=== PATIENT | male | born 1965 | race Native Hawaiian/Other Pacific Islander ===

== ENCOUNTER 2016-09-09 01:15 | Inpatient (IN) | payer MEDICAID, OTHER ==
[~2016-09-09] VITALS: Ht 185.4 cm; Wt 92.0 kg
[2016-09-09] VITALS (31 sets, daily range): BP systolic 98–150; BP diastolic 72–98; PULSE 47–168; RESP 12–22; TEMP 98.2–98.6; O2SAT 98–100
[~2016-09-09 01:15] MED LIST: COUM1TAB PO; SIMV20 PO
[2016-09-09] MEDS ORDERED: ASPIRIN 81 MG CHEW TAB PO STA (01:21)
[2016-09-09] MEDS ORDERED: HEPARIN SODIUM - IV 10,000 UNITS/10 ML VIAL IV STA (01:21)
[2016-09-09] MEDS ORDERED: NITROGLYCERIN 0.4 MG SL 25 TABS/BTL SL STA (01:21)
[2016-09-09] MEDS ORDERED: SODIUM CHLOR 0.9% 1000 ML INJ 1,000 ML IV ONE (01:21)
[2016-09-09] MEDS ORDERED: NITROGLYCERIN-DEXTROSE INJ 250 ML IV SCH (01:30)
[2016-09-09 01:42] LABS: AUTOMATED NEUTROPHIL # 3.9 TH/MM3 (1.8-7.7); BASOPHIL # 0.1 TH/MM3 (0-0.2); BASOPHIL % 1.3 % (0.0-2.0); EOSINOPHIL # 0.3 TH/MM3 (0-0.4); EOSINOPHIL % 2.8 % (0.0-4.0); HEMATOCRIT 44.9 % (39.0-51.0); HEMO FLAGS DIFF FINAL; LYMPH % 44.3 % (9.0-44.0); MEAN CELL VOLUME 85.8 FL (80.0-100.0); MEAN CORPUSCULAR HGB CONC 33.8 % (32.0-36.0); MONO % 9.2 % (0.0-8.0); NEUT % 42.4 % (16.0-70.0); PLATELET COUNT 246 TH/MM3 (150-450); RED BLOOD COUNT 5.24 MIL/MM3 (4.50-5.90); RED CELL DISTRIBUTION WIDTH 12.1 % (11.6-17.2); WHITE BLOOD COUNT 9.1 TH/MM3 (4.0-11.0)
--- NOTE | 2016-09-09 01:42 | PD ---
HPI Chief Complaint: chest pain Time Seen by Provider: 01:21 Travel History International Travel<30 days: No Contact w/Intl Traveler<30days: No Traveled to known affect area: No History of Present Illness HPI The patient is a 51-year-old male who states he does not have any previous history of coronary artery problems and does not have a authorization manager who complains of a heaviness/weight on his chest beginning at midnight tonight. The pain is perceived in the left anterior chest and is constant since midnight. He does have nausea shortness of breath but no diaphoresis. He does have radiation to his left neck and back. 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 PFSH Past Medical History Cancer: No Cerebrovascular Accident: No Deep Vein Thrombosis: Yes Endocrine: No Genitourinary: No Immune Disorder: No Musculoskeletal: No Neurologic: No Psychiatric: No Respiratory: No Myocardial Infarction: Yes Seizures: No Past Surgical History AICD: No Appendectomy: Yes Pacemaker: No Tonsillectomy: Yes Social History Alcohol Use: No Tobacco Use: Yes (a day) Substance Use: No Allergies-Medications (Allergen,Severity, Reaction): Coded Allergies: No Known Allergies (Verified , 03/15/10) Reported Meds & Prescriptions Reported Meds & Active Scripts Active Reported Zocor (Simvastatin) 20 Mg Tab 20 Mg PO HS Coumadin (Warfarin Sodium) 1 Mg Tab 1 Mg PO DAILY start on march 18, 2010,pt/inr on 03/19/10 and as needed results to dr. huggins Review of Systems Except as stated in HPI: all other systems reviewed are Neg Physical Exam Narrative GENERAL: The patient is alert, oriented 3 and moderate apparent distress with his chest discomfort. SKIN: Focused skin assessment warm/dry. HEAD: Atraumatic. Normocephalic. EYES: Pupils equal and round. No scleral icterus. No injection or drainage. ENT: No nasal bleeding or discharge. Mucous membranes pink and moist. NECK: Trachea midline. No JVD. CARDIOVASCULAR: Regular rate and rhythm. No murmur appreciated. RESPIRATORY: No accessory muscle use. Clear to auscultation. Breath sounds equal bilaterally. GASTROINTESTINAL: Abdomen soft, non-tender, nondistended. Hepatic and splenic margins not palpable. MUSCULOSKELETAL: No obvious deformities. No clubbing. No cyanosis. No edema. NEUROLOGICAL: Awake and alert. No obvious cranial nerve deficits. Motor grossly within normal limits. Normal speech. PSYCHIATRIC: Appropriate mood and affect; insight and judgment normal. Data Data Orders Troponin I (09/09/16:21) Ckmb (Isoenzyme) Profile (09/09/16:21) Complete Blood Count With Diff (09/09/16:21) Basic Metabolic Panel (Bmp) (09/09/16:21) Magnesium (Mg) (09/09/16:21) Calcium (09/09/16:21) Prothrombin Time / Inr (Pt) (09/09/16:21) Act Partial Throm Time (Ptt) (09/09/16:21) B-Type Natriuretic Peptide (09/09/16:21) Chest, Single Ap (09/09/16:) Electrocardiogram (09/09/16:21) Oxygen Administration (09/09/16:21) Iv Access Insert/Monitor (09/09/16:) Oximetry (09/09/16:) Sodium Chlor 0.9% 1000 Ml Inj (Ns 1000 M (09/09/16:21) Sodium Chloride 0.9% Flush (Ns Flush) (09/09/16:30) Aspirin Chew (Aspirin Chew) (09/09/16:21) Nitroglycerin Sl (Nitrostat Sl) (09/09/16:21) Nitroglycerin-Dextrose Inj (Nitroglyceri (09/09/16:30) Heparin Inj (Heparin Inj) (09/09/16:21) Admit Order (Ed Use Only) (09/09/16 01:43) CKMB (09/09/16:30) CKMB% (09/09/16 01:30) Labs Laboratory Tests Test 09/09/16:30 White Blood Count 9.1 TH/MM3 Red Blood Count 5.24 MIL/MM3 Hemoglobin 15.2 GM/DL Hematocrit 44.9 % Mean Corpuscular Volume 85.8 FL Mean Corpuscular Hemoglobin 29.0 PG Mean Corpuscular Hemoglobin 33.8 % Concent Red Cell Distribution Width 12.1 % Platelet Count 246 TH/MM3 Mean Platelet Volume 7.5 FL Neutrophils (%) (Auto) 42.4 % Lymphocytes (%) (Auto) 44.3 % Monocytes (%) (Auto) 9.2 % Eosinophils (%) (Auto) 2.8 % Basophils (%) (Auto) 1.3 % Neutrophils # (Auto) 3.9 TH/MM3 Lymphocytes # (Auto) 4.0 TH/MM3 Monocytes # (Auto) 0.8 TH/MM3 Eosinophils # (Auto) 0.3 TH/MM3 Basophils # (Auto) 0.1 TH/MM3 CBC Comment DIFF FINAL Differential Comment Prothrombin Time 19.5 SEC Prothromb Time International 1.7 RATIO Ratio Activated Partial 35.2 SEC Thromboplast Time Sodium Level 142 MEQ/L Potassium Level 3.5 MEQ/L Chloride Level 105 MEQ/L Carbon Dioxide Level 29.2 MEQ/L Anion Gap 8 MEQ/L Blood Urea Nitrogen 20 MG/DL Creatinine 1.30 MG/DL Estimat Glomerular Filtration 58 ML/MIN Rate Random Glucose 127 MG/DL Calcium Level 9.0 MG/DL Magnesium Level 2.3 MG/DL Total Creatine Kinase 160 U/L Troponin I LESS THAN 0.02 NG/ML MDM Medical Decision Making Medical Screen Exam Complete: Yes Emergency Medical Condition: Yes Medical Record Reviewed: Yes Interpretation(s) The EKG shows ST elevation in the anteroseptal V leads with reciprocal depression Differential Diagnosis STEMIanteroseptal myocardial infarction, chest wall pain, ventricular aneurysm unlikely Narrative Course We called a STEMI alert as soon as I saw the EKG. I did discuss the patient with Dr. Canada. The patient went into V. tach with a pulse and then went into ventricular fibrillation. Epinephrine was given and he was shocked and shortly went into atrial fibrillation rhythm with a rate of 70 with a good pulse. His blood pressure was normal and his bradycardia which started in the mid 40s when into an atrial fibrillation rate of mid 70s. Amiodarone 150 mg was given IV over 10 minutes. The patient went into V. tach without a pulse and he was shocked again and quickly converted to a rhythmatrial fibrillation with a good pulse and the mid 80s. After the first and second episodes of ventricular tachycardia/fibrillation the patient was able to converse with us and answer questions. He moves all 4 extremities normally. Critical Care Narrative Aggregate critical care time was 40 minutes. Time to perform other separately billable procedures was not included in the critical care time. My time did not include minutes spent treating any other patients simultaneously or on activities that did not directly contribute to the patient's treatment. The services I provided to this patient were to treat and/or prevent clinically significant deterioration that could result in: I provided critical care services requiring my management, as noted below: Chart data review, documentation time, medication orders and management, vital sign assessments/reviewing monitor data, ordering and reviewing lab tests, ordering and interpreting/reviewing x-rays and diagnostic studies, care of the patient and discussion of the patient with the admitting physicians. Diagnosis Primary Impression: STEMI (ST elevation myocardial infarction) Additional Impression: VF (ventricular fibrillation) Disposition: 70 TRANSFER TO OTHER FACILITY Condition: Stable Raoul Cleary MD September 09, 2016 01:42
[2016-09-09 01:49] LABS: CHLORIDE 105 MEQ/L (98-107); POTASSIUM 3.5 MEQ/L (3.5-5.1); SODIUM (NA) 142 MEQ/L (136-145)
[2016-09-09 01:53] LABS: ANION GAP 8 MEQ/L (5-15); BICARBONATE 29.2 MEQ/L (21.0-32.0); BLOOD UREA NITROGEN 20 MG/DL (7-18); MAGNESIUM 2.3 MG/DL (1.5-2.5)
[2016-09-09 01:55] LABS: APTT (PATIENT) 35.2 SEC (24.3-30.1); INTERNATIONAL NORMALIZED RATIO 1.7 RATIO; PROTHROMBIN TIME - PATIENT 19.5 SEC (9.8-11.6)
[2016-09-09 01:56] LABS: GLOMERULAR FILTRATION RATE 58 ML/MIN (>89)
[2016-09-09 01:59] LABS: CREATINE KINASE 160 U/L (39-308)
[2016-09-09] MEDS ORDERED: AMIODARONE INJ 450 MG in D5W (EXCEL BAG) 241 ML IV SCH (02:00)
[2016-09-09] MEDS ORDERED: AMIODARONE 150 MG/D5W 97 ML BOLUS 10 MINUTES IV ONE ×2 (02:00)
--- NOTE | 2016-09-09 02:01 | RADHPO ---
EXAM DATE/TIME: 09/09/2016 01:49 [facility] COMPARISON: No previous studies available for comparison. INDICATIONS : Stemi Alert/ full code MEDICAL HISTORY : Stroke. SURGICAL HISTORY : Unknown ENCOUNTER: Initial ACUITY: 1 day PAIN SCORE: Non-responsive. LOCATION: Bilateral chest FINDINGS: A single view of the chest demonstrates the lungs to be symmetrically aerated without evidence of mas s, infiltrate or effusion. The cardiomediastinal contours are unremarkable. Osseous structures are intact. CONCLUSION: No acute disease. Dusty March MD on September 09, 2016 at 1:58 Board Certified Radiologist. This report was verified electronically.
[2016-09-09] MEDS ORDERED: ONDANSETRON HCL 4 MG/2 ML VIAL ONE (02:03)
[2016-09-09 02:11] LABS: CKMB 0.7 NG/ML (0.5-3.6)
[2016-09-09] MEDS ORDERED: ONDANSETRON HCL 4 MG/2 ML VIAL IV ONE (02:15)
[2016-09-09] MEDS ORDERED: HEPARIN-NS/PF INJ 500 ML ONE (02:36)
[2016-09-09] MEDS ORDERED: HEPARIN SODIUM - IV 10,000 UNITS/10 ML VIAL ONE (02:37)
[2016-09-09] MEDS ORDERED: NITROGLYCERIN-DEXTROSE INJ 250 ML ONE (02:53)
[2016-09-09] MEDS ORDERED: TIROFIBAN INFUSION INJ 250 ML IV ONE (02:56)
[2016-09-09] MEDS ORDERED: MIDAZOLAM HCL 2 MG/2 ML VIAL ONE (03:04)
[2016-09-09] MEDS ORDERED: MIDAZOLAM HCL 2 MG/2 ML VIAL IV ONE ×2 (03:05→03:22)
[2016-09-09] MEDS ORDERED: HEPARIN SODIUM - IV 10,000 UNITS/10 ML VIAL IV ONE (03:14)
[2016-09-09] MEDS ORDERED: CLOPIDOGREL 300 MG TAB ONE (03:31)
[2016-09-09] MEDS ORDERED: CLOPIDOGREL 300 MG TAB PO ONE (03:36)
[2016-09-09] MEDS: SODIUM CHLOR 0.9% 1000 ML INJ 1,000 ML IV SCH ×2 (03:42→14:12)
[2016-09-09] MEDS ORDERED: TEMAZEPAM 15 MG CAP PO PRN (03:45)
[2016-09-09] MEDS ORDERED: MISC INFORMATION XX ONE (03:45)
[2016-09-09] MEDS ORDERED: LORazepam 2 MG/ML VIAL IV PUSH PRN (04:00)
--- NOTE | 2016-09-09 04:09 | CATHPROC ---
[employer] HIS Report Study Information Study Number Scheduled Start Study Start [id number] 09/09/2016 Sep 09 2016 2:41AM Referring Institution Admit Source Facility Department 1 Transfer in from another acute care facility [facility] - Senior Web Services Developer Physician and Clinical Staff Initial Bishop Kaufman Aircraft Loadmaster Superintendentdanny Whitmore RN, Sergio Aircraft Loadmaster SuperintendentRuby Ly RN/BA Recorder Debra Echols,RT(R) (BS) Scrub Roxy BraunRT(R) Procedures Performed Procedure Location (Site) Vessel Name Coronary Angiograms LCA Left Coronary Coronary Angiograms RCA Right Coronary Drug Eluting Inflatio LAD Mid Left Coronary Drug Eluting Inflatio LAD Prox Left Coronary IABP Fem Art (right) Femoral Art L Heart Cath PTCA LAD Mid Left Coronary Wire insertion Fem Art (right) Femoral Art Equipment Time Tmd Teacher Description Size Mfg Part Number Used/Scraped [id number] 02:57 [employer] WIRE, ASAHI PROWATER 180CM 180CM Used *[id number] TRANSDUCER, TRUWAVE 02:50 ANGEL VILLA * [id number] Used W/STOCKCOCK [id number] *[id number] *[id number] *[id number] BALLOON, FR7.5 40CC [id number] 03:26 MAQUET FR 7.5 40CC Used SENSATION PLUS 01U [id number] 02:50 MEDLINE INDUSTRIES PACK, CCL CUSTOM * Used *[id number] 02:50 LettuceThinner PACER PEN, SKIN DUAL W/ RULER * [id number] Used [id number] 03:03 MEDTRONIC BALLOON, 3.0 X 15MM EUPHORA 15MM Used *[id number] EXPORTAP 03:14 MEDTRONIC CATHETER, EXPORT ASPIRATON Used *[id number] STENT, 3.0 18 RESOLUTE [id number] 03:06 MEDTRONIC 3.0 18 Used INTEGRITY RX *[id number] STENT, 3.5 15 RESOLUTE [id number] 03:10 MEDTRONIC 3.5 15 Used INTEGRITY RX *[id number] 03:03 [employer]k MEDICAL 30 CAROL INDEFLATOR Used *[id number] 02:50 [employer] MEDICAL SHEATH, FR6.5 PRELUDE 11CM FR 6.5 038ACT Used *[id number] 02:50 [employer] MEDICAL WIRE, 3MMJ .035 180CM 180CM Used *[id number] 02:50 NAMIC MANIFOLD, 4 PORT * Used *[id number] 02:50 [employer]COMED OMNIPAQUE, 350 MG, 150ML 150ML [id number] Used [id number] 02:50 LIM MEDICAL BLANKET,WARM AIR CCL * Used *[id number] Equipment Model, Serial, Lot Number and Expiration Data Description Model Number Serial Number Lot Number Expiration Date CATHETER, EXPORT ASPIRATON [id number] 04-24-2018 STENT, 3.0 18 RESOLUTE [id number] 06-13-2018 INTEGRITY RX STENT, 3.5 15 RESOLUTE [id number] 02-05-2018 INTEGRITY RX History: Current Medications Medication Dosage/Unit Route Frequency Last Date/Time Taken Statins (any) Coumadin ASA HEPARIN History: Allergies Allergy Reaction Azithromycin Unknown History: Risk Factors Family History of Hypertension Dyslipidemia Previous [place] Previous Heart Failure Premature CAD Yes No No Yes No Prior Valve Prior PCI Prior CABG Surgery No No No Cerebrovascular Peripheral Artery Chronic Lung On Dialysis Diabetes Disease Disease Disease No Yes No No No History: Symptoms/Diagnosis Selection Items Chest pain History: Stress Tests Stress or Imaging Studies Performed No History: Other Current Smoker Method Yes Cigarettes Labs Hgb (g/dl) Hct (%) WBC (l/cumm) Platelets (thousands) 12.00-18.00 37.00-55.00 4.80-10.80 140.00-450.00 15.2 44.9 9.1 246 Glucose (mg/dl) BUN (mg/dl) Creatinine (mg/dl) BUN:Creatinine (1:x) 60.00-110.00 8.00-20.00 0.10-9.00 10.00-20.00 124 20 1.3 15.4 Na (meq/l) K (meq/l) 138.00-146.00 3.80-5.10 142 3.5 INR (PTT:PT) 0.50-2.00 1.7 Medication Medication Total Dose (Bolus/Oral) Medication Total Dosage/Unit 1% XYLOCAINE 20 mL AGGRASTAT BOLUS 46 mL FENTANYL 100 mcg HEPARIN 2000 units PLAVIX 600 mg VERSED 3 mg Medications (Bolus/Oral) Medication Time Given Dosage/Unit Administered By Reason 1% XYLOCAINE 09/09/2016 2:52:12 AM 20 mL Dread, Bishop 20 mL 1% XYLOCAINE given in lab by Bishop Canada in Right Groin via Subcutaneous. AGGRASTAT BOLUS 09/09/2016 3:00:03 AM 46 mL Sergio Whitmore RN 46 mL AGGRASTAT BOLUS given in lab by Sergio Whitmore RN in Left Antecubital via Peripheral IV. VERSED 09/09/2016 3:05:10 AM 1 mg Ruby Sigala 1 mg VERSED given in lab by Ruby Sigala RN/JESSICA in Left Antecubital via Peripheral IV. FENTANYL 09/09/2016 3:07:02 AM 50 mcg Ruby Sigala 50 mcg FENTANYL given in lab by Ruby Sigala RN/JESSICA in Left Antecubital via Peripheral IV. HEPARIN 09/09/2016 3:14:47 AM 2000 units Ruby Sigala 2000 units HEPARIN given in lab by Ruby Sigala RN/JESSICA in Left Antecubital via Peripheral IV. VERSED 09/09/2016 3:22:54 AM 2 mg Ruby Sigala 2 mg VERSED given in lab by Ruby Sigala RN/JESSICA in Left Antecubital via Peripheral IV. FENTANYL 09/09/2016 3:31:30 AM 50 mcg Ruby Sigala 50 mcg FENTANYL given in lab by Ruby Sigala RN/JESSICA in Left Antecubital via Peripheral IV. PLAVIX 09/09/2016 3:36:15 AM 600 mg Ruby Sigala 600 mg PLAVIX given in lab by Ruby Sigala RN/JESSICA via Oral. Medication (Drip) Medication Time Given Dosage/Unit Concentration/Unit Diluent (ml) Solution AGGRASTAT DRIP 09/09/2016 3:03:22 AM 0.081 mcg/kg/min 12.5 mg 250 NaCl .9 0.081 mcg/kg/min AGGRASTAT DRIP given in lab by Sergio Whitmore RN in Left Antecubital via Peripheral IV . Pump/Drip Flow = 16.5 ml/hr using NaCl .9 with a concentration of 12.5 mg in 250 ml. IV Solutions 09/09/2016 2:42:27 AM 0 mL (IV) 1000 NaCl .9 Patient arrived on IV Solutions in Left Antecubital via Peripheral IV. Pump/Drip Flow = 20 ml/hr usin g NaCl .9. Initial Case Assessment Cardiovascular HR Rhythm NIBP Chest Pain 95 reg 110/61 10 Edema Present Skin color Skin None Normal Warm Dry Circulatory - Right Pulses Dorsalis Pedis Femoral 2 2 Scale (0,1,2,3,4,d) Circulatory - Left Pulses Dorsalis Pedis Femoral 2 2 Scale (0,1,2,3,4,d) Circulatory - Lower Extremities Color Lower Right Color Lower Left Normal Normal Neurological State Oriented to time-place- Alert Moves all extremities person Respiration - General Respiration Rate SpO2 (%) O2 (lpm) (B/min) 16 99 2 Chronological Log Time Study Chronological Log 2:23:17 Patient arrived via Bed. Vitals capture started with the following parameters, Patient=Adult, Interval=5 min, Initial Pr dixxle=693 mmHg, 2:40:56 Deflation Rate=5 mmHg 2:42:14 Patient Name, D.O.B, / Armband Verified By R.N. 2:42:15 Consent signed by the physician and the patient and verified by the Senior Web Services Developer staff. 2:42:15 Pre-op and post- op instructions given; patient acknowledges understanding of instructions. 2:42:16 Verbal Stimulation=2 Physical Stimulation=2 Airway=2 Respiration=2 TOTAL=8. (0=absent, 1=li mited, 2=present) 2:42:17 Presedation assessment performed by Senior Web Services Developer RN. 2:42:20 Immediate Presedation assesment performed by physician. 2:42:22 Skin Breakdown none per pt 2:42:25 Disposable Defibrillator Pads Placed On Patient. 2:42:26 Brenda Prominences Protected 2:42:26 A # 20 IV was noted in the Antecubital (left). Grade = 0 2:42:27 Patient arrived on IV Solutions in Left Antecubital via Peripheral IV. Pump/Drip Flow = 20 ml/hr using NaCl .9. 2:42:28 History and physical on the chart or being dictated. Assessment: Initial Case, HR=95 BPM, Rhythm=reg, QCYL=458/61 mmhg, Chest Pain=10, Edema=None, Color=Normal, Skin = Warm, Dry Right Pulses: Terry Ped=2, Femoral=2 Left Pulses: Terry Ped=2, Femoral=2 2:42:36 Lower Right Extremities: Color=Normal Lower Left Extremities: Color=Normal Neurological: State=Alert, Ox3, CRANE Respiration: Resp=16 B/min, SpO2=99 %, O2=2 lpm 2:44:57 HR=93 bpm, GQSM=850/61 mmhg, SpO2=97.0 %, Resp=13 B/min, Pain=10, Arturo=10, Mir=2 2:49:15 Reference ECG taken 2:49:56 HR=93 bpm, PMOS=173/64 mmhg, SpO2=99.0 %, Resp=15 B/min, Pain=10, Arturo=10, Mir=2 2:50:29 Pressure channel 1 zero failed. 2:50:50 Pressure channel 1 zero failed. 2:51:14 Pressure channel 1 zeroed. Time Out. Correct patient, correct procedure,correct physician, power injector not loaded with c ontrast with surgical 2:51:57 team present. Time Out Concurred by MD, individual staff in procedure 2:52:10 Case Start 2:52:12 20 mL 1% XYLOCAINE given in lab by Bishop Canada in Right Groin via Subcutaneous. 2:52:20 Access site was Right Femoral Artery. 2:52:26 A SHEATH, FR6.5 PRELUDE 11CM FR 6.5 was advanced into the Fem Art (right) using the Percutan eous technique. 2:53:38 Activated Clotting Time Drawn A JL 4.0 INFINITI CATHETER FR 6 was advanced over a wire. OMNIPAQUE, 350 MG, 150ML 150ML was use d for 2:54:19 injections. 2:54:57 HR=93 bpm, OZDV=068/62 mmhg, SpO2=99.0 %, Resp=15 B/min, Pain=10, Arturo=10, Mir=2 2:55:24 The LCA was injected and visualized at various angles. OMNIPAQUE, 350 MG, 150ML 150ML used. 2:55:57 Catheter was removed A 3DRC INFINITI CATHETER FR 6 was advanced over a wire. OMNIPAQUE, 350 MG, 150ML 150ML was used for 2:56:10 injections. 2:57:53 The RCA was injected and visualized at various angles. OMNIPAQUE, 350 MG, 150ML 150ML used. 2:58:03 Catheter was removed 2:58:42 ACT (Normal Range 90-180) = 252 Recorded Pressure: Ao, HR=99, Condition=Condition 1 2:59:23 (Aorta) Ao 93/58/74 2:59:35 A WIRE, ASAHI PROWATER 180CM 180CM was inserted via Fem Art (right). 3:00:00 HR=97 bpm, IIHL=940/59 mmhg, SpO2=99.0 %, Resp=15 B/min, Pain=10, Arturo=10, Mir=2 3:00:03 46 mL AGGRASTAT BOLUS given in lab by Sergio Whitmore RN in Left Antecubital via Peripheral IV. 3:00:41 Interventional wire has crossed the lesion A BALLOON, 3.0 X 15MM EUPHORA 15MM was inserted over WIRE, ASAHI PROWATER 180CM 180CM via the Fe m Art 3:02:15 (right). A BALLOON, 3.0 X 15MM EUPHORA 15MM over a WIRE, ASAHI PROWATER 180CM 180CM in the LAD Mid was in flated 3:02:51 using a 30 CAROL INDEFLATOR at 2 carol for 12 sec. A BALLOON, 3.0 X 15MM EUPHORA 15MM over a WIRE, ASAHI PROWATER 180CM 180CM in the LAD Mid was in flated 3:03:18 using a 30 CAROL INDEFLATOR at 13 carol for 20 sec. 0.081 mcg/kg/min AGGRASTAT DRIP given in lab by Sergio Whitmore RN in Left Antecubital via Peripher al IV. Pump/Drip 3:03:22 Flow = 16.5 ml/hr using NaCl .9 with a concentration of 12.5 mg in 250 ml. A BALLOON, 3.0 X 15MM EUPHORA 15MM over a WIRE, ASAHI PROWATER 180CM 180CM in the LAD Mid was in flated 3:04:07 using a 30 CAROL INDEFLATOR at 13 carol for 15 sec. A BALLOON, 3.0 X 15MM EUPHORA 15MM over a WIRE, ASAHI PROWATER 180CM 180CM in the LAD Mid was in flated 3:04:36 using a 30 CAROL INDEFLATOR at 13 carol for 18 sec. 3:04:59 HR=98 bpm, HUXD=961/63 mmhg, YdY7=782.0 %, Resp=17 B/min, Pain=10, Arturo=10, Mir=2 3:05:10 1 mg VERSED given in lab by Ruby Sigala RN/JESSICA in Left Antecubital via Peripheral IV. 3:05:21 Balloon Removed A STENT, 3.0 18 RESOLUTE INTEGRITY RX 3.0 18 was advanced through a XB 3.5 GUIDE CATHETER FR 6 o jamshid a 3:06:30 WIRE, ASAVestmark PROWATER 180CM 180CM. 3:07:02 50 mcg FENTANYL given in lab by Ruby Sigala RN/BA in Left Antecubital via Peripheral IV. A STENT, 3.0 18 RESOLUTE INTEGRITY RX 3.0 18 was deployed using a 30 CAROL INDEFLATOR at 12 atmosp heres for 3:07:27 30 seconds in the LAD Mid. 3:08:21 Delivery device removed A STENT, 3.5 15 RESOLUTE INTEGRITY RX 3.5 15 was advanced through a XB 3.5 GUIDE CATHETER FR 6 o jamshid a 3:09:19 WIRE, ASAVestmark PROWATER 180CM 180CM. 3:09:58 HR=95 bpm, TBGG=636/63 mmhg, LcS1=673.0 %, Resp=12 B/min, Pain=10, Arturo=10, Mir=2 A STENT, 3.5 15 RESOLUTE INTEGRITY RX 3.5 15 was deployed using a 30 CAROL INDEFLATOR at 14 atmosp heres for 3:09:58 30 seconds in the LAD Prox. 3:10:51 Delivery device removed 3:11:53 Wire removed 3:12:36 A WIRE, ASAVestmark PROWATER 180CM 180CM was inserted via Fem Art (right). 3:14:47 2000 units HEPARIN given in lab by Ruby Sigala RN/BA in Left Antecubital via Peripheral IV. 3:14:59 HR=94 bpm, ZLGY=910/68 mmhg, GhH9=685.0 %, Resp=12 B/min, Pain=10, Arturo=10, Mir=2 3:15:06 Aspiration catheter inserted 3:16:09 Aspiration in progress 3:17:07 Catheter was removed 3:18:05 Aspiration catheter inserted 3:19:30 Aspiration in progress 3:19:58 HR=97 bpm, GQPU=082/68 mmhg, SpO2=99.0 %, Resp=12 B/min, Pain=10, Arturo=10, Mir=2 3:20:00 Catheter was removed 3:20:39 Wire removed 3:21:19 Catheter was removed 3:21:44 Activated Clotting Time Drawn 3:21:59 Sheath exchanged for intra-aortic balloon insertion. 3:22:54 2 mg VERSED given in lab by Ruby Sigala RN/BA in Left Antecubital via Peripheral IV. 3:25:01 HR=97 bpm, XXJD=134/66 mmhg, SpO2=96.0 %, Resp=12 B/min, Pain=10, Arturo=10, Mir=2 3:26:57 ACT (Normal Range 90-180) = 288 An BALLOON, FR7.5 40CC SENSATION PLUS FR 7.5 40CC was advanced to the descending aorta. Proper p lacement 3:28:33 was confired under fluoroscopy and the balloon was sutured in place. Ratio = ~RATIO~. Augmented BP ~SYS~/~LEYDA~ 3:29:53 Case End 3:29:58 HR=96 bpm, LTYG=775/57 mmhg, SpO2=94.0 %, Resp=31 B/min, Pain=10, Arturo=10, Mir=2 3:30:15 Catheter(s) removed without difficulty 3:30:31 No case complications noted. 3:30:33 Cine recording checked. 3:30:36 Bedside Report will be given. 3:30:42 Implantable Device card placed in patient's chart. 3:30:49 Contrast Scanned 3:30:51 A Left Heart Cath was performed. 3:31:30 50 mcg FENTANYL given in lab by Ruby Sigala RN/BA in Left Antecubital via Peripheral IV. 3:34:29 In the Fem Art (right) the baloon pump was sutured in place by Roxy Braun RT(R). 3:34:55 HR=94 bpm, PJJS=035/79 mmhg, SpO2=96.0 %, Resp=16 B/min, Pain=10, Arturo=10, Mir=2 3:36:15 600 mg PLAVIX given in lab by Ruby Sigala RN/BA via Oral. 3:39:56 HR=96 bpm, NIBP=99/85 mmhg, SpO2=96.0 %, Resp=13 B/min, Pain=10, Arturo=10, Mir=2 3:40:45 Vitals capture stopped. 3:48:48 Patient moved to stretcher End Study - Contrast Media Used In Study Contrast Total Opened (mL) Total Used (mL) Total Wasted (mL) Omnipaque 150 150 0 End Study - Maximum Contrast Load Max Contrast Load (mL) 653.8 End Study - Radiation Exposure Fluoro Time (minutes) 8.9 End Study - Patient Disposition Complications Transferred To Interventional Outcome No Critical Care Bed successful
[2016-09-09] MEDS ORDERED: TIROFIBAN INFUSION 12.5 MG/NS 250 ML IV SCH (04:45)
[2016-09-09] MEDS ORDERED: ARGATROBAN INJ 250 MG in SODIUM CHLOR 0.9% 250 ML INJ 250 ML IV SCH ×2 (05:45→16:15)
--- NOTE | 2016-09-09 06:08 | MB ---
cc: NAVID MELISSA M.D. DATE OF CONSULTATION 09/09/[address] elevation myocardial infarction. HISTORY OF PRESENT ILLNESS The patient is a 51-year-old male of [place] descent with a history of the right lower extremity deep venous thrombosis 2001, history of hyperlipidemia, CVA, noncompliance with followup who presented to the emergency department in [place] this morning with complaints of substernal and left-sided chest discomfort. EKG showed evidence for acute anterior ST elevation myocardial infarction so he was called as a STEMI alert. The patient states the chest discomfort began about 2 hours ago and has been associated with shortness of breath and slight nausea. He denies dizziness, syncope, near-syncope, palpitations, pedal edema, paroxysmal nocturnal dyspnea. He has had a few similar episodes of chest pain in the past few months though of much less intensity and duration, which he attributed to muscle pain. Prior to transfer to the main hospital from [place], he did sustain two ventricular fibrillation arrests necessitating shock therapy. PAST MEDICAL HISTORY 1. Right lower extremity deep venous thrombosis 2001, apparently with some diagnosis of a clotting disorder, chronically on Coumadin. 2. Hyperlipidemia. 3. Strokes 2001 and 2009. MEDICATIONS His cardiac medications: 1. Simvastatin. 2. Coumadin. PAST SURGICAL HISTORY 1. Tonsillectomy. 2. Appendectomy. ALLERGIES ERYTHROMYCIN FAMILY HISTORY Noncontributory. SOCIAL HISTORY The patient quit smoking 3 days ago. There is no history of alcohol abuse. REVIEW OF SYSTEMS As in the history of present illness otherwise negative or noncontributory. He also denies headache, abdominal pain, melena, dyspepsia, bright red blood per rectum. PHYSICAL EXAMINATION VITAL SIGNS: His blood pressure 118/59 with a pulse of 65, respiratory rate 15. GENERAL: He is a well-developed, well-nourished white male in no acute distress. HEENT/NECK: On HEENT examination jugular venous pressure is normal. Carotid pulses are 2+ bilaterally and without bruits. LUNGS: Examination of the chest reveals clear lung khan. CARDIOVASCULAR: On cardiac examination he has a regular rhythm and rate without S3-S4 or murmur. ABDOMEN: He has a soft, nontender abdomen. Bowel sounds are present. There is no definite hepatosplenomegaly. EXTREMITIES: Examination of the extremities reveals no clubbing, cyanosis or edema. Peripheral pulses are normal throughout. EKG shows sinus rhythm, anterior ST elevation with reciprocal changes consistent with acute injury pattern. LABORATORY DATA Includes normal CBC. INR 1.7. Potassium 3.5, BUN 20, creatinine 1.3. CK 160. Troponin less than 0.02. IMAGING Chest x-ray shows no acute disease. IMPRESSION Acute anterior ST elevation myocardial infarction, ventricular fibrillation in this 51-year-old [place] male with a history of deep venous thrombosis, possibly some clotting disorder, hyperlipidemia, 2 CVA's. At this time he is having ongoing sever chest discomforts with continued ST-segment elevation. Therefore he has been recommended emergency cardiac catheterization with possible percutaneous coronary intervention the risks of which have been explained to him including but not limited to , myocardial infarction, stroke, arrhythmia, bleeding, infection, renal failure. He agrees to proceed. RECOMMENDATIONS 1. Emergency cardiac catheterization. 2. Eventually start beta humberto and IOANA inhibitor therapy as blood pressures allow. 3. Continue statin therapy and check a fasting lipid profile. Navid Melissa MD [facility]/KK /2:09 AM /5:54 AM MTDWalt
--- NOTE | 2016-09-09 06:20 | MA ---
cc: NAVID MELISSA M.D. DATE: 09/09/2016 PROCEDURE Emergency left heart catheterization, selective coronary angiography, angioplasty and stent of the proximal and mid LAD, thrombectomy of the left circumflex, placement of an intra-aortic balloon pump. PROCEDURE NOTE The patient was brought emergently to the cardiac catheterization laboratory in a fasting state after having signed informed consent in the midst of an acute anterior ST elevation myocardial infarction. The right groin was prepped and draped as per policy and anesthetized with 1% lidocaine. Arterial access was obtained via the right femoral artery and a 6-Martiniquais sheath placed. Coronary arteriography was performed using 6-Martiniquais Adnreia left 4.0 and right progressive catheters. Left ventriculography was not done, although the aortic valve was crossed briefly with the progressive right catheter. Percutaneous coronary intervention was done as described below. HEMODYNAMIC RESULTS Left ventricle 90 with an end-diastolic pressure 20. Aorta 93/58 with a mean of 74. There was no significant transvalvular aortic gradient on pullback of the pigtail catheter. CORONARY ARTERIOGRAPHY The left main is normal. The left anterior descending has a 85% tubular stenosis proximally. In its midportion the LAD is totally occluded just after the takeoff of a tiny diagonal. There is a small to medium size first septal mechanics handyman which is free of disease. There is severe disease at the ostium of a tiny second septal mechanics handyman. The left circumflex is a relatively small vessel with 15% stenosis proximally. The right coronary artery is a very large dominant vessel which is diffusely diseased. There is up to 15% stenosis proximally, 10% stenosis in its mid and distal portions. The posterior descending artery is fairly large and has minimal luminal irregularities. PERCUTANEOUS CORONARY INTERVENTION DESCRIPTION Aggrastat was given as per protocol. Adequate heparin was given during the procedure to achieve an ACT greater than 250 seconds. Using a 6-Martiniquais XB 3.5 guiding catheter the ostium of the left main was re-engaged. Using a 0.014 [place] guidewire the total occlusion in the mid-LAD was crossed without difficulty and the tip of the wire positioned distally. This did restore AMY grade 1 flow in the vessel. Predilation was done using a 3.0-mm E[place] balloon catheter in both the proximal and mid LAD. Stenting of the mid-LAD was done using a 3.0 x 18-mm Resolute stent which was deployed at approximately 12-13 atmospheres for 30 seconds. Stenting of the proximal lesion was done using a 3.5 x 15-mm Resolute stent which was deployed at 14 atmospheres for 30 seconds. Angiography at this point shows reduction of the total occlusion to roughly 0% residual with no definite evidence for dissection. There is reduction of the more proximal lesion to 10% residual. At this point however there is now no flow in the left circumflex. The guidewire was retracted and then placed in the left circumflex without difficulty. Two passes were made using an [place] thrombectomy catheter. This did restore flow in the left circumflex, although flow in both the LAD and left circumflex was slightly sluggish. Therefore, it was decided to place an intra-aortic balloon pump. The guiding catheter was removed. The sheath was exchanged for a balloon pump sheath. Through this sheath a balloon pump was introduced and its tip positioned at the aortic knob region where good diastolic augmentation was demonstrated. The patient tolerated the procedure fairly well. There were no apparent immediate complications. CONCLUSIONS 1. Acute ST-elevation myocardial infarction due to a totally occluded mid LAD, now status post angioplasty and stent of both the proximal and mid LAD. 2. Acute thrombotic closure of the left circumflex after stenting of the LAD, treated with thrombectomy. 3. Overall minimal disease of a very large right coronary artery. 4. Status post placement of an intra-aortic balloon pump. MD YFN Rosenberg/HORACE /3:36 AM /6:08 AM MATT
[2016-09-09] MEDS ORDERED: ASPIRIN 325 MG TAB PO SCH (09:00)
[2016-09-09] MEDS: SODIUM CHLORIDE 0.9% FLUSH 5 ML FLUSH IVF SCH ×2 (09:00→21:00)
[2016-09-09] MEDS ORDERED: POTASSIUM PHOSPHATE MONOBASIC 500 MG TAB PO PRN (09:30)
[2016-09-09] MEDS ORDERED: MAGNESIUM SULFATE INJ 4 GM in SODIUM CHLORIDE 0.9% INJ 92 ML IV PRN (09:30)
[2016-09-09] MEDS ORDERED: MAGNESIUM SULFATE INJ 2 GM in SODIUM CHLORIDE 0.9% INJ 96 ML IV PRN (09:30)
[2016-09-09] MEDS ORDERED: POTASSIUM PHOSPHATE MONOBASIC 500 MG TAB PO/TUBE PRN (09:30)
[2016-09-09] MEDS ORDERED: MAGNESIUM OXIDE 400 MG TAB PO PRN (09:30)
[2016-09-09] MEDS ORDERED: POTASSIUM CHLOR 20 MEQ PREMIX 100 ML IV PRN ×2 (09:30)
[2016-09-09] MEDS ORDERED: POTASSIUM CHLORIDE 25 MEQ EFFERVESCENT TAB PO PRN (09:30)
[2016-09-09] MEDS ORDERED: POTASSIUM CHLOR 40 MEQ PREMIX 100 ML IV PRN ×2 (09:30)
[2016-09-09] MEDS ORDERED: SODIUM PHOSPHATE INJ 30 MMOL in SODIUM CHLOR 0.9% 250 ML INJ 240 ML IV PRN (09:30)
[2016-09-09] MEDS: ASPIRIN 81 MG CHEW TAB PO SCH (09:38)
[2016-09-09] MEDS: MORPHINE SULFATE 4 MG/ML INJ IV PUSH PRN (09:39)
[2016-09-09] MEDS ORDERED: IOHEXOL 350 MG/ML 100 ML BTL (for Cath Lab) OTHER ONE (09:40)
[2016-09-09] MEDS ORDERED: IOHEXOL 350 MG/ML 50 ML BTL (for Cath Lab) OTHER ONE (09:40)
[2016-09-09] MEDS: SODIUM CHLORIDE 0.9% FLUSH 10 ML FLUSH IVF PRN ×3 (09:41→21:40)
[2016-09-09] MEDS: CLOPIDOGREL 75 MG TAB PO SCH (10:37)
--- NOTE | 2016-09-09 11:10 | PD.CONS ---
[facility] By Dr. [place] Reason for Consult Medical management Primary Care Physician Unknown Diagnoses: History of Present Illness This is a 51-year-old male with past medical history of history of the right lower extremity deep venous thrombosis 2001, history of hyperlipidemia, CVA who presented to [place] complaining of chest pain. Patient was found to EKG findings suggesting acute anterior ST elevation myocardial infarction so he was called as a STEMI alert. The patient states the chest patient was transferred to the access hospital [place] and [place] in which he did sustain 2 ventricular fibrillation arrests which require shock therapy and CPR. Patient seen today at the bedside after cardiac catheterization with his nurse complaining of pain to his chest. He denies any shortness of breathing. Patient has no other complaints. Review of Systems Constitutional: DENIES: Diaphoretic episodes, Fatigue, Fever, Weight gain, Weight loss, Chills, Dizziness, Change in appetite, Night Sweats Endocrine: DENIES: Heat/cold intolerance, Polydipsia, Polyuria, Polyphagia Eyes: DENIES: Blurred vision, Diplopia, Eye inflammation, Eye pain, Vision loss , Photosensitivity, Double Vision Ears, nose, mouth, throat: DENIES: Tinnitus, Hearing loss, Vertigo, Nasal discharge, Oral lesions, Throat pain, Hoarseness, Ear Pain, Running Nose, Epistaxis, Sinus Pain, Toothache, Odynophagia Respiratory: DENIES: Apneas, Cough, Snoring, Wheezing, Hemoptysis, Sputum production, Shortness of breath Cardiovascular: COMPLAINS OF: Chest pain, DENIES: Palpitations, Syncope, Dyspnea on Exertion, PND, Lower Extremity Edema, Orthopnea, Claudication Gastrointestinal: DENIES: Abdominal pain, Black stools, Bloody stools, Constipation, Diarrhea, Nausea, Vomiting, Difficulty Swallowing, Anorexia Genitourinary: DENIES: Sexual dysfunction, Urinary frequency, Urinary incontinence, Urgency, Hematuria, Dysuria, Nocturia, Penile Discharge, Testicular Pain, Testicular Swelling Musculoskeletal: DENIES: Joint pain, Muscle aches, Stiffness, Joint Swelling, Back pain, Neck pain Integumentary: DENIES: Abnormal pigmentation, Nail changes, Pruritus, Rash Hematologic/lymphatic: DENIES: Bruising, Lymphadenopathy Immunologic/allergic: DENIES: Eczema, Urticaria Neurologic: DENIES: Abnormal gait, Headache, Localized weakness, Paresthesias, Seizures, Speech Problems, Tremor, Poor Balance Psychiatric: DENIES: Anxiety, Confusion, Mood changes, Depression, Hallucinations, Agitation, Suicidal Ideation, Homicidal Ideation, Delusions Past Family Social History Allergies: Coded Allergies: Azithromycin (Verified Allergy, Unknown, Unknown, 09/09/16) Past Medical History History of right lower extremity DVT in 2001 History of stroke in 2001 and 2009 and which patient stated he was on Coumadin for Hyperlipidemia Past Surgical History Tonsillectomy Appendectomy Inguinal hernia repair Reported Medications Zocor (Simvastatin) 20 Mg Tab 20 Mg PO HS Coumadin (Warfarin Sodium) 1 Mg Tab 1 Mg PO DAILY start on march 18, 2010,pt/inr on 03/19/10 and as needed results to dr. bhavna Smith Ordered Medications Current Medications Sodium Chloride (NS 1000 ml Inj) 1,000 ml @ 0 mls/hr Q0M ONCE IV ; Start at 01:21; Stop 09/09/16 at 01:27; Status DC Sodium Chloride (NS Flush) 2 ml UNSCH PRN IVF FLUSH AFTER USING IV ACCESS Last administered on 09/09/16 10:37; Start 09/09/16 at 01:30 Aspirin (Aspirin Chew) 324 mg NOW STAT PO Last administered on 09/09/16 01:42 ; Start 09/09/16 at 01:21; Stop 09/09/16 at 01:27; Status DC Nitroglycerin 0.4 mg 0.4 mg NOW STAT SL Last administered on 09/09/16 01:46; Start 09/09/16 at 01:21; Stop 09/09/16 at 01:27; Status DC Nitroglycerin/ Dextrose (Nitroglycerin-Dextrose Inj) 250 ml @ 0 mls/hr TITRATE IV ; Start 09/09/16 at 01:30 Heparin Sodium (Porcine) 7000 units 7,000 units NOW STAT IV Last administered on 09/09/16 01:40; Start 09/09/16 at 01:21; Stop 09/09/16 at 01:27; Status DC Amiodarone HCl 150 mg/Dextrose 100 ml @ 600 mls/hr NOW ONCE IV ; Start at 02:00; Stop 09/09/16 at 02:09; Status DC Amiodarone HCl/ Dextrose (Cordarone Inj/ D5W ([place]) Inj) 250 ml @ 0 mls/hr CONTINUOUS IV ; Start 09/09/16 at 02:00; Status Cancel Ondansetron HCl (Zofran Inj) 4 mg STK-MED ONCE .ROUTE ; Start 09/09/16 at 02:03 ; Stop 09/09/16 at 02:04; Status DC Ondansetron HCl 4 mg 4 mg ONCE ONCE IV ; Start 09/09/16 at 02:15; Stop at 02:16; Status DC Heparin Sodium/ Sodium Chloride (Heparin-NS/Pf Inj) 500 ml @ As Directed STK- MED ONCE .ROUTE Last administered on 09/09/16 02:36; Start 09/09/16 at 02:36; Stop 09/09/16 at 02:37; Status DC Heparin Sodium (Porcine) 72997 units 10,000 units STK-MED ONCE .ROUTE Last administered on 09/09/16 03:14; Start 09/09/16 at 02:37; Stop 09/09/16 at 02:38 ; Status DC Nitroglycerin/ Dextrose 250 ml @ As Directed STK-MED ONCE .ROUTE Last administered on 09/09/16 02:53; Start 09/09/16 at 02:53; Stop 09/09/16 at 02:54 ; Status DC Tirofiban/Sodium Chloride (Aggrastat Infusion Inj) 250 ml @ As Directed STK- MED ONCE IV Last administered on 09/09/16 02:59; Start 09/09/16 at 02:56; Stop 09/09/16 at 02:57; Status DC Midazolam HCl (Versed Inj) 2 mg STK-MED ONCE .ROUTE Last administered on 03:05; Start 09/09/16 at 03:04; Stop 09/09/16 at 03:05; Status DC Fentanyl Citrate (fentaNYL INJ) 100 mcg STK-MED ONCE .ROUTE Last administered on 09/09/16 03:07; Start 09/09/16 at 03:06; Stop 09/09/16 at 03:07; Status DC Clopidogrel Bisulfate 600 mg 600 mg STK-MED ONCE .ROUTE Last administered on 03:36; Start 09/09/16 at 03:31; Stop 09/09/16 at 03:32; Status DC Sodium Chloride (NS 1000 ml Inj) 1,000 ml @ 100 mls/hr Q10H IV Last administered on 09/09/16 03:42; Start 09/09/16 at 03:42; Stop 09/09/16 at 15:41 IV Flush (NS Flush) 2 ml BID IVF Last administered on 09/09/16 09:00; Start at 09:00 Temazepam (Restoril) 15 mg HS PRN PO SLEEP; Start 09/09/16 at 03:45 Aspirin (Aspirin) 325 mg DAILY PO ; Start 09/09/16 at 09:00; Stop 09/09/16 at 09 :00; Status DC Clopidogrel Bisulfate (Plavix) 75 mg DAILY PO Last administered on 09/09/16 10 :37; Start 09/09/16 at 09:00 Miscellaneous Information 1 1 ONCE ONCE XX ; Start 09/09/16 at 03:45; Stop at 03:50; Status DC Argatroban/Sodium Chloride (Novastan Inj/NS 250 ml Inj) 252.5 ml @ 0 mls/hr TITRATE IV ; Start 09/09/16 at 05:45; Stop 09/09/16 at 23:45 Atorvastatin Calcium (Lipitor) 40 mg HS PO ; Start 09/09/16 at 21:00 Warfarin Sodium (Coumadin) 1 mg DAILY@16 PO ; Start 09/09/16 at 16:00 Aspirin (Aspirin Chew) 81 mg DAILY PO Last administered on 09/09/16 09:38; Start 09/09/16 at 09:00 Lorazepam 1 mg 1 mg Q4H PRN IV PUSH ANXIETY; Start 09/09/16 at 04:00 Tirofiban/Sodium Chloride (Aggrastat Infusion Inj) 250 ml @ 16.5 mls/hr [id number] IV ; Start 09/09/16 at 04:45 Midazolam HCl (Versed Inj) 1 mg ONCE ONCE IV ; Start 09/09/16 at 03:05; Stop at 04:43; Status DC Fentanyl Citrate (fentaNYL INJ) 50 mcg ONCE ONCE IV ; Start 09/09/16 at 03:07; Stop 09/09/16 at 04:43; Status DC Heparin Sodium (Porcine) (Heparin Inj) 2,000 units ONCE ONCE IV ; Start at 03:14; Stop 09/09/16 at 04:43; Status DC Midazolam HCl (Versed Inj) 2 mg ONCE ONCE IV ; Start 09/09/16 at 03:22; Stop at 04:43; Status DC Fentanyl Citrate (fentaNYL INJ) 50 mcg ONCE ONCE IV ; Start 09/09/16 at 03:31; Stop 09/09/16 at 04:43; Status DC Clopidogrel Bisulfate (Plavix) 600 mg ONCE ONCE PO ; Start 09/09/16 at 03:36; Stop 09/09/16 at 04:43; Status DC Morphine Sulfate 2 mg 2 mg Q3H PRN IV PUSH pain Last administered on 09/09/16t 09:39; Start 09/09/16 at 09:30 Potassium Chloride 100 ml @ 50 mls/hr Q2H PRN IV For Potassium 2.8 - 3.2 mEq/L ; Start 09/09/16 at 09:30 Potassium Chloride (KCl 20 Meq Premix Inj) 100 ml @ 50 mls/hr Q2H PRN IV For Potassium 2.8 - 3.2 mEq/L; Start 09/09/16 at 09:30 Potassium Bicarb/ Potassium Chloride 50 meq 50 meq UNSCH PRN PO For Potassium 3.3 - 3.5 mEq/L; Start 09/09/16 at 09:30 Potassium Chloride 100 ml @ 25 mls/hr UNSCH PRN IV For Potassium 3.3 - 3.5 mEq /L; Start 09/09/16 at 09:30 Potassium Chloride 100 ml @ 50 mls/hr Q2H PRN IV For Potassium 3.3 - 3.5 mEq/L ; Start 09/09/16 at 09:30 Magnesium Sulfate/ Sodium Chloride (Magnesium Sulfate Inj/NS Inj) 100 ml @ 50 mls/hr UNSCH PRN IV For Magnesium 0.9 - 1.1 mg/dL; Start 09/09/16 at 09:30 Magnesium Oxide 800 mg 800 mg UNSCH PRN PO For Magnesium 1.2 - 1.6 mg/dL; Start 09/09/16 at 09:30 Magnesium Sulfate/ Sodium Chloride (Magnesium Sulfate Inj/NS Inj) 100 ml @ 50 mls/hr UNSCH PRN IV For Magnesium 1.2 - 1.6 mg/dL; Start 09/09/16 at 09:30 Potassium Phosphate 2000 mg 2,000 mg Q4H PRN PO For Phosphorus < 2.5 mg/dL; Start 09/09/16 at 09:30 Sodium Phosphate/ Sodium Chloride (Sodium Phosphate Inj/NS 250 ml Inj) 250 ml @ 42 mls/hr UNSCH PRN IV For Phosphorus < 2.5 mg/dL; Start 09/09/16 at 09:30 Potassium Phosphate (K-Phos) 2,000 mg UNSCH PRN PO/TUBE SEE LABEL COMMENTS; Start 09/09/16 at 09:30 Family History Patient's father had cardiovascular disease. Social History Patient stopped smoking 3 days ago. He stated that he smoked about less than one pack per day for 40 years. He denies alcohol use. Physical Exam Vital Signs Vital Signs Date Time Temp Pulse Resp B/P Pulse Ox O2 Delivery O2 Flow Rate FiO2 09/09/16 09:44 14 09/09/16 08:14 97/80 09/09/16 08:13 83 09/09/16 08:03 98.3 76 16 113/72 99 09/09/16 07:59 82 09/09/16 07:50 98 Nasal Cannula 2.00 09/09/16 06:30 98 Nasal Cannula 2.00 09/09/16 06:00 83 09/09/16 05:00 92 09/09/16 04:00 98.6 94 18 98/72 98 09/09/16 02:07 90 20 110/78 98 Nasal Cannula 5 09/09/16 01:52 47 09/09/16 01:47 144 09/09/16 01:40 100 Nasal Cannula 2.00 09/09/16 01:18 100 Room Air Physical Exam GENERAL: This is a well-nourished, well-developed patient, in no apparent distress. SKIN: In right groin catheter in place. No erythema or discharge noted. HEAD: Atraumatic. Normocephalic. No temporal or scalp tenderness. EYES: Pupils equal round and reactive. Extraocular motions intact. No scleral icterus. No injection or drainage. ENT: Nose without bleeding, purulent drainage or septal hematoma. Throat without erythema, tonsillar hypertrophy or exudate. Uvula midline. Airway patent. NECK: Trachea midline. No JVD or lymphadenopathy. Supple, nontender, no meningeal signs. CARDIOVASCULAR: Regular rate and rhythm without murmurs, gallops, or rubs. Positive tenderness to palpation on chest wall. RESPIRATORY: Clear to auscultation. Breath sounds equal bilaterally. No wheezes , rales, or rhonchi. GASTROINTESTINAL: Abdomen soft, non-tender, nondistended. No hepato-splenomegaly , or palpable masses. No guarding. MUSCULOSKELETAL: Extremities without clubbing, cyanosis, or edema. No joint tenderness, effusion, or edema noted. No calf tenderness. Negative Homans sign bilaterally. NEUROLOGICAL: Awake and alert. Cranial nerves II through XII intact. Motor and sensory grossly within normal limits. Normal speech. Laboratory Laboratory Tests Test 09/09/16 01:30 White Blood Count 9.1 Red Blood Count 5.24 Hemoglobin 15.2 Hematocrit 44.9 Mean Corpuscular Volume 85.8 Mean Corpuscular Hemoglobin 29.0 Mean Corpuscular Hemoglobin 33.8 Concent Red Cell Distribution Width 12.1 Platelet Count 246 Mean Platelet Volume 7.5 Neutrophils (%) (Auto) 42.4 Lymphocytes (%) (Auto) 44.3 Monocytes (%) (Auto) 9.2 Eosinophils (%) (Auto) 2.8 Basophils (%) (Auto) 1.3 Neutrophils # (Auto) 3.9 Lymphocytes # (Auto) 4.0 Monocytes # (Auto) 0.8 Eosinophils # (Auto) 0.3 Basophils # (Auto) 0.1 CBC Comment DIFF FINAL Differential Comment Prothrombin Time 19.5 Prothromb Time International 1.7 Ratio Activated Partial 35.2 Thromboplast Time Sodium Level 142 Potassium Level 3.5 Chloride Level 105 Carbon Dioxide Level 29.2 Anion Gap 8 Blood Urea Nitrogen 20 Creatinine 1.30 Estimat Glomerular Filtration 58 Rate Random Glucose 127 Calcium Level 9.0 Magnesium Level 2.3 Total Creatine Kinase 160 Creatine Kinase MB 0.7 Troponin I LESS THAN 0.02 B-Type Natriuretic Peptide 30 Result Diagram: 09/09/1612909/09/16129 Imaging Last Impressions Chest X-Ray 09/09/16 0121 Signed Impressions: Service Date/Time: Friday, September 09, 2016 01:49 - CONCLUSION: No acute disease. Dusty March MD Assessment and Plan Assessment and Plan 51-year-old male with chest pain acute STEMI -Status post cardiac catheterization showing acute ST elevated myocardial infarction due to total included mid LAD status post angioplasty and stent of the proximal and mid LAD. 1. Acute ST-elevation myocardial infarction due to a totally occluded mid LAD, acute thrombotic closure of the left circumflex flex after stenting of the LAD treated with thrombectomy, minimal disease of a very large RCA, status post placement of an intra-aortic balloon pump. 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 Chest pain -Current chest pain seems to be more due to CPR. It is reproducible. -We will treat with pain medication when necessary. History of CVA, history of DVT, hyperlipidemia -Home medication resumed. DVT prophylaxis -Patient is on Coumadin. Code Status full Discussed Condition With patient and nurse Tiffany Walters MD September 09, 2016 11:10
--- NOTE | 2016-09-09 11:20 | EKG ---
Date Performed: 09/09/2016 Time Performed: 01:48:32 PTAGE: 51 years EKG: CONSIDER ACUTE ST ELEVATION NC Sinus rhythm . Anterolateral ST elevation, CONSIDER ACUTE INFARCT Inferior and septal ST-T changes are nonspecific Low QRS voltages in precordial leads Abnormal ECG Compared to prior electrocardiogram,Sinus rhythm h as replaced atrial fibrillation. PREVIOUS TRACING : 09/09/2016 01.15 DOCTOR: James Merchant Interpretating Date/Time 09/09/2016 11:20:11
--- NOTE | 2016-09-09 11:20 | EKG ---
Date Performed: 09/09/2016 Time Performed: 01:31:46 PTAGE: 51 years EKG: CONSIDER ACUTE ST ELEVATION NM Atrial fibrillation. IV conduction defect Anterolate ral ST elevation, CONSIDER ACUTE INFARCT Inferior ST-T changes may be due to myocardial ischemia Abno rmal ECG NO PREVIOUS TRACING DOCTOR: James Merchnat Interpretating Date/Time 09/09/2016 11:20:26
--- NOTE | 2016-09-09 11:22 | EKG ---
Date Performed: 09/09/2016 Time Performed: 01:15:08 PTAGE: 51 years EKG: CONSIDER ACUTE ST ELEVATION PR Sinus rhythm with borderline 1st degree A-V block Anteroseptal ST elevation, CONSIDER ACUTE INFARCT Inferior ST-T changes are nonspecific Low QRS voltages in precordial leads Abnormal ECG Compared to prior electroc ardiogram,Probable acute anteroseptal PR is present. PREVIOUS TRACING : 03/15/2010 13.47 DOCTOR: James Merchant Interpretating Date/Time 09/09/2016 11:21:01
[2016-09-09] MEDS ORDERED: ACETAMINOPHEN/HYDROcodone 325 MG/5 MG TAB PO PRN (12:00)
[2016-09-09] MEDS: ACETAMINOPHEN/HYDROcodone 325 MG/5 MG TAB PO PRN ×2 (12:09→18:20)
[2016-09-09 12:32] LABS: HEMATOCRIT 39.7 % (39.0-51.0); MEAN CELL VOLUME 86.2 FL (80.0-100.0); MEAN CORPUSCULAR HEMOGLOBIN 29.8 PG (27.0-34.0); MEAN CORPUSCULAR HGB CONC 34.6 % (32.0-36.0); PLATELET COUNT 220 TH/MM3 (150-450); RED CELL DISTRIBUTION WIDTH 13.6 % (11.6-17.2); REVIEW FLAG FINAL; WHITE BLOOD COUNT 9.1 TH/MM3 (4.0-11.0)
--- NOTE | 2016-09-09 12:32 | RADHPO ---
EXAM DATE/TIME: 09/09/2016 11:38 This report includes an Addendum and supersedes previous reports for this exam. [facility] COMPARISON: CHEST SINGLE AP, September 09, 2016, 1:49. INDICATIONS : Chest pain. MEDICAL HISTORY : Myocardial infarction. SURGICAL HISTORY : Coronary artery stent. ENCOUNTER: Initial ACUITY: 1 day PAIN SCORE: 6/10 LOCATION: Bilateral chest sternal and left flank FINDINGS: Portable AP view of the chest demonstrate a normal-sized cardiac silhouette. Lungs are underinflated with mild opacity at the left lung base. No pleural effusion or pneumothorax is visualized. The bones and soft tissues demonstrate no acute finding. CONCLUSION: Underinflated examination with mild opacity at the left lung base representing either atelectasis or mild air space consolidation. Given the underinflation, atelectasis is favored. Dusty Lang MD on September 09, 2016 at 12:30 Board Certified Radiologist. This report was verified electronically. ADDENDUM: There is a linear radiopaque structure measuring 6 mm overlying the aortic arch that may represent th e IABP tip. Therefore, this is likely near the origin of the left subclavian artery. Dusty Lang MD on September 09, 2016 at 13:41 Board Certified Radiologist. This report was verified electronically.
[2016-09-09 12:57] LABS: BICARBONATE 25.5 MEQ/L (21.0-32.0); MAGNESIUM 2.1 MG/DL (1.5-2.5)
[2016-09-09] MEDS: WARFARIN SOD 1 MG TAB PO SCH (16:25)
[2016-09-09 17:31] LABS: APTT (PATIENT) 80.9 SEC (24.3-30.1)
[2016-09-09] MEDS ORDERED: ATORVASTATIN 40 MG TAB PO SCH (21:00)
[2016-09-10] VITALS (12 sets, daily range): BP systolic 102–130; BP diastolic 65–99; PULSE 71–103; RESP 12–18; TEMP 98–100.3; O2SAT 94–99
[2016-09-10 01:51] LABS: APTT (PATIENT) 72.1 SEC (24.3-30.1); INTERNATIONAL NORMALIZED RATIO 4.4 RATIO; PROTHROMBIN TIME - PATIENT 52.1 SEC (9.8-11.6)
[2016-09-10] MEDS: ACETAMINOPHEN/HYDROcodone 325 MG/5 MG TAB PO PRN ×3 (05:33→17:25)
[2016-09-10 06:01] LABS: AUTOMATED NEUTROPHIL # 6.6 TH/MM3 (1.8-7.7); BASOPHIL # 0.1 TH/MM3 (0-0.2); BASOPHIL % 1.5 % (0.0-2.0); EOSINOPHIL # 0.1 TH/MM3 (0-0.4); EOSINOPHIL % 1.3 % (0.0-4.0); HEMATOCRIT 40.8 % (39.0-51.0); HEMO FLAGS DIFF FINAL; LYMPH % 21.4 % (9.0-44.0); LYMPHOCYTE # 2.1 TH/MM3 (1.0-4.8); MEAN CELL VOLUME 87.1 FL (80.0-100.0); MEAN CORPUSCULAR HGB CONC 33.3 % (32.0-36.0); MONO % 8.1 % (0.0-8.0); NEUT % 67.7 % (16.0-70.0); PLATELET COUNT 173 TH/MM3 (150-450); RED BLOOD COUNT 4.68 MIL/MM3 (4.50-5.90); RED CELL DISTRIBUTION WIDTH 13.3 % (11.6-17.2); WHITE BLOOD COUNT 9.8 TH/MM3 (4.0-11.0)
[2016-09-10 06:16] LABS: BICARBONATE 25.7 MEQ/L (21.0-32.0); POTASSIUM 3.6 MEQ/L (3.5-5.1)
[2016-09-10 06:31] LABS: HDL CHOLESTEROL 30.2 MG/DL (40.0-60.0)
[2016-09-10 06:48] LABS: CKMB 61.2 NG/ML (0.5-3.6)
[2016-09-10] MEDS: WARFARIN SOD 1 MG TAB PO SCH (07:42)
--- NOTE | 2016-09-10 08:34 | EKG ---
Date Performed: 09/09/2016 Time Performed: 11:12:46 PTAGE: 51 years EKG: Sinus rhythm with borderline 1st degree A-V block. Possible anteroseptal infarct - age undetermined Anterolateral T wave changes are nonspecific Low QRS voltages in precordial leads Abnormal ECG PREVIOUS TRACING : 09/09/2016 01.48 Compared to previous tracing, anterior ST elevation with re ciprocal changes has resolved. DOCTOR: Bishop Canada Interpretating Date/Time 09/10/2016 08:32:39
[2016-09-10] MEDS: SODIUM CHLORIDE 0.9% FLUSH 5 ML FLUSH IVF SCH ×2 (09:00→20:16)
[2016-09-10] MEDS: CLOPIDOGREL 75 MG TAB PO SCH (09:16)
[2016-09-10] MEDS: ASPIRIN 81 MG CHEW TAB PO SCH (09:18)
--- NOTE | 2016-09-10 09:26 | PD.CARD.PN ---
Subjective Subjective Remarks Chest pain only with deep inspiration and cough. No dyspnea, dizziness, leg pain, palpitations. Objective Medications Item Value Date Time Atorvastatin 40 mg 09/09/16 2100 Calcium HS/PO 09/09/16 2139 (Lipitor) Clopidogrel 75 mg 09/09/16 0900 Bisulfate DAILY/PO 09/09/16 1037 (Plavix) Aspirin 81 mg 09/09/16 0900 (Aspirin Chew) DAILY/PO 09/09/16 0938 Nitroglycerin/ 250 ml @ 0 mls/hr 09/09/16 0130 Dextrose TITRATE/IV Vital Signs / I&O Vital Signs Date Time Temp Pulse Resp B/P Pulse Ox O2 Delivery O2 Flow Rate FiO2 09/10/16 09:10 09/10/16 08:00 09/10/16 07:27 114/80 09/10/16 07:27 98.5 84 16 120/72 97 09/10/16 07:24 97 Nasal Cannula 2.00 09/10/16 07:04 84 09/10/16 04:00 106/79 09/10/16 04:00 88 09/10/16 04:00 98.0 88 18 130/99 97 106/79 09/10/16 00:00 72 09/10/16 00:00 112/72 09/10/16 00:00 71 16 112/70 99 09/09/16 22:05 98 Nasal Cannula 2.00 09/09/16 20:00 70 09/09/16 20:00 92/71 09/09/16 20:00 98.4 71 16 123/78 99 Arterial Line 09/09/16 18:25 09/09/16 18:00 75 09/09/16 17:00 09/09/16 17:00 83 09/09/16 16:00 77 09/09/16 16:00 09/09/16 15:00 78 09/09/16 15:00 112/80 09/09/16 15:00 98.5 78 16 110/73 99 09/09/16 14:00 117/58 09/09/16 14:00 69 09/09/16 13:09 14 09/09/16 13:00 76 09/09/16 13:00 111/77 09/09/16 12:00 82 09/09/16 12:00 106/74 09/09/16 11:00 106/76 09/09/16 11:00 98.2 76 12 121/81 98 09/09/16 11:00 76 09/09/16 10:00 09/09/16 10:00 81 09/09/16 09:44 14 I/O 09/09/16 09/09/16 09/09/16 09/10/16 09/10/16 09/10/16 07:00 15:00 23:00 07:00 15:00 23:00 Intake Total 488 ml 2407 ml 1277 ml Output Total 400 ml 1185 ml 1450 ml Balance 88 ml 1222 ml -173 ml Intake Oral 0 ml 1060 ml 480 ml IV Total 488 ml 1347 ml 797 ml Output Urine Total 400 ml 1185 ml 1450 ml Stool Total 0 ml 0 ml # Bowel Movements 0 Physical Exam GENERAL: Well developed, well nourished. No acute distress. HEENT: Jugular venous pressure is normal. CHEST: Lungs clear to auscultation bilaterally. Unlabored respiratory effort. Mild chest wall tenderness. CARDIAC: Regular rate and rhythm without S3, S4, or murmur. ABDOMEN: Soft, nontender, no hepatosplenomegaly. Bowel sounds present. EXTREMITIES: No clubbing, cyanosis, or edema. Normal right DP pulse. Laboratory Laboratory Tests Test 09/09/16 09/09/16 09/09/16 09/10/16 11:47 17:07 20:37 00:59 White Blood Count 9.1 TH/MM3 Red Blood Count 4.60 MIL/MM3 Hemoglobin 13.7 GM/DL Hematocrit 39.7 % Mean Corpuscular Volume 86.2 FL Mean Corpuscular Hemoglobin 29.8 PG Mean Corpuscular Hemoglobin 34.6 % Concent Red Cell Distribution Width 13.6 % Platelet Count 220 TH/MM3 Mean Platelet Volume 7.8 FL Sodium Level 140 MEQ/L Potassium Level 4.0 MEQ/L Chloride Level 107 MEQ/L Carbon Dioxide Level 25.5 MEQ/L Anion Gap 8 MEQ/L Blood Urea Nitrogen 18 MG/DL Creatinine 0.90 MG/DL Estimat Glomerular Filtration 89 ML/MIN Rate Random Glucose 111 MG/DL Calcium Level 8.2 MG/DL Phosphorus Level 2.8 MG/DL Magnesium Level 2.1 MG/DL Activated Partial 80.9 SEC 77.0 SEC 72.1 SEC Thromboplast Time Prothrombin Time 52.1 SEC Prothromb Time International 4.4 RATIO Ratio Test 09/10/16 05:48 White Blood Count 9.8 TH/MM3 Red Blood Count 4.68 MIL/MM3 Hemoglobin 13.6 GM/DL Hematocrit 40.8 % Mean Corpuscular Volume 87.1 FL Mean Corpuscular Hemoglobin 29.0 PG Mean Corpuscular Hemoglobin 33.3 % Concent Red Cell Distribution Width 13.3 % Platelet Count 173 TH/MM3 Mean Platelet Volume 7.6 FL Neutrophils (%) (Auto) 67.7 % Lymphocytes (%) (Auto) 21.4 % Monocytes (%) (Auto) 8.1 % Eosinophils (%) (Auto) 1.3 % Basophils (%) (Auto) 1.5 % Neutrophils # (Auto) 6.6 TH/MM3 Lymphocytes # (Auto) 2.1 TH/MM3 Monocytes # (Auto) 0.8 TH/MM3 Eosinophils # (Auto) 0.1 TH/MM3 Basophils # (Auto) 0.1 TH/MM3 CBC Comment DIFF FINAL Differential Comment Sodium Level 138 MEQ/L Potassium Level 3.6 MEQ/L Chloride Level 105 MEQ/L Carbon Dioxide Level 25.7 MEQ/L Anion Gap 7 MEQ/L Blood Urea Nitrogen 12 MG/DL Creatinine 0.79 MG/DL Estimat Glomerular Filtration 103 ML/MIN Rate Random Glucose 116 MG/DL Calcium Level 8.2 MG/DL Magnesium Level 2.0 MG/DL Total Creatine Kinase 1338 U/L Creatine Kinase MB 61.2 NG/ML Creatine Kinase MB % 4.6 % Triglycerides Level 194 MG/DL Cholesterol Level 247 MG/DL LDL Cholesterol 178 MG/DL HDL Cholesterol 30.2 MG/DL Cholesterol/HDL Ratio 8.17 RATIO Imaging Last 48 hours Impressions Chest X-Ray 09/09/16 1200 Signed Impressions: Service Date/Time: Friday, September 09, 2016 11:38 - CONCLUSION: Underinflated examination with mild opacity at the left lung base representing either atelectasis or mild air space consolidation. Given the underinflation, atelectasis is favored. Dusty Lang MD ADDENDUM: There is a linear radiopaque structure measuring 6 mm overlying the aortic arch that may represent the IABP tip. Therefore, this is likely near the origin of the left subclavian artery. Dusty Lang MD Chest X-Ray 09/09/16 0121 Signed Impressions: Service Date/Time: Friday, September 09, 2016 01:49 - CONCLUSION: No acute disease. Dusty March MD Assessment and Plan Problem List: (1) STEMI (ST elevation myocardial infarction) Assessment and Plan: Overall doing well s/p anterior STEMI, PCI LAD, thrombectomy left circumflex. Ongoing CP clearly more musculoskeletal in origin. ST segment elevation resolved on last EKG. No definite CHF. No recurrent VF. Groin stable. REC will wait to remove IABP as INR 4.4 will try to start low dose beta humberto continue aspirin, Plavix (2) VF (ventricular fibrillation) Assessment and Plan: Stable rhythm status. No further VF. Await echo. If EF very low, consider Life Vest external defibrillator. (3) Hyperlipidemia Assessment and Plan: Very poor lipid profile. Rec increase statin to max dosing. Code Status full code Discussed Condition With patient Problem Qualifiers (1) STEMI (ST elevation myocardial infarction): Qualified Code: I21.02 - ST elevation myocardial infarction involving left anterior descending (LAD) coronary artery (2) Hyperlipidemia: Qualified Code: E78.2 - Mixed hyperlipidemia Bishop Canada MD September 10, 2016 09:26
[2016-09-10] MEDS: CARVEDILOL 3.125 MG TAB PO SCH ×2 (09:41→20:16)
--- NOTE | 2016-09-10 10:47 | PD.ONC.PN ---
Objective Data Date Time Temp Pulse Resp B/P Pulse Ox O2 Delivery O2 Flow Rate FiO2 09/10/16 10:01 103/76 09/10/16 09:50 98 Nasal Cannula 2.00 09/10/16 09:10 102/77 09/10/16 08:00 107/75 09/10/16 07:27 114/80 09/10/16 07:27 98.5 84 16 120/72 97 09/10/16 07:24 97 Nasal Cannula 2.00 09/10/16 07:04 84 09/10/16 04:00 106/79 09/10/16 04:00 88 09/10/16 04:00 98.0 88 18 130/99 97 106/79 09/10/16 00:00 72 09/10/16 00:00 112/72 09/10/16 00:00 71 16 112/70 99 09/09/16 22:05 98 Nasal Cannula 2.00 09/09/16 20:00 70 09/09/16 20:00 92/71 09/09/16 20:00 98.4 71 16 123/78 99 Arterial Line 09/09/16 18:25 09/09/16 18:00 75 09/09/16 17:00 09/09/16 17:00 83 09/09/16 16:00 77 09/09/16 16:00 09/09/16 15:00 78 09/09/16 15:00 112/80 09/09/16 15:00 98.5 78 16 110/73 99 09/09/16 14:00 117/58 09/09/16 14:00 69 09/09/16 13:09 14 09/09/16 13:00 76 09/09/16 13:00 111/77 09/09/16 12:00 82 09/09/16 12:00 106/74 09/09/16 11:00 106/76 09/09/16 11:00 98.2 76 12 121/81 98 09/09/16 11:00 76 09/10/16 09/10/16 09/10/16 07:00 15:00 23:00 Intake Total 1277 ml Output Total 1450 ml Balance -173 ml Result Diagram: 09/10/16 0548 09/10/16 0548 Laboratory Results Laboratory Tests Test 5/09/09/16 09/09/16 09/10/16 11:47 17:07 20:37 00:59 White Blood Count 9.1 TH/MM3 Red Blood Count 4.60 MIL/MM3 Hemoglobin 13.7 GM/DL Hematocrit 39.7 % Mean Corpuscular Volume 86.2 FL Mean Corpuscular Hemoglobin 29.8 PG Mean Corpuscular Hemoglobin 34.6 % Concent Red Cell Distribution Width 13.6 % Platelet Count 220 TH/MM3 Mean Platelet Volume 7.8 FL Sodium Level 140 MEQ/L Potassium Level 4.0 MEQ/L Chloride Level 107 MEQ/L Carbon Dioxide Level 25.5 MEQ/L Anion Gap 8 MEQ/L Blood Urea Nitrogen 18 MG/DL Creatinine 0.90 MG/DL Estimat Glomerular Filtration 89 ML/MIN Rate Random Glucose 111 MG/DL Calcium Level 8.2 MG/DL Phosphorus Level 2.8 MG/DL Magnesium Level 2.1 MG/DL Activated Partial 80.9 SEC 77.0 SEC 72.1 SEC Thromboplast Time Prothrombin Time 52.1 SEC Prothromb Time International 4.4 RATIO Ratio Test 09/10/16 05:48 White Blood Count 9.8 TH/MM3 Red Blood Count 4.68 MIL/MM3 Hemoglobin 13.6 GM/DL Hematocrit 40.8 % Mean Corpuscular Volume 87.1 FL Mean Corpuscular Hemoglobin 29.0 PG Mean Corpuscular Hemoglobin 33.3 % Concent Red Cell Distribution Width 13.3 % Platelet Count 173 TH/MM3 Mean Platelet Volume 7.6 FL Neutrophils (%) (Auto) 67.7 % Lymphocytes (%) (Auto) 21.4 % Monocytes (%) (Auto) 8.1 % Eosinophils (%) (Auto) 1.3 % Basophils (%) (Auto) 1.5 % Neutrophils # (Auto) 6.6 TH/MM3 Lymphocytes # (Auto) 2.1 TH/MM3 Monocytes # (Auto) 0.8 TH/MM3 Eosinophils # (Auto) 0.1 TH/MM3 Basophils # (Auto) 0.1 TH/MM3 CBC Comment DIFF FINAL Differential Comment Sodium Level 138 MEQ/L Potassium Level 3.6 MEQ/L Chloride Level 105 MEQ/L Carbon Dioxide Level 25.7 MEQ/L Anion Gap 7 MEQ/L Blood Urea Nitrogen 12 MG/DL Creatinine 0.79 MG/DL Estimat Glomerular Filtration 103 ML/MIN Rate Random Glucose 116 MG/DL Calcium Level 8.2 MG/DL Magnesium Level 2.0 MG/DL Total Creatine Kinase 1338 U/L Creatine Kinase MB 61.2 NG/ML Creatine Kinase MB % 4.6 % Triglycerides Level 194 MG/DL Cholesterol Level 247 MG/DL LDL Cholesterol 178 MG/DL HDL Cholesterol 30.2 MG/DL Cholesterol/HDL Ratio 8.17 RATIO Imaging Studies Last 24 hours Impressions Chest X-Ray 09/09/16 1200 Signed Impressions: Service Date/Time: Friday, September 09, 2016 11:38 - CONCLUSION: Underinflated examination with mild opacity at the left lung base representing either atelectasis or mild air space consolidation. Given the underinflation, atelectasis is favored. Dusty Lang MD ADDENDUM: There is a linear radiopaque structure measuring 6 mm overlying the aortic arch that may represent the IABP tip. Therefore, this is likely near the origin of the left subclavian artery. Dusty Lang MD Administered Medications Medications (Trade) Dose Ordered Sig/Fern Route PRN Reason Start Time Stop Time Status Last Admin Dose Admin Sodium Chloride (NS Flush) 2 ml UNSCH PRN IVF FLUSH AFTER USING IV ACCESS 09/09/16 01:30 09/09/16 21:40 IV Flush (NS Flush) 2 ml BID IVF 09/09/16 09:00 09/10/16 09:00 Clopidogrel Bisulfate (Plavix) 75 mg DAILY PO 09/09/16 09:00 09/10/16 09:16 Aspirin (Aspirin Chew) 81 mg DAILY PO 09/09/16 09:00 09/10/16 09:18 Morphine Sulfate (Morphine Inj) 2 mg Q3H PRN IV PUSH pain 09/09/16 09:30 09/09/16 09:39 Acetaminophen/ Hydrocodone Bitart ([place] 5-325 Mg) 2 tab Q6H PRN PO SEE LABEL COMMENTS 09/09/16 12:00 09/10/16 05:33 Carvedilol (Coreg) 3.125 mg Q12HR PO 09/10/16 09:30 09/10/16 09:41 Objective Remarks GENERAL: Well-nourished, well-developed patient. SKIN: Warm and dry. HEAD: Normocephalic. EYES: No scleral icterus. No injection or drainage. NECK: Supple, trachea midline. No JVD or lymphadenopathy. LYMPHATIC: No adenopathy. CARDIOVASCULAR: Regular rate and rhythm without murmurs. RESPIRATORY: Breath sounds equal bilaterally. No accessory muscle use. GASTROINTESTINAL: Abdomen soft, non-tender, nondistended. EXTREMITIES: No cyanosis, or edema. MUSCULOSKELETAL: Adequate muscle tone. NEUROLOGICAL: No obvious focal deficit. Awake, alert, and oriented x3. PSYCHIATRIC: Appropriate mood and affect; insight and judgment normal. Tavo Ocasio MD September 10, 2016 10:46
--- NOTE | 2016-09-10 12:40 | HHI.PR ---
Subjective Remarks Follow-up for NSTEMI Patient complaining of neck and back pain. Otherwise he has no complaints. He stated that chest pain has improved and only occurs with deep inspiration. His and friend is at the bedside. Denied any nausea/vomiting. Other complaints. Objective Vitals Vital Signs Date Time Temp Pulse Resp B/P Pulse Ox O2 Delivery O2 Flow Rate FiO2 09/10/16 12:03 99/76 09/10/16 11:16 99.1 86 16 110/65 97 09/10/16 11:16 96/75 09/10/16 11:00 87 09/10/16 10:01 103/76 09/10/16 09:50 98 Nasal Cannula 2.00 09/10/16 09:10 102/77 09/10/16 08:00 107/75 09/10/16 07:27 114/80 09/10/16 07:27 98.5 84 16 120/72 97 09/10/16 07:24 97 Nasal Cannula 2.00 09/10/16 07:04 84 09/10/16 04:00 106/79 09/10/16 04:00 88 09/10/16 04:00 98.0 88 18 130/99 97 106/79 09/10/16 00:00 72 09/10/16 00:00 112/72 09/10/16 00:00 71 16 112/70 99 09/09/16 22:05 98 Nasal Cannula 2.00 09/09/16 20:00 70 09/09/16 20:00 92/71 09/09/16 20:00 98.4 71 16 123/78 99 Arterial Line 09/09/16 18:25 09/09/16 18:00 75 09/09/16 17:00 09/09/16 17:00 83 09/09/16 16:00 77 09/09/16 16:00 09/09/16 15:00 78 09/09/16 15:00 112/80 09/09/16 15:00 98.5 78 16 110/73 99 09/09/16 14:00 117/58 09/09/16 14:00 69 09/09/16 13:09 14 09/09/16 13:00 76 09/09/16 13:00 111/77 I/O 5/29/17 5/2909/09/16 09/10/16 09/10/16 09/10/16 07:00 15:00 23:00 07:00 15:00 23:00 Intake Total 488 ml 2407 ml 1277 ml Output Total 400 ml 1185 ml 1450 ml Balance 88 ml 1222 ml -173 ml Intake Oral 0 ml 1060 ml 480 ml IV Total 488 ml 1347 ml 797 ml Output Urine Total 400 ml 1185 ml 1450 ml Stool Total 0 ml 0 ml # Bowel Movements 0 Result Diagram: 09/10/1648 09/10/1648 Objective Remarks GENERAL: in NAD SKIN: right groin catheter in placed. HEAD: Normocephalic. EYES: No scleral icterus. No injection or drainage. NECK: Supple, trachea midline. No JVD or lymphadenopathy. no muscle spasms noted but +TTP of the neck muscles. CARDIOVASCULAR: Regular rate and rhythm without murmurs, gallops, or rubs. mild TTP of the chest. RESPIRATORY: Breath sounds equal bilaterally. No accessory muscle use. GASTROINTESTINAL: Abdomen soft, non-tender, nondistended. Medications and IVs Current Medications Sodium Chloride (NS 1000 ml Inj) 1,000 ml @ 0 mls/hr Q0M ONCE IV ; Start at 01:21; Stop 09/09/16 at 01:27; Status DC Sodium Chloride (NS Flush) 2 ml UNSCH PRN IVF FLUSH AFTER USING IV ACCESS Last administered on 09/09/16 21:40; Start 09/09/16 at 01:30 Aspirin (Aspirin Chew) 324 mg NOW STAT PO Last administered on 09/09/16 01:42 ; Start 09/09/16 at 01:21; Stop 09/09/16 at 01:27; Status DC Nitroglycerin 0.4 mg 0.4 mg NOW STAT SL Last administered on 09/09/16 01:46; Start 09/09/16 at 01:21; Stop 09/09/16 at 01:27; Status DC Nitroglycerin/ Dextrose (Nitroglycerin-Dextrose Inj) 250 ml @ 0 mls/hr TITRATE IV ; Start 09/09/16 at 01:30 Heparin Sodium (Porcine) 7000 units 7,000 units NOW STAT IV Last administered on 09/09/16 01:40; Start 09/09/16 at 01:21; Stop 09/09/16 at 01:27; Status DC Amiodarone HCl 150 mg/Dextrose 100 ml @ 600 mls/hr NOW ONCE IV ; Start at 02:00; Stop 09/09/16 at 02:09; Status DC Amiodarone HCl/ Dextrose (Cordarone Inj/ D5W ([place]) Inj) 250 ml @ 0 mls/hr CONTINUOUS IV ; Start 09/09/16 at 02:00; Status Cancel Ondansetron HCl (Zofran Inj) 4 mg STK-MED ONCE .ROUTE ; Start 09/09/16 at 02:03 ; Stop 09/09/16 at 02:04; Status DC Ondansetron HCl 4 mg 4 mg ONCE ONCE IV ; Start 09/09/16 at 02:15; Stop at 02:16; Status DC Heparin Sodium/ Sodium Chloride (Heparin-NS/Pf Inj) 500 ml @ As Directed STK- MED ONCE .ROUTE Last administered on 09/09/16 02:36; Start 09/09/16 at 02:36; Stop 09/09/16 at 02:37; Status DC Heparin Sodium (Porcine) 72375 units 10,000 units STK-MED ONCE .ROUTE Last administered on 09/09/16 03:14; Start 09/09/16 at 02:37; Stop 09/09/16 at 02:38 ; Status DC Nitroglycerin/ Dextrose 250 ml @ As Directed STK-MED ONCE .ROUTE Last administered on 09/09/16 02:53; Start 09/09/16 at 02:53; Stop 09/09/16 at 02:54 ; Status DC Tirofiban/Sodium Chloride (Aggrastat Infusion Inj) 250 ml @ As Directed STK- MED ONCE IV Last administered on 09/09/16 02:59; Start 09/09/16 at 02:56; Stop 09/09/16 at 02:57; Status DC Midazolam HCl (Versed Inj) 2 mg STK-MED ONCE .ROUTE Last administered on 03:05; Start 09/09/16 at 03:04; Stop 09/09/16 at 03:05; Status DC Fentanyl Citrate (fentaNYL INJ) 100 mcg STK-MED ONCE .ROUTE Last administered on 09/09/16 03:07; Start 09/09/16 at 03:06; Stop 09/09/16 at 03:07; Status DC Clopidogrel Bisulfate 600 mg 600 mg STK-MED ONCE .ROUTE Last administered on 03:36; Start 09/09/16 at 03:31; Stop 09/09/16 at 03:32; Status DC Sodium Chloride (NS 1000 ml Inj) 1,000 ml @ 100 mls/hr Q10H IV Last administered on 09/09/16 14:12; Start 09/09/16 at 03:42; Stop 09/09/16 at 15:41 ; Status DC IV Flush (NS Flush) 2 ml BID IVF Last administered on 09/10/16 09:00; Start at 09:00 Temazepam (Restoril) 15 mg HS PRN PO SLEEP; Start 09/09/16 at 03:45 Aspirin (Aspirin) 325 mg DAILY PO ; Start 09/09/16 at 09:00; Stop 09/09/16 at 09 :00; Status DC Clopidogrel Bisulfate (Plavix) 75 mg DAILY PO Last administered on 09/10/16 09 :16; Start 09/09/16 at 09:00 Miscellaneous Information 1 1 ONCE ONCE XX ; Start 09/09/16 at 03:45; Stop at 03:50; Status DC Argatroban/Sodium Chloride (Novastan Inj/NS 250 ml Inj) 252.5 ml @ 0 mls/hr TITRATE IV Last administered on 09/09/16 14:51; Start 09/09/16 at 05:45; Stop 09/09/16 at 16:12; Status DC Atorvastatin Calcium (Lipitor) 40 mg HS PO Last administered on 09/09/16 21:39 ; Start 09/09/16 at 21:00; Stop 09/10/16 at 09:27; Status DC Warfarin Sodium (Coumadin) 1 mg DAILY@16 PO Last administered on 09/09/16 16: 25; Start 09/09/16 at 16:00; Stop 09/10/16 at 08:04; Status DC Aspirin (Aspirin Chew) 81 mg DAILY PO Last administered on 09/10/16 09:18; Start 09/09/16 at 09:00 Lorazepam 1 mg 1 mg Q4H PRN IV PUSH ANXIETY; Start 09/09/16 at 04:00 Tirofiban/Sodium Chloride (Aggrastat Infusion Inj) 250 ml @ 16.5 mls/hr [id number] IV Last administered on 09/09/16 14:13; Start 09/09/16 at 04:45; Stop 09/09/16 at 23:30; Status DC Midazolam HCl (Versed Inj) 1 mg ONCE ONCE IV ; Start 09/09/16 at 03:05; Stop at 04:43; Status DC Fentanyl Citrate (fentaNYL INJ) 50 mcg ONCE ONCE IV ; Start 09/09/16 at 03:07; Stop 09/09/16 at 04:43; Status DC Heparin Sodium (Porcine) (Heparin Inj) 2,000 units ONCE ONCE IV ; Start at 03:14; Stop 09/09/16 at 04:43; Status DC Midazolam HCl (Versed Inj) 2 mg ONCE ONCE IV ; Start 09/09/16 at 03:22; Stop at 04:43; Status DC Fentanyl Citrate (fentaNYL INJ) 50 mcg ONCE ONCE IV ; Start 09/09/16 at 03:31; Stop 09/09/16 at 04:43; Status DC Clopidogrel Bisulfate (Plavix) 600 mg ONCE ONCE PO ; Start 09/09/16 at 03:36; Stop 09/09/16 at 04:43; Status DC Morphine Sulfate 2 mg 2 mg Q3H PRN IV PUSH pain Last administered on 09/09/16 09:39; Start 09/09/16 at 09:30 Potassium Chloride 100 ml @ 50 mls/hr Q2H PRN IV For Potassium 2.8 - 3.2 mEq/L ; Start 09/09/16 at 09:30 Potassium Chloride (KCl 20 Meq Premix Inj) 100 ml @ 50 mls/hr Q2H PRN IV For Potassium 2.8 - 3.2 mEq/L; Start 09/09/16 at 09:30 Potassium Bicarb/ Potassium Chloride 50 meq 50 meq UNSCH PRN PO For Potassium 3.3 - 3.5 mEq/L; Start 09/09/16 at 09:30 Potassium Chloride 100 ml @ 25 mls/hr UNSCH PRN IV For Potassium 3.3 - 3.5 mEq /L; Start 09/09/16 at 09:30 Potassium Chloride 100 ml @ 50 mls/hr Q2H PRN IV For Potassium 3.3 - 3.5 mEq/L ; Start 09/09/16 at 09:30 Magnesium Sulfate/ Sodium Chloride (Magnesium Sulfate Inj/NS Inj) 100 ml @ 50 mls/hr UNSCH PRN IV For Magnesium 0.9 - 1.1 mg/dL; Start 09/09/16 at 09:30 Magnesium Oxide 800 mg 800 mg UNSCH PRN PO For Magnesium 1.2 - 1.6 mg/dL; Start 09/09/16 at 09:30 Magnesium Sulfate/ Sodium Chloride (Magnesium Sulfate Inj/NS Inj) 100 ml @ 50 mls/hr UNSCH PRN IV For Magnesium 1.2 - 1.6 mg/dL; Start 09/09/16 at 09:30 Potassium Phosphate 2000 mg 2,000 mg Q4H PRN PO For Phosphorus < 2.5 mg/dL; Start 09/09/16 at 09:30 Sodium Phosphate/ Sodium Chloride (Sodium Phosphate Inj/NS 250 ml Inj) 250 ml @ 42 mls/hr UNSCH PRN IV For Phosphorus < 2.5 mg/dL; Start 09/09/16 at 09:30 Potassium Phosphate (K-Phos) 2,000 mg UNSCH PRN PO/TUBE SEE LABEL COMMENTS; Start 09/09/16 at 09:30 Acetaminophen/ Hydrocodone Bitart ([place] 5-325 Mg) 1 tab Q6H PRN PO pain 1-5; Start 09/09/16 at 12:00 Acetaminophen/ Hydrocodone Bitart 2 tab 2 tab Q6H PRN PO SEE LABEL COMMENTS Last administered on 09/10/16 11:05; Start 09/09/16 at 12:00 Argatroban/Sodium Chloride (Novastan Inj/NS 250 ml Inj) 252.5 ml @ 0 mls/hr TITRATE IV ; Start 09/09/16 at 16:15 Atorvastatin Calcium (Lipitor) 80 mg HS PO ; Start 09/10/16 at 21:00 Carvedilol (Coreg) 3.125 mg Q12HR PO Last administered on 09/10/16 09:41; Start 09/10/16 at 09:30 A/P Assessment and Plan 51-year-old male with chest pain acute STEMI -Status post cardiac catheterization showing acute ST elevated myocardial infarction due to total included mid LAD status post angioplasty and stent of the proximal and mid LAD. 1. Acute ST-elevation myocardial infarction due to a totally occluded mid LAD, acute thrombotic closure of the left circumflex flex after stenting of the LAD treated with thrombectomy, minimal disease of a very large RCA, status post placement of an intra-aortic balloon pump on 09/09/16. -Management per industrial manufacturing technician. -per industrial manufacturing technician may remove balloon pump tomorrow depending on INR. Chest pain -Current chest pain seems to be more due to CPR. It is reproducible. -improving. Supratherapeutic INR -INR 4.4. Coumadin held. No signs of bleeding. Enterprise Manager was consulted. Elevated CK -Most likely secondary to rhabdo due to CPR. -Continue to monitor. -Patient on IV fluids. Continues to have good renal function. History of CVA, history of DVT, hyperlipidemia -Home medication resumed. DVT prophylaxis -Patient is on Coumadin which is being held. Discharge Planning Patient will remain in the CVICU due to the balloon pump Tiffany Walters MD September 10, 2016 12:40
--- NOTE | 2016-09-10 17:38 | EC ---
Study Study Date:09/10/2016 STUDY CONCLUSIONS SUMMARY - Left ventricle: The cavity size was normal. Wall thickness was increased in a pattern of mild LVH. There was concentric hypertrophy. Systolic function was moderately reduced. The estimated ejection fraction was in the range of 40% to 45%. Hypokinesis of the anteroseptal and anterior myocardium. - Aortic valve: Difficult to determine, but possible bicuspid aortic valve with fusion of the left and non-coronary cusps. If LV function is below 40, please consider prescribing an ACEI or ARB or document rationale for non-use. PROCEDURE DATA STUDY STATUS: Elective. Procedure: Transthoracic echocardiography. Image quality was good. Scanning was performed from the parasternal, apical, and subcostal acoustic windows. Study completion: The patient tolerated the procedure well. Transthoracic echocardiography. M-mode, complete 2D, complete spectral Doppler, and color Doppler. Patient status: Inpatient. CARDIAC ANATOMY LEFT VENTRICLE: The cavity size was normal. Wall thickness was increased in a pattern of mild LVH. There was concentric hypertrophy. Systolic function was moderately reduced. The estimated ejection fraction was in the range of 40% to 45%. Regional wall motion abnormalities: Hypokinesis of the anteroseptal and anterior myocardium. AORTIC VALVE: Difficult to determine, but possible bicuspid aortic valve with fusion of the left and non-coronary cusps. Doppler: There was no stenosis. No significant regurgitation. MITRAL VALVE: The valve appears to be grossly normal. Doppler: There was no evidence for stenosis. Trace regurgitation. LEFT ATRIUM: The atrium was normal in size. RIGHT VENTRICLE: The cavity size was normal. PULMONIC VALVE: Not well visualized. Doppler: There was no evidence for stenosis. No significant regurgitation. TRICUSPID VALVE: The valve appears to be grossly normal. Doppler: There was no evidence for stenosis. Trace regurgitation. PERICARDIUM: There was no pericardial effusion. BASIC MEASUREMENTS ADULT NORMAL Left ventricle LV internal dimension, ED, chordal level, *38.2 mm 43-52 PLAX LV internal dimension, ES, chordal level, 32.3 mm 23-38 PLAX Fractional shortening, chordal level, PLAX *15 % >29 LV posterior wall thickness, ED 11.8 mm IVS/LVPW ratio, ED *1.87 <1.3 Ventricular septum Septal thickness, ED 22.1 mm Aortic valve Leaflet separation 19 mm 15-26 Right ventricle RV internal dimension, ED, PLAX 21.6 mm 19-38 BASIC MEASUREMENTS ADULT NORMAL Aortic valve Leaflet separation 19 mm 15-26 Aorta Root diameter, ED 34 mm 20-37 Left atrium Anterior-posterior dimension, ES 22 mm 19-40 LA/aortic root ratio 0.65 DOPPLER MEASUREMENTS ADULT NORMAL Mitral valve Peak E-wave velocity 56.8 cm/s Peak A-wave velocity 59.7 cm/s Peak E/A ratio 1 LEGEND: Mean values are shown as u=mean value. Asterisk (*) infante values outside specified normal range. Prepared and signed by Librado Ferreira [id number]
[2016-09-10] MEDS: SODIUM CHLORIDE 0.9% FLUSH 10 ML FLUSH IVF PRN (20:16)
[2016-09-10] MEDS: ATORVASTATIN 80 MG TAB PO SCH (20:16)
--- NOTE | 2016-09-10 21:24 | MB ---
cc: KEYLA WOODY MD DATE OF CONSULTATION 09/10/16 DATE OF 1965. REASON FOR CONSULTATION Patient with acute ST elevation DC who has undergone PCI to the LAD, thrombectomy of left circumflex, has a history of multiple strokes and lower extremity DVT. HISTORY OF PRESENT ILLNESS Mr. Paulino is a 51-year-old male who has a history of right lower extremity DVT in 2001, history of hyperlipidemia, history of stroke in 2001 and 2009. He has a history of hypercoagulable state with Factor V Leiden. The patient presented to [facility] in [place] with chest pain, EKG findings were suggestive of acute anterior ST elevation myocardial infarction. The patient was transferred to [facility]. He developed two ventricular fibrillation arrests which required shock therapy with CPR. He was transferred to [facility]. He underwent emergent cardiac catheterization. He had PCI to the LAD and also had thrombectomy of the left circumflex. The patient has an intra-aortic balloon pump in place. He is currently on Argatroban drip. The patient appears comfortable at this time. However, he is quite anxious. His family members are present. He states that in 2001 he developed a lower extremity DVT. [place] was in [place] He tells me that he also had a pulmonary embolism. He has been on Coumadin and follows with a primary care physician locally. He tells me that his INR has been therapeutic. The patient had hypercoagulable testing many years ago and was found to have Factor V Leiden. He is on anticoagulation indefinitely. REVIEW OF SYSTEMS A comprehensive 14-point review of systems was completed which is negative except as described in the HPI. PAST MEDICAL HISTORY 1. Right lower extremity DVT in 2001, also had pulmonary thromboembolism, was found to have Factor V Leiden. He has been chronically on Coumadin. 2. Hyperlipidemia 3. History of stroke in 2001 and 2009. PAST SURGICAL HISTORY Recent cardiac catheterization FAMILY HISTORY Reviewed and noncontributory. SOCIAL HISTORY He is a chronic smoker. He does not drink alcohol. No illicit drug use. MEDICATIONS Inpatient medications were reviewed 1. Atorvastatin 80 mg p.o. q.h.s. 2. Carvedilol 3.125 mg p.o. b.i.d. 3. Argatroban GTT 4. [place] 5/325 one tablet p.o. q.6 h p.r.n. 5. Morphine 2 mg IV q.3 h p.r.n. 6. Plavix 75 mg one tablet p.o. daily, 7. Aspirin 81 mg p.o. daily 8. Ativan 1 mg IV q.4 h p.r.n. 9. Temazepam 15 mg p.o. q.h.s. ALLERGIES AZITHROMYCIN PHYSICAL EXAMINATION VITAL SIGNS: Blood pressure is 95/73, pulse is in the 80s, temperature is 98.7, O2 sats are 97% on room air. GENERAL: Acutely ill patient in no apparent distress. HEENT: Pupils are equal, round, reactive to light. EOMI. No oral thrush. No oral lesions. NECK: Supple. No JVD, no bruits. No lymphadenopathy. CHEST: Clear to auscultation bilaterally. CARDIAC: Regular rate and rhythm. ABDOMEN: Soft, nontender, nondistended. Bowel sounds are present. EXTREMITIES: Without any edema, erythema or cyanosis. SKIN: Without any petechiae. lesion or bruises. NEUROLOGIC: No focal deficits. PSYCHIATRIC: Mood and affect is appropriate. LABORATORY DATA WBC is 9.8, hemoglobin is 13.6, MCV 87.1, platelet count is 173. Serum chemistries show a sodium of 138, potassium 3.6, chloride 105, BUN is 12, creatinine is 0.79, GFR is 103, calcium is 8.2, phosphorus 2.8, magnesium 2.1. CK is 1338, CK-MB is 61.2, triglycerides of 194, cholesterol 247, LDL 178, HDL is 30.2. IMAGING STUDIES Reviewed in the EMR ASSESSMENT/PLAN This is a 51-year-old male who has a history of hypercoagulable state with Facto V Leiden. He had a DVT and PE in 2001, history of multiple strokes. He is chronically on Coumadin. He presents to the hospital with chest pain and was found to have ST elevation DC. He has undergone emergent catheterization. 1. Hypercoagulable state with Factor V Leiden. He has a history of DVT PTE and multiple strokes. He has been on Coumadin. He now presents with an ST elevation DC. The patient is currently on argatroban. His INR is elevated which is secondary to argatroban. We can switch him either to heparin or start him on Eliquis 5 mg p.o. b.i.d. I will defer the time frame of switching him to Eliquis to cardiology. A hypercoagulable workup has been ordered. Apparently, he was found to have Factor V Leiden in the past. This patient will require lifeline anticoagulation. 2. Acute ST elevation DC status post PCI to LAD as well as thrombectomy of the left circumflex. Management per cardiology. Thank you for allowing me to participate in the care of this patient. I will continue to follow this patient along. MD SEKOU Shearer/ /8:36 PM /9:04 PM MTDD
[2016-09-11] VITALS (7 sets, daily range): BP systolic 92–110; BP diastolic 57–70; PULSE 79–96; RESP 12–20; TEMP 98.6–99.9; O2SAT 92–97
[2016-09-11] MEDS: ACETAMINOPHEN/HYDROcodone 325 MG/5 MG TAB PO PRN ×4 (01:10→21:45)
[2016-09-11 05:54] LABS: INTERNATIONAL NORMALIZED RATIO 5.3 RATIO; PROTHROMBIN TIME - PATIENT 63.1 SEC (9.8-11.6)
[2016-09-11 05:58] LABS: APTT (PATIENT) 116.5 SEC (24.3-30.1)
--- NOTE | 2016-09-11 08:42 | PD.CARD.PN ---
Subjective Subjective Remarks Denies angina, dizziness. Mild dyspnea at rest. Continue CP only with deep inspiration. Objective Medications Item Value Date Time Atorvastatin 80 mg 09/10/162099 Calcium HS/PO 09/10/162015 (Lipitor) Carvedilol 3.125 mg 09/10/16 0930 (Coreg) Q12HR/PO 09/10/162015 Clopidogrel 75 mg 09/09/16 0900 Bisulfate DAILY/PO 09/10/16 0916 (Plavix) Aspirin 81 mg 09/09/16 0900 (Aspirin Chew) DAILY/PO 09/10/16 0918 Vital Signs / I&O Vital Signs Date Time Temp Pulse Resp B/P Pulse Ox O2 Delivery O2 Flow Rate FiO2 09/11/16 07:00 82 09/11/16 07:00 99.0 82 16 105/63 94 Arterial Line 09/11/16 07:00 94 Room Air 09/11/16 07:00 88/66 09/11/16 06:00 92/69 09/11/16 05:00 102/72 09/11/16 04:00 97/74 09/11/16 03:00 91/64 09/11/16 03:00 79 09/11/16 03:00 99.9 79 12 103/67 96 09/11/16 02:00 91/69 09/11/16 01:00 90/64 09/11/16 00:00 87/63 09/10/16 23:00 86 09/10/16 23:00 91/65 09/10/16 23:00 100.3 83 16 102/69 96 09/10/16 22:00 89/64 09/10/16 21:33 94 Nasal Cannula 2.00 09/10/16 21:00 93/68 09/10/16 20:00 90/61 09/10/16 19:00 103 09/10/16 19:00 93 Nasal Cannula 1.00 09/10/16 19:00 94/68 09/10/16 19:00 100.3 103 12 110/74 95 09/10/16 18:15 95/73 09/10/16 17:22 97/75 09/10/16 17:00 99/77 09/10/16 16:00 97/75 09/10/16 15:06 84 09/10/16 15:05 98.7 83 16 115/80 97 09/10/16 15:05 92/72 09/10/16 14:00 97/79 09/10/16 13:00 95/72 09/10/16 12:03 99/76 09/10/16 11:16 99.1 86 16 110/65 97 09/10/16 11:16 96/75 09/10/16 11:00 87 09/10/16 10:01 103/76 09/10/16 09:50 98 Nasal Cannula 2.00 09/10/16 09:10 102/77 I/O 09/10/16 09/10/16 09/10/16 09/11/16 09/11/16 09/11/16 07:00 15:00 23:00 07:00 15:00 23:00 Intake Total 1277 ml 908 ml 1026 ml Output Total 1450 ml 2235 ml 2115 ml Balance -173 ml -1327 ml -1089 ml Intake Oral 480 ml 840 ml 960 ml IV Total 797 ml 68 ml 66 ml Output Urine Total 1450 ml 2235 ml 2115 ml # Bowel Movements 0 0 0 Physical Exam GENERAL: Well developed, well nourished. No acute distress. HEENT: Jugular venous pressure is normal. CHEST: Lungs clear to auscultation bilaterally. Unlabored respiratory effort. Mild chest wall tenderness. CARDIAC: Regular rate and rhythm without S3, S4, or murmur. ABDOMEN: Soft, nontender, no hepatosplenomegaly. Bowel sounds present. EXTREMITIES: No clubbing, cyanosis, or edema. Normal right DP pulse. Laboratory Laboratory Tests Test 09/11/16 04:32 Prothrombin Time 63.1 SEC Prothromb Time International 5.3 RATIO Ratio Activated Partial 116.5 SEC Thromboplast Time Assessment and Plan Problem List: (1) STEMI (ST elevation myocardial infarction) Assessment and Plan: Overall doing well s/p anterior STEMI, PCI LAD, thrombectomy left circumflex. Ongoing CP clearly more musculoskeletal in origin. ST segment elevation resolved on last EKG. No definite CHF. No recurrent VF. Groin stable. EF 45% by echo. REC will wait to remove IABP as INR still elevated; will check with Dr. Ocasio if administering Vit K okay continue low dose beta humberto; no IOANA-I as BP's still fairly low continue aspirin, Plavix (2) Hypercoagulable state Assessment and Plan: Dr. Ocasio's consult noted, appreciated. Once IABP pulled will switch warfarin to Eliquis and stop aspirin (continue Plavix). (3) VF (ventricular fibrillation) Assessment and Plan: Stable rhythm status. No further VF. EF reported 45% on echo. (4) Hyperlipidemia Assessment and Plan: Very poor lipid profile. Continue max dose statin. Code Status full code Discussed Condition With patient Problem Qualifiers (1) STEMI (ST elevation myocardial infarction): Qualified Code: I21.02 - ST elevation myocardial infarction involving left anterior descending (LAD) coronary artery (2) Hyperlipidemia: Qualified Code: E78.2 - Mixed hyperlipidemia Bishop Canada MD September 11, 2016 08:42
[2016-09-11] MEDS: SODIUM CHLORIDE 0.9% FLUSH 5 ML FLUSH IVF SCH ×2 (09:00→21:00)
[2016-09-11] MEDS ORDERED: PHYTONADIONE 10 MG/ML VIAL SQ ONE (09:00)
[2016-09-11] MEDS ORDERED: PHYTONADIONE 10 MG/ML VIAL SQ SCH (09:00)
[2016-09-11] MEDS: CLOPIDOGREL 75 MG TAB PO SCH (09:11)
[2016-09-11] MEDS: ASPIRIN 81 MG CHEW TAB PO SCH (09:11)
[2016-09-11] MEDS: CARVEDILOL 3.125 MG TAB PO SCH ×2 (09:11→21:45)
[2016-09-11 11:26] LABS: APTT (PATIENT) 82.2 SEC (24.3-30.1)
--- NOTE | 2016-09-11 12:22 | PD.ONC.PN ---
Subjective Subjective Remarks Afebrile overnight. Patient resting comfortably in room. Per nurse, the scroll shear operator plans to remove the IABP pump today. Objective Data Date Time Temp Pulse Resp B/P Pulse Ox O2 Delivery O2 Flow Rate FiO2 09/11/16 11:00 87/65 09/11/16 11:00 99.3 88 16 100/57 92 09/11/16 11:00 79 09/11/16 10:00 85/63 09/11/16 09:14 93 21 09/11/16 09:00 100/68 09/11/16 08:00 91/64 09/11/16 07:00 82 09/11/16 07:00 99.0 82 16 105/63 94 Arterial Line 09/11/16 07:00 94 Room Air 09/11/16 07:00 88/66 09/11/16 06:00 92/69 09/11/16 05:00 102/72 09/11/16 04:00 97/74 09/11/16 03:00 91/64 09/11/16 03:00 79 09/11/16 03:00 99.9 79 12 103/67 96 09/11/16 02:00 91/69 09/11/16 01:00 90/64 09/11/16 00:00 87/63 09/10/16 23:00 86 09/10/16 23:00 91/65 09/10/16 23:00 100.3 83 16 102/69 96 09/10/16 22:00 89/64 09/10/16 21:33 94 Nasal Cannula 2.00 09/10/16 21:00 93/68 09/10/16 20:00 90/61 09/10/16 19:00 103 09/10/16 19:00 93 Nasal Cannula 1.00 09/10/16 19:00 94/68 09/10/16 19:00 100.3 103 12 110/74 95 09/10/16 18:15 95/73 09/10/16 17:22 97/75 09/10/16 17:00 99/77 09/10/16 16:00 97/75 09/10/16 15:06 84 09/10/16 15:05 98.7 83 16 115/80 97 09/10/16 15:05 92/72 09/10/16 14:00 97/79 09/10/16 13:00 95/72 09/11/16 09/11/16 09/11/16 07:00 15:00 23:00 Intake Total 1026 ml Output Total 2115 ml Balance -1089 ml Result Diagram: 09/10/16 0548 09/10/16 0548 Laboratory Results Laboratory Tests Test 09/11/16 09/11/16 04:32 10:36 Prothrombin Time 63.1 SEC Prothromb Time International 5.3 RATIO Ratio Activated Partial 116.5 SEC 82.2 SEC Thromboplast Time Administered Medications Medications (Trade) Dose Ordered Sig/Fern Route PRN Reason Start Time Stop Time Status Last Admin Dose Admin Sodium Chloride (NS Flush) 2 ml UNSCH PRN IVF FLUSH AFTER USING IV ACCESS 09/09/16 01:30 09/10/16 20:16 IV Flush (NS Flush) 2 ml BID IVF 09/09/16 09:00 09/10/16 09:00 Clopidogrel Bisulfate (Plavix) 75 mg DAILY PO 09/09/16 09:00 09/11/16 09:11 Aspirin (Aspirin Chew) 81 mg DAILY PO 09/09/16 09:00 09/11/16 09:11 Morphine Sulfate (Morphine Inj) 2 mg Q3H PRN IV PUSH pain 09/09/16 09:30 09/09/16 09:39 Acetaminophen/ Hydrocodone Bitart 2 tab 2 tab Q6H PRN PO SEE LABEL COMMENTS 09/09/16 12:00 09/11/16 09:11 Argatroban/Sodium Chloride (Novastan Inj/NS 250 ml Inj) 252.5 ml @ 0 mls/hr TITRATE IV 09/09/16 16:15 Hold 09/11/16 01:10 Atorvastatin Calcium (Lipitor) 80 mg HS PO 09/10/16 21:00 09/10/16 20:16 Carvedilol (Coreg) 3.125 mg Q12HR PO 09/10/16 09:30 09/11/16 09:11 Objective Remarks GENERAL:Middle aged male, sitting up in bed in nad. SKIN: Warm and dry. IABP in place. HEAD: Normocephalic. EYES: No injection or drainage. NECK: Supple, trachea midline. CARDIOVASCULAR: +S1/S2 RESPIRATORY: Breath sounds equal bilaterally. No accessory muscle use. GASTROINTESTINAL: Abdomen soft, non-tender, nondistended. EXTREMITIES: No cyanosis NEUROLOGICAL: awake and alert, normal speech. moving all extremities. Assessment/Plan Problem List: (1) STEMI (ST elevation myocardial infarction) Status: Acute (2) Hypercoagulable state Status: Acute (3) History of DVT (deep vein thrombosis) Status: Acute Assessment 51y/o male admitted with acute ST elevation [place] who has undergone PCI to the LAD , thrombectomy of left circumflex, has a history of multiple strokes and lower extremity DVT. history of right lower extremity DVT in 2001, h/o PE (was on Coumadin outpatient ) history of hyperlipidemia, history of stroke in 2001 and 2009. He history of hypercoagulable state with Factor V Leiden. s/p emergent cardiac catheterization. PCI to the LAD and thrombectomy of the left circumflex. Plan 1. patient to have IABP pump removed today. patient last had a dose of coumadin on 09/09 (1mg). INR likely elevated due to Argatroban only, however there may be some component from dose of Coumadin given on 09/09. Discussed with the nurse the following protocol: Argatroban will need to be held for 4 to 6 hours prior to procedure (removal of IABP). After 6 hours, obtain STAT INR. If INR remains elevated (>2.0) at 6 hours, nursing staff to call hematology (my cell phone was given). We may give vitamin K at that time. 2. will defer to cardiology about when to start Eliquis. After IABP is removed , the Argatroban could be resumed, or heparin could be started, or Eliquis could be started. Attending Statement The exam, history, and the medical decision-making described in the above note were completed with the assistance of the mid-level provider. I reviewed and agree with the findings presented. I attest that I had a [id number] encounter with the patient on the same day, and personally performed and documented my assessment and findings in the medical record Problem Qualifiers (1) STEMI (ST elevation myocardial infarction): Qualified Code: I21.02 - ST elevation myocardial infarction involving left anterior descending (LAD) coronary artery Kera Davalos September 11, 2016 12:22 Tavo Ocasio MD September 11, 2016 23:09
--- NOTE | 2016-09-11 12:39 | HHI.PR ---
Subjective Remarks f/u for STEMI Patient denies any chest pain or shortness of breathing. He is very anxious to have the balloon pump removed. At the bedside. Patient feels that he is doing very well. Objective Vitals Vital Signs Date Time Temp Pulse Resp B/P Pulse Ox O2 Delivery O2 Flow Rate FiO2 09/11/16 11:00 87/65 09/11/16 11:00 99.3 88 16 100/57 92 09/11/16 11:00 79 09/11/16 10:00 85/63 09/11/16 09:14 93 21 09/11/16 09:00 100/68 09/11/16 08:00 91/64 09/11/16 07:00 82 09/11/16 07:00 99.0 82 16 105/63 94 Arterial Line 09/11/16 07:00 94 Room Air 09/11/16 07:00 88/66 09/11/16 06:00 92/69 09/11/16 05:00 102/72 09/11/16 04:00 97/74 09/11/16 03:00 91/64 09/11/16 03:00 79 09/11/16 03:00 99.9 79 12 103/67 96 09/11/16 02:00 91/69 09/11/16 01:00 90/64 09/11/16 00:00 87/63 09/10/16 23:00 86 09/10/16 23:00 91/65 09/10/16 23:00 100.3 83 16 102/69 96 09/10/16 22:00 89/64 09/10/16 21:33 94 Nasal Cannula 2.00 09/10/16 21:00 93/68 09/10/16 20:00 90/61 09/10/16 19:00 103 09/10/16 19:00 93 Nasal Cannula 1.00 09/10/16 19:00 94/68 09/10/16 19:00 100.3 103 12 110/74 95 09/10/16 18:15 95/73 09/10/16 17:22 97/75 09/10/16 17:00 99/77 09/10/16 16:00 97/75 09/10/16 15:06 84 09/10/16 15:05 98.7 83 16 115/80 97 09/10/16 15:05 92/72 09/10/16 14:00 97/79 09/10/16 13:00 95/72 I/O 09/10/16 09/10/16 09/10/16 09/11/16 09/11/16 09/11/16 07:00 15:00 23:00 07:00 15:00 23:00 Intake Total 1277 ml 908 ml 1026 ml Output Total 1450 ml 2235 ml 2115 ml Balance -173 ml -1327 ml -1089 ml Intake Oral 480 ml 840 ml 960 ml IV Total 797 ml 68 ml 66 ml Output Urine Total 1450 ml 2235 ml 2115 ml # Bowel Movements 0 0 0 Result Diagram: 09/10/1654709/10/16547 Objective Remarks GENERAL: in NAD SKIN: right groin catheter in placed. HEAD: Normocephalic. EYES: No scleral icterus. No injection or drainage. NECK: Supple, trachea midline. No JVD or lymphadenopathy. no muscle spasms noted but +TTP of the neck muscles. CARDIOVASCULAR: Regular rate and rhythm without murmurs, gallops, or rubs. mild TTP of the chest. RESPIRATORY: Breath sounds equal bilaterally. No accessory muscle use. GASTROINTESTINAL: Abdomen soft, non-tender, nondistended. Medications and IVs Current Medications Sodium Chloride (NS 1000 ml Inj) 1,000 ml @ 0 mls/hr Q0M ONCE IV ; Start at 01:21; Stop 09/09/16 at 01:27; Status DC Sodium Chloride (NS Flush) 2 ml UNSCH PRN IVF FLUSH AFTER USING IV ACCESS Last administered on 09/10/16 20:16; Start 09/09/16 at 01:30 Aspirin (Aspirin Chew) 324 mg NOW STAT PO Last administered on 09/09/16 01:42 ; Start 09/09/16 at 01:21; Stop 09/09/16 at 01:27; Status DC Nitroglycerin 0.4 mg 0.4 mg NOW STAT SL Last administered on 09/09/16 01:46; Start 09/09/16 at 01:21; Stop 09/09/16 at 01:27; Status DC Nitroglycerin/ Dextrose (Nitroglycerin-Dextrose Inj) 250 ml @ 0 mls/hr TITRATE IV ; Start 09/09/16 at 01:30 Heparin Sodium (Porcine) 7000 units 7,000 units NOW STAT IV Last administered on 09/09/16 01:40; Start 09/09/16 at 01:21; Stop 09/09/16 at 01:27; Status DC Amiodarone HCl 150 mg/Dextrose 100 ml @ 600 mls/hr NOW ONCE IV ; Start at 02:00; Stop 09/09/16 at 02:09; Status DC Amiodarone HCl/ Dextrose (Cordarone Inj/ D5W ([place]) Inj) 250 ml @ 0 mls/hr CONTINUOUS IV ; Start 09/09/16 at 02:00; Status Cancel Ondansetron HCl (Zofran Inj) 4 mg STK-MED ONCE .ROUTE ; Start 09/09/16 at 02:03 ; Stop 09/09/16 at 02:04; Status DC Ondansetron HCl 4 mg 4 mg ONCE ONCE IV ; Start 09/09/16 at 02:15; Stop at 02:16; Status DC Heparin Sodium/ Sodium Chloride (Heparin-NS/Pf Inj) 500 ml @ As Directed STK- MED ONCE .ROUTE Last administered on 09/09/16 02:36; Start 09/09/16 at 02:36; Stop 09/09/16 at 02:37; Status DC Heparin Sodium (Porcine) 94747 units 10,000 units STK-MED ONCE .ROUTE Last administered on 09/09/16 03:14; Start 09/09/16 at 02:37; Stop 09/09/16 at 02:38 ; Status DC Nitroglycerin/ Dextrose 250 ml @ As Directed STK-MED ONCE .ROUTE Last administered on 09/09/16 02:53; Start 09/09/16 at 02:53; Stop 09/09/16 at 02:54 ; Status DC Tirofiban/Sodium Chloride (Aggrastat Infusion Inj) 250 ml @ As Directed STK- MED ONCE IV Last administered on 09/09/16 02:59; Start 09/09/16 at 02:56; Stop 09/09/16 at 02:57; Status DC Midazolam HCl (Versed Inj) 2 mg STK-MED ONCE .ROUTE Last administered on 03:05; Start 09/09/16 at 03:04; Stop 09/09/16 at 03:05; Status DC Fentanyl Citrate (fentaNYL INJ) 100 mcg STK-MED ONCE .ROUTE Last administered on 09/09/16 03:07; Start 09/09/16 at 03:06; Stop 09/09/16 at 03:07; Status DC Clopidogrel Bisulfate 600 mg 600 mg STK-MED ONCE .ROUTE Last administered on 03:36; Start 09/09/16 at 03:31; Stop 09/09/16 at 03:32; Status DC Sodium Chloride (NS 1000 ml Inj) 1,000 ml @ 100 mls/hr Q10H IV Last administered on 09/09/16 14:12; Start 09/09/16 at 03:42; Stop 09/09/16 at 15:41 ; Status DC IV Flush (NS Flush) 2 ml BID IVF Last administered on 09/10/16 09:00; Start at 09:00 Temazepam (Restoril) 15 mg HS PRN PO SLEEP; Start 09/09/16 at 03:45 Aspirin (Aspirin) 325 mg DAILY PO ; Start 09/09/16 at 09:00; Stop 09/09/16 at 09 :00; Status DC Clopidogrel Bisulfate (Plavix) 75 mg DAILY PO Last administered on 09/11/16 09 :11; Start 09/09/16 at 09:00 Miscellaneous Information 1 1 ONCE ONCE XX ; Start 09/09/16 at 03:45; Stop at 03:50; Status DC Argatroban/Sodium Chloride (Novastan Inj/NS 250 ml Inj) 252.5 ml @ 0 mls/hr TITRATE IV Last administered on 09/09/16 14:51; Start 09/09/16 at 05:45; Stop 09/09/16 at 16:12; Status DC Atorvastatin Calcium (Lipitor) 40 mg HS PO Last administered on 09/09/16 21:39 ; Start 09/09/16 at 21:00; Stop 09/10/16 at 09:27; Status DC Warfarin Sodium (Coumadin) 1 mg DAILY@16 PO Last administered on 09/09/16 16: 25; Start 09/09/16 at 16:00; Stop 09/10/16 at 08:04; Status DC Aspirin (Aspirin Chew) 81 mg DAILY PO Last administered on 09/11/16 09:11; Start 09/09/16 at 09:00 Lorazepam 1 mg 1 mg Q4H PRN IV PUSH ANXIETY; Start 09/09/16 at 04:00 Tirofiban/Sodium Chloride (Aggrastat Infusion Inj) 250 ml @ 16.5 mls/hr [id number] IV Last administered on 09/09/16 14:13; Start 09/09/16 at 04:45; Stop 09/09/16 at 23:30; Status DC Midazolam HCl (Versed Inj) 1 mg ONCE ONCE IV ; Start 09/09/16 at 03:05; Stop at 04:43; Status DC Fentanyl Citrate (fentaNYL INJ) 50 mcg ONCE ONCE IV ; Start 09/09/16 at 03:07; Stop 09/09/16 at 04:43; Status DC Heparin Sodium (Porcine) (Heparin Inj) 2,000 units ONCE ONCE IV ; Start at 03:14; Stop 09/09/16 at 04:43; Status DC Midazolam HCl (Versed Inj) 2 mg ONCE ONCE IV ; Start 09/09/16 at 03:22; Stop at 04:43; Status DC Fentanyl Citrate (fentaNYL INJ) 50 mcg ONCE ONCE IV ; Start 09/09/16 at 03:31; Stop 09/09/16 at 04:43; Status DC Clopidogrel Bisulfate (Plavix) 600 mg ONCE ONCE PO ; Start 09/09/16 at 03:36; Stop 09/09/16 at 04:43; Status DC Morphine Sulfate 2 mg 2 mg Q3H PRN IV PUSH pain Last administered on 09/09/16 09:39; Start 09/09/16 at 09:30 Potassium Chloride 100 ml @ 50 mls/hr Q2H PRN IV For Potassium 2.8 - 3.2 mEq/L ; Start 09/09/16 at 09:30 Potassium Chloride (KCl 20 Meq Premix Inj) 100 ml @ 50 mls/hr Q2H PRN IV For Potassium 2.8 - 3.2 mEq/L; Start 09/09/16 at 09:30 Potassium Bicarb/ Potassium Chloride 50 meq 50 meq UNSCH PRN PO For Potassium 3.3 - 3.5 mEq/L; Start 09/09/16 at 09:30 Potassium Chloride 100 ml @ 25 mls/hr UNSCH PRN IV For Potassium 3.3 - 3.5 mEq /L; Start 09/09/16 at 09:30 Potassium Chloride 100 ml @ 50 mls/hr Q2H PRN IV For Potassium 3.3 - 3.5 mEq/L ; Start 09/09/16 at 09:30 Magnesium Sulfate/ Sodium Chloride (Magnesium Sulfate Inj/NS Inj) 100 ml @ 50 mls/hr UNSCH PRN IV For Magnesium 0.9 - 1.1 mg/dL; Start 09/09/16 at 09:30 Magnesium Oxide 800 mg 800 mg UNSCH PRN PO For Magnesium 1.2 - 1.6 mg/dL; Start 09/09/16 at 09:30 Magnesium Sulfate/ Sodium Chloride (Magnesium Sulfate Inj/NS Inj) 100 ml @ 50 mls/hr UNSCH PRN IV For Magnesium 1.2 - 1.6 mg/dL; Start 09/09/16 at 09:30 Potassium Phosphate 2000 mg 2,000 mg Q4H PRN PO For Phosphorus < 2.5 mg/dL; Start 09/09/16 at 09:30 Sodium Phosphate/ Sodium Chloride (Sodium Phosphate Inj/NS 250 ml Inj) 250 ml @ 42 mls/hr UNSCH PRN IV For Phosphorus < 2.5 mg/dL; Start 09/09/16 at 09:30 Potassium Phosphate (K-Phos) 2,000 mg UNSCH PRN PO/TUBE SEE LABEL COMMENTS; Start 09/09/16 at 09:30 Acetaminophen/ Hydrocodone Bitart (Schwertner 5-325 Mg) 1 tab Q6H PRN PO pain 1-5; Start 09/09/16 at 12:00 Acetaminophen/ Hydrocodone Bitart 2 tab 2 tab Q6H PRN PO SEE LABEL COMMENTS Last administered on 09/11/16 09:11; Start 09/09/16 at 12:00 Argatroban/Sodium Chloride (Novastan Inj/NS 250 ml Inj) 252.5 ml @ 0 mls/hr TITRATE IV Last administered on 09/11/16 01:10; Start 09/09/16 at 16:15; Status Hold Atorvastatin Calcium (Lipitor) 80 mg HS PO Last administered on 09/10/16 20:16 ; Start 09/10/16 at 21:00 Carvedilol (Coreg) 3.125 mg Q12HR PO Last administered on 09/11/16t 09:11; Start 09/10/16 at 09:30 Phytonadione (Vitamin K Inj) 5 mg ONCE ONCE SQ ; Start 09/11/16 at 09:00; Stop 09/11/16 at 09:00; Status DC Phytonadione (Vitamin K Inj) 5 mg ONCE SQ ; Start 09/11/16 at 09:00; Stop at 23:00; Status Hold Iohexol (OMNIPAQUE 350 INJ (Crabber)) 100 ml STK-MED ONCE OTHER ; Start at 09:40; Stop 09/11/16 at 09:40; Status DC Iohexol (OMNIPAQUE 350 INJ (Crabber)) 50 ml STK-MED ONCE OTHER ; Start at 09:40; Stop 09/11/16 at 09:40; Status DC A/P Assessment and Plan 51-year-old male with chest pain acute STEMI -Status post cardiac catheterization showing acute ST elevated myocardial infarction due to total included mid LAD status post angioplasty and stent of the proximal and mid LAD, acute thrombotic closure of the left circumflex flex after stenting of the LAD treated with thrombectomy, minimal disease of a very large RCA, status post placement of an intra-aortic balloon pump on 09/09/16. -Management per make up girl. -per make up girl will hold removing the balloon pump due to elevated INR. -Per assistant purchasing manager INR may be falsely elevated secondary to argatroban. They recommend to hold Argatroban for 4-6 hours prior to removing IABP and recheck a stat INR. If INR remains elevated above 2 at 6 hours to call assistant purchasing manager for further recommendation. After removal of IABP can restart Argatroban. Atypical Chest pain -Current chest pain seems to be more due to CPR. It is reproducible. -RESOLVED. Supratherapeutic INR -INR continues to increase now 5.3 Coumadin held. No signs of bleeding. -Battery Container Finishing Hand following. Please see recommendations as above. Chronic anticoagulation -due to factor V Leiden. Hypocoagulable workup per assistant purchasing manager. -Per assistant purchasing manager recommends Eliquis instead of Coumadin. Start date to be determined by make up girl. Elevated CK -Most likely secondary to rhabdo due to CPR. -Continue to monitor. -Patient on IV fluids. Continues to have good renal function. History of CVA, history of DVT, hyperlipidemia, factor V Leiden -Home medication resumed. DVT prophylaxis -Patient is on Coumadin which is being held. Discharge Planning Patient will remain in the CVICU due to the balloon pump. Tiffany Walters MD September 11, 2016 12:39
[2016-09-11] MEDS: MORPHINE SULFATE 4 MG/ML INJ IV PUSH PRN (14:35)
[2016-09-11 18:38] LABS: INTERNATIONAL NORMALIZED RATIO 2.6 RATIO; PROTHROMBIN TIME - PATIENT 29.9 SEC (9.8-11.6)
[2016-09-11] MEDS: ATORVASTATIN 80 MG TAB PO SCH (21:43)
[2016-09-11] MEDS: SODIUM CHLORIDE 0.9% FLUSH 10 ML FLUSH IVF PRN (21:47)
[2016-09-12] VITALS (8 sets, daily range): BP systolic 80–121; BP diastolic 49–73; PULSE 70–83; RESP 16–20; TEMP 98.3–100.3; O2SAT 94–96
[2016-09-12] MEDS: ACETAMINOPHEN/HYDROcodone 325 MG/5 MG TAB PO PRN ×3 (03:18→20:30)
[2016-09-12 03:49] LABS: THROMBIN TIME FOR LA 75 sec (13-19)
[2016-09-12 06:04] LABS: HEMATOCRIT 38.9 % (39.0-51.0); MEAN CELL VOLUME 85.8 FL (80.0-100.0); PLATELET COUNT 179 TH/MM3 (150-450); RED BLOOD COUNT 4.53 MIL/MM3 (4.50-5.90); REVIEW FLAG FINAL; WHITE BLOOD COUNT 8.3 TH/MM3 (4.0-11.0)
[2016-09-12 06:06] LABS: APTT (PATIENT) 48.3 SEC (24.3-30.1); INTERNATIONAL NORMALIZED RATIO 2.4 RATIO; PROTHROMBIN TIME - PATIENT 27.4 SEC (9.8-11.6)
[2016-09-12 06:21] LABS: BICARBONATE 27.9 MEQ/L (21.0-32.0); POTASSIUM 3.6 MEQ/L (3.5-5.1)
--- NOTE | 2016-09-12 08:31 | PD.CARD.PN ---
Subjective Subjective Remarks Complains of left shoulder pain. No dyspnea. Slight SSCP with deep inspiration only. No angina, dizziness, palpitations. Slept fairly well. Objective Medications Item Value Date Time Atorvastatin 80 mg 09/10/16 2100 Calcium HS/PO 09/11/162142 (Lipitor) Carvedilol 3.125 mg 09/10/16 0930 (Coreg) Q12HR/PO 09/11/162144 Clopidogrel 75 mg 09/09/16 0900 Bisulfate DAILY/PO 09/11/16 09 (Plavix) Aspirin 81 mg 09/09/16 0900 (Aspirin Chew) DAILY/PO 09/11/16 0911 Vital Signs / I&O Vital Signs Date Time Temp Pulse Resp B/P Pulse Ox O2 Delivery O2 Flow Rate FiO2 09/12/16 07:00 96 Nasal Cannula 2.00 09/12/16 07:00 98/72 09/12/16 06:00 95/68 09/12/16 05:00 80/55 09/12/16 04:20 18 09/12/16 04:00 78 09/12/16 04:00 98.7 78 20 92/52 96 83/68 09/12/16 04:00 83/68 09/12/16 03:00 88/65 09/12/16 02:00 86/60 09/12/16 01:00 80/57 09/12/16 00:10 79 09/12/16 00:00 80/64 09/12/16 00:00 100.1 80 20 94/57 96 80/64 09/11/16 23:00 83/61 09/11/16 22:36 21 09/11/16 22:00 99/69 09/11/16 21:00 95/68 09/11/16 20:00 98.6 96 20 110/70 97 92/66 09/11/16 20:00 92/66 09/11/16 19:54 97 Nasal Cannula 2.00 09/11/16 19:15 93 09/11/16 19:00 96/68 09/11/16 18:00 89/71 09/11/16 17:00 87/65 09/11/16 16:00 97/76 09/11/16 15:00 103/76 09/11/16 15:00 85 09/11/16 15:00 99.5 85 16 100/57 96 09/11/16 14:00 86/68 09/11/16 13:00 83/60 09/11/16 12:00 90/64 09/11/16 11:00 87/65 09/11/16 11:00 99.3 88 16 100/57 92 09/11/16 11:00 79 09/11/16 10:00 85/63 09/11/16 09:14 93 21 09/11/16 09:00 100/68 I/O 09/11/16 09/11/16 09/11/16 09/12/16 09/12/16 09/12/16 07:00 15:00 23:00 07:00 15:00 23:00 Intake Total 1026 ml 738 ml 720 ml Output Total 2115 ml 1565 ml 850 ml Balance -1089 ml -827 ml -130 ml Intake Oral 960 ml 720 ml 720 ml IV Total 66 ml 18 ml Output Urine Total 2115 ml 1565 ml 850 ml # Bowel Movements 0 0 0 Physical Exam GENERAL: Well developed, well nourished. No acute distress. HEENT: Jugular venous pressure is normal. CHEST: Lungs clear to auscultation bilaterally. Unlabored respiratory effort. CARDIAC: Regular rate and rhythm without S3, S4, or murmur. ABDOMEN: Soft, nontender, no hepatosplenomegaly. Bowel sounds present. EXTREMITIES: No clubbing, cyanosis, or edema. Normal right DP pulse. Laboratory Laboratory Tests Test 09/11/16 09/11/16 09/12/16 10:36 18:13 05:19 Activated Partial 82.2 SEC 48.3 SEC Thromboplast Time Prothrombin Time 29.9 SEC 27.4 SEC Prothromb Time International 2.6 RATIO 2.4 RATIO Ratio White Blood Count 8.3 TH/MM3 Red Blood Count 4.53 MIL/MM3 Hemoglobin 13.6 GM/DL Hematocrit 38.9 % Mean Corpuscular Volume 85.8 FL Mean Corpuscular Hemoglobin 30.0 PG Mean Corpuscular Hemoglobin 35.0 % Concent Red Cell Distribution Width 13.0 % Platelet Count 179 TH/MM3 Mean Platelet Volume 8.0 FL Sodium Level 135 MEQ/L Potassium Level 3.6 MEQ/L Chloride Level 101 MEQ/L Carbon Dioxide Level 27.9 MEQ/L Anion Gap 6 MEQ/L Blood Urea Nitrogen 11 MG/DL Creatinine 0.85 MG/DL Estimat Glomerular Filtration 95 ML/MIN Rate Random Glucose 116 MG/DL Calcium Level 8.5 MG/DL Total Creatine Kinase 161 U/L Assessment and Plan Problem List: (1) STEMI (ST elevation myocardial infarction) Assessment and Plan: Overall doing well s/p anterior STEMI, PCI LAD, thrombectomy left circumflex. No definite CHF. No recurrent VF. Groin stable and distal RLE pulses good. EF 45% by echo. REC will pull IABP later this afternoon stop carvedilol with continued low BP's continue aspirin, Plavix (2) Hypercoagulable state Assessment and Plan: Dr. Ocasio's consult noted, appreciated. Once IABP pulled this afternoon will switch warfarin to Eliquis and stop aspirin (continue Plavix ). (3) VF (ventricular fibrillation) Assessment and Plan: Stable rhythm status. No further VF. EF reported 45% on echo. (4) Hyperlipidemia Assessment and Plan: Very poor lipid profile. Continue max dose statin. Code Status full code Discussed Condition With patient Problem Qualifiers (1) STEMI (ST elevation myocardial infarction): Qualified Code: I21.02 - ST elevation myocardial infarction involving left anterior descending (LAD) coronary artery (2) Hyperlipidemia: Qualified Code: E78.2 - Mixed hyperlipidemia Bishop Canada MD Sep 12, 2016 08:31
[2016-09-12] MEDS: CARVEDILOL 3.125 MG TAB PO SCH ×3 (08:57→21:00)
[2016-09-12] MEDS: SODIUM CHLORIDE 0.9% FLUSH 10 ML FLUSH IVF PRN ×2 (08:57→09:00)
[2016-09-12] MEDS: CLOPIDOGREL 75 MG TAB PO SCH (08:57)
[2016-09-12] MEDS: ASPIRIN 81 MG CHEW TAB PO SCH (08:57)
[2016-09-12] MEDS: SODIUM CHLORIDE 0.9% FLUSH 5 ML FLUSH IVF SCH ×2 (09:00→21:00)
--- NOTE | 2016-09-12 09:17 | HHI.PR ---
Subjective Remarks Pt complains mainly of left shoulder pain. States that his chest pain is improving and is reproducible. denies any SOB, nausea or vomiting discussed w RN, balloon pump scheduled to be removed later today. She did communicate w cards regarding INR being 2.4 and he is ok w this, no need for vit K. Objective Vitals Vital Signs Date Time Temp Pulse Resp B/P Pulse Ox O2 Delivery O2 Flow Rate FiO2 09/12/16 09:00 94/71 09/12/16 08:00 100/79 09/12/16 07:00 98.8 76 20 100/60 95 98/72 09/12/16 07:00 96 Nasal Cannula 2.00 09/12/16 07:00 77 09/12/16 07:00 98/72 09/12/16 06:00 95/68 09/12/16 05:00 80/55 09/12/16 04:20 18 09/12/16 04:00 78 09/12/16 04:00 98.7 78 20 92/52 96 83/68 09/12/16 04:00 83/68 09/12/16 03:00 88/65 09/12/16 02:00 86/60 09/12/16 01:00 80/57 09/12/16 00:10 79 09/12/16 00:00 80/64 09/12/16 00:00 100.1 80 20 94/57 96 80/64 09/11/16 23:00 83/61 09/11/16 22:36 21 09/11/16 22:00 99/69 09/11/16 21:00 95/68 09/11/16 20:00 98.6 96 20 110/70 97 92/66 09/11/16 20:00 92/66 09/11/16 19:54 97 Nasal Cannula 2.00 09/11/16 19:15 93 09/11/16 19:00 96/68 09/11/16 18:00 89/71 09/11/16 17:00 87/65 09/11/16 16:00 97/76 09/11/16 15:00 103/76 09/11/16 15:00 85 09/11/16 15:00 99.5 85 16 100/57 96 09/11/16 14:00 86/68 09/11/16 13:00 83/60 5/31/17 12:00 90/64 09/11/16 11:00 87/65 09/11/16 11:00 99.3 88 16 100/57 92 09/11/16 11:00 79 09/11/16 10:00 85/63 09/11/16 09:14 93 21 I/O 09/11/16 09/11/16 09/11/16 09/12/16 09/12/16 09/12/16 07:00 15:00 23:00 07:00 15:00 23:00 Intake Total 1026 ml 738 ml 720 ml Output Total 2115 ml 1565 ml 850 ml Balance -1089 ml -827 ml -130 ml Intake Oral 960 ml 720 ml 720 ml IV Total 66 ml 18 ml Output Urine Total 2115 ml 1565 ml 850 ml # Bowel Movements 0 0 0 Result Diagram: 09/12/16 0519 09/12/16 0519 Imaging Last Impressions Chest X-Ray 09/09/16 1200 Signed Impressions: Service Date/Time: Friday, September 09, 2016 11:38 - CONCLUSION: Underinflated examination with mild opacity at the left lung base representing either atelectasis or mild air space consolidation. Given the underinflation, atelectasis is favored. Dusty Lang MD ADDENDUM: There is a linear radiopaque structure measuring 6 mm overlying the aortic arch that may represent the IABP tip. Therefore, this is likely near the origin of the left subclavian artery. Dusty Lang MD Objective Remarks GENERAL: in NAD SKIN: right groin catheter in placed. no hematoma noted or bleeding. NECK: no muscle spasms noted but +TTP of the neck muscles. Left shoulder, good range of motion, some tenderness around the clavicular area CARDIOVASCULAR: Regular rate and rhythm without murmurs. mild TTP of the chest. RESPIRATORY: Breath sounds equal bilaterally. No accessory muscle use. GASTROINTESTINAL: Abdomen soft, non-tender, nondistended. MSK: no edema A/P Assessment and Plan 51-year-old male with chest pain acute STEMI -Status post cardiac catheterization showing acute ST elevated myocardial infarction due to total included mid LAD status post angioplasty and stent of the proximal and mid LAD, acute thrombotic closure of the left circumflex flex after stenting of the LAD treated with thrombectomy, minimal disease of a very large RCA, status post placement of an intra-aortic balloon pump on 09/09/16. Dr. Canada, planning on pulling balloon pump later today. Hematology at bedside, INR 2.4. RN notified Dr. Canada of INR being 2.4 and he is ok w this value and no need for vit K -Continue management per horse and wagon driver. per cards, once IABP pulled this afternoon he will switch warfarin to Eliquis and stop aspirin (continue Plavix). -Per impregnating machine operator INR may be falsely elevated secondary to argatroban. After removal of IABP can restart Argatroban. Atypical Chest pain -Current chest pain seemed to have been due to CPR. -RESOLVED. Left shoulder pain may be from CPR and laying down for long periods of time continue norco, check shoulder x-ray Supratherapeutic INR -INR continues to increase now 2.4 Coumadin held. No signs of bleeding. -Car Dispatcher following. Please see recommendations as above. Chronic anticoagulation -due to factor V Leiden. Hypocoagulable workup per impregnating machine operator. -Per impregnating machine operator recommends Eliquis instead of Coumadin. see above Elevated CK -Most likely secondary to rhabdo due to CPR. -Continue to monitor. -Patient on IV fluids. Continues to have good renal function. History of CVA, history of DVT, hyperlipidemia, factor V Leiden -Home medication resumed. DVT prophylaxis -Patient is on Coumadin which is being held. Discharge Planning keep in CVICU while he has balloon pump in place. transfer to regular floor afterwards. Nahed Vyas MD Sep 12, 2016 09:17
--- NOTE | 2016-09-12 09:36 | PD.ONC.PN ---
Subjective Subjective Remarks Afebrile overnight. Patient resting comfortably in bed. Cardiology plans to remove iabp this afternoon. Objective Data Date Time Temp Pulse Resp B/P Pulse Ox O2 Delivery O2 Flow Rate FiO2 09/12/16 09:00 94/71 09/12/16 08:00 100/79 09/12/16 07:00 98.8 76 20 100/60 95 98/72 09/12/16 07:00 96 Nasal Cannula 2.00 09/12/16 07:00 77 09/12/16 07:00 98/72 09/12/16 06:00 95/68 09/12/16 05:00 80/55 09/12/16 04:20 18 09/12/16 04:00 78 09/12/16 04:00 98.7 78 20 92/52 96 83/68 09/12/16 04:00 83/68 09/12/16 03:00 88/65 09/12/16 02:00 86/60 09/12/16 01:00 80/57 09/12/16 00:10 79 09/12/16 00:00 80/64 09/12/16 00:00 100.1 80 20 94/57 96 80/64 09/11/16 23:00 83/61 09/11/16 22:36 21 09/11/16 22:00 99/69 09/11/16 21:00 95/68 09/11/16 20:00 98.6 96 20 110/70 97 92/66 09/11/16 20:00 92/66 09/11/16 19:54 97 Nasal Cannula 2.00 09/11/16 19:15 93 09/11/16 19:00 96/68 09/11/16 18:00 89/71 09/11/16 17:00 87/65 09/11/16 16:00 97/76 09/11/16 15:00 103/76 09/11/16 15:00 85 09/11/16 15:00 99.5 85 16 100/57 96 09/11/16 14:00 86/68 09/11/16 13:00 83/60 09/11/16 12:00 90/64 09/11/16 11:00 87/65 09/11/16 11:00 99.3 88 16 100/57 92 09/11/16 11:00 79 09/11/16 10:00 85/63 09/12/16 09/12/16 09/12/16 07:00 15:00 23:00 Intake Total 720 ml Output Total 850 ml Balance -130 ml Result Diagram: 09/12/16 0519 09/12/16 0519 Laboratory Results Laboratory Tests Test 09/11/16 09/11/16 09/12/16 10:36 18:13 05:19 Activated Partial 82.2 SEC 48.3 SEC Thromboplast Time Prothrombin Time 29.9 SEC 27.4 SEC Prothromb Time International 2.6 RATIO 2.4 RATIO Ratio White Blood Count 8.3 TH/MM3 Red Blood Count 4.53 MIL/MM3 Hemoglobin 13.6 GM/DL Hematocrit 38.9 % Mean Corpuscular Volume 85.8 FL Mean Corpuscular Hemoglobin 30.0 PG Mean Corpuscular Hemoglobin 35.0 % Concent Red Cell Distribution Width 13.0 % Platelet Count 179 TH/MM3 Mean Platelet Volume 8.0 FL Sodium Level 135 MEQ/L Potassium Level 3.6 MEQ/L Chloride Level 101 MEQ/L Carbon Dioxide Level 27.9 MEQ/L Anion Gap 6 MEQ/L Blood Urea Nitrogen 11 MG/DL Creatinine 0.85 MG/DL Estimat Glomerular Filtration 95 ML/MIN Rate Random Glucose 116 MG/DL Calcium Level 8.5 MG/DL Total Creatine Kinase 161 U/L Administered Medications Medications (Trade) Dose Ordered Sig/Fern Route PRN Reason Start Time Stop Time Status Last Admin Dose Admin Sodium Chloride (NS Flush) 2 ml UNSCH PRN IVF FLUSH AFTER USING IV ACCESS 09/09/16 01:30 09/12/16 09:00 IV Flush (NS Flush) 2 ml BID IVF 09/09/16 09:00 09/12/16 09:00 Clopidogrel Bisulfate (Plavix) 75 mg DAILY PO 09/09/16 09:00 09/12/16 08:57 Aspirin (Aspirin Chew) 81 mg DAILY PO 09/09/16 09:00 09/12/16 08:57 Morphine Sulfate (Morphine Inj) 2 mg Q3H PRN IV PUSH pain 09/09/16 09:30 09/11/16 14:35 Acetaminophen/ Hydrocodone Bitart (Gibson 5-325 Mg) 2 tab Q6H PRN PO SEE LABEL COMMENTS 09/09/16 12:00 6/1/17 08:58 Atorvastatin Calcium (Lipitor) 80 mg HS PO 09/10/16 21:00 09/11/16 21:43 Carvedilol (Coreg) 3.125 mg Q12HR PO 09/10/16 09:30 09/11/16 21:45 Objective Remarks GENERAL:Middle aged male, upright in bed in nad. SKIN: Warm and dry. HEAD: Normocephalic. EYES: No injection or drainage. NECK: Supple, trachea midline. CARDIOVASCULAR: +S1/S2 RESPIRATORY: Breath sounds equal bilaterally. No accessory muscle use. GASTROINTESTINAL: Abdomen soft, non-tender, nondistended. EXTREMITIES: No cyanosis NEUROLOGICAL: aox3. normal speech. moving all extremities. Assessment/Plan Problem List: (1) STEMI (ST elevation myocardial infarction) Status: Acute (2) Hypercoagulable state Status: Acute (3) History of DVT (deep vein thrombosis) Status: Acute Assessment 51y/o male admitted with acute ST elevation [facility] who has undergone PCI to the LAD , thrombectomy of left circumflex, has a history of multiple strokes and lower extremity DVT. history of right lower extremity DVT in 2001, h/o PE (was on Coumadin outpatient ) history of hyperlipidemia, history of stroke in 2001 and 2009. He history of hypercoagulable state with Factor V Leiden. s/p emergent cardiac catheterization. PCI to the LAD and thrombectomy of the left circumflex. Plan 1. patient off argatroban since 12PM yesterday. INR=2.4. IABP to be removed this afternoon and patient to be started on Eliquis per cardiology. Attending Statement The exam, history, and the medical decision-making described in the above note were completed with the assistance of the mid-level provider. I reviewed and agree with the findings presented. I attest that I had a [id number] encounter with the patient on the same day, and personally performed and documented my assessment and findings in the medical record Problem Qualifiers (1) STEMI (ST elevation myocardial infarction): Qualified Code: I21.02 - ST elevation myocardial infarction involving left anterior descending (LAD) coronary artery Kera Davalos Sep 12, 2016 09:36 Tavo Ocasio MD Sep 12, 2016 22:38
--- NOTE | 2016-09-12 09:52 | RADRPT ---
EXAM DATE/TIME: 09/12/2016 09:19 [facility] COMPARISON: No previous studies available for comparison. INDICATIONS : Left shoulder pain post CPR. MEDICAL HISTORY : None. SURGICAL HISTORY : None. ENCOUNTER: Initial ACUITY: 2 days PAIN SCORE: 8/10 LOCATION: Left shoulder. FINDINGS: 2 views of the left shoulder. Bone alignment within normal limits. No evidence of fracture. Glenohum eral joint within normal limits. Mild arthritic findings of the acromioclavicular joint. CONCLUSION: Mild acromioclavicular joint arthritic findings. Otherwise within normal notes. Cuco Wharton MD on September 12, 2016 at 9:50 Board Certified Radiologist. This report was verified electronically.
[2016-09-12] MEDS ORDERED: ACETAMINOPHEN/HYDROcodone 325 MG/5 MG TAB PO PRN (10:00)
[2016-09-12] MEDS ORDERED: MIDAZOLAM HCL 2 MG/2 ML VIAL IV PUSH ONE (14:30)
[2016-09-12] MEDS ORDERED: LIDOCAINE HCL 1% 50 ML VIAL ONE (18:13)
[2016-09-12] MEDS: ATORVASTATIN 80 MG TAB PO SCH (20:30)
[2016-09-13] VITALS (9 sets, daily range): BP systolic 115–135; BP diastolic 68–82; PULSE 66–90; RESP 14–20; TEMP 97.7–99.3; O2SAT 94–97
[2016-09-13 06:00] LABS: REVIEW FLAG FINAL
[2016-09-13 06:15] LABS: APTT (PATIENT) 42.4 SEC (24.3-30.1); INTERNATIONAL NORMALIZED RATIO 1.8 RATIO; PROTHROMBIN TIME - PATIENT 20.1 SEC (9.8-11.6)
[2016-09-13] MEDS: APIXABAN 5 MG TABLET PO SCH ×2 (08:24→21:05)
[2016-09-13] MEDS: CLOPIDOGREL 75 MG TAB PO SCH (08:24)
[2016-09-13] MEDS: CYANOCOBALAMIN 1,000 MCG TAB PO SCH (08:24)
[2016-09-13] MEDS: FOLIC ACID 1 MG TAB PO SCH (08:24)
[2016-09-13] MEDS: CARVEDILOL 3.125 MG TAB PO SCH ×2 (08:24→21:05)
[2016-09-13] MEDS: SODIUM CHLORIDE 0.9% FLUSH 10 ML FLUSH IVF PRN ×2 (08:38→21:06)
[2016-09-13] MEDS: ACETAMINOPHEN/HYDROcodone 325 MG/5 MG TAB PO PRN ×2 (08:39→21:06)
--- NOTE | 2016-09-13 08:42 | PD.CARD.PN ---
Subjective Subjective Remarks Improving constant left shoulder left upper chest soreness. No dyspnea, groin or leg pain, palpitations, dizziness, angina. Objective Medications Item Value Date Time Apixaban 5 mg 09/13/16 0900 (Eliquis) BID/PO Atorvastatin 80 mg 09/10/16 2100 Calcium HS/PO 09/12/16 2030 (Lipitor) Carvedilol 3.125 mg 09/10/16 0930 (Coreg) Q12HR/PO 09/12/16 2100 Clopidogrel 75 mg 09/09/16 0900 Bisulfate DAILY/PO 09/12/16 0857 (Plavix) Aspirin 81 mg 09/09/16 0900 (Aspirin Chew) DAILY/PO 09/12/16 0857 Apixaban 5 mg 09/13/16 0900 (Eliquis) BID/PO 09/13/16 0824 Enalapril Maleate 2.5 mg 09/13/16 0900 (Vasotec) DAILY/PO Carvedilol 3.125 mg 09/10/16 0930 (Coreg) Q12HR/PO 09/13/16 0824 Clopidogrel 75 mg 09/09/16 0900 Bisulfate DAILY/PO 09/13/16 0824 (Plavix) Vital Signs / I&O Vital Signs Date Time Temp Pulse Resp B/P Pulse Ox O2 Delivery O2 Flow Rate FiO2 09/13/16 03:00 78 09/13/16 03:00 99.3 78 14 115/68 94 09/12/16 23:00 78 09/12/16 23:00 100.1 78 16 121/73 94 09/12/16 21:30 16 09/12/16 19:00 83 09/12/16 19:00 100.3 83 18 113/58 94 Arterial Line 09/12/16 19:00 94 09/12/16 18:00 107/74 09/12/16 17:00 94/71 09/12/16 16:00 99/71 09/12/16 15:00 98.3 81 18 97/49 96 09/12/16 15:00 97/70 09/12/16 15:00 76 09/12/16 14:00 112/71 09/12/16 13:00 99/69 09/12/16 12:00 89/62 09/12/16 11:00 98.5 78 18 105/68 95 6/1/17 11:00 92/65 09/12/16 11:00 70 09/12/16 10:00 97/73 09/12/16 09:00 94/71 I/O 09/12/16 09/12/16 09/12/16 09/13/16 09/13/16 09/13/16 07:00 15:00 23:00 07:00 15:00 23:00 Intake Total 720 ml 720 ml 480 ml Output Total 850 ml 1550 ml 1650 ml Balance -130 ml -830 ml -1170 ml Intake Oral 720 ml 720 ml 480 ml Output Urine Total 850 ml 1550 ml 1650 ml Stool Total 0 ml 0 ml # Bowel Movements 0 Physical Exam GENERAL: Well developed, well nourished. No acute distress. HEENT: Jugular venous pressure is normal. CHEST: Lungs clear to auscultation bilaterally. Unlabored respiratory effort. CARDIAC: Regular rate and rhythm without S3, S4, or murmur. ABDOMEN: Soft, nontender, no hepatosplenomegaly. Bowel sounds present. EXTREMITIES: No clubbing, cyanosis, or edema. Normal right DP pulse. Right groin nontender, no hematoma. Laboratory Laboratory Tests Test 09/12/16 09/13/16 16:40 05:10 Prothrombin Time 23.0 SEC 20.1 SEC Prothromb Time International 2.0 RATIO 1.8 RATIO Ratio Hemoglobin 13.8 GM/DL Hematocrit 42.0 % Activated Partial 42.4 SEC Thromboplast Time Assessment and Plan Problem List: (1) STEMI (ST elevation myocardial infarction) Assessment and Plan: Overall doing well s/p anterior STEMI, PCI LAD, thrombectomy left circumflex 09/08/16. No definite CHF. No recurrent VF. Groin stable and distal RLE pulses good. EF 45% by echo. IABP D/C'd without complication yesterday. REC as BP's better resume carvedilol and add enalapril 2.5 mg qd continue Plavix; aspirin stopped as now on Eliquis transfer out of ICU and increase ambulation; possible discharge tomorrow if stable (2) Hypercoagulable state Assessment and Plan: Dr. Ocasio's consult noted, appreciated. Warfarin switched to Eliquis. To continue Plavix, stop aspirin (3) VF (ventricular fibrillation) Assessment and Plan: Stable rhythm status. No further VF. EF reported 45% on echo. (4) Hyperlipidemia Assessment and Plan: Very poor lipid profile. Continue max dose atorvastatin. Code Status full code Discussed Condition With patient Problem Qualifiers (1) STEMI (ST elevation myocardial infarction): Qualified Code: I21.02 - ST elevation myocardial infarction involving left anterior descending (LAD) coronary artery (2) Hyperlipidemia: Qualified Code: E78.2 - Mixed hyperlipidemia Bishop Canada MD Sep 13, 2016 08:42
[2016-09-13] MEDS: SODIUM CHLORIDE 0.9% FLUSH 5 ML FLUSH IVF SCH (09:00)
[2016-09-13] MEDS: ENALAPRIL MALEATE 2.5 MG TAB PO SCH (09:51)
--- NOTE | 2016-09-13 12:22 | HHI.PR ---
Subjective Remarks Pt feeling tired. pain in shoulder and chest improved. no nausea or vomiting. reports some numbness in the latera side of his leg but no pain. has been ambulating in room Objective Vitals Vital Signs Date Time Temp Pulse Resp B/P Pulse Ox O2 Delivery O2 Flow Rate FiO2 09/13/16 11:24 66 09/13/16 09:51 14 09/13/16 07:15 85 09/13/16 07:15 97.7 85 16 135/82 97 09/13/16 07:15 97 Room Air 09/13/16 03:00 78 09/13/16 03:00 99.3 78 14 115/68 94 09/12/16 23:00 78 09/12/16 23:00 100.1 78 16 121/73 94 09/12/16 19:00 83 09/12/16 19:00 100.3 83 18 113/58 94 Arterial Line 09/12/16 19:00 94 09/12/16 18:00 107/74 09/12/16 17:00 94/71 09/12/16 16:00 99/71 09/12/16 15:00 98.3 81 18 97/49 96 09/12/16 15:00 97/70 09/12/16 15:00 76 09/12/16 14:00 112/71 09/12/16 13:00 99/69 I/O 09/12/16 09/12/16 09/12/16 09/13/16 09/13/16 09/13/16 07:00 15:00 23:00 07:00 15:00 23:00 Intake Total 720 ml 720 ml 480 ml Output Total 850 ml 1550 ml 1650 ml Balance -130 ml -830 ml -1170 ml Intake Oral 720 ml 720 ml 480 ml Output Urine Total 850 ml 1550 ml 1650 ml Stool Total 0 ml 0 ml # Bowel Movements 0 Result Diagram: 09/13/16 0510 09/12/16 0519 Imaging Last Impressions Shoulder X-Ray 09/12/16 0000 Signed Impressions: Service Date/Time: September 09:19 - CONCLUSION: Mild acromioclavicular joint arthritic findings. Otherwise within normal notes. Cuco Wharton MD Chest X-Ray 09/09/16 1200 Signed Impressions: Service Date/Time: Friday, September 09, 2016 11:38 - CONCLUSION: Underinflated examination with mild opacity at the left lung base representing either atelectasis or mild air space consolidation. Given the underinflation, atelectasis is favored. Dusty Lang MD ADDENDUM: There is a linear radiopaque structure measuring 6 mm overlying the aortic arch that may represent the IABP tip. Therefore, this is likely near the origin of the left subclavian artery. Dusty Lang MD Objective Remarks GENERAL: in NAD CARDIOVASCULAR: Regular rate and rhythm without murmurs. mild TTP of the chest. RESPIRATORY: Breath sounds equal bilaterally. No accessory muscle use. GASTROINTESTINAL: Abdomen soft, non-tender, nondistended. MSK: no edema A/P Assessment and Plan 51-year-old male with chest pain acute STEMI -Status post cardiac catheterization showing acute ST elevated myocardial infarction due to total included mid LAD status post angioplasty and stent of the proximal and mid LAD, acute thrombotic closure of the left circumflex flex after stenting of the LAD treated with thrombectomy, minimal disease of a very large RCA, status post placement of an intra-aortic balloon pump on 09/09/16, now removed. -Continue management per cement block maker. per cards, on Eliquis and off aspirin ( continue Plavix). carvedilol and enalapril 2.5 mg qd Atypical Chest pain -Current chest pain seemed to have been due to CPR. -RESOLVED. Left shoulder pain may be from CPR and laying down for long periods of time continue norco, shoulder x-ray shows arthritis Supratherapeutic INR -INR 1.8.off Coumadin No signs of bleeding. -Hand Inserter Operator following. Please see recommendations as above. Chronic anticoagulation -due to factor V Leiden. Hypocoagulable workup per legal administrative assistant. -Per legal administrative assistant recommends Eliquis instead of Coumadin. see above Elevated CK -Most likely secondary to rhabdo due to CPR. resolved History of CVA, history of DVT, hyperlipidemia, factor V Leiden -Home medication resumed. DVT prophylaxis -Patient is on eliquis Discharge Planning transfer out ICU. anticipate d/c in Nahed Lehman MD Sep 13, 2016 12:22
[2016-09-13 15:52] LABS: PHOSPHATIDYLSERINE AB IGA LESS THAN 20.0 U/mL (()); PHOSPHATIDYLSERINE AB IGM LESS THAN 25.0 U/mL (())
[2016-09-13] MEDS ORDERED: MAGNESIUM HYDROXIDE SUSP 30 ML CUP PO ONE (16:15)
[2016-09-13] MEDS ORDERED: MAGNESIUM HYDROXIDE SUSP 30 ML CUP PO PRN (16:15)
[2016-09-13] MEDS ORDERED: DOCUSATE SODIUM 50 MG/SENNA 8.6 MG TAB PO PRN (16:15)
--- NOTE | 2016-09-13 19:53 | PD.ONC.PN ---
Subjective Subjective Remarks patient examined plans d/w team d/w rn Objective Data Date Time Temp Pulse Resp B/P Pulse Ox O2 Delivery O2 Flow Rate FiO2 09/13/16 15:22 77 09/13/16 15:22 98.1 77 18 118/77 96 09/13/16 12:00 98.0 66 16 134/78 96 09/13/16 11:24 66 09/13/16 09:51 14 09/13/16 07:15 85 09/13/16 07:15 97.7 85 16 135/82 97 09/13/16 07:15 97 Room Air 09/13/16 03:00 78 09/13/16 03:00 99.3 78 14 115/68 94 09/12/16 23:00 78 09/12/16 23:00 100.1 78 16 121/73 94 09/13/16 09/13/16 09/13/16 07:00 15:00 23:00 Intake Total 480 ml Output Total 1650 ml Balance -1170 ml Result Diagram: 09/13/16 0510 09/12/16 0519 Laboratory Results Laboratory Tests Test 09/13/16 05:10 Hemoglobin 13.8 GM/DL Hematocrit 42.0 % Prothrombin Time 20.1 SEC Prothromb Time International 1.8 RATIO Ratio Activated Partial 42.4 SEC Thromboplast Time Administered Medications Medications (Trade) Dose Ordered Sig/Fern Route PRN Reason Start Time Stop Time Status Last Admin Dose Admin Sodium Chloride (NS Flush) 2 ml UNSCH PRN IVF FLUSH AFTER USING IV ACCESS 09/09/16 01:30 09/13/16 08:38 IV Flush (NS Flush) 2 ml BID IVF 09/09/16 09:00 09/12/16 21:00 Clopidogrel Bisulfate (Plavix) 75 mg DAILY PO 09/09/16 09:00 09/13/16 08:24 Morphine Sulfate (Morphine Inj) 2 mg Q3H PRN IV PUSH pain 09/09/16 09:30 09/11/16 14:35 Acetaminophen/ Hydrocodone Bitart (Sidney 5-325 Mg) 2 tab Q6H PRN PO SEE LABEL COMMENTS 09/09/16 12:00 09/13/16 08:39 Atorvastatin Calcium (Lipitor) 80 mg HS PO 09/10/16 21:00 09/12/16 20:30 Carvedilol (Coreg) 3.125 mg Q12HR PO 09/10/16 09:30 09/13/16 08:24 Cyanocobalamin (Vitamin B12) 1,000 mcg DAILY PO 09/13/16 09:00 09/13/16 08:24 Folic Acid (Folate) 1 mg DAILY PO 09/13/16 09:00 09/13/16 08:24 Apixaban (Eliquis) 5 mg BID PO 09/13/16 09:00 09/13/16 08:24 Enalapril Maleate (Vasotec) 2.5 mg DAILY PO 09/13/16 09:00 09/13/16 09:51 Objective Remarks GENERAL: nad/acutely ill SKIN: Warm and dry. HEAD: Normocephalic. EYES: No scleral icterus. No injection or drainage. NECK: Supple, trachea midline. No JVD or lymphadenopathy. LYMPHATIC: No adenopathy. CARDIOVASCULAR: Regular rate and rhythm without murmurs. RESPIRATORY: Breath sounds equal bilaterally. No accessory muscle use. GASTROINTESTINAL: Abdomen soft, non-tender, nondistended. EXTREMITIES: No cyanosis, or edema. MUSCULOSKELETAL: Adequate muscle tone. NEUROLOGICAL: No obvious focal deficit. Awake, alert, and oriented x3. PSYCHIATRIC: Appropriate mood and affect; insight and judgment normal. Assessment/Plan Problem List: (1) STEMI (ST elevation myocardial infarction) Status: Acute (2) Hypercoagulable state Status: Acute (3) History of DVT (deep vein thrombosis) Status: Acute Assessment 51y/o male admitted with acute ST elevation [place] who has undergone PCI to the LAD , thrombectomy of left circumflex, has a history of multiple strokes and lower extremity DVT. history of right lower extremity DVT in 2001, h/o PE (was on Coumadin outpatient ) history of hyperlipidemia, history of stroke in 2001 and 2009. He history of hypercoagulable state with Factor V Leiden. s/p emergent cardiac catheterization. PCI to the LAD and thrombectomy of the left circumflex. Plan 1. patient off argatroban since 12PM yesterday. INR=2.4. IABP to be removed this afternoon and patient to be started on Eliquis per cardiology. Problem Qualifiers (1) STEMI (ST elevation myocardial infarction): Qualified Code: I21.02 - ST elevation myocardial infarction involving left anterior descending (LAD) coronary artery Tavo Ocasio MD Sep 13, 2016 19:53
[2016-09-13] MEDS: ATORVASTATIN 80 MG TAB PO SCH (21:05)
[2016-09-14] VITALS (24 sets, daily range): BP systolic 103–121; BP diastolic 66–81; PULSE 68–103; RESP 16–18; TEMP 98–99.6; O2SAT 96–98
[2016-09-14] MEDS: ACETAMINOPHEN/HYDROcodone 325 MG/5 MG TAB PO PRN ×4 (04:19→22:26)
[2016-09-14 05:38] LABS: APTT (PATIENT) 38.6 SEC (24.3-30.1); INTERNATIONAL NORMALIZED RATIO 1.5 RATIO; PROTHROMBIN TIME - PATIENT 17.2 SEC (9.8-11.6)
--- NOTE | 2016-09-14 07:04 | HHI.PR ---
Subjective Remarks The patient has been seen and examined this morning. His vitals are stable. Still complaining of some pleuritic chest pain, that is worse with inspiration and with moving around the room. He denies SOB. Lives with and children, feels safe there. Objective Vital Signs Date Time Temp Pulse Resp B/P Pulse Ox O2 Delivery O2 Flow Rate FiO2 09/14/16 04:00 98.6 80 18 106/70 96 09/14/16 03:00 74 09/14/16 02:00 68 09/14/16 01:00 68 09/14/16 00:00 98.8 77 18 103/72 97 09/14/16 00:00 76 09/13/16 23:00 74 09/13/16 22:00 80 09/13/16 21:00 80 09/13/16 20:00 98.5 90 20 121/78 97 09/13/16 20:00 76 09/13/16 20:00 97 Room Air 09/13/16 15:22 77 09/13/16 15:22 98.1 77 18 118/77 96 09/13/16 12:00 98.0 66 16 134/78 96 09/13/16 11:24 66 09/13/16 09:51 14 09/13/16 07:15 85 09/13/16 07:15 97.7 85 16 135/82 97 09/13/16 07:15 97 Room Air I/O 09/13/16 09/13/16 09/13/16 09/14/16 09/14/16 09/14/16 07:00 15:00 23:00 07:00 15:00 23:00 Intake Total 480 ml 680 ml 480 ml Output Total 1650 ml 500 ml 1725 ml Balance -1170 ml 180 ml -1245 ml Intake Oral 480 ml 680 ml 480 ml Output Urine Total 1650 ml 500 ml 1725 ml Stool Total 0 ml # Bowel Movements 0 Result Diagram: 09/13/16 0510 09/12/16 0519 Imaging Last Impressions Shoulder X-Ray 09/12/16 0000 Signed Impressions: Service Date/Time: September 09:19 - CONCLUSION: Mild acromioclavicular joint arthritic findings. Otherwise within normal notes. Cuco Wharton MD Chest X-Ray 09/09/16 1200 Signed Impressions: Service Date/Time: Friday, September 09, 2016 11:38 - CONCLUSION: Underinflated examination with mild opacity at the left lung base representing either atelectasis or mild air space consolidation. Given the underinflation, atelectasis is favored. Dusty Lang MD ADDENDUM: There is a linear radiopaque structure measuring 6 mm overlying the aortic arch that may represent the IABP tip. Therefore, this is likely near the origin of the left subclavian artery. Dusty Lang MD Objective Remarks GENERAL: well appearing, tired, nad SKIN: Warm and dry. HEAD: Normocephalic. EYES: No scleral icterus. No injection or drainage. NECK: Supple, trachea midline. No JVD or lymphadenopathy. CARDIOVASCULAR: Regular rate and rhythm without murmurs, gallops, or rubs. RESPIRATORY: Breath sounds equal bilaterally. No accessory muscle use. GASTROINTESTINAL: Abdomen soft, non-tender, nondistended. MUSCULOSKELETAL: No cyanosis, or edema. Left anterior CP with palpation of chest wall. BACK: Nontender without obvious deformity. No CVA tenderness. A/P Problem List: (1) VF (ventricular fibrillation) ICD Code: I49.01 (2) Hypercoagulable state ICD Code: D68.59 (3) Hyperlipidemia ICD Code: E78.5 (4) STEMI (ST elevation myocardial infarction) ICD Code: I21.3 Assessment and Plan 51-year-old male with chest pain acute STEMI -Status post cardiac catheterization showing acute ST elevated myocardial infarction due to total included mid LAD status post angioplasty and stent of the proximal and mid LAD, acute thrombotic closure of the left circumflex flex after stenting of the LAD treated with thrombectomy, minimal disease of a very large RCA, status post placement of an intra-aortic balloon pump on 09/09/16, now removed. - Continue management per deputy fire chief cont Eliquis and Plavix, stop aspirin. - carvedilol and enalapril 2.5 mg qd Atypical Chest pain -Current chest pain seemed to have been due to CPR. -RESOLVED. Left shoulder pain may be from CPR and laying down for long periods of time continue norco, shoulder x-ray shows arthritis Supratherapeutic INR -INR 1.5.off Coumadin No signs of bleeding. -Analog Circuit Designer following. Please see recommendations as above. Chronic anticoagulation -due to factor V Leiden. Hypocoagulable workup per oracle manager. -Per oracle manager recommends Eliquis instead of Coumadin. see above Elevated CK -Most likely secondary to rhabdo due to CPR. resolved History of CVA, history of DVT, hyperlipidemia, factor V Leiden -Home medication resumed. DVT prophylaxis -Patient is on eliquis Discharge Planning d.c reccs pending PT eval cards wants to watch overnight, d/c likely tomorrow Problem Qualifiers (1) Hyperlipidemia: Qualified Code: E78.2 - Mixed hyperlipidemia (2) STEMI (ST elevation myocardial infarction): Qualified Code: I21.02 - ST elevation myocardial infarction involving left anterior descending (LAD) coronary artery Fidelina Velez MD R3 Sep 14, 2016 07:04
[2016-09-14] MEDS: FOLIC ACID 1 MG TAB PO SCH (08:48)
[2016-09-14] MEDS: CYANOCOBALAMIN 1,000 MCG TAB PO SCH (08:48)
[2016-09-14] MEDS: ENALAPRIL MALEATE 2.5 MG TAB PO SCH (08:48)
[2016-09-14] MEDS: APIXABAN 5 MG TABLET PO SCH ×2 (08:48→22:25)
[2016-09-14] MEDS: CLOPIDOGREL 75 MG TAB PO SCH (08:48)
[2016-09-14] MEDS: CARVEDILOL 3.125 MG TAB PO SCH ×2 (08:48→22:25)
[2016-09-14] MEDS: POLYETHYLENE GLYCOL 17 GM PKG PO SCH (08:49)
[2016-09-14] MEDS: SODIUM CHLORIDE 0.9% FLUSH 10 ML FLUSH IVF PRN ×2 (08:49→22:30)
[2016-09-14] MEDS: SODIUM CHLORIDE 0.9% FLUSH 5 ML FLUSH IVF SCH (09:00)
--- NOTE | 2016-09-14 09:06 | PD.CARD.PN ---
Subjective Subjective Remarks Pt still w/ atypical pleuritc cp (? from cpr), feels weak and unstable on his feet. Objective Medications Administered Medications Medications (Trade) Dose Ordered Sig/Fern Route PRN Reason Start Time Stop Time Status Last Admin Dose Admin Sodium Chloride (NS Flush) 2 ml UNSCH PRN IVF FLUSH AFTER USING IV ACCESS 09/09/16 01:30 09/14/16 08:49 IV Flush (NS Flush) 2 ml BID IVF 09/09/16 09:00 09/12/16 21:00 Clopidogrel Bisulfate (Plavix) 75 mg DAILY PO 09/09/16 09:00 09/14/16 08:48 Morphine Sulfate (Morphine Inj) 2 mg Q3H PRN IV PUSH pain 09/09/16 09:30 09/11/16 14:35 Acetaminophen/ Hydrocodone Bitart ([place] 5-325 Mg) 2 tab Q6H PRN PO SEE LABEL COMMENTS 09/09/16 12:00 09/14/16 04:19 Atorvastatin Calcium (Lipitor) 80 mg HS PO 09/10/16 21:00 09/13/16 21:05 Carvedilol (Coreg) 3.125 mg Q12HR PO 09/10/16 09:30 09/14/16 08:48 Cyanocobalamin (Vitamin B12) 1,000 mcg DAILY PO 09/13/16 09:00 09/14/16 08:48 Folic Acid (Folate) 1 mg DAILY PO 09/13/16 09:00 09/14/16 08:48 Apixaban (Eliquis) 5 mg BID PO 09/13/16 09:00 09/14/16 08:48 Enalapril Maleate (Vasotec) 2.5 mg DAILY PO 09/13/16 09:00 09/14/16 08:48 Polyethylene Glycol (Miralax) 17 gm DAILY PO 09/14/16 09:00 09/14/16 08:49 Vital Signs / I&O Vital Signs Date Time Temp Pulse Resp B/P Pulse Ox O2 Delivery O2 Flow Rate FiO2 09/14/16 04:00 98.6 80 18 106/70 96 09/14/16 03:00 74 09/14/16 02:00 68 09/14/16 01:00 68 09/14/16 00:00 98.8 77 18 103/72 97 09/14/16 00:00 76 09/13/16 23:00 74 09/13/16 22:00 80 09/13/16 21:00 80 09/13/16 20:00 98.5 90 20 121/78 97 09/13/16 20:00 76 09/13/16 20:00 97 Room Air 09/13/16 15:22 77 09/13/16 15:22 98.1 77 18 118/77 96 09/13/16 12:00 98.0 66 16 134/78 96 09/13/16 11:24 66 09/13/16 09:51 14 I/O 09/13/16 09/13/16 09/13/16 09/14/16 09/14/16 09/14/16 07:00 15:00 23:00 07:00 15:00 23:00 Intake Total 480 ml 680 ml 480 ml Output Total 1650 ml 500 ml 1725 ml Balance -1170 ml 180 ml -1245 ml Intake Oral 480 ml 680 ml 480 ml Output Urine Total 1650 ml 500 ml 1725 ml Stool Total 0 ml # Bowel Movements 0 Physical Exam GENERAL: This is a well-nourished, well-developed patient, in no apparent distress. CARDIOVASCULAR: Regular rate and rhythm without murmurs, gallops, or rubs. RESPIRATORY: Clear to auscultation. Breath sounds equal bilaterally. No wheezes , rales, or rhonchi. GASTROINTESTINAL: Abdomen soft, non-tender, nondistended. Normal active bowel sounds MUSCULOSKELETAL: Extremities without clubbing, cyanosis, or edema. NEURO: Alert & Oriented x4 to person, place, time, situation. Moves all ext x4 Laboratory Laboratory Tests Test 09/14/16 05:07 Prothrombin Time 17.2 SEC Prothromb Time International 1.5 RATIO Ratio Activated Partial 38.6 SEC Thromboplast Time Laboratory Tests Test 09/14/16 05:07 Prothrombin Time 17.2 SEC Prothromb Time International 1.5 RATIO Ratio Activated Partial 38.6 SEC Thromboplast Time Imaging Last Impressions Shoulder X-Ray 09/12/16 0000 Signed Impressions: Service Date/Time: September 09:19 - CONCLUSION: Mild acromioclavicular joint arthritic findings. Otherwise within normal notes. Cuco Wharton MD Chest X-Ray 09/09/16 1200 Signed Impressions: Service Date/Time: Friday, September 09, 2016 11:38 - CONCLUSION: Underinflated examination with mild opacity at the left lung base representing either atelectasis or mild air space consolidation. Given the underinflation, atelectasis is favored. Dusty Lang MD ADDENDUM: There is a linear radiopaque structure measuring 6 mm overlying the aortic arch that may represent the IABP tip. Therefore, this is likely near the origin of the left subclavian artery. Dusty Lang MD Assessment and Plan Problem List: (1) STEMI (ST elevation myocardial infarction) Assessment and Plan: Overall doing well s/p anterior STEMI, PCI LAD, thrombectomy left circumflex 09/08/16. No definite CHF. No recurrent VF. Groin stable and distal RLE pulses good. EF 45% by echo. IABP D/C'd without complication REC as BP's better resume carvedilol and add enalapril 2.5 mg qd continue Plavix; aspirin stopped as now on Eliquis transfered out of ICU and increase ambulation; possible discharge tomorrow if stable (2) Hypercoagulable state Assessment and Plan: Dr. Ocasio's consult noted, appreciated. Warfarin switched to Eliquis. To continue Plavix, stop aspirin (3) VF (ventricular fibrillation) Assessment and Plan: Stable rhythm status. No further VF. EF reported 45% on echo. (4) Hyperlipidemia Assessment and Plan: Very poor lipid profile. Continue max dose atorvastatin. Assessment and Plan Pt somewhat uncomfortable going home today, will get PT consult hope for d/c tomorrow. Problem Qualifiers (1) STEMI (ST elevation myocardial infarction): Qualified Code: I21.02 - ST elevation myocardial infarction involving left anterior descending (LAD) coronary artery (2) Hyperlipidemia: Qualified Code: E78.2 - Mixed hyperlipidemia Ervin Eller MD Sep 14, 2016 09:06
[2016-09-14] MEDS: ATORVASTATIN 80 MG TAB PO SCH (22:26)
[2016-09-15] VITALS (21 sets, daily range): BP systolic 104–113; BP diastolic 65–78; PULSE 62–99; RESP 16–18; TEMP 98–98.9; O2SAT 96–99
[2016-09-15 05:53] LABS: INTERNATIONAL NORMALIZED RATIO 1.4 RATIO; PROTHROMBIN TIME - PATIENT 15.2 SEC (9.8-11.6)
[2016-09-15] MEDS: APIXABAN 5 MG TABLET PO SCH ×2 (08:02→22:07)
[2016-09-15] MEDS: CYANOCOBALAMIN 1,000 MCG TAB PO SCH (08:02)
[2016-09-15] MEDS: ENALAPRIL MALEATE 2.5 MG TAB PO SCH (08:02)
[2016-09-15] MEDS: CARVEDILOL 3.125 MG TAB PO SCH ×2 (08:02→22:08)
[2016-09-15] MEDS: ACETAMINOPHEN/HYDROcodone 325 MG/5 MG TAB PO PRN ×3 (08:02→22:21)
[2016-09-15] MEDS: FOLIC ACID 1 MG TAB PO SCH (08:02)
[2016-09-15] MEDS: SODIUM CHLORIDE 0.9% FLUSH 5 ML FLUSH IVF SCH ×3 (08:03→21:00)
[2016-09-15] MEDS: CLOPIDOGREL 75 MG TAB PO SCH (08:03)
[2016-09-15] MEDS: SODIUM CHLORIDE 0.9% FLUSH 10 ML FLUSH IVF PRN ×2 (08:03→22:09)
[2016-09-15] MEDS: POLYETHYLENE GLYCOL 17 GM PKG PO SCH (08:03)
--- NOTE | 2016-09-15 08:52 | PD.CARD.PN ---
Subjective Subjective Remarks Still feels "dizzy" which seems to mean unstable on his feet not presyncope; still as reproducible cp Objective Medications Administered Medications Medications (Trade) Dose Ordered Sig/Fern Route PRN Reason Start Time Stop Time Status Last Admin Dose Admin Sodium Chloride (NS Flush) 2 ml UNSCH PRN IVF FLUSH AFTER USING IV ACCESS 09/09/16 01:30 09/15/16 08:03 IV Flush (NS Flush) 2 ml BID IVF 09/09/16 09:00 09/15/16 08:03 Clopidogrel Bisulfate (Plavix) 75 mg DAILY PO 09/09/16 09:00 09/15/16 08:03 Morphine Sulfate (Morphine Inj) 2 mg Q3H PRN IV PUSH pain 09/09/16 09:30 09/11/16 14:35 Acetaminophen/ Hydrocodone Bitart ([place] 5-325 Mg) 2 tab Q6H PRN PO SEE LABEL COMMENTS 09/09/16 12:00 09/15/16 08:02 Atorvastatin Calcium (Lipitor) 80 mg HS PO 09/10/16 21:00 09/14/16 22:26 Carvedilol (Coreg) 3.125 mg Q12HR PO 09/10/16 09:30 09/15/16 08:02 Cyanocobalamin (Vitamin B12) 1,000 mcg DAILY PO 09/13/16 09:00 09/15/16 08:02 Folic Acid (Folate) 1 mg DAILY PO 09/13/16 09:00 09/15/16 08:02 Apixaban (Eliquis) 5 mg BID PO 09/13/16 09:00 09/15/16 08:02 Enalapril Maleate (Vasotec) 2.5 mg DAILY PO 09/13/16 09:00 09/15/16 08:02 Polyethylene Glycol (Miralax) 17 gm DAILY PO 09/14/16 09:00 09/15/16 08:03 Vital Signs / I&O Vital Signs Date Time Temp Pulse Resp B/P Pulse Ox O2 Delivery O2 Flow Rate FiO2 09/15/16 04:52 98.7 71 16 108/65 97 09/15/16 04:00 68 09/15/16 03:00 84 09/15/16 02:00 68 09/15/16 01:00 70 09/15/16 00:00 72 09/14/16 23:27 98.6 72 16 117/76 98 09/14/16 23:00 84 09/14/16 22:00 70 09/14/16 21:34 97 Room Air 09/14/16 21:32 98.6 75 16 119/71 97 09/14/16 21:00 72 09/14/16 20:00 74 09/14/16 19:00 74 09/14/16 18:03 18 09/14/16 18:00 82 09/14/16 17:00 76 09/14/16 16:00 98.0 76 18 115/81 98 09/14/16 16:00 76 09/14/16 15:00 84 09/14/16 14:00 74 09/14/16 13:00 88 09/14/16 12:00 99.6 71 18 107/66 96 09/14/16 12:00 82 09/14/16 11:00 87 09/14/16 10:00 92 09/14/16 09:00 74 I/O 09/14/16 09/14/16 09/14/16 09/15/16 09/15/16 09/15/16 07:00 15:00 23:00 07:00 15:00 23:00 Intake Total 480 ml 1440 ml 480 ml Output Total 1725 ml 1200 ml 360 ml Balance -1245 ml 240 ml 120 ml Intake Oral 480 ml 1440 ml 480 ml IV Total 0 ml Output Urine Total 1725 ml 1200 ml 360 ml # Bowel Movements 0 Physical Exam GENERAL: This is a well-nourished, well-developed patient, in no apparent distress. CARDIOVASCULAR: Regular rate and rhythm without murmurs, gallops, or rubs. RESPIRATORY: Clear to auscultation. Breath sounds equal bilaterally. No wheezes , rales, or rhonchi. GASTROINTESTINAL: Abdomen soft, non-tender, nondistended. Normal active bowel sounds MUSCULOSKELETAL: Extremities without clubbing, cyanosis, or edema. NEURO: Alert & Oriented x4 to person, place, time, situation. Moves all ext x4 Laboratory Laboratory Tests Test 09/15/16 05:26 Prothrombin Time 15.2 SEC Prothromb Time International 1.4 RATIO Ratio Activated Partial 40.0 SEC Thromboplast Time Imaging Last Impressions Shoulder X-Ray 09/12/16 0000 Signed Impressions: Service Date/Time: September 09:19 - CONCLUSION: Mild acromioclavicular joint arthritic findings. Otherwise within normal notes. Cuco Wharton MD Chest X-Ray 09/09/16 1200 Signed Impressions: Service Date/Time: Friday, September 09, 2016 11:38 - CONCLUSION: Underinflated examination with mild opacity at the left lung base representing either atelectasis or mild air space consolidation. Given the underinflation, atelectasis is favored. Dusty Lang MD ADDENDUM: There is a linear radiopaque structure measuring 6 mm overlying the aortic arch that may represent the IABP tip. Therefore, this is likely near the origin of the left subclavian artery. Dusty Lang MD Assessment and Plan Problem List: (1) STEMI (ST elevation myocardial infarction) Assessment and Plan: Overall doing well s/p anterior STEMI, PCI LAD, thrombectomy left circumflex 09/08/16. No definite CHF. No recurrent VF. Groin stable and distal RLE pulses good. EF 45% by echo. IABP D/C'd without complication REC as BP's better resume carvedilol and add enalapril 2.5 mg qd continue Plavix; aspirin stopped as now on Eliquis (2) Hypercoagulable state Assessment and Plan: Dr. Ocasio's consult noted, appreciated. Warfarin switched to Eliquis. To continue Plavix, stop aspirin (3) VF (ventricular fibrillation) Assessment and Plan: Stable rhythm status. No further VF. EF reported 45% on echo. (4) Hyperlipidemia Assessment and Plan: Very poor lipid profile. Continue max dose atorvastatin. Assessment and Plan Pt somewhat uncomfortable going home, he is interested in rebab Problem Qualifiers (1) STEMI (ST elevation myocardial infarction): Qualified Code: I21.02 - ST elevation myocardial infarction involving left anterior descending (LAD) coronary artery (2) Hyperlipidemia: Qualified Code: E78.2 - Mixed hyperlipidemia Ervin Eller MD Sep 15, 2016 08:52
--- NOTE | 2016-09-15 10:45 | HHI.PR ---
Subjective Remarks Follow-up for NE Patient continues to complain of chest pain with inspiration but that has improved. He also stated that he does not feel comfortable going home today. He stated that he feels unbalanced on his feet. He denies any dizziness as if the room is spinning or any lightheadedness as if he was going to pass out. He stated that is more of unsteadiness. Patient did walk with PT yesterday and he stated that he was able to walk with a walker but felt very unsteady and does not feel safe to go home. Patient also asked for dietitian. He stated that he is going to stop smoking and he wants to change his life after this. Objective Vitals Vital Signs Date Time Temp Pulse Resp B/P Pulse Ox O2 Delivery O2 Flow Rate FiO2 09/15/16 09:45 18 09/15/16 08:00 96 Room Air 09/15/16 08:00 98.9 82 16 113/68 96 09/15/16 04:52 98.7 71 16 108/65 97 09/15/16 04:00 68 09/15/16 03:00 84 09/15/16 02:00 68 09/15/16 01:00 70 09/15/16 00:00 72 09/14/16 23:27 98.6 72 16 117/76 98 09/14/16 23:00 84 09/14/16 22:00 70 09/14/16 21:34 97 Room Air 09/14/16 21:32 98.6 75 16 119/71 97 09/14/16 21:00 72 09/14/16 20:00 74 09/14/16 19:00 74 09/14/16 18:00 82 09/14/16 17:00 76 09/14/16 16:00 98.0 76 18 115/81 98 09/14/16 16:00 76 09/14/16 15:00 84 09/14/16 14:00 74 09/14/16 13:00 88 09/14/16 12:00 99.6 71 18 107/66 96 09/14/16 12:00 82 09/14/16 11:00 87 I/O 09/14/16 09/14/16 09/14/16 09/15/16 09/15/16 09/15/16 07:00 15:00 23:00 07:00 15:00 23:00 Intake Total 480 ml 1440 ml 480 ml Output Total 1725 ml 1200 ml 360 ml Balance -1245 ml 240 ml 120 ml Intake Oral 480 ml 1440 ml 480 ml IV Total 0 ml Output Urine Total 1725 ml 1200 ml 360 ml # Bowel Movements 0 Result Diagram: 09/13/16 0510 09/12/16 0519 Objective Remarks GENERAL: in NAD NECK: Supple, trachea midline. No JVD or lymphadenopathy. CARDIOVASCULAR: Regular rate and rhythm without murmurs, gallops, or rubs. no TTP of the chest. RESPIRATORY: Breath sounds equal bilaterally. No accessory muscle use. GASTROINTESTINAL: Abdomen soft, non-tender, nondistended. Medications and IVs Current Medications Sodium Chloride (NS 1000 ml Inj) 1,000 ml @ 0 mls/hr Q0M ONCE IV ; Start at 01:21; Stop 09/09/16 at 01:27; Status DC Sodium Chloride (NS Flush) 2 ml UNSCH PRN IVF FLUSH AFTER USING IV ACCESS Last administered on 09/15/16 08:03; Start 09/09/16 at 01:30 Aspirin (Aspirin Chew) 324 mg NOW STAT PO Last administered on 09/09/16 01:42 ; Start 09/09/16 at 01:21; Stop 09/09/16 at 01:27; Status DC Nitroglycerin 0.4 mg 0.4 mg NOW STAT SL Last administered on 09/09/16 01:46; Start 09/09/16 at 01:21; Stop 09/09/16 at 01:27; Status DC Nitroglycerin/ Dextrose (Nitroglycerin-Dextrose Inj) 250 ml @ 0 mls/hr TITRATE IV ; Start 09/09/16 at 01:30 Heparin Sodium (Porcine) 7000 units 7,000 units NOW STAT IV Last administered on 09/09/16 01:40; Start 09/09/16 at 01:21; Stop 09/09/16 at 01:27; Status DC Amiodarone HCl 150 mg/Dextrose 100 ml @ 600 mls/hr NOW ONCE IV ; Start at 02:00; Stop 09/09/16 at 02:09; Status DC Amiodarone HCl/ Dextrose (Cordarone Inj/ D5W (White) Inj) 250 ml @ 0 mls/hr CONTINUOUS IV ; Start 09/09/16 at 02:00; Status Cancel Ondansetron HCl (Zofran Inj) 4 mg STK-MED ONCE .ROUTE ; Start 09/09/16 at 02:03 ; Stop 09/09/16 at 02:04; Status DC Ondansetron HCl 4 mg 4 mg ONCE ONCE IV ; Start 09/09/16 at 02:15; Stop at 02:16; Status DC Heparin Sodium/ Sodium Chloride (Heparin-NS/Pf Inj) 500 ml @ As Directed STK- MED ONCE .ROUTE Last administered on 09/09/16 02:36; Start 09/09/16 at 02:36; Stop 09/09/16 at 02:37; Status DC Heparin Sodium (Porcine) 43519 units 10,000 units STK-MED ONCE .ROUTE Last administered on 09/09/16 03:14; Start 09/09/16 at 02:37; Stop 09/09/16 at 02:38 ; Status DC Nitroglycerin/ Dextrose 250 ml @ As Directed STK-MED ONCE .ROUTE Last administered on 09/09/16 02:53; Start 09/09/16 at 02:53; Stop 09/09/16 at 02:54 ; Status DC Tirofiban/Sodium Chloride (Aggrastat Infusion Inj) 250 ml @ As Directed STK- MED ONCE IV Last administered on 09/09/16 02:59; Start 09/09/16 at 02:56; Stop 09/09/16 at 02:57; Status DC Midazolam HCl (Versed Inj) 2 mg STK-MED ONCE .ROUTE Last administered on 03:05; Start 09/09/16 at 03:04; Stop 09/09/16 at 03:05; Status DC Fentanyl Citrate (fentaNYL INJ) 100 mcg STK-MED ONCE .ROUTE Last administered on 09/09/16 03:07; Start 09/09/16 at 03:06; Stop 09/09/16 at 03:07; Status DC Clopidogrel Bisulfate 600 mg 600 mg STK-MED ONCE .ROUTE Last administered on 03:36; Start 09/09/16 at 03:31; Stop 09/09/16 at 03:32; Status DC Sodium Chloride (NS 1000 ml Inj) 1,000 ml @ 100 mls/hr Q10H IV Last administered on 09/09/16 14:12; Start 09/09/16 at 03:42; Stop 09/09/16 at 15:41 ; Status DC IV Flush (NS Flush) 2 ml BID IVF Last administered on 09/15/16 09:00; Start at 09:00 Temazepam (Restoril) 15 mg HS PRN PO SLEEP; Start 09/09/16 at 03:45 Aspirin (Aspirin) 325 mg DAILY PO ; Start 09/09/16 at 09:00; Stop 09/09/16 at 09 :00; Status DC Clopidogrel Bisulfate (Plavix) 75 mg DAILY PO Last administered on 09/15/16 08: 03; Start 09/09/16 at 09:00 Miscellaneous Information 1 1 ONCE ONCE XX ; Start 09/09/16 at 03:45; Stop at 03:50; Status DC Argatroban/Sodium Chloride (Novastan Inj/NS 250 ml Inj) 252.5 ml @ 0 mls/hr TITRATE IV Last administered on 09/09/16 14:51; Start 09/09/16 at 05:45; Stop 09/09/16 at 16:12; Status DC Atorvastatin Calcium (Lipitor) 40 mg HS PO Last administered on 09/09/16 21:39 ; Start 09/09/16 at 21:00; Stop 09/10/16 at 09:27; Status DC Warfarin Sodium (Coumadin) 1 mg DAILY@16 PO Last administered on 09/09/16 16: 25; Start 09/09/16 at 16:00; Stop 09/10/16 at 08:04; Status DC Aspirin (Aspirin Chew) 81 mg DAILY PO Last administered on 09/12/16 08:57; Start 09/09/16 at 09:00; Stop 09/13/16 at 08:25; Status DC Lorazepam 1 mg 1 mg Q4H PRN IV PUSH ANXIETY; Start 09/09/16 at 04:00 Tirofiban/Sodium Chloride (Aggrastat Infusion Inj) 250 ml @ 16.5 mls/hr [id number] IV Last administered on 09/09/16 14:13; Start 09/09/16 at 04:45; Stop 09/09/16 at 23:30; Status DC Midazolam HCl (Versed Inj) 1 mg ONCE ONCE IV ; Start 09/09/16 at 03:05; Stop at 04:43; Status DC Fentanyl Citrate (fentaNYL INJ) 50 mcg ONCE ONCE IV ; Start 09/09/16 at 03:07; Stop 09/09/16 at 04:43; Status DC Heparin Sodium (Porcine) (Heparin Inj) 2,000 units ONCE ONCE IV ; Start at 03:14; Stop 09/09/16 at 04:43; Status DC Midazolam HCl (Versed Inj) 2 mg ONCE ONCE IV ; Start 09/09/16 at 03:22; Stop at 04:43; Status DC Fentanyl Citrate (fentaNYL INJ) 50 mcg ONCE ONCE IV ; Start 09/09/16 at 03:31; Stop 09/09/16 at 04:43; Status DC Clopidogrel Bisulfate (Plavix) 600 mg ONCE ONCE PO ; Start 09/09/16 at 03:36; Stop 09/09/16 at 04:43; Status DC Morphine Sulfate 2 mg 2 mg Q3H PRN IV PUSH pain Last administered on 09/11/16t 14:35; Start 09/09/16 at 09:30 Potassium Chloride 100 ml @ 50 mls/hr Q2H PRN IV For Potassium 2.8 - 3.2 mEq/L ; Start 09/09/16 at 09:30 Potassium Chloride (KCl 20 Meq Premix Inj) 100 ml @ 50 mls/hr Q2H PRN IV For Potassium 2.8 - 3.2 mEq/L; Start 09/09/16 at 09:30 Potassium Bicarb/ Potassium Chloride 50 meq 50 meq UNSCH PRN PO For Potassium 3.3 - 3.5 mEq/L; Start 09/09/16 at 09:30 Potassium Chloride 100 ml @ 25 mls/hr UNSCH PRN IV For Potassium 3.3 - 3.5 mEq /L; Start 09/09/16 at 09:30 Potassium Chloride 100 ml @ 50 mls/hr Q2H PRN IV For Potassium 3.3 - 3.5 mEq/L ; Start 09/09/16 at 09:30 Magnesium Sulfate/ Sodium Chloride (Magnesium Sulfate Inj/NS Inj) 100 ml @ 50 mls/hr UNSCH PRN IV For Magnesium 0.9 - 1.1 mg/dL; Start 09/09/16 at 09:30 Magnesium Oxide 800 mg 800 mg UNSCH PRN PO For Magnesium 1.2 - 1.6 mg/dL; Start 09/09/16 at 09:30 Magnesium Sulfate/ Sodium Chloride (Magnesium Sulfate Inj/NS Inj) 100 ml @ 50 mls/hr UNSCH PRN IV For Magnesium 1.2 - 1.6 mg/dL; Start 09/09/16 at 09:30 Potassium Phosphate 2000 mg 2,000 mg Q4H PRN PO For Phosphorus < 2.5 mg/dL; Start 09/09/16 at 09:30 Sodium Phosphate/ Sodium Chloride (Sodium Phosphate Inj/NS 250 ml Inj) 250 ml @ 42 mls/hr UNSCH PRN IV For Phosphorus < 2.5 mg/dL; Start 09/09/16 at 09:30 Potassium Phosphate (K-Phos) 2,000 mg UNSCH PRN PO/TUBE SEE LABEL COMMENTS; Start 09/09/16 at 09:30 Acetaminophen/ Hydrocodone Bitart ([place] 5-325 Mg) 1 tab Q6H PRN PO SEE LABEL COMMENTS; Start 09/09/16 at 12:00; Stop 09/12/16 at 09:22; Status DC Acetaminophen/ Hydrocodone Bitart 2 tab 2 tab Q6H PRN PO SEE LABEL COMMENTS Last administered on 09/15/16 08:02; Start 09/09/16 at 12:00 Argatroban/Sodium Chloride (Novastan Inj/NS 250 ml Inj) 252.5 ml @ 0 mls/hr TITRATE IV Last administered on 09/11/16 01:10; Start 09/09/16 at 16:15; Stop 09/12/16 at 09:27; Status DC Atorvastatin Calcium (Lipitor) 80 mg HS PO Last administered on 09/14/16 22:26 ; Start 09/10/16 at 21:00 Carvedilol (Coreg) 3.125 mg Q12HR PO Last administered on 09/15/16 08:02; Start 09/10/16 at 09:30 Phytonadione (Vitamin K Inj) 5 mg ONCE ONCE SQ ; Start 09/11/16 at 09:00; Stop 09/11/16 at 09:00; Status DC Phytonadione (Vitamin K Inj) 5 mg ONCE SQ ; Start 09/11/16 at 09:00; Stop at 23:00; Status DC Iohexol (OMNIPAQUE 350 INJ (Segmental Paving Supervisor)) 100 ml STK-MED ONCE OTHER ; Start at 09:40; Stop 09/11/16 at 09:40; Status DC Iohexol (OMNIPAQUE 350 INJ (Segmental Paving Supervisor)) 50 ml STK-MED ONCE OTHER ; Start at 09:40; Stop 09/11/16 at 09:40; Status DC Midazolam HCl (Versed Inj) 2 mg ONCE ONCE IV PUSH ; Start 09/12/16 at 14:30; Stop 09/12/16 at 14:31; Status DC Fentanyl Citrate (fentaNYL INJ) 50 mcg ONCE ONCE IV PUSH ; Start 09/12/16 at 14: 30; Stop 09/12/16 at 14:31; Status DC Acetaminophen/ Hydrocodone Bitart ([place] 5-325 Mg) 1 tab Q4H PRN PO SEE LABEL COMMENTS; Start 09/12/16 at 10:00 Lidocaine HCl (Xylocaine 1% Inj (50 ml)) 50 ml STK-MED ONCE .ROUTE ; Start at 18:13; Stop 09/12/16 at 18:14; Status DC Cyanocobalamin (Vitamin B12) 1,000 mcg DAILY PO Last administered on 09/15/16 08:02; Start 09/13/16 at 09:00 Folic Acid (Folate) 1 mg DAILY PO Last administered on 09/15/16 08:02; Start at 09:00 Apixaban (Eliquis) 5 mg BID PO Last administered on 09/15/16 08:02; Start at 09:00 Enalapril Maleate (Vasotec) 2.5 mg DAILY PO Last administered on 09/15/16 08:02 ; Start 09/13/16 at 09:00 Magnesium Hydroxide (Milk Of Magnesia Liq) 30 ml ONCE ONCE PO Last administered on 09/13/16 16:53; Start 09/13/16 at 16:15; Stop 09/13/16 at 16:16; Status DC Magnesium Hydroxide (Milk Of Magnesia Liq) 30 ml DAILY PRN PO MILD - MODERATE CONSTIPATION; Start 09/13/16 at 16:15 Senna/Docusate Sodium (Camila-Colace) 1 tab BID PRN PO MODERATE - SEVERE CONSTIPATION; Start 09/13/16 at 16:15 Polyethylene Glycol (Miralax) 17 gm DAILY PO Last administered on 09/15/16t 08: 03; Start 09/14/16 at 09:00 A/P Assessment and Plan 51-year-old male with chest pain acute STEMI -Status post cardiac catheterization showing acute ST elevated myocardial infarction due to total included mid LAD status post angioplasty and stent of the proximal and mid LAD, acute thrombotic closure of the left circumflex flex after stenting of the LAD treated with thrombectomy, minimal disease of a very large RCA, status post placement of an intra-aortic balloon pump on 09/09/16, now removed. - Continue management per black puller cont Eliquis and Plavix, stop aspirin. - carvedilol and enalapril 2.5 mg qd -Patient requesting dietitian will place order. Atypical Chest pain -Current chest pain seemed to have been due to CPR. -RESOLVED. Left shoulder pain may be from CPR and laying down for long periods of time continue norco, shoulder x-ray shows arthritis Supratherapeutic INR -INR 1.5.off Coumadin No signs of bleeding. -Carpentry Foreman following. Please see recommendations as above. Chronic anticoagulation -due to factor V Leiden. Hypocoagulable workup per language teacher. -Per language teacher recommends Eliquis instead of Coumadin. see above Elevated CK -Most likely secondary to rhabdo due to CPR. resolved History of CVA, history of DVT, hyperlipidemia, factor V Leiden -Home medication resumed. Deconditioning/unsteadiness -No organic cause for his unsteadiness. This is more secondary to him being deconditioned. -PT evaluated recommend home with home health and a walker. -Will have a nurse work with patient regards to walking on the hallway. DVT prophylaxis -Patient is on eliquis Discharge Planning Patient does not feel comfortable being discharged home today. He stated that he still feels very unsteady and unsafe to go home. Will have his nurse worker patient today in regards to ambulation. Physical therapy already evaluated patient and recommend patient to go home with home PT along with a walker. 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 Tiffany Walters MD Sep 15, 2016 10:45
[2016-09-15] MEDS: ATORVASTATIN 80 MG TAB PO SCH (22:08)
[2016-09-16] VITALS (15 sets, daily range): BP systolic 96–119; BP diastolic 68–76; PULSE 66–98; RESP 14–18; TEMP 97.8–98.2; O2SAT 96–99
[2016-09-16 07:04] LABS: APTT (PATIENT) 36.2 SEC (24.3-30.1); INTERNATIONAL NORMALIZED RATIO 1.3 RATIO; PROTHROMBIN TIME - PATIENT 14.5 SEC (9.8-11.6)
--- NOTE | 2016-09-16 08:15 | PD.CARD.PN ---
Subjective Subjective Remarks Rib pain slowly improving, pt ok w/ going home. Objective Medications Administered Medications Medications (Trade) Dose Ordered Sig/Fern Route PRN Reason Start Time Stop Time Status Last Admin Dose Admin Sodium Chloride (NS Flush) 2 ml UNSCH PRN IVF FLUSH AFTER USING IV ACCESS 09/09/16 01:30 09/15/16 22:09 IV Flush (NS Flush) 2 ml BID IVF 09/09/16 09:00 09/15/16 21:00 Clopidogrel Bisulfate (Plavix) 75 mg DAILY PO 09/09/16 09:00 09/15/16 08:03 Morphine Sulfate (Morphine Inj) 2 mg Q3H PRN IV PUSH pain 09/09/16 09:30 09/11/16 14:35 Acetaminophen/ Hydrocodone Bitart ([place] 5-325 Mg) 2 tab Q6H PRN PO SEE LABEL COMMENTS 09/09/16 12:00 09/15/16 22:21 Atorvastatin Calcium (Lipitor) 80 mg HS PO 09/10/16 21:00 09/15/16 22:08 Carvedilol (Coreg) 3.125 mg Q12HR PO 09/10/16 09:30 09/15/16 22:08 Cyanocobalamin (Vitamin B12) 1,000 mcg DAILY PO 09/13/16 09:00 09/15/16 08:02 Folic Acid (Folate) 1 mg DAILY PO 09/13/16 09:00 09/15/16 08:02 Apixaban (Eliquis) 5 mg BID PO 09/13/16 09:00 09/15/16 22:07 Enalapril Maleate (Vasotec) 2.5 mg DAILY PO 09/13/16 09:00 09/15/16 08:02 Polyethylene Glycol (Miralax) 17 gm DAILY PO 09/14/16 09:00 09/15/16 08:03 Vital Signs / I&O Vital Signs Date Time Temp Pulse Resp B/P Pulse Ox O2 Delivery O2 Flow Rate FiO2 09/16/16 07:42 Room Air 09/16/16 06:00 70 09/16/16 05:00 68 09/16/16 04:55 98.1 69 14 119/70 97 09/16/16 04:00 67 09/16/16 03:00 66 09/16/16 02:00 68 09/16/16 01:44 98.2 68 14 96/68 96 09/16/16 01:00 66 09/16/16 00:00 70 09/15/16 23:00 70 09/15/16 22:00 74 09/15/16 21:00 78 09/15/16 21:00 98.1 75 16 106/69 97 09/15/16 20:00 99 09/15/16 20:00 97 Room Air 09/15/16 19:00 70 09/15/16 17:33 18 09/15/16 16:00 98.3 78 18 106/78 99 09/15/16 15:00 70 09/15/16 14:00 68 09/15/16 13:00 90 09/15/16 12:00 98.0 67 18 104/71 97 09/15/16 12:00 62 09/15/16 11:00 69 09/15/16 10:00 66 09/15/16 09:00 70 I/O 09/15/16 09/15/16 09/15/16 09/16/16 09/16/16 09/16/16 07:00 15:00 23:00 07:00 15:00 23:00 Intake Total 480 ml 960 ml 480 ml Output Total 360 ml 600 ml Balance 120 ml 960 ml -120 ml Intake Oral 480 ml 960 ml 480 ml IV Total 0 ml Output Urine Total 360 ml 600 ml # Voids 3 # Bowel Movements 0 0 Physical Exam GENERAL: This is a well-nourished, well-developed patient, in no apparent distress. CARDIOVASCULAR: Regular rate and rhythm without murmurs, gallops, or rubs. RESPIRATORY: Clear to auscultation. Breath sounds equal bilaterally. No wheezes , rales, or rhonchi. GASTROINTESTINAL: Abdomen soft, non-tender, nondistended. Normal active bowel sounds MUSCULOSKELETAL: Extremities without clubbing, cyanosis, or edema. NEURO: Alert & Oriented x4 to person, place, time, situation. Moves all ext x4 Laboratory Laboratory Tests Test 09/16/16 05:05 Prothrombin Time 14.5 SEC Prothromb Time International 1.3 RATIO Ratio Activated Partial 36.2 SEC Thromboplast Time Imaging Last Impressions Shoulder X-Ray 09/12/16 0000 Signed Impressions: Service Date/Time: September 09:19 - CONCLUSION: Mild acromioclavicular joint arthritic findings. Otherwise within normal notes. Cuco Wharton MD Chest X-Ray 09/09/16 1200 Signed Impressions: Service Date/Time: Friday, September 09, 2016 11:38 - CONCLUSION: Underinflated examination with mild opacity at the left lung base representing either atelectasis or mild air space consolidation. Given the underinflation, atelectasis is favored. Dusty Lang MD ADDENDUM: There is a linear radiopaque structure measuring 6 mm overlying the aortic arch that may represent the IABP tip. Therefore, this is likely near the origin of the left subclavian artery. Dusty Lang MD Assessment and Plan Problem List: (1) STEMI (ST elevation myocardial infarction) Assessment and Plan: Overall doing well s/p anterior STEMI, PCI LAD, thrombectomy left circumflex 09/08/16. No definite CHF. No recurrent VF. Groin stable and distal RLE pulses good. EF 45% by echo. IABP D/C'd without complication REC as BP's better resume carvedilol and add enalapril 2.5 mg qd continue Plavix; aspirin stopped as now on Eliquis (2) Hypercoagulable state Assessment and Plan: Dr. Ocasio's consult noted, appreciated. Warfarin switched to Eliquis. To continue Plavix, stop aspirin (3) VF (ventricular fibrillation) Assessment and Plan: Stable rhythm status. No further VF. EF reported 45% on echo. (4) Hyperlipidemia Assessment and Plan: Very poor lipid profile. Continue max dose atorvastatin. Assessment and Plan asked for case liner to discuss home health vs inpt rehab; will sign off pls call with questions; he will f/u with [facility] in 1-2 weeks. Problem Qualifiers (1) STEMI (ST elevation myocardial infarction): Qualified Code: I21.02 - ST elevation myocardial infarction involving left anterior descending (LAD) coronary artery (2) Hyperlipidemia: Qualified Code: E78.2 - Mixed hyperlipidemia Ervin Eller MD Sep 16, 2016 08:15
[2016-09-16] MEDS ORDERED: ENAL2.5T PO (08:47)
[2016-09-16] MEDS ORDERED: VITA10002 PO (08:47)
[2016-09-16] MEDS ORDERED: HYDR-3516 PO (08:47)
[2016-09-16] MEDS ORDERED: PLAV75TA29 PO (08:47)
[2016-09-16] MEDS ORDERED: APIX5TAB PO (08:47)
[2016-09-16] MEDS ORDERED: CARV3.125 PO (08:47)
[2016-09-16] MEDS ORDERED: ATOR1TAB18 PO (08:47)
--- NOTE | 2016-09-16 08:49 | HHI.DCPOC ---
Discharge Care Plan Diagnosis: (1) History of DVT (deep vein thrombosis) (2) Hypercoagulable state (3) STEMI (ST elevation myocardial infarction) (4) VF (ventricular fibrillation) (5) Hyperlipidemia Goals to Promote Your Health * To prevent worsening of your condition and complications * To maintain your health at the optimal level Directions to Meet Your Goals Take your medications as prescribed Follow your dietary instruction Follow activity as directed Keep your appointments as scheduled Take your immunizations and boosters as scheduled If your symptoms worsen call your PCP, if no PCP go to Urgent Care Center or Emergency Room Smoking is Dangerous to Your Health. Avoid second hand smoke Call the 24-hour hour crisis hotline for domestic abuse at Tiffany Walters MD Sep 16, 2016 08:49
[2016-09-16] MEDS: POLYETHYLENE GLYCOL 17 GM PKG PO SCH (09:00)
[2016-09-16] MEDS: SODIUM CHLORIDE 0.9% FLUSH 5 ML FLUSH IVF SCH (09:00)
[2016-09-16] MEDS: CYANOCOBALAMIN 1,000 MCG TAB PO SCH (09:53)
[2016-09-16] MEDS: CARVEDILOL 3.125 MG TAB PO SCH (09:53)
[2016-09-16] MEDS: ACETAMINOPHEN/HYDROcodone 325 MG/5 MG TAB PO PRN (09:53)
[2016-09-16] MEDS: CLOPIDOGREL 75 MG TAB PO SCH (09:54)
[2016-09-16] MEDS: APIXABAN 5 MG TABLET PO SCH (09:54)
[2016-09-16] MEDS: ENALAPRIL MALEATE 2.5 MG TAB PO SCH (09:54)
[2016-09-16] MEDS: FOLIC ACID 1 MG TAB PO SCH (09:54)
--- NOTE | 2016-09-17 15:12 | HHI.DS ---
Discharge Summary Admission Date September 09, 2016 at 01:46 Discharge Date: Sep 16, 2016 Admitting Diagnosis acute anterior septal myocardial infarction (1) STEMI (ST elevation myocardial infarction) ICD Code: I21.3 Diagnosis: Principal (2) Hypercoagulable state ICD Code: D68.59 Diagnosis: Secondary (3) VF (ventricular fibrillation) ICD Code: I49.01 Diagnosis: Principal (4) Hyperlipidemia ICD Code: E78.5 Diagnosis: Secondary (5) History of DVT (deep vein thrombosis) ICD Code: Z86.718 Diagnosis: Secondary Procedures See hospital course. Brief History - From Admission This is a 51-year-old male with past medical history of history of the right lower extremity deep venous thrombosis 2001, history of hyperlipidemia, CVA who presented to [place] complaining of chest pain. Patient was found to EKG findings suggesting acute anterior ST elevation myocardial infarction so he was called as a STEMI alert. The patient states the chest patient was transferred to the main campus medical center and [place] in which he did sustain 2 ventricular fibrillation arrests which require shock therapy and CPR. Patient seen today at the bedside after cardiac catheterization with his nurse complaining of pain to his chest. He denies any shortness of breathing. Patient has no other complaints. CBC/BMP: 09/13/16 0510 Significant Findings Laboratory Tests Test 09/15/16 09/16/16 05:26 05:05 Prothrombin Time 15.2 SEC 14.5 SEC (9.8-11.6) (9.8-11.6) Activated Partial 40.0 SEC 36.2 SEC Thromboplast Time (24.3-30.1) (24.3-30.1) Imaging Last Impressions Shoulder X-Ray 09/12/16 0000 Signed Impressions: Service Date/Time: September 09:19 - CONCLUSION: Mild acromioclavicular joint arthritic findings. Otherwise within normal notes. Cuco Wharton MD Chest X-Ray 09/09/16 1200 Signed Impressions: Service Date/Time: Friday, September 09, 2016 11:38 - CONCLUSION: Underinflated examination with mild opacity at the left lung base representing either atelectasis or mild air space consolidation. Given the underinflation, atelectasis is favored. Dusty Lang MD ADDENDUM: There is a linear radiopaque structure measuring 6 mm overlying the aortic arch that may represent the IABP tip. Therefore, this is likely near the origin of the left subclavian artery. Dusty Lang MD PE at Discharge GENERAL: in NAD NECK: Supple, trachea midline. No JVD or lymphadenopathy. CARDIOVASCULAR: Regular rate and rhythm without murmurs, gallops, or rubs. no TTP of the chest. RESPIRATORY: Breath sounds equal bilaterally. No accessory muscle use. GASTROINTESTINAL: Abdomen soft, non-tender, nondistended. Pt update on day of discharge Follow-up for STEMI Patient stated that chest pain is improving. He said that he ambulate on his own multiple times yesterday. He denies any shortness of breathing, palpitation, lightheadedness or dizziness. Patient stated that he does feel comfortable going home now. Hospital Course 51-year-old male with chest pain acute STEMI -Status post cardiac catheterization showing acute ST elevated myocardial infarction due to total included mid LAD status post angioplasty and stent of the proximal and mid LAD, acute thrombotic closure of the left circumflex flex after stenting of the LAD treated with thrombectomy, minimal disease of a very large RCA, status post placement of an intra-aortic balloon pump on 09/09/16. In which the intra-aortic balloon pump was removed. -Patient was initially put on Plavix, aspirin, and Coumadin. Hospitalization day 2 INR was supratherapeutic in which mold unloader consulted shoe planner. INR thought to be falsely elevated. - It was recommended per shoe planner to start Eliquis was instead of Coumadin. Later to the hospitalization once eloquence was started aspirin was discontinued. - carvedilol and enalapril 2.5 mg qd -Patient requested a dietitian in regards to his diet in which he saw during the hospitalization. Atypical Chest pain -After cardiac catheterization patient complained of chest pain that worsened with deep inspiration or palpation of the chest wall. Chest pain was most likely due to CPR. Chest pain improved throughout the hospital course. Left shoulder pain may be from CPR and laying down for long periods of time continue norco, shoulder x-ray shows arthritis Supratherapeutic INR -Patient was given one dose of Coumadin in the hospital in which his INR became [id number] male with chest pain acute STEMI -Status post cardiac catheterization showing acute ST elevated myocardial infarction due to total included mid LAD status post angioplasty and stent of the proximal and mid LAD, acute thrombotic closure of the left circumflex flex after stenting of the LAD treated with thrombectomy, minimal disease of a very large RCA, status post placement of an intra-aortic balloon pump on 09/09/16, now removed. - Continue management per mold unloader cont Eliquis and Plavix, stop aspirin. - carvedilol and enalapril 2.5 mg qd -Patient requesting dietitian will place order. Atypical Chest pain -Current chest pain seemed to have been due to CPR. -RESOLVED. Left shoulder pain may be from CPR and laying down for long periods of time continue norco, shoulder x-ray shows arthritis Supratherapeutic INR -Patient was given one dose of Coumadin. Coumadin was held once his INR was less than 1.5 he was started on Eliquis Chronic anticoagulation -due to factor V Leiden. Hypocoagulable workup per shoe planner. -Per shoe planner recommends Eliquis instead of Coumadin. see above Elevated CK -Most likely secondary to rhabdo due to CPR. resolved History of CVA, history of DVT, hyperlipidemia, factor V Leiden -Home medication resumed. Deconditioning/unsteadiness -No organic cause for his unsteadiness. This is more secondary to him being deconditioned. -PT evaluated recommend home with home health and a walker. -At the time of discharge patient was able ambulate on his own with a walker. Chronic anticoagulation -due to factor V Leiden. Hypocoagulable workup per shoe planner. -Per shoe planner recommends Eliquis instead of Coumadin. see above Elevated CK -Most likely secondary to rhabdo due to CPR. resolved History of CVA, history of DVT, hyperlipidemia, factor V Leiden -Home medication resumed. Deconditioning/unsteadiness -No organic cause for his unsteadiness. This is more secondary to him being deconditioned. -PT evaluated recommend home with home health and a walker. -Will have a nurse work with patient regards to walking on the hallway. Pt Condition on Discharge: Good Discharge Disposition: Discharge Home Discharge Time: > 30 minutes Discharge Instructions DIET: Follow Instructions for: Heart Healthy Diet, Low Fat Diet Activities you can perform: Regular-No Restrictions Other Activity Instructions: as tolerated Follow up Referrals: Cardiology - 2 Weeks with Bishop Canada MD PCP Follow-up - 09/30/16 with Balta Sanchez MD New Medications: Apixaban (Eliquis) 5 Mg Tab 5 MG PO BID hypercoagulable. #60 Ref 0 TAB Atorvastatin (Atorvastatin) 80 Mg Tab 80 MG PO HS coronary artery disease #30 Ref 0 TAB Carvedilol (Coreg) 3.125 Mg Tab 3.125 MG PO Q12HR coronary artery disease #60 Ref 0 TAB Clopidogrel (Plavix) 75 Mg Tab 75 MG PO DAILY coronary artery disease #30 Ref 0 TAB Cyanocobalamin (Vitamin B-12) 1,000 Mcg Tab 1000 MCG PO DAILY Vitamin B12 #30 Ref 0 TAB Enalapril (Enalapril) 2.5 Mg Tab 2.5 MG PO DAILY coronary heart disease #30 Ref 0 TAB Hydrocodone-Acetaminophen (Hydrocodone-Acetaminophen) 5-325 mg Tab 1 TAB PO Q4H PRN pain #20 Ref 0 TAB Discontinued Medications: Simvastatin 20 mg tab (Zocor) 20 Mg Tab 20 MG PO HS #30 Warfarin Sodium (Coumadin 1 mg) 1 Mg Tab 1 MG PO DAILY start on march 18, 2010,pt/inr on 03/19/10 and as needed results to Tiffany Garrison MD Sep 17, 2016 15:12
== END 2016-09-16 14:43 | disposition home or self-care (01) | DRG 270 ==
LOC: PHED 01:15 → PHEDA 01:46 → HCVR 03:56 → HCIS 09-13 13:07
PROVIDERS: ADMIT Family Medicine; ATTEND Family Medicine
PROC: 5A02210 Assistance with Cardiac Output using Balloon Pump, Continuous (ICD-10-PCS; principal; 2016-09-09)
PROC: 027035Z Dilation of Coronary Artery, One Artery with Two Drug-eluting Intraluminal Devices, Percutaneous Approach (ICD-10-PCS; 2016-09-09)
PROC: 02C03ZZ Extirpation of Matter from Coronary Artery, One Artery, Percutaneous Approach (ICD-10-PCS; 2016-09-09)
PROC: 4A023N7 Measurement of Cardiac Sampling and Pressure, Left Heart, Percutaneous Approach (ICD-10-PCS; 2016-09-09)
PROC: B2111ZZ Fluoroscopy of Multiple Coronary Arteries using Low Osmolar Contrast (ICD-10-PCS; 2016-09-09)
PROC: 5A2204Z Restoration of Cardiac Rhythm, Single (ICD-10-PCS; 2016-09-09)
DX: I21.09 ST elevation (STEMI) myocardial infarction involving other coronary artery of anterior wall (principal); I49.01 Ventricular fibrillation; D68.51 Activated protein C resistance; D68.59 Other primary thrombophilia; I21.4 Non-ST elevation (NSTEMI) myocardial infarction; I25.10 Atherosclerotic heart disease of native coronary artery without angina pectoris; I25.2 Old myocardial infarction; E78.2 Mixed hyperlipidemia; M25.512 Pain in left shoulder; T45.515A Adverse effect of anticoagulants, initial encounter; F17.200 Nicotine dependence, unspecified, uncomplicated; Z79.01 Long term (current) use of anticoagulants; Z86.711 Personal history of pulmonary embolism; Z86.718 Personal history of other venous thrombosis and embolism; Z86.73 Personal history of transient ischemic attack (TIA), and cerebral infarction without residual deficits; Z91.19 Patient's noncompliance with other medical treatment and regimen
CPT/HCPCS: 33967; 71010; 73030; 76937; 80048; 80061; 81240; 81241; 81291; 82550; 82552; 83090; 83735; 83880; 84100; 84484; 85002; 85014; 85018; 85025; 85027; 85240; 85300; 85303; 85306; 85307; 85597; 85598; 85610; 85613; 85670; 85730; 86038; 86146; 86147; 86148; 92941; 93005; 93306; 93454; 96374; C1725; C1757; C1769; C1874; C1887; C1893; J0883; J1644; J2250; J2270; J2405; J3010; J3246; J7030; J7050; Q9967

== ENCOUNTER 2016-09-24 21:54 | Observation (INO) | payer MEDICAID, OTHER ==
[~2016-09-24] VITALS: Ht 182.9 cm; Wt 97.7 kg
[~2016-09-24 21:54] MED LIST changes: +APIX5TAB PO; +ATOR1TAB18 PO; +CARV3.125 PO; -COUM1TAB PO; +ENAL2.5T PO; +HYDR-3516 PO; +PLAV75TA29 PO; -SIMV20 PO; +VITA10002 PO
[2016-09-24 22:05] VITALS: BP 122/65; PULSE 81; RESP 20; TEMP 97.9; O2SAT 99
[2016-09-24] MEDS ORDERED: SODIUM CHLORIDE 0.9% FLUSH 10 ML FLUSH IVF PRN (22:15)
[2016-09-24 22:16] LABS: AUTOMATED NEUTROPHIL # 4.9 TH/MM3 (1.8-7.7); BASOPHIL # 0.2 TH/MM3 (0-0.2); BASOPHIL % 2.8 % (0.0-2.0); EOSINOPHIL # 0.3 TH/MM3 (0-0.4); EOSINOPHIL % 3.7 % (0.0-4.0); HEMO FLAGS DIFF FINAL; LYMPH % 30.4 % (9.0-44.0); LYMPHOCYTE # 2.6 TH/MM3 (1.0-4.8); MEAN CELL VOLUME 86.6 FL (80.0-100.0); MEAN CORPUSCULAR HEMOGLOBIN 29.2 PG (27.0-34.0); MEAN CORPUSCULAR HGB CONC 33.7 % (32.0-36.0); NEUT % 56.1 % (16.0-70.0); PLATELET COUNT 293 TH/MM3 (150-450); RED BLOOD COUNT 4.61 MIL/MM3 (4.50-5.90); RED CELL DISTRIBUTION WIDTH 12.2 % (11.6-17.2); WHITE BLOOD COUNT 8.6 TH/MM3 (4.0-11.0)
--- NOTE | 2016-09-24 22:18 | PD ---
HPI Chief Complaint: Chest Pain Time Seen by Provider: 22:05 Travel History International Travel<30 days: No Contact w/Intl Traveler<30days: No History of Present Illness HPI 51yo M with PMH of factor V leiden, right lower ext DVT, CVA, HLD presents to the ED with c/o dizziness and feeling like he was going to pass out today. States he has been having left sided chest pain that is intermittent, sharp and nonradiating. Associated with mild sob and nausea. +Generalized weakness. Denies any diaphoresis, vomiting, abdominal pain, focal weakness or numbness. Pt's assistant director of security is Dr. Canada. Pt was recently admitted 09/09/16-09/16/16 for STEMI and had 2 ventricular fibrillation arrest before getting to cardiac cath rn where he had stent in proximal and mid LAD. Also had acute thrombotic closure of circumflex s/p thrombectomy and s/p intra aortic balloon pump. Pt was started on eliquis. PFSH Past Medical History Heart Rhythm Problems: No Cancer: No Cardiovascular Problems: Yes High Cholesterol: Yes Chest Pain: Yes Cerebrovascular Accident: Yes Deep Vein Thrombosis: Yes Endocrine: No Genitourinary: No Immune Disorder: No Musculoskeletal: No Neurologic: No Psychiatric: No Reproductive: No Respiratory: Yes (Bilateral PE) Myocardial Infarction: Yes Seizures: No Past Surgical History Abdominal Surgery: Yes AICD: No Appendectomy: Yes Pacemaker: No Tonsillectomy: Yes Social History Alcohol Use: No Tobacco Use: Yes (a day) Substance Use: No Allergies-Medications (Allergen,Severity, Reaction): Coded Allergies: Azithromycin (Verified Allergy, Unknown, Unknown, 09/24/16) Reported Meds & Prescriptions Reported Meds & Active Scripts Active Hydrocodone-Acetaminophen 5-325 mg Tab 1 Tab PO Q4H PRN Enalapril (Enalapril Maleate) 2.5 Mg Tab 2.5 Mg PO DAILY Vitamin B-12 (Cyanocobalamin) 1,000 Mcg Tab 1,000 Mcg PO DAILY Plavix (Clopidogrel Bisulfate) 75 Mg Tab 75 Mg PO DAILY Coreg (Carvedilol) 3.125 Mg Tab 3.125 Mg PO Q12HR Atorvastatin (Atorvastatin Calcium) 80 Mg Tab 80 Mg PO HS Eliquis (Apixaban) 5 Mg Tab 5 Mg PO BID Review of Systems Except as stated in HPI: all other systems reviewed are Neg Physical Exam Narrative GENERAL: 51yo M in mild distress. SKIN: Focused skin assessment warm/dry. HEAD: Atraumatic. Normocephalic. EYES: Pupils equal and round. No scleral icterus. No injection or drainage. ENT: No nasal bleeding or discharge. Mucous membranes pink and moist. NECK: Trachea midline. No JVD. CARDIOVASCULAR: Regular rate and rhythm. No murmur appreciated. RESPIRATORY: No accessory muscle use. Clear to auscultation. Breath sounds equal bilaterally. GASTROINTESTINAL: Abdomen soft, non-tender, nondistended. No rebound tenderness or guarding. MUSCULOSKELETAL: No obvious deformities. No clubbing. No cyanosis. No edema. NEUROLOGICAL: Awake and alert. No obvious cranial nerve deficits. Motor grossly within normal limits. Normal speech. PSYCHIATRIC: Appropriate mood and affect; insight and judgment normal. Data Data Last Documented VS Vital Signs Date Time Temp Pulse Resp B/P Pulse Ox O2 Delivery O2 Flow Rate FiO2 09/24/16 23:00 76 20 131/65 99 Nasal Cannula 2 09/24/16 22:19 97.9 Orders Electrocardiogram (09/24/16 22:06) Basic Metabolic Panel (Bmp) (09/24/16 22:06) Ckmb (Isoenzyme) Profile (09/24/16 22:06) Complete Blood Count With Diff (09/24/16 22:06) Magnesium (Mg) (09/24/16 22:06) Prothrombin Time / Inr (Pt) (09/24/16 22:06) Act Partial Throm Time (Ptt) (09/24/16 22:06) Troponin I (09/24/16 22:06) Chest, Single Ap (09/24/16 22:06) Ecg Monitoring (09/24/16 22:06) Bilateral Bp Monitoring (09/24/16 22:06) Iv Access Insert/Monitor (09/24/16 22:06) Oximetry (09/24/16 22:06) Oxygen Administration (09/24/16 22:06) Sodium Chloride 0.9% Flush (Ns Flush) (09/24/16 22:15) CKMB (09/24/16 22:10) CKMB% (09/24/16 22:10) Consult Cardiology (09/24/16 ) (Hub Use Only)Inp Phy Cons/Ref (09/24/16 ) Admit Order (Ed Use Only) (09/24/16 23:57) Labs Laboratory Tests Test 09/24/16 22:10 White Blood Count 8.6 TH/MM3 Red Blood Count 4.61 MIL/MM3 Hemoglobin 13.5 GM/DL Hematocrit 40.0 % Mean Corpuscular Volume 86.6 FL Mean Corpuscular Hemoglobin 29.2 PG Mean Corpuscular Hemoglobin 33.7 % Concent Red Cell Distribution Width 12.2 % Platelet Count 293 TH/MM3 Mean Platelet Volume 7.3 FL Neutrophils (%) (Auto) 56.1 % Lymphocytes (%) (Auto) 30.4 % Monocytes (%) (Auto) 7.0 % Eosinophils (%) (Auto) 3.7 % Basophils (%) (Auto) 2.8 % Neutrophils # (Auto) 4.9 TH/MM3 Lymphocytes # (Auto) 2.6 TH/MM3 Monocytes # (Auto) 0.6 TH/MM3 Eosinophils # (Auto) 0.3 TH/MM3 Basophils # (Auto) 0.2 TH/MM3 CBC Comment DIFF FINAL Differential Comment Prothrombin Time 11.6 SEC Prothromb Time International 1.0 RATIO Ratio Activated Partial 29.4 SEC Thromboplast Time Sodium Level 142 MEQ/L Potassium Level 3.8 MEQ/L Chloride Level 105 MEQ/L Carbon Dioxide Level 29.6 MEQ/L Anion Gap 7 MEQ/L Blood Urea Nitrogen 19 MG/DL Creatinine 1.20 MG/DL Estimat Glomerular Filtration 64 ML/MIN Rate Random Glucose 112 MG/DL Calcium Level 9.3 MG/DL Magnesium Level 2.2 MG/DL Total Creatine Kinase 102 U/L Creatine Kinase MB 1.4 NG/ML Troponin I 0.17 NG/ML [facility] Medical Decision Making Medical Screen Exam Complete: Yes Emergency Medical Condition: Yes Interpretation(s) EKG: NSR 77bpm. 1st AV block. T wave inversion in I, aVL, V2-V6. Differential Diagnosis Thrombosis of cardiac stent vs. ventricular aneurysm vs. aortic stenosis vs. rib fracture vs. musculoskeletal pain Narrative Course 51yo M with factor V leiden on eliquis here with left sided chest pain that is intermittent today. Pt also states he feels dizzy like he is going to pass out. Pt states he feels dizzy just lying down. Chest pain is atypical but pt has had significant cardiac history with recent OR on 5/29/17. I discussed case with Dr. De Los Santos and she states that it is hard to distinguish whether it is musculoskeletal or thrombosis of the stent and to transfer pt to [facility] if I believe pain is cardiac. Labs reviewed, no leukocytosis. H/H normal. Troponin elevated at 0.17 which can be residual from the OR. CXR showed no evidence of acute cardiopulmonary disease. Cardiology consult placed for Dr. Quach. Will transfer pt to [facility] in case intervention needed. Pt is currently not having chest pain but ordered sublingual nitro PRN chest pain. Discussed with Dr. Richey and accepted to Dr. Gambino's service. Pt initially placed in CIC but they have no room in ICU or CIC so with place in med surg floor with telemetry. Pt is hemodynamically stable at this time. Diagnosis Primary Impression: Chest pain Qualified Code: R07.9 - Chest pain, unspecified type Admitting Information Admitting Physician Requests: Admit Jessica Brice DO Sep 24, 2016 22:18
[2016-09-24 22:19] VITALS: BP_SYST 131; BP_SYST 140; BP_DIAS 72; BP_DIAS 74; PULSE 78; RESP 20; TEMP 97.9; O2SAT 99
[2016-09-24 22:24] LABS: CHLORIDE 105 MEQ/L (98-107); POTASSIUM 3.8 MEQ/L (3.5-5.1); SODIUM (NA) 142 MEQ/L (136-145)
--- NOTE | 2016-09-24 22:25 | RADHPO ---
EXAM DATE/TIME: 09/24/2016 22:15 [facility] COMPARISON: CHEST SINGLE AP, September 09, 2016, 11:38. INDICATIONS : Chest pain. MEDICAL HISTORY : Myocardial infarction. SURGICAL HISTORY : Coronary artery stent. ENCOUNTER: Initial ACUITY: 1 day PAIN SCORE: 5/10 LOCATION: Bilateral chest FINDINGS: A single view of the chest demonstrates the lungs to be symmetrically aerated without evidence of mas s, infiltrate or effusion. The cardiomediastinal contours are unremarkable. Osseous structures are intact. CONCLUSION: No evidence of acute cardiopulmonary disease. Dusty Loja MD on September 24, 2016 at 22:22 Board Certified Radiologist. This report was verified electronically.
[2016-09-24 22:27] LABS: ANION GAP 7 MEQ/L (5-15); BICARBONATE 29.6 MEQ/L (21.0-32.0); BLOOD UREA NITROGEN 19 MG/DL (7-18); MAGNESIUM 2.2 MG/DL (1.5-2.5)
[2016-09-24 22:28] LABS: APTT (PATIENT) 29.4 SEC (24.3-30.1); PROTHROMBIN TIME - PATIENT 11.6 SEC (9.8-11.6)
[2016-09-24 22:29] VITALS: BP_SYST 131; BP_SYST 140; BP_DIAS 72; BP_DIAS 74; PULSE 78; RESP 20; O2SAT 99
[2016-09-24 22:31] LABS: GLOMERULAR FILTRATION RATE 64 ML/MIN (>89)
[2016-09-24 22:34] LABS: CREATINE KINASE 102 U/L (39-308)
[2016-09-24 22:41] VITALS: BP 143/70; PULSE 92; RESP 20; O2SAT 100
[2016-09-24 22:46] LABS: CKMB 1.4 NG/ML (0.5-3.6)
[2016-09-24 23:00] VITALS: BP 131/65; PULSE 76; RESP 20; O2SAT 99
[2016-09-25] VITALS (12 sets, daily range): BP systolic 101–134; BP diastolic 56–72; PULSE 70–90; RESP 16–20; TEMP 96.5–98; O2SAT 95–100
[2016-09-25] MEDS ORDERED: NITROGLYCERIN 0.4 MG SL 25 TABS/BTL SL PRN (00:15)
[2016-09-25] MEDS ORDERED: ONDANSETRON HCL 4 MG/2 ML VIAL IVP PRN (00:45)
[2016-09-25] MEDS ORDERED: NALOXONE HCL 0.4 MG/ML AMP IV PRN (00:45)
[2016-09-25] MEDS ORDERED: SODIUM CHLORIDE 0.9% FLUSH 10 ML FLUSH IV FLUSH PRN (00:45)
[2016-09-25] MEDS ORDERED: TEMAZEPAM 15 MG CAP PO PRN (00:45)
[2016-09-25] MEDS ORDERED: ACETAMINOPHEN 325 MG TAB PO PRN (00:45)
[2016-09-25] MEDS ORDERED: SENNOSIDES 8.6 MG TAB PO PRN (00:45)
[2016-09-25] MEDS ORDERED: HEPARIN SODIUM - SQ 10,000 UNITS/ML VIAL SQ SCH (01:00)
[2016-09-25] MEDS: SODIUM CHLOR 0.9% 1000 ML INJ 1,000 ML IV SCH ×3 (01:12→20:40)
--- NOTE | 2016-09-25 07:07 | EKG ---
Date Performed: 09/24/2016 Time Performed: 22:02:44 PTAGE: 51 years EKG: Sinus rhythm WITH FIRST DEGREE AV BLOCK Anterior myocardial infarction, possibly recent. COMPARED TO PRIOR ELECTR OCARDIOGRAM, T-wave changes a more pronounced. PREVIOUS TRACING : 09/09/2016 11.12 DOCTOR: James Merchant Interpretating Date/Time 09/25/2016 07:06:44
[2016-09-25] MEDS: SODIUM CHLORIDE 0.9% FLUSH 10 ML FLUSH IV FLUSH SCH ×2 (09:16→21:00)
--- NOTE | 2016-09-25 09:55 | HHI.HP ---
[facility] Balta Sanchez MD Admission Diagnosis Chest pain with elevated troponing, recent NV Diagnoses: Chief Complaint: chest pain, dizziness, near syncope, left shoulder pain Travel History International Travel<30 Days: No Contact w/Intl Traveler <30 Da: No Traveled to Known Affected Are: No History of Present Illness This is a 51-year-old male patient with past medical history of factor V Ley[place] , history of right leg DVT/PE, CVA, hyperlipidemia. Patient was recently admitted on 09/09/2016 with chest pain, had EKG findings suggestive of acute anterior ST segment elevation NV. Code STEMI was called and patient was transferred to the main hospital. Patient sustained 2 ventricular fibrillation arrest which require shock therapy and CPR. Patient underwent cardiac catheterization with findings of total occlusion to mid LAD, status post angioplasty and stent to the proximal and mid LAD, acute thrombotic closure of the left circumflex after stenting of the LAD treated with thrombectomy. Minimal disease of the large RCA. Did have placement of intra-aortic balloon pump. During that admission, he was also evaluated by hematology and he was taken off Coumadin and put on Eliquis. Patient was eventually discharged in stable condition. Patient returns to the emergency room complaining of chest pain. He has other symptoms that are nonspecific. Patient indicates that since he left the hospital he has lower sternum chest pain that is constant, it is tender to palpation. It feels like bone pain. However the pain has been relieved with nitroglycerin here at the hospital. He also endorses some dyspnea with exertion. Additionally he has been having dizzy spells where he feels like he is going to pass out. The symptoms are not necessarily associated with the chest pain. He's also complaining of left neck radiating to left shoulder pain. Indicates that during prior admission he did complain of same pain and had an x-ray. Review of medical records shows that the x-ray did not reveal any acute findings other than osteoarthritic changes. He denies any recent injuries, has not been pushing or pulling anything heavier. He's also complaining of the left arm feeling a little bit heavy. He has no focal symptoms. He has been feeling more tired than usual and he is not back to work yet. He also endorses some anxiety. Indicates that his been trying to walk a little more however he sometimes gets a sensation that things are crawling under his skin on his legs. He has been compliant with medications. In the emergency room, patient was evaluated. Troponin 3 sets were done and there is mild elevation however is not trending upwards. EKG did not reveal any acute findings. Chest x-ray did not reveal acute findings. Patient is hemodynamically stable. Because of above symptoms in recent history, patient was transferred to the main hospital for further evaluation. Cardiology was consulted and they're agreeable to be put on consultation. At this time, patient is complaining of chest tenderness with palpation. He has no other symptoms. He is mostly concerned about the dizziness. Pt. is admitted for further evaluation and treatment. Review of Systems Constitutional: COMPLAINS OF: Dizziness Cardiovascular: COMPLAINS OF: Chest pain, Dyspnea on Exertion Musculoskeletal: COMPLAINS OF: Muscle aches, Back pain Psychiatric: COMPLAINS OF: Anxiety Other feels that things are crawling under skin of legs Past Family Social History Past Medical History History of right lower extremity DVT in 2001 History of stroke in 2001 and 2009 and which patient stated he was on Coumadin Hyperlipidemia HTN Factor V Leiden Status post cardiac catheterization showing acute ST elevated myocardial infarction due to total included mid LAD status post angioplasty and stent of the proximal and mid LAD, acute thrombotic closure of the left circumflex flex after stenting of the LAD treated with thrombectomy, minimal disease of a very large RCA, status post placement of an intra-aortic balloon pump on 09/09/16 Cardiomyopathy, Echo 08/2016 EF 40-45% Past Surgical History Tonsillectomy Appendectomy Inguinal hernia repair Reported Medications Reported Meds & Active Scripts Active Hydrocodone-Acetaminophen 5-325 mg Tab 1 Tab PO Q4H PRN Enalapril (Enalapril Maleate) 2.5 Mg Tab 2.5 Mg PO DAILY Vitamin B-12 (Cyanocobalamin) 1,000 Mcg Tab 1,000 Mcg PO DAILY Plavix (Clopidogrel Bisulfate) 75 Mg Tab 75 Mg PO DAILY Coreg (Carvedilol) 3.125 Mg Tab 3.125 Mg PO Q12HR Atorvastatin (Atorvastatin Calcium) 80 Mg Tab 80 Mg PO HS Eliquis (Apixaban) 5 Mg Tab 5 Mg PO BID Allergies: Coded Allergies: Azithromycin (Verified Allergy, Unknown, Unknown, 09/24/16) Active Ordered Medications Inpatient Medications Acetaminophen (Tylenol) 650 mg Q4H PRN PO TEMP > 100.4; Start 09/25/16 at 00:45 Heparin Sodium (Porcine) (Heparin Inj) 5,000 units Q12H SQ Last administered on 09/25/16 01:16; Start 09/25/16 at 01:00 Naloxone HCl (Narcan Inj) 0.4 mg UNSCH PRN IV SEE LABEL COMMENTS; Start at 00:45 Nitroglycerin 0.4 mg 0.4 mg Q5M PRN SL CHEST PAIN Last administered on 09:23; Start 09/25/16 at 00:15 Ondansetron HCl (Zofran Inj) 4 mg Q6H PRN IVP NAUSEA OR VOMITING; Start at 00:45 Sennosides (Senokot) 17.2 mg Q12H PRN PO MODERATE - SEVERE CONSTIPATION; Start 09/25/16 at 00:45 Sodium Chloride (NS 1000 ml Inj) 1,000 ml @ 100 mls/hr Q10H IV Last administered on 09/25/16 09:16; Start 09/25/16 at 00:40 Sodium Chloride (NS Flush) 2 ml BID IV FLUSH Last administered on 09/25/16 09: 16; Start 09/25/16 at 09:00 Temazepam (Restoril) 15 mg HS PRN PO INSOMNIA; Start 09/25/16 at 00:45 Family History Patient's father had cardiovascular disease. Social History Patient stopped smoking 3 days ago. He stated that he smoked about less than one pack per day for 40 years. He denies alcohol use. Physical Exam Vital Signs Vital Signs Date Time Temp Pulse Resp B/P Pulse Ox O2 Delivery O2 Flow Rate FiO2 09/25/16 08:40 97.3 72 16 119/70 97 09/25/16 06:15 98.0 70 17 111/58 97 09/25/16 04:35 75 20 110/72 99 Nasal Cannula 2 09/25/16 03:14 74 20 101/56 99 09/25/16 02:06 76 20 113/58 99 Nasal Cannula 2 09/25/16 01:00 76 20 120/68 99 09/25/16 00:06 100 Nasal Cannula 2.00 09/25/16 00:06 90 20 134/67 100 Nasal Cannula 2 09/24/16 23:00 76 20 131/65 99 Nasal Cannula 2 09/24/16 22:41 92 20 143/70 100 09/24/16 22:38 84 20 100 Nasal Cannula 2 09/24/16 22:29 78 20 131/74 99 140/72 09/24/16 22:19 99 Nasal Cannula 2 09/24/16 22:19 97.9 78 20 131/74 99 Nasal Cannula 2 140/72 09/24/16 22:05 97.9 81 20 122/65 99 Physical Exam GENERAL: This is a well-nourished, well-developed patient, in no apparent distress. SKIN: No rashes, ecchymoses or lesions. Cool and dry. HEAD: Atraumatic. Normocephalic. No temporal or scalp tenderness. EYES: Pupils equal round and reactive. Extraocular motions intact. No scleral icterus. No injection or drainage. ENT: Nose without bleeding, purulent drainage or septal hematoma. Throat without erythema, tonsillar hypertrophy or exudate. Uvula midline. Airway patent. NECK: Trachea midline. No JVD or lymphadenopathy. Supple, nontender, no meningeal signs. CARDIOVASCULAR: Regular rate and rhythm without murmurs, gallops, or rubs. RESPIRATORY: Clear to auscultation. Breath sounds equal bilaterally. No wheezes , rales, or rhonchi. GASTROINTESTINAL: Abdomen soft, non-tender, nondistended. No hepato-splenomegaly , or palpable masses. No guarding. MUSCULOSKELETAL: Extremities without clubbing, cyanosis, or edema. No joint tenderness, effusion, or edema noted. No calf tenderness. Negative Homans sign bilaterally. Lower midsternum tender to palpation. Painful ROM with left shoulder. NEUROLOGICAL: Awake and alert. Cranial nerves II through XII intact. Motor and sensory grossly within normal limits. Five out of 5 muscle strength in all muscle groups. Normal speech. Laboratory Laboratory Tests Test 09/24/16 09/25/16 22:10 00:55 White Blood Count 8.6 Red Blood Count 4.61 Hemoglobin 13.5 Hematocrit 40.0 Mean Corpuscular Volume 86.6 Mean Corpuscular Hemoglobin 29.2 Mean Corpuscular Hemoglobin 33.7 Concent Red Cell Distribution Width 12.2 Platelet Count 293 Mean Platelet Volume 7.3 Neutrophils (%) (Auto) 56.1 Lymphocytes (%) (Auto) 30.4 Monocytes (%) (Auto) 7.0 Eosinophils (%) (Auto) 3.7 Basophils (%) (Auto) 2.8 Neutrophils # (Auto) 4.9 Lymphocytes # (Auto) 2.6 Monocytes # (Auto) 0.6 Eosinophils # (Auto) 0.3 Basophils # (Auto) 0.2 CBC Comment DIFF FINAL Differential Comment Prothrombin Time 11.6 Prothromb Time International 1.0 Ratio Activated Partial 29.4 Thromboplast Time Sodium Level 142 Potassium Level 3.8 Chloride Level 105 Carbon Dioxide Level 29.6 Anion Gap 7 Blood Urea Nitrogen 19 Creatinine 1.20 Estimat Glomerular Filtration 64 Rate Random Glucose 112 Calcium Level 9.3 Magnesium Level 2.2 Total Creatine Kinase 102 84 Creatine Kinase MB 1.4 Troponin I 0.17 0.15 Result Diagram: 09/24/16220909/24/162209 Imaging Last Impressions Chest X-Ray 09/24/162205 Signed Impressions: Service Date/Time: Saturday, September 24, 2016 22:15 - CONCLUSION: No evidence of acute cardiopulmonary disease. Dusty Loja MD Assessment and Plan Problem List: (1) Chest pain (2) Near syncope (3) Dizziness (4) History of DVT (deep vein thrombosis) (5) Hyperlipidemia (6) Factor V Leiden (7) Hx recent CPR and defibrillation (8) Cardiomyopathy Assessment and Plan Admit to Dr. Gambino 51-year-old male with recent acute ST segment elevation [place] due to total included mid LAD status post angioplasty and stent of the proximal and mid LAD, acute thrombotic closure of the left circumflex flex after stenting of the LAD treated with thrombectomy, minimal disease of a very large RCA, status post placement of an intra-aortic balloon pump on 09/09/16 Chest pain atypical, likely musculoskeletal due to recent CPR -Serial cardiac signs have been completed, findings indeterminate, possibly elevated due to recent NV. Pain does not appear cardiac in nature however due to recent history we will have cardiology evaluate. We will order Toradol 10 mg by mouth every 6 when necessary -Continue with nitroglycerin sublingual when necessary -Continue with Lipitor, Coreg, Plavix, Vasotec Dizziness, almost near syncope History of stroke in 2001 and 2009 Continuous cardiac telemetry We will check orthostatics We will check carotid ultrasound CT of the head now History of right lower extremity DVT in 2001 Factor 5 Leiden -Continue with Eliquis Hyperlipidemia Continue home medications Hypertension Continue home medications and which patient stated he was on Coumadin Cardiomyopathy, Echo 08/2016 EF 40-45% -Continue Guillermo inhibitors and beta blockers Left shoulder and neck pain, likely musculoskeletal Continue to monitor, if pain persists may need CT of the cervical spine -Continue with Toradol for pain management Home medications reviewed, initiated as indicated Continue Eliquis for DVT prophylaxis Plan of care has been discussed with the patient, attending and registered nurse. Further management of the patient will be dependent on the hospital course This patient was seen by myself and Dr. Gambino, this H&P is written on his behalf Physician Certification 2 Midnight Certification Type: Admission for Inpatient Services Order for Inpatient Services The services are ordered in accordance with Medicare regulations or non- Medicare payer requirements, as applicable. In the case of services not specified as inpatient-only, they are appropriately provided as inpatient services in accordance with the 2-midnight benchmark. Estimated LOS (days): 2 2 days is the estimated time the patient will need to remain in the hospital, assuming treatment plan goals are met and no additional complications. Post-Hospital Plan: Home Problem Qualifiers (1) Chest pain: Qualified Code: R07.9 - Chest pain, unspecified type (2) Hyperlipidemia: Qualified Code: E78.5 - Hyperlipidemia, unspecified hyperlipidemia type (3) Cardiomyopathy: Qualified Code: I42.9 - Cardiomyopathy, unspecified type Juanita Bush Sep 25, 2016 09:55
[2016-09-25] MEDS ORDERED: APIXABAN 5 MG TABLET PO SCH (10:15)
[2016-09-25] MEDS ORDERED: KETOROLAC TROMETHAMINE 10 MG TAB PO PRN (10:30)
[2016-09-25] MEDS: CYANOCOBALAMIN 1,000 MCG TAB PO SCH (11:31)
[2016-09-25] MEDS: CLOPIDOGREL 75 MG TAB PO SCH (11:31)
[2016-09-25] MEDS: CARVEDILOL 3.125 MG TAB PO SCH ×2 (11:34→21:29)
--- NOTE | 2016-09-25 12:51 | MB ---
cc: ROSA MEJIA DATE OF CONSULTATION: 09/25/2016 DATE OF : 1965 REASON FOR CONSULTATION Chest pain, dizziness, near-syncope, left shoulder pain. HISTORY OF PRESENT ILLNESS 51-year-old male with a past medical history significant for recent STEMI status post PCI to the LAD complicated with acute thrombotic closure of the left circumflex which was successfully opened with aspiration thrombectomy, factor V Leiden, history of DVT, CVA and hyperlipidemia that presented yesterday to the emergency department with complaints of dizziness and chest pain. The patient reports that he has been having this left-sided chest pain and palpations associated with dyspnea on exertion which is minimal. However, what prompted him to come to the emergency department was that he started having some dizziness. He also endorses and anxiety. Cardiology has been consulted for chest pain evaluation. Admission EKG shows normal sinus rhythm with anterolateral T-wave inversions and Q-waves consistent with a recent VT. Echocardiogram EF 40-45%. REVIEW OF SYSTEMS Negative except for what is mentioned in the HPI. PAST MEDICAL HISTORY 1. Right lower extremity DVT. 2. History of stroke. 3. Hyperlipidemia. 4. Hypertension. 5. Factor V Leiden deficiency. 6. CAD status post PCI to proximal LAD. 7. LV dysfunction with echo showing an EF of 40-45%. PAST SURGICAL HISTORY 1. Tonsillectomy. 2. Appendectomy. 3. Inguinal hernia repair. MEDICATIONS Cardiac home medications: 1. Enalapril 2.5 mg p.o. daily. 2. Plavix 75 mg p.o. daily. 3. Coreg 3.125 mg p.o. b.i.d. 4. Lipitor 80 mg p.o. daily. 5. Eliquis 5 mg p.o. b.i.d. ALLERGIES AZITHROMYCIN. FAMILY HISTORY His father had a history of coronary artery disease. SOCIAL HISTORY He is a smoker. He denies alcohol use or illicit drug use. PHYSICAL EXAMINATION VITAL SIGNS: Temperature 97, respiratory rate 16, pulse 72, blood pressure 119/ 70. O2 sat 97% 2 liters NC. GENERAL: He is awake, alert and oriented x3 in no acute distress. NECK: No JVD. No carotid bruits. HEART: Regular rate and rhythm. No murmurs or gallops appreciated. Chest pain of palpation LUNGS: Clear to auscultation bilaterally. ABDOMEN: Soft, nontender, nondistended. Positive bowel sounds. EXTREMITIES: No cyanosis or edema. Pulses throughout. DATA Hemoglobin 13, hematocrit 40, platelet count 293. INR 1.0. Sodium 142, potassium 3.9, BUN 19, creatinine 1.2. Troponin 0.17, 0.15, and 0.13. Toxicology screen negative. Chest x-ray: No acute cardiopulmonary process. ASSESSMENT AND PLAN 51-year-old male with the above history and findings presenting with atypical chest pain, reproducible with palpation/musculoskeletal in the setting of recent STEMI/CPR and defibrillator shocks. Cardiac enzymes have been trending down. EKG shows a resolving infarct. He has been compliant with his medications including the aspirin and Plavix. At this time I would not recommend any further cardiac work-up. Restart cardiac home medications and optimize as tolerated by HR and BP. He should be able to follow with Dr. Bishop Canada upon discharge from the hospital. Thank you for the opportunity to take part in the care of this patient. Will be available on a p.r.n. basis for any other questions or concerns. Rosa Mejia MD TILE PROFESSIONAL/BT /12:29 PM /12:42 PM MTDD
[2016-09-25] MEDS: ENALAPRIL MALEATE 2.5 MG TAB PO SCH (13:32)
--- NOTE | 2016-09-25 13:40 | RADRPT ---
EXAM DATE/TIME: 09/25/2016 11:37 [facility] COMPARISON: US CAROTID ARTERIES, March 15, 2010, 21:15. INDICATIONS : Syncope. MEDICAL HISTORY : Stroke. Myocardial infarction. Hypercholesterolemia. Glasses. Chest pain. Deep vein thrombosis. Bilateral pleural effusion. Back pain. Muscle pain. Anxiety. Inguinal hernia. Factor 5 disorder. SURGICAL HISTORY : Tonsillectomy. Appendectomy. Cardiac catheterization. Coronary stent. ENCOUNTER: Subsequent ACUITY: 3 days PAIN SCORE: 2/10 LOCATION: Bilateral neck PEAK SYSTOLIC VELOCITIES (cm/sec): ICA/CCA RATIO: Right: 0.7 Left: 1.0 ICA: Right: 84.9 Left: 64.2 CCA: Right: 116.1 Left: 66.6 ECA: Right: 61.7 Left: 49.7 VERTEBRAL: Right: 45.9 antegrade Left: 75.4 antegrade Elevated flow velocities and ICA/CCA ratios have been found to correlate with increased degrees of vessel stenosis, calculated as percentage of diameter relative to a normal segment of distal ICA/CCA FINDINGS: RIGHT CAROTID: There is no evidence for a hemodynamically significant carotid stenosis. Minimal int imal hyperplasia is present with scattered calcific plaque. LEFT CAROTID: There is no evidence for a hemodynamically significant carotid stenosis. Minimal inti mal hyperplasia is present with scattered calcific plaque. VERTEBRAL ARTERIES: Flow is antegrade in both vertebral arteries. MISCELLANEOUS: There are no ancillary masses or adenopathy. CONCLUSION: Negative examination for a hemodynamically significant carotid stenosis. Anthony Medina MD FACR Board Certified Radiologist. This report was verified electronically.
--- NOTE | 2016-09-25 14:29 | EKG ---
Date Performed: 09/25/2016 Time Performed: 06:23:12 PTAGE: 51 years EKG: Sinus rhythm with 1st degree A-V block. Anteroseptal infarct - age undetermined Nonspecific T wave changes NO SIG NIFICANT CHANGE FROM PRIOR ELECTROCARDIOGRAM. Abnormal ECG PREVIOUS TRACING : 09/24/2016 22.02 DOCTOR: James Merchant Interpretating Date/Time 09/25/2016 14:29:19
--- NOTE | 2016-09-25 14:35 | RADRPT ---
EXAM DATE/TIME: 09/25/2016 13:09 [facility] COMPARISON: CT BRAIN W/O CONTRAST, March 15, 2010, 13:41. INDICATIONS : Evaluate for TIA.dizziness after coronary stents. RADIATION DOSE: 56.35 CTDIvol (mGy) MEDICAL HISTORY : Cardiovascular disease. SURGICAL HISTORY : None. ENCOUNTER: Initial ACUITY: 1 day PAIN SCALE: 5/10 LOCATION: Left cranial shoulder region. TECHNIQUE: Multiple contiguous axial images were obtained of the head. Using automated exposure control and adj ustment of the mA and/or kV according to patient size, radiation dose was kept as low as reasonably a chievable to obtain optimal diagnostic quality images. FINDINGS: CEREBRUM: Mild diffuse cerebral atrophy in the upper limits of normal for age. The ventricles are normal for de gree of atrophy. No evidence of midline shift, mass lesion, hemorrhage or acute infarction. No extr a-axial fluid collections are seen. POSTERIOR FOSSA: The cerebellum and brainstem are intact. The 4th ventricle is midline. The cerebellopontine angle i s unremarkable. EXTRACRANIAL: The visualized portion of the orbits is intact. SKULL: The calvaria is intact. Mild mucoperiosteal thickening in the ethmoid and right maxilla sinuses. CONCLUSION: 1. No acute intracranial abnormality. 2. Mild chronic paranasal sinusitis. Derick Quintanilla MD on September 25, 2016 at 14:29 Board Certified Radiologist. This report was verified electronically.
[2016-09-25] MEDS: APIXABAN 5 MG TABLET PO SCH (18:04)
[2016-09-25] MEDS ORDERED: ATORVASTATIN 80 MG TAB PO SCH (21:00)
[2016-09-26] VITALS (9 sets, daily range): BP systolic 103–119; BP diastolic 66–69; PULSE 64–76; RESP 17–20; TEMP 96.8–98.3; O2SAT 97–100
[2016-09-26] MEDS: APIXABAN 5 MG TABLET PO SCH ×2 (05:52→17:30)
[2016-09-26] MEDS: CARVEDILOL 3.125 MG TAB PO SCH ×2 (09:18→20:46)
[2016-09-26] MEDS: ENALAPRIL MALEATE 2.5 MG TAB PO SCH (09:18)
[2016-09-26] MEDS: CLOPIDOGREL 75 MG TAB PO SCH (09:18)
[2016-09-26] MEDS: SODIUM CHLORIDE 0.9% FLUSH 10 ML FLUSH IV FLUSH SCH ×2 (09:18→20:45)
[2016-09-26] MEDS: CYANOCOBALAMIN 1,000 MCG TAB PO SCH (09:18)
--- NOTE | 2016-09-26 09:36 | HHI.PR ---
Subjective History of Present Illness Patient c/o blood in stool. Consult GI. Cardiology input noted. Review of Systems Constitutional Constitutional: Fatigue, Weakness GI/Abdomen GI/Abdominal Exam: Bloody/Tarry Stools Vitals/Results Intake & Output 09/25/16 09/25/16 09/26/16 15:00 23:00 07:00 Intake Total 800 ml 550 ml Output Total 500 ml 400 ml 500 ml Balance -500 ml 400 ml 50 ml Intake Oral 800 ml 550 ml Output Urine Total 500 ml 400 ml 500 ml # Bowel Movements 0 0 Vital Signs Vital Signs Date Time Temp Pulse Resp B/P Pulse Ox O2 Delivery O2 Flow Rate FiO2 09/26/16 09:29 66 09/26/16 08:06 97.1 71 20 104/69 98 09/26/16 05:30 98.3 64 18 115/67 98 09/26/16 00:30 98.1 67 17 119/69 97 09/25/16 20:00 97.8 70 18 118/67 96 09/25/16 16:22 97.8 74 20 129/61 99 09/25/16 13:01 96.5 73 20 112/65 95 108/67 102/58 09/25/16 12:57 96.5 73 20 112/65 95 09/25/16 11:38 97 Nasal Cannula 2.00 CBC/BMP: 09/24/16 2210 09/24/16 2210 Lab Results Laboratory Tests Test 09/25/16 15:42 B-Type Natriuretic Peptide 130 PG/ML Physical Exam General General Appearance: Well Developed, Well Nourished, No Acute Distress, Comfortable Eyes Eye Exam: Pupils Equal, Pupils Reactive, Sclera White, Extraocular Movement Intact Throat Throat Exam: Oral Mucosa [place] & Moist, Oral Pharynx Normal Neck Neck Exam: Neck Supple, Trachea Midline Pulmonary Resp Exam: Clear Bilaterally, Breath Sounds Equal, No Distress Cardiology CV Exam: Regular, Normal Sinus Rhythm Gastrointestinal/Abdomen GI Exam: Soft, Non-Tender, Bowel Sounds Present Musculoskeletal MS Exam: Normal Tone Integumentary Skin Exam: Clear, Warm, Dry, Intact Extremeties Extremities Exam: No Edema Neurologic Neuro Exam: Alert, Awake, Oriented, Speech Clear, Moving All Extremities, No Focal Deficits VTE Prophylaxis VTE Remarks Eliquis. PUD Prophylasis PUD Prophylaxis: Protonix Assessment/Plan Assessment/Plan Assessment and Plan (1) Chest pain (2) Near syncope (3) Dizziness (4) History of DVT (deep vein thrombosis) (5) Hyperlipidemia (6) Factor V Leiden (7) Hx recent CPR and defibrillation (8) Cardiomyopathy (9) Blood in stool check FOBT Consult GI. 51-year-old male with recent acute ST segment elevation [place] due to total included mid LAD status post angioplasty and stent of the proximal and mid LAD, acute thrombotic closure of the left circumflex flex after stenting of the LAD treated with thrombectomy, minimal disease of a very large RCA, status post placement of an intra-aortic balloon pump on 09/09/16 Chest pain atypical, likely musculoskeletal due to recent CPR -Serial cardiac signs have been completed, findings indeterminate, possibly elevated due to recent [place]. Pain does not appear cardiac in nature however due to recent history we will have cardiology evaluate. Discontinue Toradol 10 mg by mouth every 6 because of rectal bleed. -Continue with nitroglycerin sublingual when necessary -Continue with Lipitor, Coreg, Plavix, Vasotec - Cardiology Input noted continue same management per cardiology no Intervention needed. Dizziness, almost near syncope History of stroke in 2001 and 2009 Continuous cardiac telemetry checked orthostatics BP.....nothing significat drop in BP. checked carotid ultrasound...within normal limits. CT of the head nothing acute...mild Paranasal sinusitis. History of right lower extremity DVT in 2001 Factor 5 Leiden -Continue with Eliquis Hyperlipidemia Continue home medications Hypertension Continue home medications and which patient stated he was on Coumadin Cardiomyopathy, Echo 08/2016 EF 40-45% -Continue Guillermo inhibitors and beta blockers Left shoulder and neck pain, likely musculoskeletal Continue to monitor, if pain persists may need CT of the cervical spine GI Prophylaxis.. Protonix 40 mg PO Daily. DVT prophylaxis..Eliquis Check CBC with diff CMP in AM. Discussed Condition with: Patient Balta Sanchez MD Sep 26, 2016 09:36
--- NOTE | 2016-09-26 10:27 | PD.CONS ---
HPI Service cardiology Consult Requested By hospitalist and patient request Reason for Consult dizzy and sob Primary Care Physician Balta Sanchez MD History of Present Illness readmitted after anterior mi and sten in lad with difficult course initially went home after stabilization last few days felt dizzy lightheaded no syncope get sob with some activity denied chest pains no actual syncope palpitations but feel pounding not fast beating of heart no edema pains and possible neuropathy in legs no orthopnea no pnd try be active at home and was walking few hundred feet on and off lab and work up so far was essentially negative Review of Systems Consitutional: COMPLAINS OF: Fatigue HEENT: COMPLAINS OF: Lightheadedness Respiratory: COMPLAINS OF: Shortness of breath Past Family Social History Allergies: Coded Allergies: Azithromycin (Verified Allergy, Unknown, Unknown, 09/24/16) Past Medical History as above and hypercoagulable state with dvt in the past on chronic anticoagulation Past Surgical History non contributing Reported Medications Reported Meds & Active Scripts Active Hydrocodone-Acetaminophen 5-325 mg Tab 1 Tab PO Q4H PRN Enalapril (Enalapril Maleate) 2.5 Mg Tab 2.5 Mg PO DAILY Vitamin B-12 (Cyanocobalamin) 1,000 Mcg Tab 1,000 Mcg PO DAILY Plavix (Clopidogrel Bisulfate) 75 Mg Tab 75 Mg PO DAILY Coreg (Carvedilol) 3.125 Mg Tab 3.125 Mg PO Q12HR Atorvastatin (Atorvastatin Calcium) 80 Mg Tab 80 Mg PO HS Eliquis (Apixaban) 5 Mg Tab 5 Mg PO BID Active Ordered Medications Current Medications Medications (Trade) Dose Ordered Sig/Fern Route Start Time Stop Time Status Last Admin Nitroglycerin 0.4 mg 0.4 mg Q5M PRN SL 09/25/16 00:15 09/25/16 09:23 (NS 1000 ml Inj) 1,000 ml @ 100 mls/hr Q10H IV 09/25/16 00:40 09/25/16 09:16 (NS Flush) 2 ml UNSCH PRN IV FLUSH 09/25/16 00:45 (NS Flush) 2 ml BID IV FLUSH 09/25/16 09:00 09/26/16 09:18 (Tylenol) 650 mg Q4H PRN PO 09/25/16 00:45 (Zofran Inj) 4 mg Q6H PRN IVP 09/25/16 00:45 (Restoril) 15 mg HS PRN PO 09/25/16 00:45 (Narcan Inj) 0.4 mg UNSCH PRN IV 09/25/16 00:45 (Senokot) 17.2 mg Q12H PRN PO 09/25/16 00:45 (Coreg) 3.125 mg Q12HR PO 09/25/16 10:15 09/26/16 09:18 (Plavix) 75 mg DAILY PO 09/25/16 10:15 09/26/16 09:18 (Vitamin B12) 1,000 mcg DAILY PO 09/25/16 10:15 09/26/16 09:18 (Vasotec) 2.5 mg DAILY PO 09/25/16 10:15 09/26/16 09:18 (Eliquis) 5 mg Q12H PO 09/25/16 18:00 09/26/16 05:52 (Toradol) 10 mg Q6H PRN PO 09/25/16 10:30 09/30/16 10:29 09/25/16 11:33 (Lipitor) 80 mg HS PO 09/26/16 21:00 Family History non contributing Social History no alcohol no drugs used to smoke Physical Exam Vital Signs Vital Signs Date Time Temp Pulse Resp B/P Pulse Ox O2 Delivery O2 Flow Rate FiO2 09/26/16 09:29 66 09/26/16 08:06 97.1 71 20 104/69 98 09/26/16 05:30 98.3 64 18 115/67 98 09/26/16 00:30 98.1 67 17 119/69 97 09/25/16 20:00 97.8 70 18 118/67 96 09/25/16 16:22 97.8 74 20 129/61 99 09/25/16 13:01 96.5 73 20 112/65 95 108/67 102/58 09/25/16 12:57 96.5 73 20 112/65 95 09/25/16 11:38 97 Nasal Cannula 2.00 Physical Exam heart s1s2 lung clear abdomen free ext free difficult to palpate dp bilaterally Laboratory Laboratory Tests Test 09/25/16 15:42 B-Type Natriuretic Peptide 130 Result Diagram: 09/24/16220909/24/162209 Assessment and Plan Problem List: (1) VF (ventricular fibrillation) (2) Hypercoagulable state (3) Hyperlipidemia (4) History of DVT (deep vein thrombosis) (5) Dizziness Assessment and Plan: will adjust meds and get echo stop enalapril and decrease dose of statin ambulate echo follow up (6) Cardiomyopathy (7) Factor V Leiden (8) Hx recent CPR and defibrillation Problem Qualifiers (1) Hyperlipidemia: Qualified Code: E78.5 - Hyperlipidemia, unspecified hyperlipidemia type (2) Cardiomyopathy: Qualified Code: I42.9 - Cardiomyopathy, unspecified type Olga Lidia Allen MD Sep 26, 2016 10:27
--- NOTE | 2016-09-26 12:28 | PD.CONS ---
HPI History of Present Illness This is a 51 year old gentleman who presented to the ER with dizziness, chest pain that started 4-5 days ago. He noted red blood in his stool this morning and admits 1 x episode of black stool a week ago. He has had constipation since being in the hospital but not prior. Never had blood in stool before. He was admitted to hospital 09/09/16 with chest pain and STEMI, had v fib requiring shock and CPR, is s/o cardiac cath, angioplasty, and stent, thrombectomy. He is currently on both eliquis for DVT prophylaxis, and plavix. He had a DVT in 2001. He has never had an EGD or colonoscopy. Denies n/v, abd pain. No NSAIDs. (Shakila Bright) PFSH Past Medical History DVT 2001 STEMI Past Surgical History tonsillectomy, inguinal hernia repair, appendectomy (Shakila Bright) Coded Allergies: Azithromycin (Verified Allergy, Unknown, Unknown, 09/24/16) Family History bone cancer, weak heart - father Social History no ETOH, tobacco, or drug use (Shakila Bright) Review of Systems Constitutional: DENIES: Fever Eyes: DENIES: Blurred vision Ears, nose, mouth, throat: DENIES: Hearing loss Cardiovascular: DENIES: Palpitations Gastrointestinal: COMPLAINS OF: Black stools, Bloody stools, Constipation, DENIES: Diarrhea, Nausea, Vomiting, Hematemesis Genitourinary: DENIES: Hematuria Musculoskeletal: COMPLAINS OF: Muscle aches, DENIES: Joint Swelling Integumentary: DENIES: Rash Hematologic/lymphatic: DENIES: Lymphadenopathy Neurologic: DENIES: Headache Psychiatric: DENIES: Confusion (Shakila Bright) GI Exam Vitals I&O Vital Signs Date Time Temp Pulse Resp B/P Pulse Ox O2 Delivery O2 Flow Rate FiO2 09/26/16 12:11 98.0 73 20 118/69 100 09/26/16 10:37 98 21 09/26/16 09:29 66 09/26/16 08:06 97.1 71 20 104/69 98 09/26/16 05:30 98.3 64 18 115/67 98 09/26/16 00:30 98.1 67 17 119/69 97 09/25/16 20:00 97.8 70 18 118/67 96 09/25/16 16:22 97.8 74 20 129/61 99 09/25/16 13:01 96.5 73 20 112/65 95 108/67 102/58 09/25/16 12:57 96.5 73 20 112/65 95 I/O 09/25/16 09/25/16 09/25/16 09/26/16 09/26/16 09/26/16 07:00 15:00 23:00 07:00 15:00 23:00 Intake Total 800 ml 550 ml Output Total 1350 ml 500 ml 400 ml 500 ml Balance -1350 ml -500 ml 400 ml 50 ml Intake Oral 800 ml 550 ml Output Urine Total 1350 ml 500 ml 400 ml 500 ml # Voids 3 # Bowel Movements 0 0 Imaging Last Impressions Head CT 09/25/16 0000 Signed Impressions: Service Date/Time: Sunday, September 25, 2016 13:09 - CONCLUSION: 1. No acute intracranial abnormality. 2. Mild chronic paranasal sinusitis. Derick Quintanilla MD Carotid Artery Ultrasound 09/25/16 0000 Signed Impressions: Service Date/Time: Sunday, September 25, 2016 11:37 - CONCLUSION: Negative examination for a hemodynamically significant carotid stenosis. Anthony Medina MD Chest X-Ray 09/24/166 Signed Impressions: Service Date/Time: Saturday, September 24, 2016 22:15 - CONCLUSION: No evidence of acute cardiopulmonary disease. Dusty Loja MD Laboratory Test 09/25/16 15:42 B-Type Natriuretic Peptide 130 PG/ML Physical Examination HEENT: EOMI; normocephalic; atraumatic; no jaundice. CHEST: CTA CARDIAC: RRR ABDOMEN: Soft, nondistended, nontender; no hepatosplenomegaly; bowel sounds are present in all four quadrants. EXTREMITIES: No clubbing, cyanosis, or edema. SKIN: Normal; no rash; no jaundice. MACARONI PRESS OPERATOR: No focal deficits; alert and oriented times three. (Shakila Bright POINTER HELPER) Assessment and Plan Plan ASSESSMENT - hematochezia, melena - 1 x episode this morning of red blood in stool, 1 x episode week ago of black stool. No anemia at this time. pt on eliquis and plavix w/ hx DVT and recent STEMI s/p stenting, angioplasty. PLAN - EGD/colonoscopy with cardiac clearance, inpt vs outpt - monitor HH - supportive care - further recommendations to follow This pt seen by myself and Dr Sanchez and this note is written on his behalf ( Shakila Bright) Physician Comments seen and examined with KARLI, 1 episode of BRBPR this morning. Pt. has picture of his BM on his phone. Formed stools with red streaking. He needs a colonoscopy but not a candidate unless active bleeding due to recent [place] and anticoagulation. Will follow.Gi interventions only if absolutely needed. Will follow. Thank you (Gayle Sanchez MD) Shakila Bright Sep 26, 2016 12:28 Gayel Sanchez MD Sep 26, 2016 18:37
[2016-09-26] MEDS: SODIUM CHLOR 0.9% 1000 ML INJ 1,000 ML IV SCH (16:40)
[2016-09-26] MEDS: ACETAMINOPHEN/HYDROcodone 325 MG/5 MG TAB PO PRN (17:32)
--- NOTE | 2016-09-26 17:57 | ECHRPT ---
Indication: LV Function CONCLUSIONS Normal left ventricular size. The left ventricular systolic function is moderately reduced with an estimated ejection fraction in the range of 40-45%. The pulmonary valve is not well visualized. Akinetic apical-septal wall motion. BP: 104 / 69 HR: 66 Rhythm: MEASUREMENTS (Male / Female) Normal Values Technical Quality:Good 2D ECHO LV Diastolic Diameter PLAX 4.7 cm 4.2 - 5.9 / 3.9 - 5.3 cm LV Systolic Diameter PLAX 4.0 cm IVS Diastolic Thickness 1.8 cm 0.6 - 1.0 / 0.6 - 0.9 cm LVPW Diastolic Thickness 1.3 cm 0.6 - 1.0 / 0.6 - 0.9 cm LV Relative Wall Thickness 0.7 RV Internal Dim ED PLAX 2.1 cm M-MODE Aortic Root Diameter MM 3.3 cm LA Systolic Diameter MM 3.0 cm LA Ao Ratio MM 0.9 AV Cusp Separation MM 2.3 cm FINDINGS LEFT VENTRICLE Akinetic apical-septal wall motion. Normal left ventricular size. The left ventricular systolic function is moderately reduced with an estimated ejection fraction in the range of 40-45%. RIGHT VENTRICLE Normal right ventricular size and systolic function. LEFT ATRIUM The left atrial size is normal. RIGHT ATRIUM The right atrial size is normal. ATRIAL SEPTUM Normal atrial septal thickness without atrial level shunting by limited color doppler interrogation. AORTA The aortic root and proximal ascending aorta are normal in size on limited imaging. MITRAL VALVE Structurally normal mitral valve. No mitral valve stenosis or regurgitation. AORTIC VALVE Trileaflet aortic valve. No aortic valve stenosis or regurgitation. TRICUSPID VALVE Structurally normal tricuspid valve. No tricuspid valve stenosis or regurgitation. PULMONARY VALVE The pulmonary valve is not well visualized. VESSELS The inferior vena cava is normal in size. PERICARDIUM No pericardial effusion. Hugh Vazquez MD (Electronically Signed) Final Date:26 September 2016 17:56
[2016-09-26] MEDS: ATORVASTATIN 20 MG TAB PO SCH (20:44)
[2016-09-26] MEDS ORDERED: ATORVASTATIN 40 MG TAB PO SCH (21:00)
[2016-09-27 01:00] VITALS: BP_SYST 120; BP_SYST 128; BP_DIAS 65; PULSE 69; RESP 18; TEMP 97.4; O2SAT 98
[2016-09-27] MEDS: SODIUM CHLOR 0.9% 1000 ML INJ 1,000 ML IV SCH ×3 (02:40→21:47)
[2016-09-27 04:00] VITALS: BP 112/66; PULSE 65; RESP 18; TEMP 97.3; O2SAT 99
[2016-09-27] MEDS: APIXABAN 5 MG TABLET PO SCH ×2 (05:49→18:47)
--- NOTE | 2016-09-27 08:24 | HHI.PR ---
Subjective History of Present Illness Patient c/o blood in stool. GI. / Cardiology input noted. need EGD/ Colonoscopy stopped Enalapril and decreased dose of statin... d/w STACIE Faust at bed side. Review of Systems Constitutional Constitutional: Fatigue, Weakness GI/Abdomen GI/Abdominal Exam: Bloody/Tarry Stools Vitals/Results Intake & Output 09/26/16 09/26/16 09/27/16 15:00 23:00 07:00 Intake Total 480 ml Output Total 800 ml Balance 480 ml -800 ml Intake Oral 480 ml Output Urine Total 800 ml # Voids 1 Vital Signs Vital Signs Date Time Temp Pulse Resp B/P Pulse Ox O2 Delivery O2 Flow Rate FiO2 09/27/16 04:00 97.3 65 18 112/66 99 09/27/16 01:00 97.4 69 18 128/65 98 09/26/16 20:00 98.0 74 18 114/66 98 09/26/16 17:59 97 21 09/26/16 16:06 96.8 76 20 103/66 97 09/26/16 12:11 98.0 73 20 118/69 100 09/26/16 10:37 98 21 09/26/16 09:29 66 CBC/BMP: 09/24/16 2210 09/24/16 2210 Physical Exam General General Appearance: Well Developed, Well Nourished, No Acute Distress, Comfortable Eyes Eye Exam: Pupils Equal, Pupils Reactive, Sclera White, Extraocular Movement Intact Throat Throat Exam: Oral Mucosa [place] & Moist, Oral Pharynx Normal Neck Neck Exam: Neck Supple, Trachea Midline Pulmonary Resp Exam: Clear Bilaterally, Breath Sounds Equal, No Distress Cardiology CV Exam: Regular, Normal Sinus Rhythm Gastrointestinal/Abdomen GI Exam: Soft, Non-Tender, Bowel Sounds Present Musculoskeletal MS Exam: Normal Tone Integumentary Skin Exam: Clear, Warm, Dry, Intact Extremeties Extremities Exam: No Edema Neurologic Neuro Exam: Alert, Awake, Oriented, Speech Clear, Moving All Extremities, No Focal Deficits VTE Prophylaxis VTE Remarks Eliquis. PUD Prophylasis PUD Prophylaxis: Protonix Assessment/Plan Assessment/Plan Assessment and Plan (1) Chest pain (2) Near syncope (3) Dizziness (4) History of DVT (deep vein thrombosis) (5) Hyperlipidemia (6) Factor V Leiden (7) Hx recent CPR and defibrillation (8) Cardiomyopathy (9) Blood in stool check FOBT GI.input noted need EGD/ Colonoscopy 51-year-old male with recent acute ST segment elevation LA due to total included mid LAD status post angioplasty and stent of the proximal and mid LAD, acute thrombotic closure of the left circumflex flex after stenting of the LAD treated with thrombectomy, minimal disease of a very large RCA, status post placement of an intra-aortic balloon pump on 09/09/16 Cardiology input noted ....stopped.. Enalapril and decreased dose of statin. Chest pain atypical, likely musculoskeletal due to recent CPR -Serial cardiac signs have been completed, findings indeterminate, possibly elevated due to recent LA. Pain does not appear cardiac in nature however due to recent history Discontinue Toradol 10 mg by mouth every 6 because of rectal bleed. -Continue with nitroglycerin sublingual when necessary -Continue with Lipitor, Coreg, Plavix, Vasotec - Cardiology Input noted continue same management per cardiology no Intervention needed. Dizziness, almost near syncope History of stroke in 2001 and 2009 Continuous cardiac telemetry checked orthostatics BP.....nothing significat drop in BP. checked carotid ultrasound...within normal limits. CT of the head nothing acute...mild Paranasal sinusitis. History of right lower extremity DVT in 2001 Factor 5 Leiden -Continue with Eliquis Hyperlipidemia Continue home medications Hypertension Continue home medications and which patient stated he was on Coumadin Cardiomyopathy, Echo 08/2016 EF 40-45% -Continue Guillermo inhibitors and beta blockers Left shoulder and neck pain, likely musculoskeletal Continue to monitor, if pain persists may need CT of the cervical spine GI Prophylaxis.. Protonix 40 mg PO Daily. DVT prophylaxis..Eliquis Check CBC with diff CMP in AM. Discussed Condition with: Patient Balta Sanchez MD Sep 27, 2016 08:24
[2016-09-27 08:35] VITALS: BP 122/76; PULSE 89; RESP 20; TEMP 97.8; O2SAT 97
[2016-09-27] MEDS: CYANOCOBALAMIN 1,000 MCG TAB PO SCH (08:51)
[2016-09-27] MEDS: SODIUM CHLORIDE 0.9% FLUSH 10 ML FLUSH IV FLUSH SCH ×2 (08:51→21:45)
[2016-09-27] MEDS: CLOPIDOGREL 75 MG TAB PO SCH (08:51)
[2016-09-27] MEDS: CARVEDILOL 3.125 MG TAB PO SCH ×2 (08:51→21:45)
[2016-09-27] MEDS: ACETAMINOPHEN/HYDROcodone 325 MG/5 MG TAB PO PRN ×2 (08:51→18:47)
[2016-09-27 11:16] LABS: AUTOMATED NEUTROPHIL # 4.8 TH/MM3 (1.8-7.7); BASOPHIL # 0.1 TH/MM3 (0-0.2); BASOPHIL % 0.9 % (0.0-2.0); EOSINOPHIL # 0.2 TH/MM3 (0-0.4); EOSINOPHIL % 3.5 % (0.0-4.0); HEMATOCRIT 43.1 % (39.0-51.0); HEMO FLAGS DIFF FINAL; LYMPH % 21.4 % (9.0-44.0); LYMPHOCYTE # 1.5 TH/MM3 (1.0-4.8); MEAN CELL VOLUME 86.5 FL (80.0-100.0); MEAN CORPUSCULAR HEMOGLOBIN 28.4 PG (27.0-34.0); MEAN CORPUSCULAR HGB CONC 32.9 % (32.0-36.0); MONO % 5.4 % (0.0-8.0); NEUT % 68.8 % (16.0-70.0); PLATELET COUNT 252 TH/MM3 (150-450); RED BLOOD COUNT 4.98 MIL/MM3 (4.50-5.90); RED CELL DISTRIBUTION WIDTH 13.2 % (11.6-17.2); WHITE BLOOD COUNT 6.9 TH/MM3 (4.0-11.0)
[2016-09-27 11:43] LABS: ANION GAP 8 MEQ/L (5-15); AST (GOT) 17 U/L (15-37); BICARBONATE 29.2 MEQ/L (21.0-32.0); BLOOD UREA NITROGEN 16 MG/DL (7-18); CHLORIDE 100 MEQ/L (98-107); GLOMERULAR FILTRATION RATE 82 ML/MIN (>89); POTASSIUM 3.6 MEQ/L (3.5-5.1); SODIUM (NA) 137 MEQ/L (136-145)
[2016-09-27 11:44] LABS: ALT (GPT) 37 U/L (12-78)
[2016-09-27 11:47] LABS: ALKALINE PHOSPHATASE 94 U/L (45-117); TOTAL BILIRUBIN ADULT 0.4 MG/DL (0.2-1.0)
[2016-09-27 12:04] VITALS: BP 98/65; PULSE 89; RESP 20; TEMP 98; O2SAT 100
--- NOTE | 2016-09-27 14:20 | HHI.GIFU ---
Subjective Remarks Pt just returned from bathroom. Says he had some blood in stool this am but less than yesterday. Objective Vitals I&O Vital Signs Date Time Temp Pulse Resp B/P Pulse Ox O2 Delivery O2 Flow Rate FiO2 09/27/16 12:04 98.0 89 20 98/65 100 09/27/16 08:35 97.8 89 20 122/76 97 09/27/16 04:00 97.3 65 18 112/66 99 09/27/16 01:00 97.4 69 18 128/65 98 09/26/16 20:00 98.0 74 18 114/66 98 09/26/16 17:59 97 21 09/26/16 16:06 96.8 76 20 103/66 97 I/O 09/26/16 09/26/16 09/26/16 09/27/16 09/27/16 09/27/16 07:00 15:00 23:00 07:00 15:00 23:00 Intake Total 550 ml 480 ml Output Total 500 ml 800 ml Balance 50 ml 480 ml -800 ml Intake Oral 550 ml 480 ml Output Urine Total 500 ml 800 ml # Voids 1 # Bowel Movements 0 1 Laboratory Laboratory Tests Test 09/27/16 09:55 White Blood Count 6.9 Red Blood Count 4.98 Hemoglobin 14.2 Hematocrit 43.1 Mean Corpuscular Volume 86.5 Mean Corpuscular Hemoglobin 28.4 Mean Corpuscular Hemoglobin 32.9 Concent Red Cell Distribution Width 13.2 Platelet Count 252 Mean Platelet Volume 7.9 Neutrophils (%) (Auto) 68.8 Lymphocytes (%) (Auto) 21.4 Monocytes (%) (Auto) 5.4 Eosinophils (%) (Auto) 3.5 Basophils (%) (Auto) 0.9 Neutrophils # (Auto) 4.8 Lymphocytes # (Auto) 1.5 Monocytes # (Auto) 0.4 Eosinophils # (Auto) 0.2 Basophils # (Auto) 0.1 CBC Comment DIFF FINAL Differential Comment Sodium Level 137 Potassium Level 3.6 Chloride Level 100 Carbon Dioxide Level 29.2 Anion Gap 8 Blood Urea Nitrogen 16 Creatinine 0.97 Estimat Glomerular Filtration 82 Rate Random Glucose 156 Calcium Level 8.9 Total Bilirubin 0.4 Aspartate Amino Transf 17 (AST/SGOT) Alanine Aminotransferase 37 (ALT/SGPT) Alkaline Phosphatase 94 Total Protein 7.6 Albumin 3.5 Date/Time Procedure Status Source Growth 09/27/16 09:00 Stool Occult Blood (ARI) - Final Complete Stool Stool HEMOCCULT NEGATIVE Imaging Last Impressions Head CT 09/25/16 0000 Signed Impressions: Service Date/Time: Sunday, September 25, 2016 13:09 - CONCLUSION: 1. No acute intracranial abnormality. 2. Mild chronic paranasal sinusitis. Derick Quintanilla MD Carotid Artery Ultrasound 09/25/16 0000 Signed Impressions: Service Date/Time: Sunday, September 25, 2016 11:37 - CONCLUSION: Negative examination for a hemodynamically significant carotid stenosis. Anthony Medina MD Chest X-Ray 09/24/166 Signed Impressions: Service Date/Time: Saturday, September 24, 2016 22:15 - CONCLUSION: No evidence of acute cardiopulmonary disease. Dusty Loja MD Physical Exam HEENT: PERRL; atraumatic; no jaundice. CHEST: CTA CARDIAC: RRR ABDOMEN: Soft, nondistended, nontender; no hepatosplenomegaly; bowel sounds are present in all four quadrants. EXTREMITIES: No clubbing, cyanosis, or edema. SKIN: Normal; no rash; no jaundice. 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 Assessment and Plan Plan ASSESSMENT - hematochezia, melena - streaks of red blood in stool for 2d. 1 x episode week ago of black stool. No anemia at this time. pt on eliquis and plavix w/ hx DVT and recent STEMI s/p stenting, angioplasty. PLAN - EGD/colonoscopy in 3-6 months unless urgent - monitor HH - supportive care - GI will sign off for now, please reconsult if needed. This pt seen by myself and Dr Sanchez and this note is written on his behalf Shakila Bright Sep 27, 2016 14:20
--- NOTE | 2016-09-27 15:06 | PD.CARD.PN ---
Subjective Subjective Remarks no complaints feeling well no cp no sob no dizzyness episodes or palpitations Objective Vital Signs / I&O Vital Signs Date Time Temp Pulse Resp B/P Pulse Ox O2 Delivery O2 Flow Rate FiO2 09/27/16 12:04 98.0 89 20 98/65 100 09/27/16 08:35 97.8 89 20 122/76 97 09/27/16 04:00 97.3 65 18 112/66 99 09/27/16 01:00 97.4 69 18 128/65 98 09/26/16 20:00 98.0 74 18 114/66 98 09/26/16 17:59 97 21 09/26/16 16:06 96.8 76 20 103/66 97 I/O 09/26/16 09/26/16 09/26/16 09/27/16 09/27/16 09/27/16 07:00 15:00 23:00 07:00 15:00 23:00 Intake Total 550 ml 480 ml Output Total 500 ml 800 ml Balance 50 ml 480 ml -800 ml Intake Oral 550 ml 480 ml Output Urine Total 500 ml 800 ml # Voids 1 # Bowel Movements 0 1 Physical Exam heart s1s2 lung clear abdomen free ext free Laboratory Laboratory Tests Test 09/27/16 09:55 White Blood Count 6.9 TH/MM3 Red Blood Count 4.98 MIL/MM3 Hemoglobin 14.2 GM/DL Hematocrit 43.1 % Mean Corpuscular Volume 86.5 FL Mean Corpuscular Hemoglobin 28.4 PG Mean Corpuscular Hemoglobin 32.9 % Concent Red Cell Distribution Width 13.2 % Platelet Count 252 TH/MM3 Mean Platelet Volume 7.9 FL Neutrophils (%) (Auto) 68.8 % Lymphocytes (%) (Auto) 21.4 % Monocytes (%) (Auto) 5.4 % Eosinophils (%) (Auto) 3.5 % Basophils (%) (Auto) 0.9 % Neutrophils # (Auto) 4.8 TH/MM3 Lymphocytes # (Auto) 1.5 TH/MM3 Monocytes # (Auto) 0.4 TH/MM3 Eosinophils # (Auto) 0.2 TH/MM3 Basophils # (Auto) 0.1 TH/MM3 CBC Comment DIFF FINAL Differential Comment Sodium Level 137 MEQ/L Potassium Level 3.6 MEQ/L Chloride Level 100 MEQ/L Carbon Dioxide Level 29.2 MEQ/L Anion Gap 8 MEQ/L Blood Urea Nitrogen 16 MG/DL Creatinine 0.97 MG/DL Estimat Glomerular Filtration 82 ML/MIN Rate Random Glucose 156 MG/DL Calcium Level 8.9 MG/DL Total Bilirubin 0.4 MG/DL Aspartate Amino Transf 17 U/L (AST/SGOT) Alanine Aminotransferase 37 U/L (ALT/SGPT) Alkaline Phosphatase 94 U/L Total Protein 7.6 GM/DL Albumin 3.5 GM/DL Assessment and Plan Problem List: (1) VF (ventricular fibrillation) (2) Hypercoagulable state (3) Hyperlipidemia (4) History of DVT (deep vein thrombosis) (5) Dizziness Assessment and Plan: echo noted ambulate and ok home for follow up as outpatient off lisinopril (6) Cardiomyopathy (7) Factor V Leiden (8) Hx recent CPR and defibrillation Problem Qualifiers (1) Hyperlipidemia: Qualified Code: E78.5 - Hyperlipidemia, unspecified hyperlipidemia type (2) Cardiomyopathy: Qualified Code: I42.9 - Cardiomyopathy, unspecified type Olga Lidia Allen MD Sep 27, 2016 15:06
[2016-09-27 16:51] VITALS: BP 111/68; PULSE 76; RESP 20; TEMP 97.6; O2SAT 97
[2016-09-27 21:02] VITALS: BP 116/68; PULSE 72; RESP 20; TEMP 97.3; O2SAT 100
[2016-09-27] MEDS: ATORVASTATIN 20 MG TAB PO SCH (21:40)
[2016-09-28] VITALS: BP 102/59; PULSE 77; RESP 20; TEMP 97.8; O2SAT 97
[2016-09-28 04:00] VITALS: BP 100/65; PULSE 81; RESP 20; TEMP 97; O2SAT 97
[2016-09-28] MEDS: APIXABAN 5 MG TABLET PO SCH (06:10)
[2016-09-28] MEDS: ACETAMINOPHEN/HYDROcodone 325 MG/5 MG TAB PO PRN ×2 (06:11→12:51)
[2016-09-28 08:27] VITALS: BP 115/69; PULSE 75; RESP 18; TEMP 96.4; O2SAT 98
[2016-09-28] MEDS: CLOPIDOGREL 75 MG TAB PO SCH (08:28)
[2016-09-28] MEDS: CYANOCOBALAMIN 1,000 MCG TAB PO SCH (08:28)
[2016-09-28] MEDS: CARVEDILOL 3.125 MG TAB PO SCH (08:29)
[2016-09-28 10:00] VITALS: PULSE 75
[2016-09-28 10:48] LABS: AUTOMATED NEUTROPHIL # 4.8 TH/MM3 (1.8-7.7); BASOPHIL # 0.1 TH/MM3 (0-0.2); BASOPHIL % 1.3 % (0.0-2.0); EOSINOPHIL # 0.4 TH/MM3 (0-0.4); EOSINOPHIL % 4.5 % (0.0-4.0); HEMO FLAGS DIFF FINAL; LYMPH % 30.7 % (9.0-44.0); LYMPHOCYTE # 2.6 TH/MM3 (1.0-4.8); MEAN CELL VOLUME 85.9 FL (80.0-100.0); MEAN CORPUSCULAR HEMOGLOBIN 28.5 PG (27.0-34.0); MEAN CORPUSCULAR HGB CONC 33.1 % (32.0-36.0); MONO % 7.2 % (0.0-8.0); NEUT % 56.3 % (16.0-70.0); PLATELET COUNT 279 TH/MM3 (150-450); RED CELL DISTRIBUTION WIDTH 13.1 % (11.6-17.2); WHITE BLOOD COUNT 8.5 TH/MM3 (4.0-11.0)
--- NOTE | 2016-09-28 11:02 | HHI.PR ---
Subjective History of Present Illness Patient c/o blood in stool. but fecal occult blood test x 1 negative for blood... GI. / Cardiology input noted. need EGD/ Colonoscopy as out patient stopped Enalapril and decreased dose of statin... ok to dc home today. Review of Systems Constitutional Constitutional: Fatigue, Weakness GI/Abdomen GI/Abdominal Exam: Bloody/Tarry Stools Vitals/Results Intake & Output 09/27/16 09/27/16 09/28/16 15:00 23:00 07:00 Intake Total 480 ml 220 ml Balance 480 ml 220 ml Intake Oral 480 ml 220 ml # Voids 2 1 # Bowel Movements 1 0 Vital Signs Vital Signs Date Time Temp Pulse Resp B/P Pulse Ox O2 Delivery O2 Flow Rate FiO2 09/28/16 08:27 96.4 75 18 115/69 98 09/28/16 07:39 16 09/28/16 04:00 97.0 81 20 100/65 97 09/28/16 00:00 97.8 77 20 102/59 97 09/27/16 21:02 97.3 72 20 116/68 100 09/27/16 16:51 97.6 76 20 111/68 97 09/27/16 12:04 98.0 89 20 98/65 100 CBC/BMP: 09/28/16 0936 09/27/16 0955 Lab Results Laboratory Tests Test 09/28/16 09:36 White Blood Count 8.5 TH/MM3 Red Blood Count 5.00 MIL/MM3 Hemoglobin 14.3 GM/DL Hematocrit 43.0 % Mean Corpuscular Volume 85.9 FL Mean Corpuscular Hemoglobin 28.5 PG Mean Corpuscular Hemoglobin 33.1 % Concent Red Cell Distribution Width 13.1 % Platelet Count 279 TH/MM3 Mean Platelet Volume 7.8 FL Neutrophils (%) (Auto) 56.3 % Lymphocytes (%) (Auto) 30.7 % Monocytes (%) (Auto) 7.2 % Eosinophils (%) (Auto) 4.5 % Basophils (%) (Auto) 1.3 % Neutrophils # (Auto) 4.8 TH/MM3 Lymphocytes # (Auto) 2.6 TH/MM3 Monocytes # (Auto) 0.6 TH/MM3 Eosinophils # (Auto) 0.4 TH/MM3 Basophils # (Auto) 0.1 TH/MM3 CBC Comment DIFF FINAL Differential Comment Physical Exam General General Appearance: Well Developed, Well Nourished, No Acute Distress, Comfortable Eyes Eye Exam: Pupils Equal, Pupils Reactive, Sclera White, Extraocular Movement Intact Throat Throat Exam: Oral Mucosa [place] & Moist, Oral Pharynx Normal Neck Neck Exam: Neck Supple, Trachea Midline Pulmonary Resp Exam: Clear Bilaterally, Breath Sounds Equal, No Distress Cardiology CV Exam: Regular, Normal Sinus Rhythm Gastrointestinal/Abdomen GI Exam: Soft, Non-Tender, Bowel Sounds Present Musculoskeletal MS Exam: Normal Tone Integumentary Skin Exam: Clear, Warm, Dry, Intact Extremeties Extremities Exam: No Edema Neurologic Neuro Exam: Alert, Awake, Oriented, Speech Clear, Moving All Extremities, No Focal Deficits VTE Prophylaxis VTE Remarks Eliquis. PUD Prophylasis PUD Prophylaxis: Protonix Assessment/Plan Assessment/Plan Assessment and Plan (1) Chest pain (2) Near syncope (3) Dizziness (4) History of DVT (deep vein thrombosis) (5) Hyperlipidemia (6) Factor V Leiden (7) Hx recent CPR and defibrillation (8) Cardiomyopathy (9) Blood in stool check FOBT GI.input noted need EGD/ Colonoscopy as out patient but fecal occult blood test x 1 negative for blood. 51-year-old male with recent acute ST segment elevation PR due to total included mid LAD status post angioplasty and stent of the proximal and mid LAD, acute thrombotic closure of the left circumflex flex after stenting of the LAD treated with thrombectomy, minimal disease of a very large RCA, status post placement of an intra-aortic balloon pump on 09/09/16 Cardiology input noted ....stopped.. Enalapril and decreased dose of statin. Chest pain atypical, likely musculoskeletal due to recent CPR -Serial cardiac signs have been completed, findings indeterminate, possibly elevated due to recent PR. Pain does not appear cardiac in nature however due to recent history Discontinue Toradol 10 mg by mouth every 6 because of rectal bleed. -Continue with nitroglycerin sublingual when necessary -Continue with Lipitor, Coreg, Plavix, Vasotec - Cardiology Input noted continue same management per cardiology no Intervention needed. Dizziness, almost near syncope History of stroke in 2001 and 2009 Continuous cardiac telemetry checked orthostatics BP.....nothing significat drop in BP. checked carotid ultrasound...within normal limits. CT of the head nothing acute...mild Paranasal sinusitis. History of right lower extremity DVT in 2001 Factor 5 Leiden -Continue with Eliquis Hyperlipidemia Continue home medications Hypertension Continue home medications and which patient stated he was on Coumadin Cardiomyopathy, Echo 08/2016 EF 40-45% -Continue Guillermo inhibitors and beta blockers Left shoulder and neck pain, likely musculoskeletal Continue to monitor, if pain persists may need CT of the cervical spine GI Prophylaxis.. Protonix 40 mg PO Daily. DVT prophylaxis..Eliquis ok to dc home today. f/u with PCP/ GI / Cardiology 1 week Discussed Condition with: Patient Balta Sanchez MD Sep 28, 2016 11:02
[2016-09-28 11:12] LABS: ANION GAP 7 MEQ/L (5-15); AST (GOT) 20 U/L (15-37); BLOOD UREA NITROGEN 16 MG/DL (7-18); CHLORIDE 102 MEQ/L (98-107); GLOMERULAR FILTRATION RATE 75 ML/MIN (>89); SODIUM (NA) 137 MEQ/L (136-145)
[2016-09-28 11:13] LABS: ALT (GPT) 39 U/L (12-78)
[2016-09-28 11:16] LABS: ALKALINE PHOSPHATASE 103 U/L (45-117); TOTAL BILIRUBIN ADULT 0.3 MG/DL (0.2-1.0)
[2016-09-28 12:52] VITALS: BP 107/65; PULSE 75; RESP 18; TEMP 97.1; O2SAT 98
[2016-09-28] MEDS ORDERED: NITR0.4S SL (13:29)
[2016-09-28] MEDS ORDERED: HYDR-3516 PO (13:29)
[2016-09-28] MEDS ORDERED: REST15CA PO (13:29)
[2016-09-28] MEDS ORDERED: LIPI20TA PO (16:03)
--- NOTE | 2016-10-02 23:48 | MD ---
cc: BALTA BURTON MD ADMISSION DATE: 09/24/2016 DISCHARGE DATE: 09/28/2016 Okay to discharge the patient home. CONDITION Condition at the time of discharge satisfactory. ACTIVITY Activity as tolerated. DIET Diet cardiac. ALLERGIES ALLERGY TO AZITHROMYCIN. MEDICATIONS Include: 1. Lortab 5/325 p.o. q.6 hours p.r.n. pain. 2. Nitroglycerin 0.4 milligrams sublingual q. 5 minutes p.r.n. chest pain. 3. Temazepam 15 milligrams p.o. at bedtime p.r.n. insomnia. 4. Eliquis 5 milligrams p.o. daily. 5. Carvedilol 3.125 milligrams p.o. q.12 hours. 6. Plavix 75 milligrams p.o. daily. 7. B12 1000 micrograms p.o. daily. 8. Hydrocodone/acetaminophen. FOLLOW UP The patient was to follow up possible with PCP,. GI and cardiology. ADMITTING DIAGNOSIS Chest pain and near syncope, dizziness. DISCHARGE DIAGNOSIS 1. Chest pain. His symptoms of dizziness resolved. 2. History of DVT in the past. 3. History of factor V Leiden. 4. History of stroke in the past. 5. History of recent CPR and defibrillation. 6. History of cardiomyopathy. 7. History of hyperlipidemia. HOSPITAL COURSE This is a 51-year-old Malay male with past medical-surgical history as dictated in HPI, came to the ER with chest pain, near-syncope and dizziness. The patient had a recent acute ST elevation myocardial infarction due to total occlusion of mid LAD, status post angioplasty and stent of a proximal and mid LAD and acute thrombotic ___ of the left circumflex after stenting of the LAD, treated with thrombectomy, minimal disease of a very large RCA status post placement of intra-aortic balloon pump on 09/09/2016. Cardiology seen the patient, Enalapril stopped and statin and Lipitor decreased from 80 milligrams to 20 milligrams. Serial cardiac enzyme was done which are down trending after the [place]. Has a history of stroke in 2001 and 2009. The patient is on Plavix as well as Eliquis. I discussed with Dr. Allen, we are going to continue both. He is complaining of some blood in the stool but the stool for occult blood test was negative. GI seen the patient. They have no plan to do endoscopy as an inpatient, maybe as outpatient when the patient gets more stabilized. Factor V Leiden deficiency. The patient is on Eliquis. Hyperlipidemia, the patient on Lipitor 20 milligrams p.o. daily. Hypertension, the patient is on blood pressure medicine. Echo showed ejection fraction of 40-45% with a cardiomyopathy. Let shoulder pain and left-sided rib cage pain most likely musculoskeletal. Further details in the medical record. Balta Burton MD EA/THALIA /1:44 PM /11:40 PM
== END 2016-09-28 16:22 | disposition home or self-care (01) ==
LOC: PHED 21:54 → PHEDA 23:59 → INTOOBSV 23:59 → N05B 09-25 05:28 → UNDODISIN 09-28 16:22
PROVIDERS: ADMIT Family Medicine; ATTEND Family Medicine
DX: R07.9 Chest pain, unspecified (principal); R06.00 Dyspnea, unspecified; R06.02 Shortness of breath; R00.2 Palpitations; I44.0 Atrioventricular block, first degree; R94.31 Abnormal electrocardiogram [ECG] [EKG]; R11.0 Nausea; R53.1 Weakness; K59.00 Constipation, unspecified; R53.83 Other fatigue; M79.1 Myalgia; M54.9 Dorsalgia, unspecified; M54.2 Cervicalgia; R42 Dizziness and giddiness; R55 Syncope and collapse; K92.1 Melena; R07.81 Pleurodynia; M25.512 Pain in left shoulder; I25.10 Atherosclerotic heart disease of native coronary artery without angina pectoris; E78.00 Pure hypercholesterolemia, unspecified; E78.5 Hyperlipidemia, unspecified; I42.9 Cardiomyopathy, unspecified; I25.2 Old myocardial infarction; I10 Essential (primary) hypertension; D68.51 Activated protein C resistance; F41.9 Anxiety disorder, unspecified; Z86.718 Personal history of other venous thrombosis and embolism; Z86.73 Personal history of transient ischemic attack (TIA), and cerebral infarction without residual deficits; Z95.5 Presence of coronary angioplasty implant and graft; Z79.899 Other long term (current) drug therapy; Z79.02 Long term (current) use of antithrombotics/antiplatelets; Z87.891 Personal history of nicotine dependence; Z79.01 Long term (current) use of anticoagulants
CPT/HCPCS: 70450; 71010; 76937; 80048; 80053; 82272; 82550; 82552; 83735; 83880; 84484; 85025; 85610; 85730; 93005; 93308; 93880; 99285; G0378; J1644; J7030

== ENCOUNTER 2016-10-07 12:01 | Observation (INO) | payer MEDICAID, OTHER ==
[~2016-10-07] VITALS: Ht 182.9 cm; Wt 95.0 kg
[2016-10-07] VITALS (9 sets, daily range): BP systolic 104–140; BP diastolic 57–84; PULSE 66–83; RESP 13–20; TEMP 98–98.4; O2SAT 96–100
[~2016-10-07 12:01] MED LIST changes: -ATOR1TAB18 PO; -ENAL2.5T PO; +LIPI20TA PO; +NITR0.4S SL; +REST15CA PO
--- NOTE | 2016-10-07 12:29 | PD ---
HPI Chief Complaint: Dizziness Time Seen by Provider: 12:29 Travel History International Travel<30 days: No Contact w/Intl Traveler<30days: No Traveled to known affect area: No History of Present Illness HPI 51-year-old male with history of factor V Leiden deficiency, DVT, CVA, hyperlipidemia, hypertension, CAD with stents, cardiomyopathy with an EF of 40- 45% presents to the emergency department for evaluation of dizziness and nausea that began this morning. The patient states that that when he got up this morning he felt dizzy, lightheaded, weak and has had nausea. States that his dizziness is aggravated with movement of his body and his eyes. If he is sitting totally still with his eyes closed this improves his dizziness. States that he called his PCP and was told to come to the emergency department. He denies any chest pain. States he does have some mild shortness of breath when speaking. Denies vomiting, diarrhea, abdominal pain, cough or cold symptoms, fever, chills, swelling of the extremities. Denies any one-sided weakness. States he does have some numbness and tingling from the left elbow up to his left neck. PCP Dr. Balta Sanchez. No other complaints. PFSH Past Medical History Hx Anticoagulant Therapy: Yes Blood Disorders: Yes (FACTOR V) Heart Rhythm Problems: No Cancer: No Cardiac Catheterization: Yes Cardiovascular Problems: Yes ([place];STENTS) High Cholesterol: Yes Chest Pain: Yes Cerebrovascular Accident: Yes Deep Vein Thrombosis: Yes Endocrine: No Genitourinary: No Immune Disorder: No Musculoskeletal: No Neurologic: No Psychiatric: No Reproductive: No Respiratory: Yes (BILATERAL PE) Myocardial Infarction: Yes Seizures: No Past Surgical History Abdominal Surgery: Yes AICD: No Appendectomy: Yes Coronary Stent: Yes Pacemaker: No Tonsillectomy: Yes Other Surgery: Yes Social History Alcohol Use: No Tobacco Use: Yes (QUIT 09/07/16) Substance Use: No Allergies-Medications (Allergen,Severity, Reaction): Coded Allergies: Azithromycin (Verified Allergy, Unknown, Unknown, 10/07/16) Reported Meds & Prescriptions Reported Meds & Active Scripts Active Lipitor (Atorvastatin Calcium) 20 Mg Tab 20 Mg PO HS Nitrostat SL (Nitroglycerin) 0.4 Mg Subl 0.4 Mg SL Q5M PRN Restoril (Temazepam) 15 Mg Cap 15 Mg PO HS PRN Hydrocodone-Acetaminophen 5-325 mg Tab 1 Tab PO Q4H PRN Vitamin B-12 (Cyanocobalamin) 1,000 Mcg Tab 1,000 Mcg PO DAILY Plavix (Clopidogrel Bisulfate) 75 Mg Tab 75 Mg PO DAILY Eliquis (Apixaban) 5 Mg Tab 5 Mg PO BID Reported Carvedilol 3.125 Mg Tab 3.125 Mg PO DAILY Review of Systems Except as stated in HPI: all other systems reviewed are Neg Physical Exam Narrative GENERAL: Well-nourished and well-developed pleasant male patient in no acute distress. SKIN: Warm and dry. HEAD: Normocephalic and atraumatic. EYES: No injection, drainage, or hyphema noted. PERRLA. EOMI. ENT: No nasal drainage noted. Oropharynx is clear. NECK: Supple and the trachea is midline. CARDIOVASCULAR: Regular rate and rhythm. RESPIRATORY: Breath sounds are equal bilaterally with no accessory muscle use, wheezing, rhonchi, or crackles. GASTROINTESTINAL: Abdomen is soft, non-tender, and nondistended. MUSCULOSKELETAL: No obvious deformities, swelling, cyanosis, or ecchymosis is present throughout the upper and lower extremities. Patient has full range of motion without any signs of neurovascular compromise. NEUROLOGICAL: Awake, alert, and oriented. Normal speech and gait. Cranial nerves are grossly intact. Data Data Last Documented VS Vital Signs Date Time Temp Pulse Resp B/P Pulse Ox O2 Delivery O2 Flow Rate FiO2 10/07/16 14:23 66 16 122/71 99 Room Air 10/07/16 12:03 98.0 Orders Electrocardiogram (10/07/16 ) Complete Blood Count With Diff (10/07/16 12:28) Comprehensive Metabolic Panel (10/07/16 12:28) Magnesium (Mg) (10/07/16 12:28) Ckmb (Isoenzyme) Profile (10/07/16 12:28) Troponin I (10/07/16 12:28) Act Partial Throm Time (Ptt) (10/07/16 12:28) Prothrombin Time / Inr (Pt) (10/07/16 12:28) Urinalysis - C+S If Indicated (10/07/16 12:28) Chest, Single Ap (10/07/16 12:28) Ecg Monitoring (10/07/16 12:28) Iv Access Insert/Monitor (10/07/16 12:28) Oximetry (10/07/16 12:28) Ondansetron Inj (Zofran Inj) (10/07/16 12:30) Sodium Chloride 0.9% Flush (Ns Flush) (10/07/16 12:30) Sodium Chlorid 0.9% 500 Ml Inj (Ns 500 M (10/07/16 12:30) Ct Brain W/O Iv Contrast(Rout) (10/07/16 12:35) Orthostatic Vital Signs (10/07/16 12:39) Meclizine (Antivert) (10/07/16 14:15) Lorazepam Inj (Ativan Inj) (10/07/16 14:15) Sodium Chlorid 0.9% 500 Ml Inj (Ns 500 M (10/07/16 14:15) Mra Carotids W Contrast (10/07/16 ) Mra Brain W/O Contrast (Cow) (10/07/16 ) Admit Order (Ed Use Only) (10/07/16 14:38) Labs Laboratory Tests Test 10/07/16 10/07/16 12:46 12:50 White Blood Count 6.8 TH/MM3 Red Blood Count 4.75 MIL/MM3 Hemoglobin 13.7 GM/DL Hematocrit 40.5 % Mean Corpuscular Volume 85.3 FL Mean Corpuscular Hemoglobin 29.0 PG Mean Corpuscular Hemoglobin 34.0 % Concent Red Cell Distribution Width 13.4 % Platelet Count 186 TH/MM3 Mean Platelet Volume 7.7 FL Neutrophils (%) (Auto) 56.9 % Lymphocytes (%) (Auto) 26.5 % Monocytes (%) (Auto) 8.6 % Eosinophils (%) (Auto) 7.0 % Basophils (%) (Auto) 1.0 % Neutrophils # (Auto) 3.9 TH/MM3 Lymphocytes # (Auto) 1.8 TH/MM3 Monocytes # (Auto) 0.6 TH/MM3 Eosinophils # (Auto) 0.5 TH/MM3 Basophils # (Auto) 0.1 TH/MM3 CBC Comment DIFF FINAL Differential Comment Prothrombin Time 11.4 SEC Prothromb Time International 1.0 RATIO Ratio Activated Partial 29.4 SEC Thromboplast Time Sodium Level 139 MEQ/L Potassium Level 4.0 MEQ/L Chloride Level 105 MEQ/L Carbon Dioxide Level 24.9 MEQ/L Anion Gap 9 MEQ/L Blood Urea Nitrogen 13 MG/DL Creatinine 0.99 MG/DL Estimat Glomerular Filtration 80 ML/MIN Rate Random Glucose 123 MG/DL Calcium Level 9.3 MG/DL Magnesium Level 2.0 MG/DL Total Bilirubin 0.5 MG/DL Aspartate Amino Transf 17 U/L (AST/SGOT) Alanine Aminotransferase 33 U/L (ALT/SGPT) Alkaline Phosphatase 86 U/L Total Creatine Kinase 92 U/L Troponin I 0.02 NG/ML Total Protein 7.7 GM/DL Albumin 3.5 GM/DL Urine Color LIGHT-YELLOW Urine Turbidity CLEAR Urine pH 6.5 Urine Specific [place] 1.005 Urine Protein NEG mg/dL Urine Glucose (UA) NEG mg/dL Urine Ketones NEG mg/dL Urine Occult Blood SMALL Urine Nitrite NEG Urine Bilirubin NEG Urine Urobilinogen LESS THAN 2.0 MG/DL Urine Leukocyte Esterase NEG Urine RBC 2 /hpf Urine WBC LESS THAN 1 /hpf Microscopic Urinalysis Comment CULT NOT INDICATED MDM Medical Decision Making Medical Screen Exam Complete: Yes Emergency Medical Condition: Yes Differential Diagnosis Dehydration versus electrolyte abnormality versus orthostasis versus atypical ACS versus other Narrative Course 51-year-old male presents to the emergency department for evaluation of dizziness and nausea that began this morning. Patient is afebrile, vital signs are stable. On physical exam he has global weakness but no focal neurologic deficits. IV access is obtained, labs have been drawn and sent. Patient is placed on cardiac symmetry and pulse oximetry monitoring. EKG shows sinus rhythm with anterolateral ischemic changes, no acute ST elevations or depressions. No change from prior EKG. Patient is administered IV fluids and Zofran. CBC is unremarkable. CMP is unremarkable. Cardiac enzymes are negative. Coags are unremarkable. Urinalysis shows small occult blood but is otherwise unremarkable. Chest x-ray is negative for any acute abnormalities. Head CT is negative for any acute abnormalities. Patient has continued to complain of dizziness. Labs and imaging are unremarkable. I discussed the case with my attending physician Dr. Lara who also evaluated the patient and recommends admission for workup and rule out vertebrobasilar insufficiency. Patient will be admitted to medicine service under observation. Physician Communication Physician Communication My attending physician spoke with Dr. Sanchez who agrees to admit the patient to his service. Diagnosis Primary Impression: Dizziness Admitting Information Admitting Physician Requests: Observation Lauren Shannon Oct 07, 2016 12:29
[2016-10-07] MEDS ORDERED: SODIUM CHLORIDE 0.9% FLUSH 10 ML FLUSH IVF PRN (12:30)
[2016-10-07] MEDS ORDERED: SODIUM CHLORID 0.9% 500 ML INJ 500 ML IV ONE ×2 (12:30→14:15)
[2016-10-07] MEDS ORDERED: ONDANSETRON HCL 4 MG/2 ML VIAL IVP ONE (12:30)
[2016-10-07] MEDS ORDERED: CARV3.12 PO (12:35)
--- NOTE | 2016-10-07 13:15 | RADRPT ---
EXAM DATE/TIME: 10/07/2016 12:31 [facility] COMPARISON: CHEST SINGLE AP, September 24, 2016, 22:15. INDICATIONS : Dizziness today. MEDICAL HISTORY : Myocardial infarction. Deep venous thrombosis. CVA, SURGICAL HISTORY : Cardiac cath. Coronary stent. ENCOUNTER: Initial ACUITY: 1 day PAIN SCORE: 0/10 LOCATION: Bilateral chest FINDINGS: A single view of the chest demonstrates the lungs to be symmetrically aerated without evidence of mas s, infiltrate or effusion. The cardiomediastinal contours are unremarkable. Osseous structures are intact. CONCLUSION: No acute disease. Anthony Medina MD FACR on October 07, 2016 at 13:12 Board Certified Radiologist. This report was verified electronically.
[2016-10-07 13:17] LABS: AUTOMATED NEUTROPHIL # 3.9 TH/MM3 (1.8-7.7); BASOPHIL # 0.1 TH/MM3 (0-0.2); EOSINOPHIL # 0.5 TH/MM3 (0-0.4); HEMATOCRIT 40.5 % (39.0-51.0); HEMO FLAGS DIFF FINAL; LYMPH % 26.5 % (9.0-44.0); LYMPHOCYTE # 1.8 TH/MM3 (1.0-4.8); MEAN CELL VOLUME 85.3 FL (80.0-100.0); MONO % 8.6 % (0.0-8.0); NEUT % 56.9 % (16.0-70.0); PLATELET COUNT 186 TH/MM3 (150-450); RED BLOOD COUNT 4.75 MIL/MM3 (4.50-5.90); RED CELL DISTRIBUTION WIDTH 13.4 % (11.6-17.2); WHITE BLOOD COUNT 6.8 TH/MM3 (4.0-11.0)
[2016-10-07 13:17] LABS: BLOOD, URINE SMALL (NEG); GLUCOSE,URINE NEG (NEG); KETONE, URINE NEG (NEG); NITRITE,URINE NEG (NEG); PH, URINE 6.5 (5.0-8.5); URINE COLOR LIGHT-YELLOW (YELLW/STRAW)
[2016-10-07 13:21] LABS: COMMENT (UR) CULT NOT INDICATED; CULTURE IF INDICATED CULT NOT INDICATED
--- NOTE | 2016-10-07 13:24 | RADRPT ---
EXAM DATE/TIME: 10/07/2016 13:13 [facility] COMPARISON: CT BRAIN W/O CONTRAST, September 25, 2016, 13:09. INDICATIONS : Dizziness and nausea since this morning. RADIATION DOSE: 43.68 CTDIvol (mGy) MEDICAL HISTORY : Cardiovascular disease. SURGICAL HISTORY : None. ENCOUNTER: Initial ACUITY: 1 day PAIN SCALE: 0/10 LOCATION: cranial TECHNIQUE: Multiple contiguous axial images were obtained of the head. Using automated exposure control and adj ustment of the mA and/or kV according to patient size, radiation dose was kept as low as reasonably a chievable to obtain optimal diagnostic quality images. DICOM format image data is available electro nically for review and comparison. FINDINGS: CEREBRUM: The ventricles are normal for age. No evidence of midline shift, mass lesion, hemorrhage or acute in farction. No extra-axial fluid collections are seen. POSTERIOR FOSSA: The cerebellum and brainstem are intact. The 4th ventricle is midline. The cerebellopontine angle i s unremarkable. EXTRACRANIAL: The visualized portion of the orbits is intact. SKULL: The calvaria is intact. No evidence of skull fracture. CONCLUSION: Normal examination. Dusty March MD on October 07, 2016 at 13:20 Board Certified Radiologist. This report was verified electronically.
[2016-10-07 13:26] LABS: PROTHROMBIN TIME - PATIENT 11.4 SEC (9.8-11.6)
[2016-10-07 13:30] LABS: APTT (PATIENT) 29.4 SEC (24.3-30.1)
[2016-10-07 13:44] LABS: ALKALINE PHOSPHATASE 86 U/L (45-117); ALT (GPT) 33 U/L (12-78); ANION GAP 9 MEQ/L (5-15); AST (GOT) 17 U/L (15-37); BICARBONATE 24.9 MEQ/L (21.0-32.0); BLOOD UREA NITROGEN 13 MG/DL (7-18); CHLORIDE 105 MEQ/L (98-107); GLOMERULAR FILTRATION RATE 80 ML/MIN (>89); SODIUM (NA) 139 MEQ/L (136-145); TOTAL BILIRUBIN ADULT 0.5 MG/DL (0.2-1.0)
[2016-10-07 13:45] LABS: CREATINE KINASE 92 U/L (39-308)
[2016-10-07] MEDS ORDERED: MECLIZINE HCL 25 MG TAB PO ONE (14:15)
[2016-10-07] MEDS ORDERED: LORazepam 2 MG/ML VIAL IV PUSH ONE (14:15)
--- NOTE | 2016-10-07 14:40 | PD ---
Physical Exam Date Seen by Provider: Oct 07, 2016 Data Data Last Documented VS Vital Signs Date Time Temp Pulse Resp B/P Pulse Ox O2 Delivery O2 Flow Rate FiO2 10/07/16 14:23 66 16 122/71 99 Room Air 10/07/16 12:03 98.0 Orders Electrocardiogram (10/07/16 ) Complete Blood Count With Diff (10/07/16 12:28) Comprehensive Metabolic Panel (10/07/16 12:28) Magnesium (Mg) (10/07/16 12:28) Ckmb (Isoenzyme) Profile (10/07/16 12:28) Troponin I (10/07/16 12:28) Act Partial Throm Time (Ptt) (10/07/16 12:28) Prothrombin Time / Inr (Pt) (10/07/16 12:28) Urinalysis - C+S If Indicated (10/07/16 12:28) Chest, Single Ap (10/07/16 12:28) Ecg Monitoring (10/07/16 12:28) Iv Access Insert/Monitor (10/07/16 12:28) Oximetry (10/07/16 12:28) Ondansetron Inj (Zofran Inj) (10/07/16 12:30) Sodium Chloride 0.9% Flush (Ns Flush) (10/07/16 12:30) Sodium Chlorid 0.9% 500 Ml Inj (Ns 500 M (10/07/16 12:30) Ct Brain W/O Iv Contrast(Rout) (10/07/16 12:35) Orthostatic Vital Signs (10/07/16 12:39) Meclizine (Antivert) (10/07/16 14:15) Lorazepam Inj (Ativan Inj) (10/07/16 14:15) Sodium Chlorid 0.9% 500 Ml Inj (Ns 500 M (10/07/16 14:15) Mra Carotids W Contrast (10/07/16 ) Mra Brain W/O Contrast (Cow) (10/07/16 ) Admit Order (Ed Use Only) (10/07/16 14:38) Labs Laboratory Tests Test 10/07/16 10/07/16 12:46 12:50 White Blood Count 6.8 TH/MM3 Red Blood Count 4.75 MIL/MM3 Hemoglobin 13.7 GM/DL Hematocrit 40.5 % Mean Corpuscular Volume 85.3 FL Mean Corpuscular Hemoglobin 29.0 PG Mean Corpuscular Hemoglobin 34.0 % Concent Red Cell Distribution Width 13.4 % Platelet Count 186 TH/MM3 Mean Platelet Volume 7.7 FL Neutrophils (%) (Auto) 56.9 % Lymphocytes (%) (Auto) 26.5 % Monocytes (%) (Auto) 8.6 % Eosinophils (%) (Auto) 7.0 % Basophils (%) (Auto) 1.0 % Neutrophils # (Auto) 3.9 TH/MM3 Lymphocytes # (Auto) 1.8 TH/MM3 Monocytes # (Auto) 0.6 TH/MM3 Eosinophils # (Auto) 0.5 TH/MM3 Basophils # (Auto) 0.1 TH/MM3 CBC Comment DIFF FINAL Differential Comment Prothrombin Time 11.4 SEC Prothromb Time International 1.0 RATIO Ratio Activated Partial 29.4 SEC Thromboplast Time Sodium Level 139 MEQ/L Potassium Level 4.0 MEQ/L Chloride Level 105 MEQ/L Carbon Dioxide Level 24.9 MEQ/L Anion Gap 9 MEQ/L Blood Urea Nitrogen 13 MG/DL Creatinine 0.99 MG/DL Estimat Glomerular Filtration 80 ML/MIN Rate Random Glucose 123 MG/DL Calcium Level 9.3 MG/DL Magnesium Level 2.0 MG/DL Total Bilirubin 0.5 MG/DL Aspartate Amino Transf 17 U/L (AST/SGOT) Alanine Aminotransferase 33 U/L (ALT/SGPT) Alkaline Phosphatase 86 U/L Total Creatine Kinase 92 U/L Troponin I 0.02 NG/ML Total Protein 7.7 GM/DL Albumin 3.5 GM/DL Urine Color LIGHT-YELLOW Urine Turbidity CLEAR Urine pH 6.5 Urine Specific [place] 1.005 Urine Protein NEG mg/dL Urine Glucose (UA) NEG mg/dL Urine Ketones NEG mg/dL Urine Occult Blood SMALL Urine Nitrite NEG Urine Bilirubin NEG Urine Urobilinogen LESS THAN 2.0 MG/DL Urine Leukocyte Esterase NEG Urine RBC 2 /hpf Urine WBC LESS THAN 1 /hpf Microscopic Urinalysis Comment CULT NOT INDICATED MDM Medical Record Reviewed: Yes Supervised Visit with SUZIE: Yes Narrative Course I, Dr. Lara, have reviewed the advance practice practitioner's documentation and am in agreement, met with the patient face to face, made the diagnosis, and the medical decision making was done by me. *My assessment and Findings: Intractable Dizzyness - patient will require workup for possible VBI - MRI/MRA ordered Case reviewed with Dr. Balta Sanchez who accepts pt to service Diagnosis Primary Impression: Dizziness Admitting Information Admitting Physician Requests: Observation Magali Lara DO Oct 07, 2016 14:40
[2016-10-07] MEDS ORDERED: NITROGLYCERIN 0.4 MG SL 25 TABS/BTL SL PRN (15:45)
[2016-10-07] MEDS ORDERED: SODIUM CHLORIDE 0.9% FLUSH 10 ML FLUSH IV FLUSH PRN (15:45)
[2016-10-07] MEDS ORDERED: MAGNESIUM HYDROXIDE SUSP 30 ML CUP PO PRN (15:45)
[2016-10-07] MEDS ORDERED: NALOXONE HCL 0.4 MG/ML AMP IV PRN (15:45)
[2016-10-07] MEDS ORDERED: ACETAMINOPHEN/HYDROcodone 325 MG/5 MG TAB PO PRN (15:45)
[2016-10-07] MEDS ORDERED: ACETAMINOPHEN 325 MG TAB PO PRN (15:45)
[2016-10-07] MEDS ORDERED: ONDANSETRON HCL 4 MG/2 ML VIAL IVP PRN (15:45)
[2016-10-07] MEDS ORDERED: BISACODYL 10 MG SUPP RECTAL PRN (15:45)
[2016-10-07] MEDS ORDERED: SENNOSIDES 8.6 MG TAB PO PRN (15:45)
[2016-10-07] MEDS ORDERED: LACTULOSE SYRUP 20 GM/30 ML CUP PO PRN (15:45)
[2016-10-07] MEDS ORDERED: CARVEDILOL 3.125 MG TAB PO SCH (16:30)
--- NOTE | 2016-10-07 16:56 | RADRPT ---
EXAM DATE/TIME: 10/07/2016 16:09 [facility] COMPARISON: MRA BRAIN W/O CONTRAST, March 16, 2010, 9:53. INDICATIONS : CVA. MEDICAL HISTORY : Myocardial infarction. Stroke Hypercholesterolemia. DVT, PE SURGICAL HISTORY : Inguinal hernia repair. Appendectomy. Tonsillectomy. Cardica stents-Meditronic Integia, Lasik. ENCOUNTER: Initial ACUITY: 1 day PAIN SCORE: 2/10 LOCATION: Bilateral cranial Please note a normal MRA of the brain does not entirely exclude the possibility of a small aneurysm, nor the possibility of distal intracranial vessel disease. TECHNIQUE: 3D time of flight MRA was performed. Source images, multiplanar STS MIP, and 3D volume MIP reconstru ctions were reviewed. FINDINGS: There is excellent visualization of the major intracranial arteries out to the second-order branch ve ssels. There is no evidence for aneurysm, vessel truncation or stenosis, and no evidence for vascula r malformation. 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 Visualized brain parenchyma appear grossly unremarkable. Ventricles are midline without evidence for hydrocephalus. Cerebellum and brainstem are grossly unremarkable. CONCLUSION: 1. Normal brain MRA examination. Specifically, no evidence for large vessel occlusion/stenosis or si gnificant aneurysm. Derick Quintanilla MD on October 07, 2016 at 16:49 Board Certified Radiologist. This report was verified electronically.
[2016-10-07] MEDS ORDERED: GADODIAMIDE PF 287 MG/ML 20 ML VIAL (for RAD MRI) IV ONE ×2 (17:00→17:17)
[2016-10-07] MEDS ORDERED: CYANOCOBALAMIN 1,000 MCG TAB PO SCH (17:00)
--- NOTE | 2016-10-07 17:30 | RADRPT ---
EXAM DATE/TIME: 10/07/2016 16:09 [facility] COMPARISON: No previous studies available for comparison. INDICATIONS : CVA CONTRAST: 20 cc Omniscan (gadodiamide) IV MEDICAL HISTORY : Myocardial infarction. Hypercholesterolemia. Stroke DVT. SURGICAL HISTORY : Inguinal hernia repair. Tonsillectomy. Appendectomy. Cardica stents-[employer] [place] [place] ENCOUNTER: Initial ACUITY: 1 day PAIN SCORE: 2/10 LOCATION: Bilateral cranial Percent stenosis is calculated using the diameter of the stenotic region over the diameter of the nor mal distal internal carotid artery. TECHNIQUE: Bolus infused MRA of the extracranial circulation was performed using a neurovascular coil. Post pro cessing was performed including rotating subvolume maximum intensity projections of each carotid khalif ry, rotating full volume maximum intensity projections of both carotid arteries, sagittal and coronal sliding thin slab reformations of each carotid artery, and left oblique sliding thin slab reformatio n through the aortic arch to include the origin of the arch branch vessels. FINDINGS: AORTIC ARCH: There is a three vessel origin of the great vessels from the aorta. No evidence of ostial narrowing. RIGHT CAROTID: The common carotid artery is intact. The carotid bulb has a normal configuration without ulceration or narrowing. The internal carotid artery lumen is smooth without stenosis. The external carotid ar duglas is intact. LEFT CAROTID: The common carotid artery is intact. The carotid bulb has a normal configuration without ulceration or narrowing. The internal carotid artery lumen is smooth without stenosis. The external carotid ar duglas is intact. VERTEBRALS: The vertebral arteries have a symmetric diameter. No stenotic lesions are seen. CONCLUSION: Normal examination. Dusty March MD on October 07, 2016 at 17:24 Board Certified Radiologist. This report was verified electronically.
--- NOTE | 2016-10-07 19:38 | RADRPT ---
EXAM DATE/TIME: 10/07/2016 18:55 [facility] COMPARISON: No previous studies available for comparison. INDICATIONS : Bilateral leg pain. MEDICAL HISTORY : Hypercholesterolemia. Myocardial infarction. Stroke. Chest pain. Deep vein thrombosis. Bilateral ple ural effusion. Back pain. Muscle pain. Anxiety. Inguinal hernia. Factor 5 disorder. SURGICAL HISTORY : Tonsillectomy.Appendectomy. Cardiac catheterization. Coronary stent. ENCOUNTER: Initial ACUITY: 1 day PAIN SCORE: 5/10 LOCATION: Bilateral legs. TECHNIQUE: Venous ultrasound of the left and right leg was performed from the inguinal ligament to the proximal calf. Real-time, color Doppler and spectral tracing, compression and augmentation techniques were us ed. FINDINGS: RIGHT LEG: There is normal compressibility of the deep venous system from the inguinal region to the proximal ca lf. No echogenic clot is seen in the lumen of the common femoral, femoral, popliteal, and posterior tibial veins. There is a normal response of the venous system to proximal and distal augmentation an d respiration. LEFT LEG: There is normal compressibility of the deep venous system from the inguinal region to the proximal ca lf. No echogenic clot is seen in the lumen of the common femoral, femoral, popliteal, and posterior tibial veins. There is a normal response of the venous system to proximal and distal augmentation an d respiration. CONCLUSION: Negative exam with no evidence of deep venous thrombosis. Alexandru Islas MD on October 07, 2016 at 19:35 Board Certified Radiologist. This report was verified electronically.
[2016-10-07] MEDS ORDERED: TEMAZEPAM 15 MG CAP PO PRN (21:00)
[2016-10-07] MEDS: DOCUSATE SODIUM 50 MG/SENNA 8.6 MG TAB PO SCH (21:24)
[2016-10-07] MEDS: MECLIZINE HCL 25 MG TAB PO SCH (21:25)
[2016-10-07] MEDS: APIXABAN 5 MG TABLET PO SCH (21:25)
[2016-10-07] MEDS: ATORVASTATIN 20 MG TAB PO SCH (21:25)
[2016-10-07] MEDS: SODIUM CHLORIDE 0.9% FLUSH 10 ML FLUSH IV FLUSH SCH (21:26)
[2016-10-08 05:18] VITALS: BP 99/62; PULSE 68; RESP 18; TEMP 98; O2SAT 99
[2016-10-08] MEDS: MECLIZINE HCL 25 MG TAB PO SCH ×3 (07:30→21:41)
[2016-10-08 07:31] LABS: AUTOMATED NEUTROPHIL # 3.6 TH/MM3 (1.8-7.7); BASOPHIL # 0.1 TH/MM3 (0-0.2); BASOPHIL % 0.8 % (0.0-2.0); EOSINOPHIL # 0.5 TH/MM3 (0-0.4); EOSINOPHIL % 7.8 % (0.0-4.0); HEMO FLAGS DIFF FINAL; LYMPH % 31.1 % (9.0-44.0); LYMPHOCYTE # 2.1 TH/MM3 (1.0-4.8); MEAN CELL VOLUME 84.6 FL (80.0-100.0); MEAN CORPUSCULAR HEMOGLOBIN 28.7 PG (27.0-34.0); MEAN CORPUSCULAR HGB CONC 33.9 % (32.0-36.0); MONO % 8.6 % (0.0-8.0); NEUT % 51.7 % (16.0-70.0); PLATELET COUNT 164 TH/MM3 (150-450); RED BLOOD COUNT 4.72 MIL/MM3 (4.50-5.90); RED CELL DISTRIBUTION WIDTH 13.1 % (11.6-17.2); WHITE BLOOD COUNT 6.9 TH/MM3 (4.0-11.0)
[2016-10-08 07:37] VITALS: BP 130/87; PULSE 74; RESP 17; TEMP 98; O2SAT 97
[2016-10-08 07:56] LABS: ALT (GPT) 28 U/L (12-78); ANION GAP 9 MEQ/L (5-15); AST (GOT) 15 U/L (15-37); BLOOD UREA NITROGEN 12 MG/DL (7-18); CHLORIDE 105 MEQ/L (98-107); GLOMERULAR FILTRATION RATE 73 ML/MIN (>89); POTASSIUM 3.8 MEQ/L (3.5-5.1); SODIUM (NA) 141 MEQ/L (136-145)
[2016-10-08 07:59] LABS: ALKALINE PHOSPHATASE 81 U/L (45-117); TOTAL BILIRUBIN ADULT 0.4 MG/DL (0.2-1.0)
[2016-10-08] MEDS ORDERED: GADODIAMIDE PF 287 MG/ML 20 ML VIAL (for RAD MRI) IV ONE (08:05)
[2016-10-08] MEDS: SODIUM CHLORIDE 0.9% FLUSH 10 ML FLUSH IV FLUSH SCH ×2 (09:00→21:42)
--- NOTE | 2016-10-08 09:15 | MB ---
cc: VALERIE DUMAS MD DATE OF CONSULTATION 10/07/2016 REASON FOR CONSULTATION Dizziness HISTORY OF PRESENT ILLNESS Mr. Paulino is a 51-year-old male with a history of factor V Leiden deficiency diagnosed 2002 status post right lower extremity DVT and pulmonary embolism and he was started on warfarin from 2001 to 2005, hyperlipidemia, hypertension, coronary artery disease with stents, cardiomyopathy with an EF of 40-45% who presented to the [facility] emergency room for evaluation of dizziness and nausea that he woke up with. He describes the episode as a spinning sensation of the head and the room around him with a feeling of nausea. Denies slurred speech, double vision, blurred vision, weakness of the extremities, numbness of the face or loss of consciousness. This dizziness is aggravated by movement with turning the head to either direction right or left. He called the PCP and told him to come and report to the emergency room. PAST MEDICAL HISTORY 1. Factor V Leiden anticoagulation currently on Eliquis since 2015. 2. Cardiac cath 3. NV with stents 4. Hyperlipidemia 5. DVT right lower extremity 6. PE PAST SURGICAL HISTORY 1. Abdominal surgery 2. Appendectomy 3. Coronary stents 4. Tonsillectomy SOCIAL HISTORY Denies substance abuse or alcohol abuse. Quit smoking at the end of August 2016. FAMILY HISTORY Noncontributory ALLERGIES AZITHROMYCIN MEDICATIONS 1. Lipitor 2. Nitrostat 3. Restoril 4. Hydrocodone 5. Acetaminophen 6. Vitamin B12 7. Plavix 75 8. Eliquis 5 mg twice daily 9. Carvedilol REVIEW OF SYSTEMS A 12-point review of systems is negative except for what is stated in the HPI. EXAMINATION GENERAL: Awake, alert, and oriented, not in acute distress. HEENT: Atraumatic, normocephalic, intact hearing, intact vision. NECK: Supple. No signs of meningeal irritation. CARDIOVASCULAR: Regular rate and rhythm. RESPIRATORY: Clear to auscultation. No wheezes. ABDOMEN: Soft abdomen, nontender. MUSCULOSKELETAL: No deformities, swelling or cyanosis. There is mild tenderness on the right calf region. NEUROLOGIC: Awake, alert, and oriented to time, person and place. No dysarthria. No dysphagia. Cranial nerves II-XII are grossly intact. Motor system examination 5/5 bilateral symmetrical, normal tone. No abnormal movements. Sensation is intact bilateral and symmetrical. Reflexes 1+ bilateral and symmetrical upper extremities. 2+ bilateral and symmetrical lower extremities. Plantars are bilaterally downgoing. Cerebellar function [id number], [id number] is intact. PSYCHOLOGICAL: Normal mood and behavior, good judgment. DIAGNOSTICS LABORATORY DATA Hemoglobin 13.7, white blood cells 6.8, platelet count 186. Sodium 139, potassium 4, BUN 13, creatinine 0.99, calcium 11.3, magnesium 2. Liver function tests normal. INR 1. DIAGNOSTICS IMAGING STUDIES - Head MRA without contrast is normal. No evidence of occlusion or stenosis or aneurysm. - Neck MRA with contrast was reported as a normal examination. - Head CT scan was reported as normal examination. DIAGNOSTIC IMPRESSION 1. Dizziness/ likely of peripheral etiology. 2. Coronary artery disease. 3. Hypertension 4. Factor V Leiden deficiency 5. Peripheral vertigo PLAN 1. Neuro checks q4 hourly 2. Continue home medication Eliquis 5 mg twice daily 3. Start meclizine 25 mg three times daily 4. MRV to rule out possible venous thrombosis 5. Meclizine 25 mg t.i.d. 6. Venous Doppler bilateral lower extremities. 7. DVT prophylaxis 8. Fall precautions Thank you for the opportunity to participate in the care of your patient. MD BRADY Avendano/IVETTE /6:32 PM /9:09 AM MATT
--- NOTE | 2016-10-08 09:18 | RADRPT ---
EXAM DATE/TIME: 10/08/2016 07:56 COMPARISON: No previous studies available for comparison. INDICATIONS : Dizziness. CONTRAST: 20 cc Omniscan (gadodiamide) IV MEDICAL HISTORY : Hypercholesterolemia. Myocardial infarction. Stroke PE SURGICAL HISTORY : Tonsillectomy. Appendectomy. Inguinal hernia repair. cardiac stents x2 ENCOUNTER: Subsequent ACUITY: 2 day PAIN SCORE: 0/10 LOCATION: cranial FINDINGS: The cerebral venous structures are intact. The dural sinuses are patent. The deep cerebral venous str uctures are patent and unremarkable. Major cortical surface veins are intact. CONCLUSION: Normal examination. Dusty March MD on October 08, 2016 at 9:14 Board Certified Radiologist. This report was verified electronically.
--- NOTE | 2016-10-08 09:58 | HHI.PR ---
Vitals/Results Intake & Output 10/07/16 10/07/16 10/08/16 15:00 23:00 07:00 Intake Total 300 ml 200 ml Output Total 400 ml Balance 300 ml -200 ml Intake Oral 300 ml 200 ml Output Urine Total 400 ml Vital Signs Vital Signs Date Time Temp Pulse Resp B/P Pulse Ox O2 Delivery O2 Flow Rate FiO2 10/08/16 07:37 98.0 74 17 130/87 97 10/08/16 05:18 98.0 68 18 99/62 99 10/07/16 23:27 98.4 83 18 104/57 96 10/07/16 20:17 98.3 81 18 109/70 97 10/07/16 17:36 98.3 68 16 122/74 99 10/07/16 15:33 67 17 120/75 100 Room Air 10/07/16 14:23 66 16 122/71 99 Room Air 10/07/16 13:23 70 16 132/80 100 Room Air 10/07/16 13:19 77 16 117/58 75 14 133/76 18 16 132/80 10/07/16 12:19 76 13 140/82 100 Room Air 10/07/16 12:03 98.0 66 20 137/84 100 Room Air CBC/BMP: 10/08/16 0631 10/08/16 0631 Lab Results Laboratory Tests Test 10/07/16 10/07/16 10/08/16 10/08/16 12:46 12:50 00:45 06:31 White Blood Count 6.8 TH/MM3 6.9 TH/MM3 Red Blood Count 4.75 MIL/MM3 4.72 MIL/MM3 Hemoglobin 13.7 GM/DL 13.6 GM/DL Hematocrit 40.5 % 40.0 % Mean Corpuscular Volume 85.3 FL 84.6 FL Mean Corpuscular Hemoglobin 29.0 PG 28.7 PG Mean Corpuscular Hemoglobin 34.0 % 33.9 % Concent Red Cell Distribution Width 13.4 % 13.1 % Platelet Count 186 TH/MM3 164 TH/MM3 Mean Platelet Volume 7.7 FL 7.9 FL Neutrophils (%) (Auto) 56.9 % 51.7 % Lymphocytes (%) (Auto) 26.5 % 31.1 % Monocytes (%) (Auto) 8.6 % 8.6 % Eosinophils (%) (Auto) 7.0 % 7.8 % Basophils (%) (Auto) 1.0 % 0.8 % Neutrophils # (Auto) 3.9 TH/MM3 3.6 TH/MM3 Lymphocytes # (Auto) 1.8 TH/MM3 2.1 TH/MM3 Monocytes # (Auto) 0.6 TH/MM3 0.6 TH/MM3 Eosinophils # (Auto) 0.5 TH/MM3 0.5 TH/MM3 Basophils # (Auto) 0.1 TH/MM3 0.1 TH/MM3 CBC Comment DIFF FINAL DIFF FINAL Differential Comment Prothrombin Time 11.4 SEC Prothromb Time International 1.0 RATIO Ratio Activated Partial 29.4 SEC Thromboplast Time Sodium Level 139 MEQ/L 141 MEQ/L Potassium Level 4.0 MEQ/L 3.8 MEQ/L Chloride Level 105 MEQ/L 105 MEQ/L Carbon Dioxide Level 24.9 MEQ/L 27.0 MEQ/L Anion Gap 9 MEQ/L 9 MEQ/L Blood Urea Nitrogen 13 MG/DL 12 MG/DL Creatinine 0.99 MG/DL 1.07 MG/DL Estimat Glomerular Filtration 80 ML/MIN 73 ML/MIN Rate Random Glucose 123 MG/DL 95 MG/DL Calcium Level 9.3 MG/DL 9.1 MG/DL Magnesium Level 2.0 MG/DL Total Bilirubin 0.5 MG/DL 0.4 MG/DL Aspartate Amino Transf 17 U/L 15 U/L (AST/SGOT) Alanine Aminotransferase 33 U/L 28 U/L (ALT/SGPT) Alkaline Phosphatase 86 U/L 81 U/L Total Creatine Kinase 92 U/L Troponin I 0.02 NG/ML 0.03 NG/ML 0.03 NG/ML Total Protein 7.7 GM/DL 7.2 GM/DL Albumin 3.5 GM/DL 3.3 GM/DL Urine Color LIGHT-YELLOW Urine Turbidity CLEAR Urine pH 6.5 Urine Specific [place] 1.005 Urine Protein NEG mg/dL Urine Glucose (UA) NEG mg/dL Urine Ketones NEG mg/dL Urine Occult Blood SMALL Urine Nitrite NEG Urine Bilirubin NEG Urine Urobilinogen LESS THAN 2.0 MG/DL Urine Leukocyte Esterase NEG Urine RBC 2 /hpf Urine WBC LESS THAN 1 /hpf Microscopic Urinalysis Comment CULT NOT INDICATED Balta Sanchez MD Oct 08, 2016 09:58
[2016-10-08] MEDS: CLOPIDOGREL 75 MG TAB PO SCH (10:11)
[2016-10-08] MEDS: CYANOCOBALAMIN 1,000 MCG TAB PO SCH (10:12)
[2016-10-08] MEDS: APIXABAN 5 MG TABLET PO SCH ×2 (10:12→21:41)
[2016-10-08] MEDS: DOCUSATE SODIUM 50 MG/SENNA 8.6 MG TAB PO SCH ×2 (10:12→21:00)
[2016-10-08] MEDS: CARVEDILOL 3.125 MG TAB PO SCH (10:12)
--- NOTE | 2016-10-08 11:15 | MB ---
cc: LIBRADO JEAN DO DATE OF CONSULTATION 10/07/2016 REASON FOR CONSULTATION Brendan Paulino is a pleasant 51-year-old male who presents to [facility] emergency room on October 07, 2016 due to dizziness. He states that the dizziness has been going on since the time he had his STEMI in August around one month ago. Looking back, he had been here before in 2009 and at that time was also having an episode of dizziness. Since the time of his catheterization in August 2016, he states that the dizziness has been about the same. He feels that any time he gets up, he starts to get it and also has it sometimes while laying down. Because he had it much of the day today, he called his primary care physician, Dr. Sanchez, who suggested that he come in and be evaluated. He states that with this he feels lightheaded and weak and has some nausea. The dizziness seems to be aggravated with movement of his body and his eyes, especially once he goes from a sitting to a standing position. He denies chest pain, shortness of breath or palpitations at this time. PAST MEDICAL HISTORY 1. Right lower extremity DVT. 2. Coronary artery disease 3. History of stroke. 4. Hyperlipidemia 5. Hypertension 6. Factor V Leiden deficiency 7. Mild cardiomyopathy with an ejection fraction of 40-45% by echocardiogram (September 26, 2016). PAST SURGICAL HISTORY 1. Cardiac catheterization (September 09, 2016). The patient presented with an acute anterior ST elevation myocardial infarction. Left main was normal. LAD 85% tubular stenosis proximally. Midportion of the LAD is totally occluded. Left circumflex is a relatively small vessel with 15% stenosis proximally. RCA is a large vessel with diffuse disease. PCI of the mid-LAD was done using a Resolute drug-eluting stent (3 x 18). PCI of the proximal LAD was done using a Resolute drug-eluting stent (3.5 X 15). At that time, there was no flow into the circumflex. Until this was then wired an export thrombectomy catheter was used to restore flow into the left circumflex. 2. Tonsillectomy 3. Appendectomy 4. Inguinal hernia repair ALLERGIES AZITHROMYCIN MEDICATIONS 1. Eliquis 5 mg b.i.d. 2. Restoril 15 mg every night as needed 3. Coreg 3.125 mg daily 4. Lipitor 20 mg every night 5. Nitro sublingual as needed 6. Hydrocodone/acetaminophen 5/325 mg every 4 hours as needed for pain. 7. Plavix 75 mg daily FAMILY HISTORY Denies sudden cardiac within the family. SOCIAL HISTORY The patient denies alcohol or drug abuse. Previously smoked, but quit in August 2016. REVIEW OF SYSTEMS 14-systems were reviewed including osteopathic pertinent positives and negatives as above otherwise negative. PHYSICAL EXAMINATION VITAL SIGNS: Temperature 98.3, heart rate 81, blood pressure 109/70, respirations 18, pulse ox 97% on room air. GENERAL: The patient appears well in no acute distress, alert, awake and oriented x3. HEAD, EYES, EARS, NOSE, AND THROAT: Extraocular muscles intact. Mucous membranes moist. NECK: Supple. No JVD at 45 degrees. No carotid bruits heard bilaterally. Carotid upstroke is brisk in nature. HEART: Regular rate and rhythm. Positive first and second heart sounds with no known murmurs, gallops or rubs. PMI is difficult to ascertain does not appear displaced. LUNGS: Clear to auscultation bilaterally. No wheezes, rales or rhonchi. ABDOMEN: Soft, nontender, no organomegaly noted. EXTREMITIES: Show no clubbing, cyanosis or edema. Femoral and distal pulses are intact bilaterally. NEUROLOGIC: No focal deficits. SKIN: Warm, dry and intact. OSTEOPATHIC: No kyphoscoliosis, lordosis or paraspinal tender points. LABORATORY FINDINGS Hemoglobin 13.7, hematocrit 40.5, platelets 186. Potassium 4.0, BUN 13, creatinine 0.99, troponin 0.02. Electrocardiogram (October 07, 2016 at 12:25) sinus rhythm with first-degree AV block, age indeterminate, anterior NH with T-wave inversions inferolaterally. No significant change from September 25, 2016. IMPRESSION 1. Intractable vertigo 2. Coronary artery disease 3. Factor V Leiden disease 4. History of DVT. 5. History of CVA. 6. Hypertension 7. Hyperlipidemia 8. Remote history of tobacco, quitting in August 2016. 9. Known cardiomyopathy with an ejection fraction of 40-45%. RECOMMENDATIONS 1. At this time, Mr. Paulino is appears to have had this dizziness for sometime, but has been extremely worse lately. 2. I agree with neurology workup for further consideration of other causes of his vertigo. 3. We will plan on placing him on Antivert per neurology's recommendation. 4. As far as a further cardiovascular workup, he will be watched on telemetry to make sure that he has had no arrhythmias. 5. I do not feel that further testing with echocardiogram is necessary at this time as he has a recent one from 11 days ago. 6. He may need to follow up with Dr. Allen as an outpatient for possible long-term rhythm analysis management. Thank you for allowing me to see you Brendan Paulino. If there are any questions, please do not hesitate to call. Librado Jean DO KANEP/DJL /10:56 PM /11:04 AM
[2016-10-08 12:08] VITALS: BP 121/84; PULSE 83; RESP 20; TEMP 98; O2SAT 96
--- NOTE | 2016-10-08 12:25 | MH ---
cc: BALTA BURTON MD DATE OF ADMISSION 10/07/2016 CHIEF COMPLAINT Dizziness HISTORY OF PRESENT ILLNESS This is a 51-year-old [place] male with a past medical-surgical history significant for Factor V Leiden deficiency, history of DVT, history of CVA in the past, hyperlipidemia, hypertension, coronary artery disease with recent stent in the LAD, cardiomyopathy with ejection fraction of 40-45% who presented to the ER with evaluation of dizziness and nausea that began yesterday morning. The patient stated that he got up yesterday and felt dizzy and lightheaded and weak and had nausea and he did get aggravated with movement of the head, body and eyes and he feels sitting totally still with his eyes closed, it improves the dizziness. The patient called me and I told him to go to the ER. The patient denies any chest pain, any shortness of breath or any nausea or vomiting, any diarrhea, any abdominal pain any cold symptoms or any swelling of the extremities. Denies any weakness, any numbness or any tingling. Denies any other complaint, other than that, nothing significant. PAST MEDICAL HISTORY Significant for: 1. Factor V Leiden deficiency 2. History of coronary artery disease status post stent Placement. 3. History of stroke in the past. 4. DVT in the past 5. Bilateral pulmonary embolism in the past. 6. History of abdominal surgery. 7. Appendectomy 8. Coronary stenting 9. Tonsillectomy SOCIAL HISTORY He is an ex-smoker but he quit in August of 2016, smoked for a long time. Denies any alcohol or drug abuse. Lives at home with and kids. FAMILY HISTORY Nothing significant. ALLERGIES AZITHROMYCIN MEDICATIONS Include: 1. Lipitor 20 mg daily 2. Nitrostat 0.4 mg sublingual q. 5 minutes p.r.n. chest pain 3. Restoril 15 mg p.o. at bedtime p.r.n. insomnia. 4. Hydrocodone 5/325 p.o. q.4 h p.r.n. 5. Vitamin B12 1000 mcg p.o. daily 6. Plavix 75 mg p.o. daily 7. Eliquis 5 mg p.o. twice a day 8. Coreg 3.125 mg p.o. b.i.d. REVIEW OF SYSTEMS Positive for dizziness, weakness and also feeling lightheaded. All other review of systems are negative. PHYSICAL EXAMINATION This is a 51-year-old male sitting on the bed not in acute distress. VITAL SIGNS: Temperature 98.0, heart rate 74, respirations 17, blood pressure 130/87, O2 saturation 97% on room air. HEENT: Normocephalic, atraumatic. EOMI. PERRL. Oral mucosa moist. NECK: Supple. No visible thyromegaly or neck mass. Trachea is central. CARDIOVASCULAR: Regular rate and rhythm. Respirations clear to auscultation bilaterally. ABDOMEN: Soft, nontender. Bowel sounds. EXTREMITIES: No cyanosis or clubbing. Full range of motion of all extremities. NEUROLOGIC: Awake, alert and oriented x4. No focal deficits. SKIN: Warm and dry. PSYCH: The patient is cooperative. Mood, affect are normal. LABORATORY DATA Include CBC totally unremarkable. BMP totally unremarkable except for GFR of 73 low, albumin 3.3 low. LFTs are normal. Cardiogram Troponin I is 0.02, 0.03, 0.03. Creatine kinase 92. PT 11.4, INR 1.0, APTT 29.4. BMP totally unremarkable except for occult blood small. Neck MRA done shows normal examination. Lower extremity ultrasound done shows negative with no evidence of deep vein thrombosis. MRA of the head was done shows normal brain MRA examination especially no evidence of large vessel occlusion or stenosis. No significant aneurysm. Chest x-ray was done shows no acute disease. CT of the brain done shows a normal examination. Brain had magnetic venography done shows normal examination. ASSESSMENT/PLAN This is a 51-year-old male who came to the ER diagnosed with dizziness. CT scan of the brain, MRA of the head, MRA of the neck and head brain magnetic resolution venography was done which are within normal limits. Neurology consulted. Most likely benign positional vertigo. Start the patient on Meclizine 25 mg p.o. t.i.d. Further recommendation per neurology. History of coronary artery disease with recent stent. Cardiology consulted. The patient started on Eliquis and Plavix. History of hyperlipidemia. Continue with Lipitor 20 mg p.o. daily. Insomnia. Continue with Temazepam 15 mg p.o. at bedtime p.r.n. insomnia. B12 deficiency. Continue with B12 1000 mcg p.o. daily. History of coronary artery disease. Continue home medication. DVT prophylaxis. The patient is on Eliquis. GI prophylaxis. Protonix 40 mg p.o. daily. Anxiety. Continue with the started Ativan 0.5 mg p.o. t.i.d. Depression. Continue with Lexapro 10 mg p.o. daily. We are going to manage the patient on a daily basis and make recommendations on a daily basis. Balta Burton MD EA/IVETTE /9:56 AM /12:15 PM
--- NOTE | 2016-10-08 12:38 | PD.CARD.PN ---
Subjective Subjective Remarks No chest pain, no shortness of breath Still with dizziness especially with movement Objective Medications Current Medications Medications (Trade) Dose Ordered Sig/Fern Route Start Time Stop Time Status Last Admin (NS Flush) 2 ml UNSCH PRN IV FLUSH 10/07/16 15:45 (NS Flush) 2 ml BID IV FLUSH 10/07/16 21:00 10/07/16 21:26 (Tylenol) 650 mg Q4H PRN PO 10/07/16 15:45 (Zofran Inj) 4 mg Q6H PRN IVP 10/07/16 15:45 (Narcan Inj) 0.4 mg UNSCH PRN IV 10/07/16 15:45 (Camila-Colace) 1 tab BID PO 10/07/16 21:00 10/08/16 10:12 (Milk Of Magnesia Liq) 30 ml Q12H PRN PO 10/07/16 15:45 (Senokot) 17.2 mg Q12H PRN PO 10/07/16 15:45 (Dulcolax Supp) 10 mg DAILY PRN RECTAL 10/07/16 15:45 (Lactulose Liq) 30 ml DAILY PRN PO 10/07/16 15:45 (Eliquis) 5 mg BID PO 10/07/16 21:00 10/08/16 10:12 (Lipitor) 20 mg HS PO 10/07/16 21:00 10/07/16 21:25 (Plavix) 75 mg DAILY PO 10/08/16 09:00 10/08/16 10:11 ([place] 5-325 Mg) 1 tab Q4H PRN PO 10/07/16 15:45 10/08/16 10:11 (Nitrostat Sl) 0.4 mg Q5M PRN SL 10/07/16 15:45 (Restoril) 15 mg HS PRN PO 10/07/16 21:00 (Coreg) 3.125 mg DAILY PO 10/08/16 09:00 10/08/16 10:12 (Vitamin B12) 1,000 mcg DAILY PO 10/08/16 09:00 10/08/16 10:12 (Antivert) 25 mg Q8HR PO 10/07/16 22:00 10/08/16 07:30 Vital Signs / I&O Vital Signs Date Time Temp Pulse Resp B/P Pulse Ox O2 Delivery O2 Flow Rate FiO2 10/08/16 12:08 98.0 83 20 121/84 96 10/08/16 07:37 98.0 74 17 130/87 97 10/08/16 05:18 98.0 68 18 99/62 99 10/07/16 23:27 98.4 83 18 104/57 96 10/07/16 20:17 98.3 81 18 109/70 97 10/07/16 17:36 98.3 68 16 122/74 99 10/07/16 15:33 67 17 120/75 100 Room Air 10/07/16 14:23 66 16 122/71 99 Room Air 10/07/16 13:23 70 16 132/80 100 Room Air 10/07/16 13:19 77 16 117/58 75 14 133/76 18 16 132/80 I/O 10/07/16 10/07/16 10/07/16 10/08/16 10/08/16 10/08/16 07:00 15:00 23:00 07:00 15:00 23:00 Intake Total 300 ml 200 ml Output Total 400 ml Balance 300 ml -200 ml Intake Oral 300 ml 200 ml Output Urine Total 400 ml Physical Exam GENERAL: NAD, AAOx3 SKIN: Warm and dry. HEAD: Atraumatic. Normocephalic. EYES: Pupils equal and round. No scleral icterus. No injection or drainage. ENT: No nasal bleeding or discharge. Mucous membranes pink and moist. NECK: Trachea midline. No JVD. CARDIOVASCULAR: Regular rate and rhythm. RESPIRATORY: No accessory muscle use. Clear to auscultation. Breath sounds equal bilaterally. GASTROINTESTINAL: Abdomen soft, non-tender, nondistended. Hepatic and splenic margins not palpable. MUSCULOSKELETAL: Extremities without clubbing, cyanosis, or edema. No obvious deformities. NEUROLOGICAL: Awake and alert. No obvious cranial nerve deficits. Motor grossly within normal limits. Five out of 5 muscle strength in the arms and legs. Normal speech. PSYCHIATRIC: Appropriate mood and affect; insight and judgment normal. Laboratory Laboratory Tests Test 10/07/16 10/07/16 10/08/16 10/08/16 12:46 12:50 00:45 06:31 White Blood Count 6.8 TH/MM3 6.9 TH/MM3 Red Blood Count 4.75 MIL/MM3 4.72 MIL/MM3 Hemoglobin 13.7 GM/DL 13.6 GM/DL Hematocrit 40.5 % 40.0 % Mean Corpuscular Volume 85.3 FL 84.6 FL Mean Corpuscular Hemoglobin 29.0 PG 28.7 PG Mean Corpuscular Hemoglobin 34.0 % 33.9 % Concent Red Cell Distribution Width 13.4 % 13.1 % Platelet Count 186 TH/MM3 164 TH/MM3 Mean Platelet Volume 7.7 FL 7.9 FL Neutrophils (%) (Auto) 56.9 % 51.7 % Lymphocytes (%) (Auto) 26.5 % 31.1 % Monocytes (%) (Auto) 8.6 % 8.6 % Eosinophils (%) (Auto) 7.0 % 7.8 % Basophils (%) (Auto) 1.0 % 0.8 % Neutrophils # (Auto) 3.9 TH/MM3 3.6 TH/MM3 Lymphocytes # (Auto) 1.8 TH/MM3 2.1 TH/MM3 Monocytes # (Auto) 0.6 TH/MM3 0.6 TH/MM3 Eosinophils # (Auto) 0.5 TH/MM3 0.5 TH/MM3 Basophils # (Auto) 0.1 TH/MM3 0.1 TH/MM3 CBC Comment DIFF FINAL DIFF FINAL Differential Comment Prothrombin Time 11.4 SEC Prothromb Time International 1.0 RATIO Ratio Activated Partial 29.4 SEC Thromboplast Time Sodium Level 139 MEQ/L 141 MEQ/L Potassium Level 4.0 MEQ/L 3.8 MEQ/L Chloride Level 105 MEQ/L 105 MEQ/L Carbon Dioxide Level 24.9 MEQ/L 27.0 MEQ/L Anion Gap 9 MEQ/L 9 MEQ/L Blood Urea Nitrogen 13 MG/DL 12 MG/DL Creatinine 0.99 MG/DL 1.07 MG/DL Estimat Glomerular Filtration 80 ML/MIN 73 ML/MIN Rate Random Glucose 123 MG/DL 95 MG/DL Calcium Level 9.3 MG/DL 9.1 MG/DL Magnesium Level 2.0 MG/DL Total Bilirubin 0.5 MG/DL 0.4 MG/DL Aspartate Amino Transf 17 U/L 15 U/L (AST/SGOT) Alanine Aminotransferase 33 U/L 28 U/L (ALT/SGPT) Alkaline Phosphatase 86 U/L 81 U/L Total Creatine Kinase 92 U/L Troponin I 0.02 NG/ML 0.03 NG/ML 0.03 NG/ML Total Protein 7.7 GM/DL 7.2 GM/DL Albumin 3.5 GM/DL 3.3 GM/DL Urine Color LIGHT-YELLOW Urine Turbidity CLEAR Urine pH 6.5 Urine Specific [place] 1.005 Urine Protein NEG mg/dL Urine Glucose (UA) NEG mg/dL Urine Ketones NEG mg/dL Urine Occult Blood SMALL Urine Nitrite NEG Urine Bilirubin NEG Urine Urobilinogen LESS THAN 2.0 MG/DL Urine Leukocyte Esterase NEG Urine RBC 2 /hpf Urine WBC LESS THAN 1 /hpf Microscopic Urinalysis Comment CULT NOT INDICATED Assessment and Plan Problem List: (1) Dizziness (2) Factor V Leiden (3) History of DVT (deep vein thrombosis) (4) Hyperlipidemia (5) Coronary artery disease Assessment and Plan 1) Dizziness of unknown cause 2) No cardiovascular cause noted Troponin negative Recent echo showing no valvulopathies 3) Con't neurologic work-up 4) No further cardiovascular work-up, can follow up with Dr. Allen on discharge 5) Will see PRN, call with questions Librado Ferreira DO Oct 08, 2016 12:38
--- NOTE | 2016-10-08 13:51 | HHI.PR ---
Subjective History of Present Illness Patient c/o dizziness with head movement Neurology/ cardiology input noted CT scan of the brain, MRA of the head, MRA of the neck and head brain magnetic resolution venography was done which are within normal limits. on Meclizine. Review of Systems Neurologic Neurologic: Dizziness Vitals/Results Intake & Output 10/07/16 10/07/16 10/08/16 15:00 23:00 07:00 Intake Total 300 ml 200 ml Output Total 400 ml Balance 300 ml -200 ml Intake Oral 300 ml 200 ml Output Urine Total 400 ml Vital Signs Vital Signs Date Time Temp Pulse Resp B/P Pulse Ox O2 Delivery O2 Flow Rate FiO2 10/08/16 12:08 98.0 83 20 121/84 96 10/08/16 07:37 98.0 74 17 130/87 97 10/08/16 05:18 98.0 68 18 99/62 99 10/07/16 23:27 98.4 83 18 104/57 96 10/07/16 20:17 98.3 81 18 109/70 97 10/07/16 17:36 98.3 68 16 122/74 99 10/07/16 15:33 67 17 120/75 100 Room Air 10/07/16 14:23 66 16 122/71 99 Room Air CBC/BMP: 10/08/16 0631 10/08/16 0631 Lab Results Laboratory Tests Test 10/08/16 10/08/16 00:45 06:31 Troponin I 0.03 NG/ML 0.03 NG/ML White Blood Count 6.9 TH/MM3 Red Blood Count 4.72 MIL/MM3 Hemoglobin 13.6 GM/DL Hematocrit 40.0 % Mean Corpuscular Volume 84.6 FL Mean Corpuscular Hemoglobin 28.7 PG Mean Corpuscular Hemoglobin 33.9 % Concent Red Cell Distribution Width 13.1 % Platelet Count 164 TH/MM3 Mean Platelet Volume 7.9 FL Neutrophils (%) (Auto) 51.7 % Lymphocytes (%) (Auto) 31.1 % Monocytes (%) (Auto) 8.6 % Eosinophils (%) (Auto) 7.8 % Basophils (%) (Auto) 0.8 % Neutrophils # (Auto) 3.6 TH/MM3 Lymphocytes # (Auto) 2.1 TH/MM3 Monocytes # (Auto) 0.6 TH/MM3 Eosinophils # (Auto) 0.5 TH/MM3 Basophils # (Auto) 0.1 TH/MM3 CBC Comment DIFF FINAL Differential Comment Sodium Level 141 MEQ/L Potassium Level 3.8 MEQ/L Chloride Level 105 MEQ/L Carbon Dioxide Level 27.0 MEQ/L Anion Gap 9 MEQ/L Blood Urea Nitrogen 12 MG/DL Creatinine 1.07 MG/DL Estimat Glomerular Filtration 73 ML/MIN Rate Random Glucose 95 MG/DL Calcium Level 9.1 MG/DL Total Bilirubin 0.4 MG/DL Aspartate Amino Transf 15 U/L (AST/SGOT) Alanine Aminotransferase 28 U/L (ALT/SGPT) Alkaline Phosphatase 81 U/L Total Protein 7.2 GM/DL Albumin 3.3 GM/DL Physical Exam General General Appearance: Well Developed, Well Nourished, No Acute Distress, Comfortable Eyes Eye Exam: Pupils Equal, Pupils Reactive, Sclera White, Extraocular Movement Intact Throat Throat Exam: Oral Mucosa [place] & Moist, Oral Pharynx Normal Neck Neck Exam: Neck Supple, Trachea Midline Pulmonary Resp Exam: Clear Bilaterally, Breath Sounds Equal Cardiology CV Exam: Regular, Normal Sinus Rhythm Musculoskeletal MS Exam: Normal Gait, Normal Tone Integumentary Skin Exam: Clear, Warm, Dry, Intact Neurologic Neuro Exam: Alert, Awake, Oriented, Speech Clear, Moving All Extremities, No Focal Deficits Psychiatric Psych Exam: Appropriate Responses VTE Prophylaxis VTE Remarks Eliquis. PUD Prophylasis PUD Prophylaxis: Protonix Assessment/Plan Assessment/Plan ASSESSMENT/PLAN This is a 51-year-old male who came to the ER diagnosed with dizziness. CT scan of the brain, MRA of the head, MRA of the neck and head brain magnetic resolution venography was done which are within normal limits. Neurology input noted. Most likely benign positional vertigo. Start the patient on Meclizine 25 mg p.o. t.i.d. Further recommendation per neurology. History of coronary artery disease with recent stent. Cardiology input noted. The patient started on Eliquis and Plavix. History of hyperlipidemia. Continue with Lipitor 20 mg p.o. daily. Insomnia. Continue with Temazepam 15 mg p.o. at bedtime p.r.n. insomnia. B12 deficiency. Continue with B12 1000 mcg p.o. daily. History of coronary artery disease. Continue home medication. DVT prophylaxis. The patient is on Eliquis. GI prophylaxis. Protonix 40 mg p.o. daily. Anxiety. Continue with the Ativan 0.5 mg p.o. t.i.d. Depression. Continue with Lexapro 10 mg p.o. daily. Check CBC with diff CMP in AM. We are going to manage the patient on a daily basis and [place] Discussed Condition with: Patient Balta Sanchez MD Oct 08, 2016 13:51
[2016-10-08] MEDS: LORazepam 0.5 MG TAB PO SCH ×2 (15:56→23:53)
[2016-10-08 15:59] VITALS: BP 113/67; PULSE 71; RESP 20; TEMP 98.3; O2SAT 97
--- NOTE | 2016-10-08 17:42 | EKG ---
Date Performed: 10/07/2016 Time Performed: 12:25:01 PTAGE: 51 years EKG: Sinus rhythm WITH FIRST DEGREE AV BLOCK ANTEROSEPTAL MYOCARDIAL INFARCTION-AGE INDETERMINATE WITH ANTEROSEPTAL AN D ANTEROLATERAL ISCHEMIA MODERATE T-WAVE ABNORMALITY, CONSIDER LATERAL ISCHEMIA ABNORMAL ECG PREVIOUS TRACING : 09/25/2016 06.23 DOCTOR: Cam Call Interpretating Date/Time 10/08/2016 17:41:19
--- NOTE | 2016-10-08 18:09 | HHI.PR ---
Review/Management Diagnosis 1. Dizziness/ likely etiology is benign positional vertigo Neurologic exam is non-focal, and neurologic tests are unremarkable 2. Coronary artery disease. 3. Hypertension 4. Factor V Leiden deficiency Plan 1. Stable from neurologic standpoint 2. Neurologic exam is non-focal, neurologic tests are unremarkable 3. Continue meclizine 25 mg three times daily 4. Consider ENT consult, patient reported a recent onset right ear tinnitus 5. DVT prophylaxis 6. Fall precautions 7. Continue home medication Eliquis 5 mg twice daily 8. Please call for questions Diagnosis/Plan: Subjective Subjective Comments No acute events reported Feels less dizzy this morning Patient states that he feels dizzy when looking downwards No associated nausea, double vision or slurred speech CTV head is unremarkable Patient reports recent onset right ear tinnitus, intermittent, denies earache or chronic ear infections Active Medications Current Medications Medications (Trade) Dose Ordered Sig/Fern Route Start Time Stop Time Status Last Admin (NS Flush) 2 ml UNSCH PRN IV FLUSH 10/07/16 15:45 (NS Flush) 2 ml BID IV FLUSH 10/07/16 21:00 10/08/16 09:00 (Tylenol) 650 mg Q4H PRN PO 10/07/16 15:45 (Zofran Inj) 4 mg Q6H PRN IVP 10/07/16 15:45 (Narcan Inj) 0.4 mg UNSCH PRN IV 10/07/16 15:45 (Camila-Colace) 1 tab BID PO 10/07/16 21:00 10/08/16 10:12 (Milk Of Magnesia Liq) 30 ml Q12H PRN PO 10/07/16 15:45 (Senokot) 17.2 mg Q12H PRN PO 10/07/16 15:45 (Dulcolax Supp) 10 mg DAILY PRN RECTAL 10/07/16 15:45 (Lactulose Liq) 30 ml DAILY PRN PO 10/07/16 15:45 (Eliquis) 5 mg BID PO 10/07/16 21:00 10/08/16 10:12 (Lipitor) 20 mg HS PO 10/07/16 21:00 10/07/16 21:25 (Plavix) 75 mg DAILY PO 10/08/16 09:00 10/08/16 10:11 ([place] 5-325 Mg) 1 tab Q4H PRN PO 10/07/16 15:45 10/08/16 10:11 (Nitrostat Sl) 0.4 mg Q5M PRN SL 10/07/16 15:45 (Restoril) 15 mg HS PRN PO 10/07/16 21:00 (Coreg) 3.125 mg DAILY PO 10/08/16 09:00 10/08/16 10:12 (Vitamin B12) 1,000 mcg DAILY PO 10/08/16 09:00 10/08/16 10:12 (Antivert) 25 mg Q8HR PO 10/07/16 22:00 10/08/16 15:53 (Ativan) 0.5 mg Q8H PO 10/08/16 15:30 10/08/16 15:56 (Lexapro) 10 mg DAILY PO 10/08/16 15:30 Allergies Allergies Coded Allergies Azithromycin (Verified Allergy, Unknown, Unknown, 10/07/16) Exam I&O / VS 10/07/16 10/07/16 10/08/16 15:00 23:00 07:00 Intake Total 300 ml 200 ml Output Total 400 ml Balance 300 ml -200 ml Intake Oral 300 ml 200 ml Output Urine Total 400 ml Vital Signs Date Time Temp Pulse Resp B/P Pulse Ox O2 Delivery O2 Flow Rate FiO2 10/08/16 15:59 98.3 71 20 113/67 97 10/08/16 12:08 98.0 83 20 121/84 96 10/08/16 11:11 20 10/08/16 07:37 98.0 74 17 130/87 97 10/08/16 05:18 98.0 68 18 99/62 99 10/07/16 23:27 98.4 83 18 104/57 96 10/07/16 20:17 98.3 81 18 109/70 97 General: Alert and Oriented, No acute distress Eye: PERRL, EOMI, Vision unchanged Respiratory: Lungs CTA, Non-labored respirations Cardiology: Normal rate, Regular Rhythm Musculoskeletal: ROM Neurologic: Alert, Oriented, Normal sensory, Normal motor, No focal defects, CN II-XII intact, Normal DTR's Psychiatric: Cooperative, Appropriate mood & affect, Normal judgement Objective Radiology Results Last 72 hours Impressions Head/Brain Mag Res Venography 10/08/16 0000 Signed Impressions: Service Date/Time: Saturday, October 08, 2016 07:56 - CONCLUSION: Normal examination. Dusty March MD Head CT 10/07/16 1235 Signed Impressions: Service Date/Time: Friday, October 07, 2016 13:13 - CONCLUSION: Normal examination. Dusty March MD Chest X-Ray 10/07/16 1228 Signed Impressions: Service Date/Time: Friday, October 07, 2016 12:31 - CONCLUSION: No acute disease. Anthony Medina MD FACR Neck Magnetic Resonance Angiography 10/07/16 0000 Signed Impressions: Service Date/Time: Friday, October 07, 2016 16:09 - CONCLUSION: Normal examination. Dusty March MD Lower Extremity Ultrasound 10/07/16 0000 Signed Impressions: Service Date/Time: Friday, October 07, 2016 18:55 - CONCLUSION: Negative exam with no evidence of deep venous thrombosis. Alexandru Islas MD Head Magnetic Resonance Angiography 10/07/16 0000 Signed Impressions: Service Date/Time: Friday, October 07, 2016 16:09 - CONCLUSION: 1. Normal brain MRA examination. Specifically, no evidence for large vessel occlusion/ stenosis or significant aneurysm. Derick Quintanilla MD Micro and Labs Laboratory Tests Test 10/08/16 10/08/16 00:45 06:31 Troponin I 0.03 0.03 White Blood Count 6.9 Red Blood Count 4.72 Hemoglobin 13.6 Hematocrit 40.0 Mean Corpuscular Volume 84.6 Mean Corpuscular Hemoglobin 28.7 Mean Corpuscular Hemoglobin 33.9 Concent Red Cell Distribution Width 13.1 Platelet Count 164 Mean Platelet Volume 7.9 Neutrophils (%) (Auto) 51.7 Lymphocytes (%) (Auto) 31.1 Monocytes (%) (Auto) 8.6 Eosinophils (%) (Auto) 7.8 Basophils (%) (Auto) 0.8 Neutrophils # (Auto) 3.6 Lymphocytes # (Auto) 2.1 Monocytes # (Auto) 0.6 Eosinophils # (Auto) 0.5 Basophils # (Auto) 0.1 CBC Comment DIFF FINAL Differential Comment Sodium Level 141 Potassium Level 3.8 Chloride Level 105 Carbon Dioxide Level 27.0 Anion Gap 9 Blood Urea Nitrogen 12 Creatinine 1.07 Estimat Glomerular Filtration 73 Rate Random Glucose 95 Calcium Level 9.1 Total Bilirubin 0.4 Aspartate Amino Transf 15 (AST/SGOT) Alanine Aminotransferase 28 (ALT/SGPT) Alkaline Phosphatase 81 Total Protein 7.2 Albumin 3.3 Beck Espinoza MD Oct 08, 2016 18:09
[2016-10-08] MEDS: ESCITALOPRAM OXALATE 10 MG TAB PO SCH (19:45)
[2016-10-08 19:56] VITALS: BP 104/56; PULSE 82; RESP 18; TEMP 97.8; O2SAT 86; O2SAT 96
[2016-10-08] MEDS: ATORVASTATIN 20 MG TAB PO SCH (21:41)
[2016-10-08 23:11] VITALS: BP 107/67; PULSE 76; RESP 18; TEMP 98.3; O2SAT 98
[2016-10-09 04:39] VITALS: BP 116/70; PULSE 79; RESP 18; TEMP 98.5; O2SAT 98
[2016-10-09] MEDS: MECLIZINE HCL 25 MG TAB PO SCH ×2 (05:57→12:54)
[2016-10-09 06:31] LABS: AUTOMATED NEUTROPHIL # 4.1 TH/MM3 (1.8-7.7); BASOPHIL # 0.1 TH/MM3 (0-0.2); BASOPHIL % 0.9 % (0.0-2.0); EOSINOPHIL # 0.5 TH/MM3 (0-0.4); EOSINOPHIL % 7.1 % (0.0-4.0); HEMATOCRIT 42.2 % (39.0-51.0); HEMO FLAGS DIFF FINAL; LYMPH % 27.3 % (9.0-44.0); MEAN CELL VOLUME 85.2 FL (80.0-100.0); MEAN CORPUSCULAR HEMOGLOBIN 29.3 PG (27.0-34.0); MEAN CORPUSCULAR HGB CONC 34.4 % (32.0-36.0); MONO % 7.6 % (0.0-8.0); NEUT % 57.1 % (16.0-70.0); PLATELET COUNT 158 TH/MM3 (150-450); RED BLOOD COUNT 4.96 MIL/MM3 (4.50-5.90); RED CELL DISTRIBUTION WIDTH 12.9 % (11.6-17.2); WHITE BLOOD COUNT 7.2 TH/MM3 (4.0-11.0)
[2016-10-09 06:57] LABS: ALKALINE PHOSPHATASE 82 U/L (45-117); TOTAL BILIRUBIN ADULT 0.4 MG/DL (0.2-1.0)
[2016-10-09 07:04] LABS: ALT (GPT) 32 U/L (12-78); ANION GAP 8 MEQ/L (5-15); AST (GOT) 19 U/L (15-37); BICARBONATE 27.4 MEQ/L (21.0-32.0); BLOOD UREA NITROGEN 14 MG/DL (7-18); CHLORIDE 105 MEQ/L (98-107); GLOMERULAR FILTRATION RATE 81 ML/MIN (>89); SODIUM (NA) 140 MEQ/L (136-145)
[2016-10-09 07:33] VITALS: BP 113/72; PULSE 77; RESP 16; TEMP 98.5; O2SAT 96
--- NOTE | 2016-10-09 08:06 | HHI.PR ---
Subjective History of Present Illness Patient c/o dizziness with head movement Neurology/ cardiology input noted CT scan of the brain, MRA of the head, MRA of the neck and head brain magnetic resolution venography was done which are within normal limits. on Meclizine. ok to dc home today. Review of Systems Neurologic Neurologic: Dizziness Vitals/Results Intake & Output 10/08/16 10/08/16 10/09/16 15:00 23:00 07:00 Intake Total 800 ml Output Total 801 ml Balance -1 ml Intake Oral 800 ml Output Urine Total 800 ml Stool Total 1 ml Vital Signs Vital Signs Date Time Temp Pulse Resp B/P Pulse Ox O2 Delivery O2 Flow Rate FiO2 10/09/16 07:33 98.5 77 16 113/72 96 10/09/16 04:39 98.5 79 18 116/70 98 10/08/16 23:11 98.3 76 18 107/67 98 10/08/16 19:56 97.8 82 18 104/56 96 10/08/16 15:59 98.3 71 20 113/67 97 10/08/16 12:08 98.0 83 20 121/84 96 10/08/16 11:11 20 CBC/BMP: 10/09/16 0549 10/09/16 0601 Lab Results Laboratory Tests Test 10/09/16 10/09/16 05:49 06:01 White Blood Count 7.2 TH/MM3 Red Blood Count 4.96 MIL/MM3 Hemoglobin 14.5 GM/DL Hematocrit 42.2 % Mean Corpuscular Volume 85.2 FL Mean Corpuscular Hemoglobin 29.3 PG Mean Corpuscular Hemoglobin 34.4 % Concent Red Cell Distribution Width 12.9 % Platelet Count 158 TH/MM3 Mean Platelet Volume 7.6 FL Neutrophils (%) (Auto) 57.1 % Lymphocytes (%) (Auto) 27.3 % Monocytes (%) (Auto) 7.6 % Eosinophils (%) (Auto) 7.1 % Basophils (%) (Auto) 0.9 % Neutrophils # (Auto) 4.1 TH/MM3 Lymphocytes # (Auto) 2.0 TH/MM3 Monocytes # (Auto) 0.6 TH/MM3 Eosinophils # (Auto) 0.5 TH/MM3 Basophils # (Auto) 0.1 TH/MM3 CBC Comment DIFF FINAL Differential Comment Sodium Level 140 MEQ/L Potassium Level 4.0 MEQ/L Chloride Level 105 MEQ/L Carbon Dioxide Level 27.4 MEQ/L Anion Gap 8 MEQ/L Blood Urea Nitrogen 14 MG/DL Creatinine 0.98 MG/DL Estimat Glomerular Filtration 81 ML/MIN Rate Random Glucose 101 MG/DL Calcium Level 9.2 MG/DL Total Bilirubin 0.4 MG/DL Aspartate Amino Transf 19 U/L (AST/SGOT) Alanine Aminotransferase 32 U/L (ALT/SGPT) Alkaline Phosphatase 82 U/L Total Protein 7.5 GM/DL Albumin 3.4 GM/DL Physical Exam General General Appearance: Well Developed, Well Nourished, No Acute Distress, Comfortable Eyes Eye Exam: Pupils Equal, Pupils Reactive, Sclera White, Extraocular Movement Intact Throat Throat Exam: Oral Mucosa [place] & Moist, Oral Pharynx Normal Neck Neck Exam: Neck Supple, Trachea Midline Pulmonary Resp Exam: Clear Bilaterally, Breath Sounds Equal Cardiology CV Exam: Regular, Normal Sinus Rhythm Musculoskeletal MS Exam: Normal Gait, Normal Tone Integumentary Skin Exam: Clear, Warm, Dry, Intact Neurologic Neuro Exam: Alert, Awake, Oriented, Speech Clear, Moving All Extremities, No Focal Deficits Psychiatric Psych Exam: Appropriate Responses VTE Prophylaxis VTE Remarks Eliquis. PUD Prophylasis PUD Prophylaxis: Protonix Assessment/Plan Assessment/Plan ASSESSMENT/PLAN This is a 51-year-old male who came to the ER diagnosed with dizziness. CT scan of the brain, MRA of the head, MRA of the neck and head brain magnetic resolution venography was done which are within normal limits. Neurology input noted. Most likely benign positional vertigo. Start the patient on Meclizine 25 mg p.o. t.i.d. Further recommendation per neurology. History of coronary artery disease with recent stent. Cardiology input noted. The patient started on Eliquis and Plavix. History of hyperlipidemia. Continue with Lipitor 20 mg p.o. daily. Insomnia. Continue with Temazepam 15 mg p.o. at bedtime p.r.n. insomnia. B12 deficiency. Continue with B12 1000 mcg p.o. daily. History of coronary artery disease. Continue home medication. DVT prophylaxis. The patient is on Eliquis. GI prophylaxis. Protonix 40 mg p.o. daily. Anxiety. Continue with the Ativan 0.5 mg p.o. t.i.d. Depression. Continue with Lexapro 10 mg p.o. daily. ok to dc home today. f/u with pcp/ cardiology/ neurology 1 week. Discussed Condition with: Patient Balta Sanchez MD Oct 09, 2016 08:06
[2016-10-09] MEDS: SODIUM CHLORIDE 0.9% FLUSH 10 ML FLUSH IV FLUSH SCH (09:17)
[2016-10-09] MEDS: ESCITALOPRAM OXALATE 10 MG TAB PO SCH (09:17)
[2016-10-09] MEDS: LORazepam 0.5 MG TAB PO SCH (09:17)
[2016-10-09] MEDS: CYANOCOBALAMIN 1,000 MCG TAB PO SCH (09:17)
[2016-10-09] MEDS: CARVEDILOL 3.125 MG TAB PO SCH (09:18)
[2016-10-09] MEDS: CLOPIDOGREL 75 MG TAB PO SCH (09:18)
[2016-10-09] MEDS: DOCUSATE SODIUM 50 MG/SENNA 8.6 MG TAB PO SCH (09:18)
[2016-10-09] MEDS: APIXABAN 5 MG TABLET PO SCH (09:18)
[2016-10-09] MEDS ORDERED: MECL1TAB42 PO (09:30)
--- NOTE | 2016-10-14 10:46 | MD ---
cc: DAVID BURTON MD ADMISSION DATE: 10/07/2016 DISCHARGE DATE: 10/09/2016 Okay to discharge patient home. Condition at the time of discharge: Satisfactory. Activity: As tolerated. Diet: Cardiac diet. ALLERGIES AZITHROMYCIN. DISCHARGE MEDICATIONS 1. Meclizine 25 mg p.o. q.8h. 2. Eliquis 5 mg p.o. daily. 3. Lipitor 20 mg p.o. daily. 4. Coreg 3.125 mg p.o. daily. 5. Plavix 75 mg p.o. daily. 6. Vitamin-B12 1000 mcg p.o. daily. 7. Hydrocodone/acetaminophen 5/325 p.o. q.4h. p.r.n. pain. 8. Nitroglycerin 0.4 mg q.5 minutes p.r.n. chest pain. 9. Temazepam 50 mg p.o. daily. 10.Lexapro 10 mg p.o. daily. 11.Ativan 0.5 mg p.o. t.i.d. The patient was advised to follow-up with PCP, cardiology and neurology. ADMITTING DIAGNOSIS Dizziness. DISCHARGE DIAGNOSIS 1. Dizziness improved. 2. History of recent myocardial infarction status post stent placement in LAD. 3. History of hyperlipidemia. 4. History of factor V Leiden deficiency. The patient was on Coumadin and eventually changed to Eliquis 5 mg twice a day. 5. B12 deficiency. Continue with B12. 6. Anxiety. Continue with Ativan 0.5 mg p.o. t.i.d. 7. Depression. Continue with Lexapro 10 mg p.o. daily. HOSPITAL COURSE This is a 51-year-old male admitted with dizziness. He was seen by the neurologist, had an MRA of the head, MRA of the neck and CT scan of the brain. Also MRA venography was done which was within normal limits. Neurology started the patient on meclizine 25 mg p.o. t.i.d., most likely benign positional vertigo. The patient was seen by the baggage and mail agent and no other intervention needed per cardiology. The patient remained stable. No acute event happened. The patient had a normal CBC and BMP. The patient was discharged in a satisfactory condition. Further details are in the medical record. MD CHERIE Dawson /9:49 AM /10:42 AM
== END 2016-10-09 14:49 | disposition home or self-care (01) ==
LOC: NEPE 12:01 → NEDA 14:40 → NEPHCDU 16:44
PROVIDERS: ADMIT Family Medicine; ATTEND Family Medicine
DX: R42 Dizziness and giddiness (principal); M79.604 Pain in right leg; M79.605 Pain in left leg; R11.0 Nausea; I44.0 Atrioventricular block, first degree; G47.00 Insomnia, unspecified; R94.31 Abnormal electrocardiogram [ECG] [EKG]; D68.51 Activated protein C resistance; E53.8 Deficiency of other specified B group vitamins; I25.10 Atherosclerotic heart disease of native coronary artery without angina pectoris; E78.5 Hyperlipidemia, unspecified; E78.00 Pure hypercholesterolemia, unspecified; I10 Essential (primary) hypertension; I42.9 Cardiomyopathy, unspecified; I25.82 Chronic total occlusion of coronary artery; I25.2 Old myocardial infarction; F41.9 Anxiety disorder, unspecified; F32.9 Major depressive disorder, single episode, unspecified; H81.10 Benign paroxysmal vertigo, unspecified ear; H81.399 Other peripheral vertigo, unspecified ear; Z95.5 Presence of coronary angioplasty implant and graft; Z79.899 Other long term (current) drug therapy; Z86.718 Personal history of other venous thrombosis and embolism; Z86.711 Personal history of pulmonary embolism; Z79.01 Long term (current) use of anticoagulants; Z86.73 Personal history of transient ischemic attack (TIA), and cerebral infarction without residual deficits
CPT/HCPCS: 70450; 70544; 70546; 70548; 71010; 80053; 81001; 82550; 83735; 84484; 85025; 85610; 85730; 93005; 93970; 96361; 96374; 96375; 99285; A9579; G0378; J2060; J2405; J7040

== ENCOUNTER 2016-10-21 10:54 | Observation (INO) | payer OTHER ==
[2016-10-21] VITALS (7 sets, daily range): BP systolic 112–128; BP diastolic 63–84; PULSE 66–84; RESP 16–20; TEMP 96.8–97.8; O2SAT 97–99
[~2016-10-21] VITALS: Ht 182.9 cm; Wt 92.1 kg
[~2016-10-21 10:54] MED LIST changes: +CARV3.12 PO; -CARV3.125 PO; +MECL1TAB42 PO
--- NOTE | 2016-10-21 11:05 | PD ---
Physical Exam Time Seen by Provider: 11:03 Narrative 51 y/o male here for evaluation of numbness in the arms, R facial numbness, R leg pain, occasional electrical pain in the head. Symptoms started two days ago while in a pool. On eliquis, recently admitted for dizziness. Vital signs reviewed. Seen at triage desk. Awaiting bed placement. Data Data Last Documented VS Vital Signs Date Time Temp Pulse Resp B/P Pulse Ox O2 Delivery O2 Flow Rate FiO2 10/21/16 10:55 97.8 84 20 128/84 99 Room Air [facility] Medical Record Reviewed: Yes Supervised Visit with SUZIE: Chadwick Posada Oct 21, 2016 11:05
[2016-10-21] MEDS ORDERED: SODIUM CHLORIDE 0.9% FLUSH 10 ML FLUSH IVF PRN (11:45)
--- NOTE | 2016-10-21 11:55 | PD ---
HPI Chief Complaint: Numbness/Tingling Time Seen by Provider: 11:45 Travel History International Travel<30 days: No Contact w/Intl Traveler<30days: No Traveled to known affect area: No History of Present Illness HPI 51-year-old male with history of recent WA, status post 2 stents, DVT and PE currently on Eliquis, presents to the ER today because he states that over last few days he has been having chest pressures which she currently measures at a 5 out of 10, left arm intermittent numbness and tingling and right leg numbness and tingling as well as dizziness and intermittent headaches. He states that sometimes the right side of his face goes numb. He denies any difficulty walking or talking and denies any headaches currently. He denies any fevers, vomiting, shortness of breath, or other symptoms. He was told to come in by his doctor. Modifying Factors: None Associated Signs & Symptoms: Intermittent numbness in the legs and arms and face , dizziness, headaches, chest discomfort Risk Factors: Recent WA, on Eliquis PFSH Past Medical History Hx Anticoagulant Therapy: Yes (eloquis) Blood Disorders: Yes (FACTOR V) Anxiety: No Depression: No Heart Rhythm Problems: No Cancer: No Cardiac Catheterization: Yes Cardiovascular Problems: Yes (stents) High Cholesterol: Yes Chemotherapy: No Chest Pain: Yes COPD: No Cerebrovascular Accident: Yes Diminished Hearing: No Deep Vein Thrombosis: Yes Endocrine: No Genitourinary: No Hypertension: Yes Immune Disorder: No Musculoskeletal: No Neurologic: No Psychiatric: No Reproductive: No Respiratory: Yes (BILATERAL PE) Myocardial Infarction: Yes Radiation Therapy: No Seizures: No Sleep Apnea: No Tetanus Vaccination: > 5 Years Influenza Vaccination: Yes Past Surgical History Abdominal Surgery: Yes (INGUINAL HERNIA REPAIR) AICD: No Appendectomy: Yes Coronary Stent: Yes (X2) Pacemaker: No Tonsillectomy: Yes Other Surgery: Yes Social History Alcohol Use: No (PT DENIES) Tobacco Use: No (QUIT 09/07/16) Substance Use: No (PT DENIES) Allergies-Medications (Allergen,Severity, Reaction): Coded Allergies: Azithromycin (Verified Allergy, Unknown, RASH, 10/21/16) Reported Meds & Prescriptions Reported Meds & Active Scripts Active Meclizine 25 (Meclizine HCl) 25 Mg Tab 25 Mg PO Q8HR Lipitor (Atorvastatin Calcium) 20 Mg Tab 20 Mg PO HS Nitrostat SL (Nitroglycerin) 0.4 Mg Subl 0.4 Mg SL Q5M PRN Restoril (Temazepam) 15 Mg Cap 15 Mg PO HS PRN Vitamin B-12 (Cyanocobalamin) 1,000 Mcg Tab 1,000 Mcg PO DAILY Eliquis (Apixaban) 5 Mg Tab 5 Mg PO BID Reported Carvedilol 3.125 Mg Tab 3.125 Mg PO DAILY Review of Systems Except as stated in HPI: all other systems reviewed are Neg Physical Exam Narrative GENERAL: Middle age male patient currently in mild distress at awake and oriented 3. SKIN: Focused skin assessment warm/dry. HEAD: Atraumatic. Normocephalic. EYES: Pupils equal and round. No scleral icterus. No injection or drainage. ENT: No nasal bleeding or discharge. Mucous membranes pink and moist. NECK: Trachea midline. No JVD. CARDIOVASCULAR: Regular rate and rhythm. No murmur appreciated. Pulses are present and equal bilaterally. RESPIRATORY: No accessory muscle use. Clear to auscultation. Breath sounds equal bilaterally. GASTROINTESTINAL: Abdomen soft, non-tender, nondistended. Hepatic and splenic margins not palpable. MUSCULOSKELETAL: No obvious deformities. No clubbing. No cyanosis. No edema. NEUROLOGICAL: Awake and alert. No obvious cranial nerve deficits. Motor grossly within normal limits. Normal speech. No pronator drift. PSYCHIATRIC: Appropriate mood and affect; insight and judgment normal. Data Data Last Documented VS Vital Signs Date Time Temp Pulse Resp B/P Pulse Ox O2 Delivery O2 Flow Rate FiO2 10/21/16 13:04 97.8 66 16 115/76 98 Room Air Orders Electrocardiogram (10/21/16 11:45) Complete Blood Count With Diff (10/21/16 11:45) Comprehensive Metabolic Panel (10/21/16 11:45) Magnesium (Mg) (10/21/16 11:45) Ckmb (Isoenzyme) Profile (10/21/16 11:45) Troponin I (10/21/16 11:45) Chest, Single Ap (10/21/16 11:45) Ct Brain W/O Iv Contrast(Rout) (10/21/16 11:45) Ecg Monitoring (10/21/16 11:45) Iv Access Insert/Monitor (10/21/16 11:45) Oximetry (10/21/16 11:45) Sodium Chloride 0.9% Flush (Ns Flush) (10/21/16 11:45) Admit Order (Ed Use Only) (10/21/16 13:55) Labs Laboratory Tests Test 10/21/16 11:40 White Blood Count 6.8 TH/MM3 Red Blood Count 5.18 MIL/MM3 Hemoglobin 15.0 GM/DL Hematocrit 44.5 % Mean Corpuscular Volume 86.1 FL Mean Corpuscular Hemoglobin 29.0 PG Mean Corpuscular Hemoglobin 33.7 % Concent Red Cell Distribution Width 13.5 % Platelet Count 195 TH/MM3 Mean Platelet Volume 7.8 FL Neutrophils (%) (Auto) 53.0 % Lymphocytes (%) (Auto) 33.1 % Monocytes (%) (Auto) 8.7 % Eosinophils (%) (Auto) 4.4 % Basophils (%) (Auto) 0.8 % Neutrophils # (Auto) 3.6 TH/MM3 Lymphocytes # (Auto) 2.2 TH/MM3 Monocytes # (Auto) 0.6 TH/MM3 Eosinophils # (Auto) 0.3 TH/MM3 Basophils # (Auto) 0.1 TH/MM3 CBC Comment DIFF FINAL Differential Comment Sodium Level 140 MEQ/L Potassium Level 4.3 MEQ/L Chloride Level 106 MEQ/L Carbon Dioxide Level 28.1 MEQ/L Anion Gap 6 MEQ/L Blood Urea Nitrogen 19 MG/DL Creatinine 1.17 MG/DL Estimat Glomerular Filtration 66 ML/MIN Rate Random Glucose 108 MG/DL Calcium Level 9.6 MG/DL Magnesium Level 2.0 MG/DL Total Bilirubin 0.6 MG/DL Aspartate Amino Transf 33 U/L (AST/SGOT) Alanine Aminotransferase 40 U/L (ALT/SGPT) Alkaline Phosphatase 78 U/L Total Creatine Kinase 94 U/L Troponin I 0.03 NG/ML Total Protein 7.9 GM/DL Albumin 3.8 GM/DL MDM Medical Decision Making Medical Screen Exam Complete: Yes Emergency Medical Condition: Yes Medical Record Reviewed: Yes Interpretation(s) EKG shows NSR with a first-degree AV block, no ST elevation or depression, and no arrhythmias. No significant T-wave inversions. Laboratory Tests Test 10/21/16 11:40 Monocytes (%) (Auto) 8.7 % (0.0-8.0) Eosinophils (%) (Auto) 4.4 % (0.0-4.0) Blood Urea Nitrogen 19 MG/DL (7-18) Estimat Glomerular Filtration 66 ML/MIN (>89) Rate Random Glucose 108 MG/DL (74-106) Last [address] 10/21/16 1145 Signed Impressions: Service Date/Time: Friday, October 21, 2016 12:45 - CONCLUSION: 1. No acute cardiopulmonary findings. Solo Medina MD Chest X-Ray 10/21/16 1145 Signed Impressions: Service Date/Time: Friday, October 21, 2016 11:41 - CONCLUSION: No acute cardiopulmonary disease. Anitha Parikh MD Differential Diagnosis Dizziness, headaches, chest discomfort, right facial numbness, right leg numbness, left arm numbnessmetabolic issues versus TIA/CVA versus intracranial bleed versus ACS Narrative Course EKG did not show significant dysrhythmias. I do not see obvious focal neurological deficits on exam. Lab work did not show significant metabolic issues. However, considering patient's history of intermittent paresthesias and numbness, there is concern about possible TIA. At this point, case was discussed with Dr. Sanchez for admission. Aspirin was given. Diagnosis Primary Impression: TIA (transient ischemic attack) Admitting Information Admitting Physician Requests: Admit Yasmeen Taylor MD Oct 21, 2016 11:55
[2016-10-21 12:01] LABS: AUTOMATED NEUTROPHIL # 3.6 TH/MM3 (1.8-7.7); BASOPHIL # 0.1 TH/MM3 (0-0.2); BASOPHIL % 0.8 % (0.0-2.0); EOSINOPHIL # 0.3 TH/MM3 (0-0.4); EOSINOPHIL % 4.4 % (0.0-4.0); HEMATOCRIT 44.5 % (39.0-51.0); HEMO FLAGS DIFF FINAL; LYMPH % 33.1 % (9.0-44.0); LYMPHOCYTE # 2.2 TH/MM3 (1.0-4.8); MEAN CELL VOLUME 86.1 FL (80.0-100.0); MEAN CORPUSCULAR HGB CONC 33.7 % (32.0-36.0); MONO % 8.7 % (0.0-8.0); PLATELET COUNT 195 TH/MM3 (150-450); RED BLOOD COUNT 5.18 MIL/MM3 (4.50-5.90); RED CELL DISTRIBUTION WIDTH 13.5 % (11.6-17.2); WHITE BLOOD COUNT 6.8 TH/MM3 (4.0-11.0)
[2016-10-21 12:23] LABS: ALT (GPT) 40 U/L (12-78)
[2016-10-21 12:27] LABS: ALKALINE PHOSPHATASE 78 U/L (45-117); ANION GAP 6 MEQ/L (5-15); AST (GOT) 33 U/L (15-37); BICARBONATE 28.1 MEQ/L (21.0-32.0); BLOOD UREA NITROGEN 19 MG/DL (7-18); CHLORIDE 106 MEQ/L (98-107); GLOMERULAR FILTRATION RATE 66 ML/MIN (>89); SODIUM (NA) 140 MEQ/L (136-145); TOTAL BILIRUBIN ADULT 0.6 MG/DL (0.2-1.0)
--- NOTE | 2016-10-21 12:29 | RADRPT ---
EXAM DATE/TIME: 10/21/2016 11:41 [facility] COMPARISON: CHEST SINGLE AP, October 07, 2016, 12:31. INDICATIONS : Palpitations. MEDICAL HISTORY : Myocardial infarction. SURGICAL HISTORY : Coronary artery stent. ENCOUNTER: Initial ACUITY: 1 day PAIN SCORE: 5/10 LOCATION: Bilateral chest FINDINGS: The lungs are clear without infiltrate, nodule, or mass. There is no appreciable pleural effusion fo r technique. Heart and mediastinum are unremarkable. CONCLUSION: No acute cardiopulmonary disease. Anitha Parikh MD on October 21, 2016 at 12:26 Board Certified Radiologist. This report was verified electronically.
[2016-10-21 12:31] LABS: CREATINE KINASE 94 U/L (39-308); POTASSIUM 4.3 MEQ/L (3.5-5.1)
--- NOTE | 2016-10-21 13:09 | RADRPT ---
EXAM DATE/TIME: 10/21/2016 12:45 [facility] COMPARISON: CT BRAIN W/O CONTRAST, October 07, 2016, 13:13. INDICATIONS : Numbness both shoulders down to hands and right side of face, dizzy. RADIATION DOSE: 35.34 CTDIvol (mGy) MEDICAL HISTORY : Cardiovascular disease. Hypertension. Deep venous thrombosis. SURGICAL HISTORY : Coronary artery stent. Appendectomy. ENCOUNTER: Initial ACUITY: 1 day PAIN SCALE: 0/10 LOCATION: cranial TECHNIQUE: Multiple contiguous axial images were obtained of the head. Using automated exposure control and adj ustment of the mA and/or kV according to patient size, radiation dose was kept as low as reasonably a chievable to obtain optimal diagnostic quality images. DICOM format image data is available electro nically for review and comparison. FINDINGS: CEREBRUM: The ventricles are normal for age. No evidence of midline shift, mass lesion, hemorrhage or acute in farction. No extra-axial fluid collections are seen. POSTERIOR FOSSA: The cerebellum and brainstem are intact. The 4th ventricle is midline. The cerebellopontine angle i s unremarkable. EXTRACRANIAL: The visualized portion of the orbits is intact. SKULL: The calvaria is intact. No evidence of skull fracture. CONCLUSION: 1. No acute cardiopulmonary findings. Solo Medina MD on October 21, 2016 at 13:06 Board Certified Radiologist. This report was verified electronically.
[2016-10-21] MEDS ORDERED: ASPIRIN 325 MG TAB PO ONE (14:00)
[2016-10-21] MEDS ORDERED: ACETAMINOPHEN 325 MG TAB PO PRN (14:15)
[2016-10-21] MEDS ORDERED: MAGNESIUM HYDROXIDE SUSP 30 ML CUP PO PRN (14:15)
[2016-10-21] MEDS ORDERED: NALOXONE HCL 0.4 MG/ML AMP IV PRN (14:15)
[2016-10-21] MEDS: CARVEDILOL 3.125 MG TAB PO SCH ×2 (14:15→14:47)
[2016-10-21] MEDS ORDERED: ZOLPIDEM TARTRATE 5 MG TAB PO PRN (14:15)
[2016-10-21] MEDS ORDERED: BISACODYL 10 MG SUPP RECTAL PRN (14:15)
[2016-10-21] MEDS ORDERED: LACTULOSE SYRUP 20 GM/30 ML CUP PO PRN (14:15)
[2016-10-21] MEDS ORDERED: SENNOSIDES 8.6 MG TAB PO PRN (14:15)
[2016-10-21] MEDS: CYANOCOBALAMIN 1,000 MCG TAB PO SCH ×2 (14:15→14:46)
[2016-10-21] MEDS ORDERED: ONDANSETRON HCL 4 MG/2 ML VIAL IVP PRN (14:15)
[2016-10-21] MEDS: CLOPIDOGREL 75 MG TAB PO SCH ×2 (14:15→14:46)
[2016-10-21] MEDS ORDERED: NITROGLYCERIN 0.4 MG SL 25 TABS/BTL SL PRN (14:15)
[2016-10-21] MEDS ORDERED: SODIUM CHLORIDE 0.9% FLUSH 10 ML FLUSH IV FLUSH PRN (14:15)
[2016-10-21] MEDS: APIXABAN 5 MG TABLET PO SCH ×2 (14:45→20:43)
[2016-10-21] MEDS: DOCUSATE SODIUM 50 MG/SENNA 8.6 MG TAB PO SCH ×2 (14:45→20:43)
[2016-10-21] MEDS: SODIUM CHLORIDE 0.9% FLUSH 10 ML FLUSH IV FLUSH SCH ×3 (14:47→21:01)
[2016-10-21] MEDS: MECLIZINE HCL 25 MG TAB PO SCH ×2 (14:48→21:01)
[2016-10-21] MEDS ORDERED: PLAV75TA29 PO (14:50)
[2016-10-21 16:42] LABS: BLOOD, URINE MOD (NEG); COMMENT (UR) CULT NOT INDICATED; CULTURE IF INDICATED CULT NOT INDICATED; GLUCOSE,URINE NEG (NEG); KETONE, URINE NEG (NEG); MUCUS URINE FEW /lpf (OCC); NITRITE,URINE NEG (NEG); PH, URINE 6.5 (5.0-8.5); URINE COLOR YELLOW (YELLW/STRAW)
[2016-10-21] MEDS ORDERED: GADODIAMIDE PF 287 MG/ML 5 ML VIAL (for RAD MRI) IV ONE (20:50)
[2016-10-21] MEDS: ATORVASTATIN 20 MG TAB PO SCH (21:01)
--- NOTE | 2016-10-21 21:04 | RADRPT ---
EXAM DATE/TIME: 10/21/2016 20:03 [facility] COMPARISON: No previous studies available for comparison. INDICATIONS : Radiculopathy. CONTRAST: 15 cc Omniscan (gadodiamide) IV MEDICAL HISTORY : Myocardial infarction. Hypertension. Cardiovascular disease. SURGICAL HISTORY : Tonsillectomy. Appendectomy. Hernia repair. ENCOUNTER: Subsequent ACUITY: 1 day PAIN SCORE: 5/10 LOCATION: neck TECHNIQUE: Multiplanar, multisequence MRI examination of the cervical spine was performed. FINDINGS: VERTEBRAE: Normal vertebral body height. Homogeneous marrow signal. ALIGNMENT: No evidence of subluxation. CORD: Normal configuration and signal. POST FOSSA: The cerebellar tonsils are normal in position. POST-CONTRAST: No abnormal areas of enhancement are seen. C2-C3: The thecal sac has a normal configuration. There is no evidence of disc herniation or spinal canal stenosis. The neural foramina are patent bilaterally. C3-C4: There is mild disc bulging with minimal interspace ridging. There is mild spinal stenosis. C4-C5: Mild central disc bulging is evident. The neural foramen are adequate. C5-C6: Moderate interspace ridging is present with bilateral neural foramen encroachment worse on the right than the left. C6-C7: Moderate interspace ridging is present with bilateral neural foraminal stenosis. C7-T1: The thecal sac has a normal configuration. There is no evidence of disc herniation or spinal canal s tenosis. The neural foramina are patent bilaterally. CONCLUSION: Ridging C5-C6 and C6-C7. The most significant finding is neuroforaminal encroachment bilaterally. T here is no abnormal contrast enhancement. Anthony Medina MD FACR on October 21, 2016 at 21:00 Board Certified Radiologist. This report was verified electronically.
[2016-10-22] VITALS (7 sets, daily range): BP systolic 101–131; BP diastolic 55–78; PULSE 71–90; RESP 16–20; TEMP 96–99.2; O2SAT 92–98
[2016-10-22] MEDS: MECLIZINE HCL 25 MG TAB PO SCH ×3 (06:11→20:54)
--- NOTE | 2016-10-22 08:00 | MB ---
cc: VALERIE DUMAS MD Corrected: 10/25/2016 DATE OF CONSULTATION: 10/21/2016 REASON FOR CONSULTATION Dizziness. HISTORY OF PRESENT ILLNESS Mr. Paulino is a 51-year-old male with past medical history of factor V Leiden deficiency diagnosed in 2001 status post right lower extremity DVT and pulmonary embolism. He was on Coumadin from 2001 to 2005. He also has a history of hypertension, hyperlipidemia, coronary artery disease with multiple stents, cardiomyopathy with EF of 40-45%. The patient was admitted to the hospital a few weeks ago. He presented to [facility] with reports of numbness and tingling sensation in the bilateral upper extremities, right greater than the left with mild numbness of the face and a description of a tingling sensation in the back of the neck related to movements of the neck. He denied headache, double vision, blurred vision, speech difficulty, weakness of extremities upper or lower, sleep disturbances or history of trauma to the neck. He states that these symptoms started when he was just standing in the pool without doing any extraneous exercises. REVIEW OF SYSTEMS A 12-point review of systems is negative except for what is stated in the HPI. SOCIAL HISTORY Denies substance abuse and alcohol abuse. Quit smoking 2 months ago. FAMILY HISTORY Noncontributory. PAST MEDICAL HISTORY 1. Factor V Leiden, on Eliquis. 2. Cardiac cath. 3. FL with stents. 4. Hyperlipidemia. 5. DVT right lower extremity. 6. Pulmonary embolism. PAST SURGICAL HISTORY 1. Abdominal surgery. 2. Appendectomy. 3. Coronary stents. 4. Tonsillectomy. ALLERGIES AZITHROMYCIN. MEDICATIONS 1. Lipitor. 2. Nitrostat. 3. Restoril. 4. Hydrocodone. 5. Acetaminophen. 6. B12. 7. Plavix 75. 8. Eliquis 5 mg twice daily. 9. Carvedilol. PHYSICAL EXAMINATION GENERAL: Awake, alert, oriented, anxious. HEENT: Atraumatic, normocephalic. Intact hearing. Intact vision. LUNGS: Clear to auscultation. No wheezes. ABDOMEN: Soft, nontender. EXTREMITIES: No deformity, swelling or cyanosis. Moves extremities equally. NEUROLOGIC: Awake, alert, oriented to time, person and place. No dysarthria. No dysphasia. Cranial nerves II through XII are grossly intact. Motor and sensory examination 5/5 bilateral and symmetrical. No abnormal movement. Normal tone. Reflexes 1+ bilateral and symmetrical upper extremities. 2+ bilateral and symmetrical lower extremities. Plantars are bilaterally downgoing. Cerebellar function [id number] and [id number] are intact. There is minor subjective diminished "different" sensation of the right upper extremity to light touch and temperature. Psychological normal mood and behavior, anxious, good judgment. LABORATORY WBC 6.8, hemoglobin 15, MCV 86.1, platelet count 195.Sodium 140, potassium 4.3, anion gap 6, BUN 19, creatinine 1.17, calcium 9.6,magnesium 2.Hepatic function panel unremarkable. Troponin 0.03. IMAGING - Head CT scan without contrast: No acute intracranial abnormality. DIAGNOSTIC IMPRESSION 1. Chronic neck pain. 2. Bilateral upper extremity numbness, right greater than left. 3. Positive Lhermitte sign with chronic neck pain, bilateral numbness, no weakness; likely etiology chronic cervical spine disease. PLAN 1. Neuro-checks q.4h. 2. Cervical spine MRI with and without contrast. 3. Continue home medication. 4. DVT prophylaxis. Thank you for the opportunity to participate in the care of your patient. MD BRADY Avendano/AMBIKA /11:16 PM /7:37 AM MATT
[2016-10-22 08:01] LABS: AUTOMATED NEUTROPHIL # 3.4 TH/MM3 (1.8-7.7); BASOPHIL # 0.1 TH/MM3 (0-0.2); BASOPHIL % 0.9 % (0.0-2.0); EOSINOPHIL # 0.3 TH/MM3 (0-0.4); EOSINOPHIL % 5.2 % (0.0-4.0); HEMATOCRIT 42.2 % (39.0-51.0); HEMO FLAGS DIFF FINAL; LYMPHOCYTE # 1.9 TH/MM3 (1.0-4.8); MEAN CELL VOLUME 85.2 FL (80.0-100.0); MEAN CORPUSCULAR HEMOGLOBIN 28.5 PG (27.0-34.0); MEAN CORPUSCULAR HGB CONC 33.4 % (32.0-36.0); MONO % 8.7 % (0.0-8.0); NEUT % 54.2 % (16.0-70.0); PLATELET COUNT 176 TH/MM3 (150-450); RED BLOOD COUNT 4.95 MIL/MM3 (4.50-5.90); RED CELL DISTRIBUTION WIDTH 13.5 % (11.6-17.2); WHITE BLOOD COUNT 6.3 TH/MM3 (4.0-11.0)
[2016-10-22] MEDS: CARVEDILOL 3.125 MG TAB PO SCH (08:17)
[2016-10-22] MEDS: APIXABAN 5 MG TABLET PO SCH ×2 (08:20→20:54)
[2016-10-22] MEDS: CYANOCOBALAMIN 1,000 MCG TAB PO SCH (08:20)
[2016-10-22] MEDS: CLOPIDOGREL 75 MG TAB PO SCH (08:20)
[2016-10-22] MEDS: DOCUSATE SODIUM 50 MG/SENNA 8.6 MG TAB PO SCH ×2 (08:20→20:54)
[2016-10-22] MEDS: SODIUM CHLORIDE 0.9% FLUSH 10 ML FLUSH IV FLUSH SCH ×2 (08:21→20:54)
[2016-10-22 08:28] LABS: ANION GAP 8 MEQ/L (5-15); AST (GOT) 18 U/L (15-37); BICARBONATE 25.4 MEQ/L (21.0-32.0); BLOOD UREA NITROGEN 16 MG/DL (7-18); CHLORIDE 106 MEQ/L (98-107); GLOMERULAR FILTRATION RATE 81 ML/MIN (>89); MAGNESIUM 1.8 MG/DL (1.5-2.5); POTASSIUM 3.9 MEQ/L (3.5-5.1); SODIUM (NA) 139 MEQ/L (136-145)
[2016-10-22 08:32] LABS: ALKALINE PHOSPHATASE 69 U/L (45-117); ALT (GPT) 36 U/L (12-78); TOTAL BILIRUBIN ADULT 0.5 MG/DL (0.2-1.0)
--- NOTE | 2016-10-22 09:51 | EKG ---
Date Performed: 10/21/2016 Time Performed: 12:32:27 PTAGE: 51 years EKG: Sinus rhythm WITH FIRST DEGREE AV BLOCK POSSIBLE ANTERIOR MYOCARDIAL INFARCTION MODERATE T-WAVE ABNORMALITY, CONS IDER LATERAL ISCHEMIA ABNORMAL ECG PREVIOUS TRACING : 10/07/2016 12.25 Compared to the prior tracing, the ischemic T-wave inversio ns are not as prominent. DOCTOR: Hugh Vazquez Interpretating Date/Time 10/22/2016 09:47:54
--- NOTE | 2016-10-22 11:42 | MH ---
cc: DAVID BURTON MD DATE OF ADMISSION: 10/21/2016 CHIEF COMPLAINT Numbness of the right face and dizziness. HISTORY OF PRESENT ILLNESS This is a 51-year-old [place] male with past medical/surgical history significant for DVT and pulmonary embolism on Eliquis and Plavix, history of recent myocardial infarction with defibrillation and a stent placed in the LAD, factor V Leiden deficiency, history of stroke in the past, history of bilateral PE, history of inguinal hernia repair, appendectomy and tonsillectomy. He is an ex-smoker, quit on 09/07/2016. He also has a history of hyperlipidemia and insomnia. The patient came to my office complaining of right-sided facial numbness and also dizziness and I advised him to go to the ER at [facility]. The patient was admitted. He states his symptoms are intermittent. He has some headache which comes and goes and he feels numbness on the right side of the face. He denies any nausea, vomiting, diarrhea, shortness of breath, chest pain, abdominal pain, black stool, blood in the stool, urinary tract infection symptoms or any other symptoms. Other than that nothing significant. PAST MEDICAL/SURGICAL HISTORY As dictated above. SOCIAL HISTORY He is an ex-smoker, quit on 09/07/2016. Does not abuse drugs or drink alcohol. Lives at home with his . He is not working right now. FAMILY HISTORY Nothing significant. ALLERGIES AZITHROMYCIN. MEDICATIONS 1. Meclizine 25 mg, three times a day. 2. Lipitor 20 mg p.o. daily. 3. Nitrostat 0.4 mg sublingual q.5 minutes p.r.n. chest pain. 4. Restoril 15 mg p.o. q.h.s. p.r.n. insomnia. 5. Vitamin-B12 1000 mcg p.o. daily. 6. Eliquis 5 mg p.o. daily. 7. Plavix 75 mg p.o. daily. 8. Coreg 3.125 mg p.o. twice a day. REVIEW OF SYSTEMS Positive for numbness in the face, mild headache. All other review of systems is negative. PHYSICAL EXAMINATION GENERAL: This is a 51-year-old Middle-Eastern man, lying in the bed, not in acute distress. VITAL SIGNS: Temperature 97.1, heart rate 71, respirations 16, blood pressure 109/59, O2 saturation 97% on room air. HEENT: Normocephalic, atraumatic. EOMI. PERRL. Oral mucosa moist. NECK: Supple. No visible thyromegaly or neck mass. Trachea is central. CV: Regular rate and rhythm. LUNGS: Respiration is clear to auscultation bilaterally. ABDOMEN: Soft, nontender. Bowel sounds audible. EXTREMITIES: No cyanosis. No clubbing. Full range of motion of all extremities. NEUROLOGIC: Awake, alert, oriented x4. No focal deficits. SKIN: Warm and dry. PYSCH: The patient is cooperative. Mood and affect are normal. LABORATORY CBC is unremarkable. Monocyte percent high at 8.7, eosinophil percentage high at 5.2. BMP is unremarkable except for GFR low at 81. LFTs are normal. Troponin-I is 0.03. Total protein and albumin are normal. Urine examination shows moderate occult blood, 10 RBC and 1 WBC, mucus few. IMAGING MRI of the cervical spine was done and shows ridging C5-C6 and C6-C7. The most significant finding is neuroforaminal encroachment bilaterally. There is no abnormal contrast enhancement. Chest x-ray done shows no acute cardiopulmonary finding. CT brain done shows nothing acute. ASSESSMENT AND PLAN 1. This is a 51-year-old male who came to the ER diagnosed with numbness of the right face and dizziness, rule out stroke or TIA. The patient has a history of stroke in the past. The patient is on Plavix and Eliquis. The patient's CT brain does not show anything acute. I will check an MRI of the brain. Neurology is consulted. Neuro-checks every 6 hours. Further recommendation per neurology. 2. History of recent myocardial infarction with defibrillation. Continue home medication including Plavix and Eliquis. 3. History of hyperlipidemia. Continue Lipitor 20 mg p.o. daily. 4. History of insomnia. Continue Ambien 5 mg p.o. daily. 5. History of B12 deficiency. Continue vitamin-B12 1000 mcg p.o. daily. 6. History of dizziness. Continue with Antivert 25 mg p.o. t.i.d. 7. DVT prophylaxis. The patient is on Eliquis. 8. GI prophylaxis. Protonix 40 mg p.o. daily. 9. We are going to manage the patient on a daily basis and make recommendation on a daily basis. MD CHERIE Dawson /11:15 AM /11:27 AM
[2016-10-22] MEDS: ACETAMINOPHEN/HYDROcodone 325 MG/5 MG TAB PO PRN ×2 (12:02→17:55)
--- NOTE | 2016-10-22 17:44 | RADRPT ---
EXAM DATE/TIME: 10/22/2016 12:33 [facility] COMPARISON: No previous studies available for comparison. INDICATIONS : Dizziness. MEDICAL HISTORY : Myocardial infarction. SURGICAL HISTORY : Tonsillectomy. Inguinal hernia repair. Appendectomy. ENCOUNTER: Subsequent ACUITY: 2 weeks PAIN SCORE: 0/10 LOCATION: cranial TECHNIQUE: Multiplanar, multisequence MRI of the brain was performed without contrast. FINDINGS: There is no evidence for intracranial hemorrhage, mass effect, mass lesions, edema, or extra-axial fl uid collections. The ventricles are normal size for the patient's age. There are no signs of acute infarction for technique. The diffusion portion is unremarkable. CONCLUSION: Unremarkable study. Anitha Parikh MD on October 22, 2016 at 17:39 Board Certified Radiologist. This report was verified electronically.
--- NOTE | 2016-10-22 18:29 | HHI.PR ---
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 H/o PE Factor V Leiden deficiency CAD Plan Neuro-exam is non-focal Neurologic investigation revealed no acute abnormality May follow up as outpatient Please call for questions Diagnosis/Plan: Subjective Subjective Comments No acute events reported Mild numbness in the back of head, b/l UE C spine MRI DDD at C5-C6 with neuroforaminal narrowing MRI brain revealed no acute intracranial abnormality Active Medications Current Medications Medications (Trade) Dose Ordered Sig/Fern Route Start Time Stop Time Status Last Admin (NS Flush) 2 ml UNSCH PRN IVF 10/21/16 11:45 10/21/16 11:49 (NS Flush) 2 ml UNSCH PRN IV FLUSH 10/21/16 14:15 (NS Flush) 2 ml BID IV FLUSH 10/21/16 14:15 10/22/16 08:21 (Tylenol) 650 mg Q4H PRN PO 10/21/16 14:15 (Zofran Inj) 4 mg Q6H PRN IVP 10/21/16 14:15 (Ambien) 5 mg HS PRN PO 10/21/16 14:15 10/21/16 21:01 (Narcan Inj) 0.4 mg UNSCH PRN IV 10/21/16 14:15 (Camila-Colace) 1 tab BID PO 10/21/16 14:15 10/21/16 14:45 (Milk Of Magnesia Liq) 30 ml Q12H PRN PO 10/21/16 14:15 (Senokot) 17.2 mg Q12H PRN PO 10/21/16 14:15 (Dulcolax Supp) 10 mg DAILY PRN RECTAL 10/21/16 14:15 (Lactulose Liq) 30 ml DAILY PRN PO 10/21/16 14:15 (Eliquis) 5 mg BID PO 10/21/16 14:15 10/22/16 08:20 (Lipitor) 20 mg HS PO 10/21/16 21:00 10/21/16 21:01 (Coreg) 3.125 mg DAILY PO 10/21/16 14:15 10/21/16 14:15 (Vitamin B12) 1,000 mcg DAILY PO 10/21/16 14:15 10/22/16 08:20 (Antivert) 25 mg Q8HR PO 10/21/16 14:15 10/22/16 13:11 (Nitrostat Sl) 0.4 mg Q5M PRN SL 10/21/16 14:15 (Plavix) 75 mg DAILY PO 10/21/16 14:15 10/22/16 08:20 (Anthony 5-325 Mg) 1 tab Q6H PRN PO 10/22/16 11:15 10/22/16 17:55 Allergies Allergies Coded Allergies Azithromycin (Verified Allergy, Unknown, RASH, 10/21/16) Review of Systems All other ROS: ROS reviewed as documented in chart Exam I&O / VS 10/21/16 10/21/16 10/22/16 15:00 23:00 07:00 Intake Total 200 ml Output Total 600 ml Balance -400 ml Intake Oral 200 ml Output Urine Total 600 ml # Voids 1 1 2 # Bowel Movements 0 0 Vital Signs Date Time Temp Pulse Resp B/P Pulse Ox O2 Delivery O2 Flow Rate FiO2 10/22/16 16:02 97.7 76 16 107/55 98 10/22/16 12:28 99.2 90 18 116/65 92 10/22/16 09:24 71 10/22/16 08:15 97.1 71 16 109/59 97 10/22/16 04:00 96.0 77 20 101/62 96 10/22/16 00:00 97.1 90 20 107/63 98 10/22/16 00:00 97.1 88 20 107/63 98 10/21/16 20:00 97.1 66 20 112/67 97 10/21/16 20:00 97.1 66 20 112/67 97 General: Alert and Oriented, No acute distress Eye: PERRL, EOMI, Vision unchanged Respiratory: Lungs CTA, Non-labored respirations Cardiology: Normal rate, Regular Rhythm Musculoskeletal: ROM Neurologic: Alert, Oriented, Normal sensory, Normal motor, No focal defects, CN II-XII intact, Normal DTR's Psychiatric: Cooperative, Appropriate mood & affect, Normal judgement Objective Radiology Results Last 72 hours Impressions Brain MRI 10/22/16 0000 Signed Impressions: Service Date/Time: Saturday, October 22, 2016 12:33 - CONCLUSION: Unremarkable study. KRyan Parikh MD Head CT 10/21/16 1145 Signed Impressions: Service Date/Time: Friday, October 21, 2016 12:45 - CONCLUSION: 1. No acute cardiopulmonary findings. Solo Medina MD Chest X-Ray 10/21/16 1145 Signed Impressions: Service Date/Time: Friday, October 21, 2016 11:41 - CONCLUSION: No acute cardiopulmonary disease. Anitha Parikh MD Cervical Spine MRI 10/21/16 0000 Signed Impressions: Service Date/Time: Friday, October 21, 2016 20:03 - CONCLUSION: Ridging C5-C6 and C6-C7. The most significant finding is neuroforaminal encroachment bilaterally. There is no abnormal contrast enhancement. Anthony Medina MD FACR Micro and Labs Laboratory Tests Test 10/22/16 07:10 White Blood Count 6.3 Red Blood Count 4.95 Hemoglobin 14.1 Hematocrit 42.2 Mean Corpuscular Volume 85.2 Mean Corpuscular Hemoglobin 28.5 Mean Corpuscular Hemoglobin 33.4 Concent Red Cell Distribution Width 13.5 Platelet Count 176 Mean Platelet Volume 7.6 Neutrophils (%) (Auto) 54.2 Lymphocytes (%) (Auto) 31.0 Monocytes (%) (Auto) 8.7 Eosinophils (%) (Auto) 5.2 Basophils (%) (Auto) 0.9 Neutrophils # (Auto) 3.4 Lymphocytes # (Auto) 1.9 Monocytes # (Auto) 0.5 Eosinophils # (Auto) 0.3 Basophils # (Auto) 0.1 CBC Comment DIFF FINAL Differential Comment Sodium Level 139 Potassium Level 3.9 Chloride Level 106 Carbon Dioxide Level 25.4 Anion Gap 8 Blood Urea Nitrogen 16 Creatinine 0.98 Estimat Glomerular Filtration 81 Rate Random Glucose 106 Calcium Level 9.0 Magnesium Level 1.8 Total Bilirubin 0.5 Aspartate Amino Transf 18 (AST/SGOT) Alanine Aminotransferase 36 (ALT/SGPT) Alkaline Phosphatase 69 Total Protein 7.3 Albumin 3.4 Beck Espinoza MD Oct 22, 2016 18:29
[2016-10-22] MEDS: ATORVASTATIN 20 MG TAB PO SCH (20:54)
[2016-10-23 00:20] VITALS: BP 116/67; PULSE 86; RESP 16; TEMP 97.2; O2SAT 98
[2016-10-23 03:39] VITALS: BP 113/61; PULSE 77; RESP 20; TEMP 96.8; O2SAT 96
[2016-10-23] MEDS: MECLIZINE HCL 25 MG TAB PO SCH ×2 (05:38→13:09)
[2016-10-23] MEDS: CARVEDILOL 3.125 MG TAB PO SCH (07:57)
[2016-10-23] MEDS: APIXABAN 5 MG TABLET PO SCH (07:57)
[2016-10-23] MEDS: DOCUSATE SODIUM 50 MG/SENNA 8.6 MG TAB PO SCH (07:57)
[2016-10-23] MEDS: SODIUM CHLORIDE 0.9% FLUSH 10 ML FLUSH IV FLUSH SCH (07:57)
[2016-10-23] MEDS: CLOPIDOGREL 75 MG TAB PO SCH (07:57)
[2016-10-23] MEDS: CYANOCOBALAMIN 1,000 MCG TAB PO SCH ×2 (07:58→08:03)
[2016-10-23 08:44] VITALS: BP 109/71; PULSE 78; RESP 18; TEMP 97; O2SAT 98
[2016-10-23 10:34] LABS: AUTOMATED NEUTROPHIL # 3.4 TH/MM3 (1.8-7.7); BASOPHIL # 0.1 TH/MM3 (0-0.2); BASOPHIL % 0.9 % (0.0-2.0); EOSINOPHIL # 0.3 TH/MM3 (0-0.4); EOSINOPHIL % 4.9 % (0.0-4.0); HEMATOCRIT 42.3 % (39.0-51.0); HEMO FLAGS DIFF FINAL; LYMPH % 31.8 % (9.0-44.0); MEAN CELL VOLUME 85.1 FL (80.0-100.0); MEAN CORPUSCULAR HEMOGLOBIN 29.1 PG (27.0-34.0); MEAN CORPUSCULAR HGB CONC 34.2 % (32.0-36.0); MONO % 6.8 % (0.0-8.0); NEUT % 55.6 % (16.0-70.0); PLATELET COUNT 179 TH/MM3 (150-450); RED BLOOD COUNT 4.97 MIL/MM3 (4.50-5.90); RED CELL DISTRIBUTION WIDTH 13.4 % (11.6-17.2); WHITE BLOOD COUNT 6.2 TH/MM3 (4.0-11.0)
[2016-10-23] MEDS: ACETAMINOPHEN/HYDROcodone 325 MG/5 MG TAB PO PRN (10:40)
[2016-10-23 11:13] LABS: ALT (GPT) 38 U/L (12-78); ANION GAP 7 MEQ/L (5-15); AST (GOT) 18 U/L (15-37); BICARBONATE 29.2 MEQ/L (21.0-32.0); BLOOD UREA NITROGEN 14 MG/DL (7-18); CHLORIDE 104 MEQ/L (98-107); GLOMERULAR FILTRATION RATE 79 ML/MIN (>89); POTASSIUM 3.9 MEQ/L (3.5-5.1); SODIUM (NA) 140 MEQ/L (136-145)
[2016-10-23 11:15] LABS: ALKALINE PHOSPHATASE 71 U/L (45-117); TOTAL BILIRUBIN ADULT 0.4 MG/DL (0.2-1.0)
[2016-10-23 12:31] VITALS: BP 110/64; PULSE 80; RESP 18; TEMP 97.5; O2SAT 98
--- NOTE | 2016-10-23 14:47 | HHI.PR ---
Subjective History of Present Illness Patient feel better no acute issue Neurology input noted ok to DC home today. Review of Systems Constitutional Constitutional: Fatigue, Weakness Vitals/Results Intake & Output 10/22/16 10/22/16 10/23/16 15:00 23:00 07:00 Intake Total 360 ml Balance 360 ml Intake Oral 360 ml # Voids 4 Vital Signs Vital Signs Date Time Temp Pulse Resp B/P Pulse Ox O2 Delivery O2 Flow Rate FiO2 10/23/16 12:31 97.5 80 18 110/64 98 10/23/16 08:44 97.0 78 18 109/71 98 10/23/16 03:39 96.8 77 20 113/61 96 10/23/16 00:20 97.2 86 16 116/67 98 10/22/16 20:00 78 10/22/16 20:00 96.8 74 16 131/78 96 10/22/16 16:02 97.7 76 16 107/55 98 CBC/BMP: 10/23/16 0944 10/23/16 0944 Lab Results Laboratory Tests Test 10/23/16 09:44 White Blood Count 6.2 TH/MM3 Red Blood Count 4.97 MIL/MM3 Hemoglobin 14.5 GM/DL Hematocrit 42.3 % Mean Corpuscular Volume 85.1 FL Mean Corpuscular Hemoglobin 29.1 PG Mean Corpuscular Hemoglobin 34.2 % Concent Red Cell Distribution Width 13.4 % Platelet Count 179 TH/MM3 Mean Platelet Volume 7.6 FL Neutrophils (%) (Auto) 55.6 % Lymphocytes (%) (Auto) 31.8 % Monocytes (%) (Auto) 6.8 % Eosinophils (%) (Auto) 4.9 % Basophils (%) (Auto) 0.9 % Neutrophils # (Auto) 3.4 TH/MM3 Lymphocytes # (Auto) 2.0 TH/MM3 Monocytes # (Auto) 0.4 TH/MM3 Eosinophils # (Auto) 0.3 TH/MM3 Basophils # (Auto) 0.1 TH/MM3 CBC Comment DIFF FINAL Differential Comment Sodium Level 140 MEQ/L Potassium Level 3.9 MEQ/L Chloride Level 104 MEQ/L Carbon Dioxide Level 29.2 MEQ/L Anion Gap 7 MEQ/L Blood Urea Nitrogen 14 MG/DL Creatinine 1.00 MG/DL Estimat Glomerular Filtration 79 ML/MIN Rate Random Glucose 127 MG/DL Calcium Level 9.0 MG/DL Total Bilirubin 0.4 MG/DL Aspartate Amino Transf 18 U/L (AST/SGOT) Alanine Aminotransferase 38 U/L (ALT/SGPT) Alkaline Phosphatase 71 U/L Total Protein 7.4 GM/DL Albumin 3.6 GM/DL Physical Exam General General Appearance: Well Developed, Well Nourished Eyes Eye Exam: Pupils Equal, Pupils Reactive, Sclera White, Extraocular Movement Intact Throat Throat Exam: Oral Mucosa [place] & Moist, Oral Pharynx Normal Neck Neck Exam: Neck Supple, Trachea Midline Pulmonary Resp Exam: Clear Bilaterally, Breath Sounds Equal, No Distress Cardiology CV Exam: Regular, Normal Sinus Rhythm Gastrointestinal/Abdomen GI Exam: Soft, Non-Tender, Bowel Sounds Present Musculoskeletal MS Exam: Normal Tone Integumentary Skin Exam: Clear, Warm, Dry, Intact Extremeties Extremities Exam: No Edema Neurologic Neuro Exam: Alert, Awake, Oriented, Speech Clear, Moving All Extremities, No Focal Deficits Psychiatric Psych Exam: Appropriate Responses VTE Prophylaxis VTE Prophylaxis Device: SCDs VTE Remarks Eliquis. PUD Prophylasis PUD Prophylaxis: Protonix Assessment/Plan Assessment/Plan ASSESSMENT AND PLAN 1. This is a 51-year-old male who came to the ER diagnosed with numbness of the right face and dizziness, rule out stroke or TIA. The patient has a history of stroke in the past. The patient is on Plavix and Eliquis. The patient's CT brain does not show anything acute. check an MRI of the brain...shows nothing acute. Neurology input noted. Neuro-checks every 6 hours. Further recommendation per neurology. 2. History of recent myocardial infarction with defibrillation. Continue home medication including Plavix and Eliquis. 3. History of hyperlipidemia. Continue Lipitor 20 mg p.o. daily. 4. History of insomnia. Continue Ambien 5 mg p.o. daily. 5. History of B12 deficiency. Continue vitamin-B12 1000 mcg p.o. daily. 6. History of dizziness. Continue with Antivert 25 mg p.o. t.i.d. 7. DVT prophylaxis. The patient is on Eliquis. 8. GI prophylaxis. Protonix 40 mg p.o. daily. ok to DC home today. f/u with PCP / Neurology 1 week. condition at discharge good. Activity as tolerated. Diet Cardiac Medicine see discharge medicine list. Discussed Condition with: Patient Balta Sanchez MD Oct 23, 2016 14:47
== END 2016-10-23 15:56 | disposition home or self-care (01) ==
LOC: NEPC 10:54 → NEDA 13:57 → N05B 17:13
PROVIDERS: ADMIT Family Medicine; ATTEND Family Medicine
DX: M50.322 Other cervical disc degeneration at C5-C6 level (principal); R20.0 Anesthesia of skin; D68.51 Activated protein C resistance; I25.10 Atherosclerotic heart disease of native coronary artery without angina pectoris; E78.5 Hyperlipidemia, unspecified; G47.00 Insomnia, unspecified; E53.8 Deficiency of other specified B group vitamins; Z86.718 Personal history of other venous thrombosis and embolism; Z79.01 Long term (current) use of anticoagulants; Z86.711 Personal history of pulmonary embolism; I25.2 Old myocardial infarction; Z87.891 Personal history of nicotine dependence; Z86.73 Personal history of transient ischemic attack (TIA), and cerebral infarction without residual deficits; Z79.899 Other long term (current) drug therapy; G45.9 Transient cerebral ischemic attack, unspecified
CPT/HCPCS: 70450; 70551; 71010; 72156; 80053; 81001; 82550; 83735; 84484; 85025; 93005; 99285; A9579; G0378

== ENCOUNTER 2016-11-21 21:29 | Observation (INO) | payer OTHER ==
[~2016-11-21] VITALS: Ht 167.6 cm; Wt 93.3 kg
[2016-11-21] VITALS (7 sets, daily range): BP systolic 103–138; BP diastolic 58–89; PULSE 74–88; RESP 16; TEMP 98.2; O2SAT 99–100
[~2016-11-21 21:29] MED LIST changes: -HYDR-3516 PO
[2016-11-21] MEDS ORDERED: HYDRO (21:54)
[2016-11-21] MEDS ORDERED: NITROGLYCERIN 0.4 MG SL 25 TABS/BTL SL ONE (22:00)
--- NOTE | 2016-11-21 22:01 | PD ---
HPI Chief Complaint: Chest Pain Time Seen by Provider: 21:44 Travel History International Travel<30 days: No Contact w/Intl Traveler<30days: No Traveled to known affect area: No History of Present Illness HPI 51yo M with PMH of CAD s/p vfib arrest and cardiac cath for STEMI 09/09/16, DVT, factor V leiden on eliquis, CVA, HLD presents to the ED with c/o left sided chest pain that started at 9pm. States pain is constant, sharp and nonradiating. Pt had some numbness in left arm that has resolved. Associated with nausea and diaphoresis and sob. Denies any fever, vomiting, abdominal pain , focal weakness. Pt also feels like he will pass out and pressure in his head. Dr. Allen is his belt lacer. PFSH Past Medical History Hx Anticoagulant Therapy: Yes (eloquis) Blood Disorders: Yes (FACTOR V) Anxiety: No Depression: No Heart Rhythm Problems: No Cancer: No Cardiac Catheterization: Yes Cardiovascular Problems: Yes (stents) High Cholesterol: Yes Chemotherapy: No Chest Pain: Yes Congestive Heart Failure: No COPD: No Cerebrovascular Accident: Yes Diminished Hearing: No Deep Vein Thrombosis: Yes Endocrine: No Gastrointestinal Disorders: No Genitourinary: No Hypertension: Yes Immune Disorder: No Implanted Vascular Access Dvce: No Musculoskeletal: No Neurologic: No Psychiatric: No Reproductive: No Respiratory: Yes (BILATERAL PE) Myocardial Infarction: Yes Radiation Therapy: No Seizures: No Sleep Apnea: No ?: Not Past Surgical History Abdominal Surgery: Yes (INGUINAL HERNIA REPAIR) AICD: No Appendectomy: Yes Coronary Stent: Yes (X2) Pacemaker: No Tonsillectomy: Yes Other Surgery: Yes Social History Alcohol Use: No (PT DENIES) Tobacco Use: No (QUIT 09/07/16) Substance Use: No Allergies-Medications (Allergen,Severity, Reaction): Coded Allergies: Azithromycin (Verified Allergy, Unknown, RASH, 10/21/16) Reported Meds & Prescriptions Reported Meds & Active Scripts Active Meclizine 25 (Meclizine HCl) 25 Mg Tab 25 Mg PO Q8HR Lipitor (Atorvastatin Calcium) 20 Mg Tab 20 Mg PO HS Nitrostat SL (Nitroglycerin) 0.4 Mg Subl 0.4 Mg SL Q5M PRN Restoril (Temazepam) 15 Mg Cap 15 Mg PO HS PRN Vitamin B-12 (Cyanocobalamin) 1,000 Mcg Tab 1,000 Mcg PO DAILY Eliquis (Apixaban) 5 Mg Tab 5 Mg PO BID Reported [ [place]] Plavix (Clopidogrel Bisulfate) 75 Mg Tab 75 Mg PO DAILY Carvedilol 3.125 Mg Tab 3.125 Mg PO DAILY Review of Systems Except as stated in HPI: all other systems reviewed are Neg Physical Exam Narrative GENERAL: 51yo M in moderate distress. SKIN: Focused skin assessment warm/dry. HEAD: Atraumatic. Normocephalic. EYES: Pupils equal and round. No scleral icterus. No injection or drainage. ENT: No nasal bleeding or discharge. Mucous membranes pink and moist. NECK: Trachea midline. No JVD. CARDIOVASCULAR: Regular rate and rhythm. No murmur appreciated. RESPIRATORY: No accessory muscle use. Clear to auscultation. Breath sounds equal bilaterally. GASTROINTESTINAL: Abdomen soft, non-tender, nondistended. No rebound tenderness or guarding. MUSCULOSKELETAL: No obvious deformities. No clubbing. No cyanosis. No edema. NEUROLOGICAL: Awake and alert. No obvious cranial nerve deficits. Motor grossly within normal limits. Normal speech. PSYCHIATRIC: Appropriate mood and affect; insight and judgment normal. Data Data Last Documented VS Vital Signs Date Time Temp Pulse Resp B/P Pulse Ox O2 Delivery O2 Flow Rate FiO2 11/21/16 23:22 74 16 113/71 100 11/21/16 23:03 Room Air 11/21/16 22:46 2 11/21/16 21:35 98.2 Orders Nitroglycerin Sl (Nitrostat Sl) (11/21/16 22:00) Basic Metabolic Panel (Bmp) (11/21/16 21:53) Ckmb (Isoenzyme) Profile (11/21/16 21:53) Complete Blood Count With Diff (11/21/16 21:53) Magnesium (Mg) (11/21/16 21:53) Prothrombin Time / Inr (Pt) (11/21/16 21:53) Act Partial Throm Time (Ptt) (11/21/16 21:53) Troponin I (11/21/16 21:53) Chest, Single Ap (11/21/16 21:53) Ondansetron Odt (Zofran Odt) (11/21/16 22:15) Ondansetron Inj (Zofran Inj) (11/21/16 22:15) Ct Brain W/O Iv Contrast(Rout) (11/21/16 ) CKMB (11/21/16 22:00) CKMB% (11/21/16 22:00) Lorazepam Inj (Ativan Inj) (11/21/16 23:15) Admit Order (Ed Use Only) (11/21/16 23:29) Consult Cardiology (11/21/16 ) Place In Observation (11/21/16 ) Code Status (11/21/16 23:29) Vital Signs (Adult) Q4H (11/21/16 23:29) Activity Oob Ad Delaney (11/21/16 23:29) Administrative Program Specialist / Telemetry .CONTINUOUS (11/21/16 23:29) Diet Heart Healthy (11/22/16 Breakfast) Sodium Chlor 0.9% 1000 Ml Inj (Ns 1000 M (11/21/16 23:29) Sodium Chloride 0.9% Flush (Ns Flush) (11/21/16 23:30) Sodium Chloride 0.9% Flush (Ns Flush) (11/22/16 09:00) Ondansetron Inj (Zofran Inj) (11/21/16 23:30) Basic Metabolic Panel (Bmp) (11/22/16 06:00) Complete Blood Count With Diff (11/22/16 06:00) Troponin I (11/21/16 23:29) Troponin I (11/22/16 05:29) Scd Bilateral/Knee High [place].BID (11/21/16 23:29) Naloxone Inj (Narcan Inj) (11/21/16 23:30) Docusate Sodium-Senna (Camila-Colace) (11/22/16 09:00) Magnesium Hydroxide Liq (Milk Of Magnesi (11/21/16 23:30) Sennosides (Senokot) (11/21/16 23:30) Bisacodyl Supp (Dulcolax Supp) (11/21/16 23:30) Lactulose Liq (Lactulose Liq) (11/21/16 23:30) Famotidine (Pepcid) (11/22/16 21:00) Nitroglycerin Sl (Nitrostat Sl) (11/21/16 23:45) Atorvastatin (Lipitor) (11/22/16 21:00) Carvedilol (Coreg) (11/22/16 09:00) Cyanocobalamin (Vitamin B12) (11/22/16 09:00) Labs Laboratory Tests Test 11/21/16 22:00 White Blood Count 8.4 TH/MM3 Red Blood Count 5.04 MIL/MM3 Hemoglobin 14.5 GM/DL Hematocrit 42.8 % Mean Corpuscular Volume 84.8 FL Mean Corpuscular Hemoglobin 28.8 PG Mean Corpuscular Hemoglobin 33.9 % Concent Red Cell Distribution Width 12.5 % Platelet Count 195 TH/MM3 Mean Platelet Volume 7.7 FL Neutrophils (%) (Auto) 56.2 % Lymphocytes (%) (Auto) 31.5 % Monocytes (%) (Auto) 7.5 % Eosinophils (%) (Auto) 2.9 % Basophils (%) (Auto) 1.9 % Neutrophils # (Auto) 4.7 TH/MM3 Lymphocytes # (Auto) 2.7 TH/MM3 Monocytes # (Auto) 0.6 TH/MM3 Eosinophils # (Auto) 0.2 TH/MM3 Basophils # (Auto) 0.2 TH/MM3 CBC Comment DIFF FINAL Differential Comment Prothrombin Time 11.1 SEC Prothromb Time International 1.0 RATIO Ratio Activated Partial 26.1 SEC Thromboplast Time Sodium Level 139 MEQ/L Potassium Level 3.9 MEQ/L Chloride Level 104 MEQ/L Carbon Dioxide Level 27.2 MEQ/L Anion Gap 8 MEQ/L Blood Urea Nitrogen 18 MG/DL Creatinine 1.20 MG/DL Estimat Glomerular Filtration 64 ML/MIN Rate Random Glucose 153 MG/DL Calcium Level 8.7 MG/DL Magnesium Level 1.7 MG/DL Total Creatine Kinase 126 U/L Creatine Kinase MB 1.3 NG/ML Troponin I 0.04 NG/ML MDM Medical Decision Making Medical Screen Exam Complete: Yes Emergency Medical Condition: Yes Interpretation(s) EKG: NSR 92bpm. Normal axis. Q wave in V1, V2, V3. 1mm ST elevation in V2, V3 that is unchanged from EKG on 09/25/16. TWI V2, V3 unchanged from prior. No reciprocal changes. Laboratory Tests Test 11/21/16 22:00 White Blood Count 8.4 TH/MM3 (4.0-11.0) Red Blood Count 5.04 MIL/MM3 (4.50-5.90) Hemoglobin 14.5 GM/DL (13.0-17.0) Hematocrit 42.8 % (39.0-51.0) Mean Corpuscular Volume 84.8 FL (80.0-100.0) Mean Corpuscular Hemoglobin 28.8 PG (27.0-34.0) Mean Corpuscular Hemoglobin 33.9 % Concent (32.0-36.0) Red Cell Distribution Width 12.5 % (11.6-17.2) Platelet Count 195 TH/MM3 (150-450) Mean Platelet Volume 7.7 FL (7.0-11.0) Neutrophils (%) (Auto) 56.2 % (16.0-70.0) Lymphocytes (%) (Auto) 31.5 % (9.0-44.0) Monocytes (%) (Auto) 7.5 % (0.0-8.0) Eosinophils (%) (Auto) 2.9 % (0.0-4.0) Basophils (%) (Auto) 1.9 % (0.0-2.0) Neutrophils # (Auto) 4.7 TH/MM3 (1.8-7.7) Lymphocytes # (Auto) 2.7 TH/MM3 (1.0-4.8) Monocytes # (Auto) 0.6 TH/MM3 (0-0.9) Eosinophils # (Auto) 0.2 TH/MM3 (0-0.4) Basophils # (Auto) 0.2 TH/MM3 (0-0.2) CBC Comment DIFF FINAL Differential Comment Prothrombin Time 11.1 SEC (9.8-11.6) Prothromb Time International 1.0 RATIO Ratio Activated Partial 26.1 SEC Thromboplast Time (24.3-30.1) Sodium Level 139 MEQ/L (136-145) Potassium Level 3.9 MEQ/L (3.5-5.1) Chloride Level 104 MEQ/L (98-107) Carbon Dioxide Level 27.2 MEQ/L (21.0-32.0) Anion Gap 8 MEQ/L (5-15) Blood Urea Nitrogen 18 MG/DL (7-18) Creatinine 1.20 MG/DL (0.60-1.30) Estimat Glomerular Filtration 64 ML/MIN (>89) Rate Random Glucose 153 MG/DL (74-106) Calcium Level 8.7 MG/DL (8.5-10.1) Magnesium Level 1.7 MG/DL (1.5-2.5) Total Creatine Kinase 126 U/L (39-308) Creatine Kinase MB 1.3 NG/ML (0.5-3.6) Troponin I 0.04 NG/ML (0.02-0.05) Last Impressions Chest X-Ray 11/21/16 2153 Signed Impressions: Service Date/Time: November 22:09 - CONCLUSION: No evidence of acute cardiopulmonary disease. Dusty Loja MD Head CT 11/21/16 0000 Signed Impressions: Service Date/Time: November 22:52 - CONCLUSION: Negative noncontrast head CT. Dusty Loja MD Differential Diagnosis ACS vs. anxiety vs. arrythmia Narrative Course 51yo M with CAD, recent OK here with left sided chest pain. EKG shows recent OK and is essentially unchanged from prior. Pt took 2 sublingual nitroglycerin which helped with his chest pain but still had a 6 out of 10 chest pain when he arrived. Pt was given another sublingual nitro and reevaluated at bedside. States he is chest pain free now. Labs reviewed, no leukocytosis. Troponin 0.04. CXR showed no evidence of acute cardiopulmonary disease. However, he is now very concern about the pressure in his head that started at 9pm as well. States it is not pain and it is difficult to describe. I feel that pt is very anxious since his vfib arrest and STEMI. It is understandable and he has been here multiple times since then. Will give ativan 1mg IV. CT brain negative. However, pt describes a typical chest pain and has significant risk factors for CAD and it is possible to have restenosis of his stent. I discussed with belt lacer Dr. Margoth Funez who is covering Dr. Allen and agree to transfer the patient to [facility] in case they decide to cath him later. Discussed with [facility] hospitalist EUNICE and accepted under Dr. Conley's service. Diagnosis Primary Impression: Chest pain Qualified Code: R07.9 - Chest pain, unspecified type Admitting Information Admitting Physician Requests: Observation Jessica Brice DO Nov 21, 2016 22:01
[2016-11-21] MEDS ORDERED: ONDANSETRON ODT 4 MG TAB PO ONE (22:15)
[2016-11-21] MEDS ORDERED: ONDANSETRON HCL 4 MG/2 ML VIAL IV PUSH ONE (22:15)
[2016-11-21 22:16] LABS: AUTOMATED NEUTROPHIL # 4.7 TH/MM3 (1.8-7.7); BASOPHIL # 0.2 TH/MM3 (0-0.2); BASOPHIL % 1.9 % (0.0-2.0); EOSINOPHIL # 0.2 TH/MM3 (0-0.4); EOSINOPHIL % 2.9 % (0.0-4.0); HEMATOCRIT 42.8 % (39.0-51.0); HEMO FLAGS DIFF FINAL; LYMPH % 31.5 % (9.0-44.0); LYMPHOCYTE # 2.7 TH/MM3 (1.0-4.8); MEAN CELL VOLUME 84.8 FL (80.0-100.0); MEAN CORPUSCULAR HEMOGLOBIN 28.8 PG (27.0-34.0); MEAN CORPUSCULAR HGB CONC 33.9 % (32.0-36.0); MONO % 7.5 % (0.0-8.0); NEUT % 56.2 % (16.0-70.0); PLATELET COUNT 195 TH/MM3 (150-450); RED BLOOD COUNT 5.04 MIL/MM3 (4.50-5.90); RED CELL DISTRIBUTION WIDTH 12.5 % (11.6-17.2); WHITE BLOOD COUNT 8.4 TH/MM3 (4.0-11.0)
[2016-11-21 22:29] LABS: APTT (PATIENT) 26.1 SEC (24.3-30.1); PROTHROMBIN TIME - PATIENT 11.1 SEC (9.8-11.6)
[2016-11-21 22:36] LABS: CHLORIDE 104 MEQ/L (98-107); POTASSIUM 3.9 MEQ/L (3.5-5.1); SODIUM (NA) 139 MEQ/L (136-145)
[2016-11-21 22:39] LABS: ANION GAP 8 MEQ/L (5-15); BICARBONATE 27.2 MEQ/L (21.0-32.0); BLOOD UREA NITROGEN 18 MG/DL (7-18); MAGNESIUM 1.7 MG/DL (1.5-2.5)
[2016-11-21 22:42] LABS: GLOMERULAR FILTRATION RATE 64 ML/MIN (>89)
[2016-11-21 22:45] LABS: CREATINE KINASE 126 U/L (39-308)
[2016-11-21 22:58] LABS: CKMB 1.3 NG/ML (0.5-3.6)
[2016-11-21] MEDS ORDERED: LORazepam 2 MG/ML VIAL IV PUSH ONE (23:15)
--- NOTE | 2016-11-21 23:19 | RADRPT ---
EXAM DATE/TIME: 11/21/2016 22:09 [facility] COMPARISON: CHEST SINGLE AP, October 21, 2016, 11:41. INDICATIONS : Chest pain and shortness of breath. MEDICAL HISTORY : Myocardial infarction. SURGICAL HISTORY : Coronary artery stent. ENCOUNTER: Initial ACUITY: 1 day PAIN SCORE: 5/10 LOCATION: Left chest FINDINGS: A single view of the chest demonstrates the lungs to be symmetrically aerated without evidence of mas s, infiltrate or effusion. The cardiomediastinal contours are unremarkable. Osseous structures are intact. CONCLUSION: No evidence of acute cardiopulmonary disease. Dusty Loja MD on November 21, 2016 at 23:18 Board Certified Radiologist. This report was verified electronically.
--- NOTE | 2016-11-21 23:28 | RADRPT ---
EXAM DATE/TIME: 11/21/2016 22:52 [facility] COMPARISON: MRI BRAIN W/O CONTRAST, October 22, 2016, 12:33. CT BRAIN W/O CONTRAST, October 21, 2016, 12:45. INDICATIONS : Cephalgia. RADIATION DOSE: 63.67 CTDIvol (mGy) MEDICAL HISTORY : Cerebrovascular disease. Cardiovascular disease CVA SURGICAL HISTORY : Coronary artery stent. ENCOUNTER: Initial ACUITY: 1 day PAIN SCALE: 0/10 LOCATION: cranial TECHNIQUE: Multiple contiguous axial images were obtained of the head. Using automated exposure control and adj ustment of the mA and/or kV according to patient size, radiation dose was kept as low as reasonably a chievable to obtain optimal diagnostic quality images. DICOM format image data is available electro nically for review and comparison. FINDINGS: CEREBRUM: The ventricles are normal for age. No evidence of midline shift, mass lesion, hemorrhage or acute in farction. No extra-axial fluid collections are seen. POSTERIOR FOSSA: The cerebellum and brainstem are intact. The 4th ventricle is midline. The cerebellopontine angle i s unremarkable. EXTRACRANIAL: The visualized portion of the orbits is intact. SKULL: The calvaria is intact. No evidence of skull fracture. CONCLUSION: Negative noncontrast head CT. Dusty Loja MD on November 21, 2016 at 23:26 Board Certified Radiologist. This report was verified electronically.
[2016-11-21] MEDS ORDERED: NALOXONE HCL 0.4 MG/ML AMP IV PRN (23:30)
[2016-11-21] MEDS ORDERED: MAGNESIUM HYDROXIDE SUSP 30 ML CUP PO PRN (23:30)
[2016-11-21] MEDS ORDERED: LACTULOSE SYRUP 20 GM/30 ML CUP PO PRN (23:30)
[2016-11-21] MEDS ORDERED: ONDANSETRON HCL 4 MG/2 ML VIAL IVP PRN (23:30)
[2016-11-21] MEDS ORDERED: BISACODYL 10 MG SUPP RECTAL PRN (23:30)
[2016-11-21] MEDS ORDERED: SENNOSIDES 8.6 MG TAB PO PRN (23:30)
[2016-11-21] MEDS ORDERED: SODIUM CHLORIDE 0.9% FLUSH 10 ML FLUSH IV FLUSH PRN (23:30)
[2016-11-21] MEDS ORDERED: NITROGLYCERIN 0.4 MG SL 25 TABS/BTL SL PRN (23:45)
[2016-11-22] VITALS (13 sets, daily range): BP systolic 107–120; BP diastolic 52–74; PULSE 71–88; RESP 16–20; TEMP 97.9–98.4; O2SAT 95–99
[2016-11-22] MEDS: SODIUM CHLORIDE 0.9% FLUSH 10 ML FLUSH IV FLUSH SCH ×2 (00:27→21:53)
[2016-11-22] MEDS: SODIUM CHLOR 0.9% 1000 ML INJ 1,000 ML IV SCH ×3 (00:27→19:29)
[2016-11-22 06:34] LABS: AUTOMATED NEUTROPHIL # 3.9 TH/MM3 (1.8-7.7); BASOPHIL # 0.1 TH/MM3 (0-0.2); BASOPHIL % 0.9 % (0.0-2.0); EOSINOPHIL # 0.2 TH/MM3 (0-0.4); EOSINOPHIL % 2.9 % (0.0-4.0); HEMATOCRIT 38.8 % (39.0-51.0); HEMO FLAGS DIFF FINAL; LYMPHOCYTE # 2.8 TH/MM3 (1.0-4.8); MEAN CELL VOLUME 84.5 FL (80.0-100.0); MEAN CORPUSCULAR HEMOGLOBIN 29.6 PG (27.0-34.0); MEAN CORPUSCULAR HGB CONC 35.1 % (32.0-36.0); MONO % 8.8 % (0.0-8.0); NEUT % 50.4 % (16.0-70.0); PLATELET COUNT 165 TH/MM3 (150-450); RED CELL DISTRIBUTION WIDTH 13.6 % (11.6-17.2); WHITE BLOOD COUNT 7.7 TH/MM3 (4.0-11.0)
[2016-11-22 06:58] LABS: BICARBONATE 26.9 MEQ/L (21.0-32.0); POTASSIUM 3.6 MEQ/L (3.5-5.1)
--- NOTE | 2016-11-22 09:38 | MH ---
cc: DAYNE VANCE MD DATE OF ADMISSION 11/21/2016 DATE OF 1965 TRAVEL IN THE LAST 30 DAYS None CHIEF COMPLAINT Chest pain, left arm numbness HISTORY OF PRESENT ILLNESS This is a very pleasant 51-year-old male with a significant cardiac and was in the hospital on September 09, 2016 for cardiac cath for a STEMI. He also had suffered from V. Fib cardiac arrest. The patient does have Factor V Leiden and he is on Eliquis. The patient noticed some numbness and tingling in his left hand and normal last night, but states that he has some arthritis and pain in his neck and back sometimes and thought that he would get over the numbness and be able to go to sleep. About 30 minutes later, he started having midsternal chest pain. He noted diaphoresis, hot sweaty sensation and lightheadedness. He states that he felt like he was coming and going with his consciousness for a few minutes and did have a feeling of shortness of breath. He denied any nausea or vomiting and decided to come to the emergency room for further evaluation due to his history. He took his medications yesterday morning as warranted, but had not taken any of his meds last night when his pain and numbness event began. The patient did noted he started a walking regimen approximately 10 days ago. He felt some shortness of breath, but felt like he was tolerating that fairly well. MEDICAL HISTORY Includes: 1. Factor V blood disorders 2. Recent DC with cardiac stents. 3. Recent V. Fib cardiac arrest. 4. Coronary artery disease 5. Hyperlipidemia 6. History of chest pain. 7. Degenerative disk disease 8. Bilateral PE 9. History of CVA and DVT 10. Hypertension She had an IV site. PAST SURGICAL HISTORY 1. Bilateral hernia repair 2. Cardiac stents x2 3. Tonsillectomy 4. Appendectomy ALLERGIES AZITHROMYCIN ACTIVE MEDICATIONS 1. Meclizine 2. Lipitor 3. Nitroglycerin sublingual 4. Restoril 5. Vitamin B12 6. Eliquis REPORTED MEDICATIONS 1. Plavix 2. Carvedilol SOCIAL HISTORY The patient quit smoking back in Aug, 2016 when his event happened. He has not smoked since. Denies any alcohol or illicit drug use. He is currently lives at home with his . REVIEW OF SYSTEMS A 12-point review was obtained. Positives noted was the left arm numbness and pain, left midsternal to left-sided chest pain, it does radiate back into his neck. He had diaphoresis, light headedness, hot flashes. Other systems negative or unremarkable except that he only took half his medications yesterday. PHYSICAL EXAM VITAL SIGNS: Temperature is 98.1, pulse 77, respirations 20, blood pressure 112/62, O2 sat 97-98 on room air. GENERAL: A well-nourished, well-developed male looks to be his stated age resting in the bed. He is alert, oriented, cooperative and a good historian. SKIN: [place] mucous membranes, warm and dry. HEENT: Atraumatic, normocephalic. PERRL at 3. No scleral icterus. Mucous membranes are pink and moist. NECK: Supple. CARDIOVASCULAR: S1-S2, rhythm is regular, sinus in the 70's to 80's. His heart sounds were distant, but he had no audible murmur, rub or gallops. RESPIRATORY: Essentially clear anteriorly and posteriorly with no wheezes, rales or rhonchi. ABDOMEN: Round, soft, nontender, nondistended. Bowel sounds are soft, but active. MUSCULOSKELETAL: Moves all extremities with purpose. No edema. No cyanosis, no obvious deformities. NEUROLOGIC: He is awake, alert, mildly anxious over his current condition, equal [place] historian. Speech is clear and normal PSYCHIATRIC: Mood and affect are appropriate. DIAGNOSTIC DATA WBC count 7.7, RBC 4.6, hemoglobin 13.6, hematocrit 38.8, monocyte count on the diff is 8.8, all other trends are normal. PT/INR is 1. Chemistry sodium 140, potassium 3.6, chloride 106, BUN 14, creatinine 0.95, GFR 84, random glucose 99, calcium 8.62, troponin's mildly positive at 1.04, 1.05, and 1.04. IMAGING STUDIES Chest x-ray showed no evidence of cardiopulmonary disease. Head CT negative noncontrast head CT. ASSESSMENT/PLAN 1. Chest pain, rule out DC, rule out cardiac event. The patient does have mild positive troponin's, left arm numbness and pain. 2. Factor V Leiden 3. Hyperlipidemia 4. Near syncopal episode Our plan is to admit. With the patient's known heart disease, he will need to be ruled out and be seen per cardiology for their expert opinion for any further testing. The patient notes his last stress test was within normal range he states. We will follow his medical management with cardiology. We will monitor his labs, reconcile his medications, monitor his bowel regimen which he says has given him no issues per now. He does have some occasional diarrhea, but he takes medication whenever needed. The patient will be in observation status and we will check his labs again tomorrow. The patient is full code for aggressive care and we will follow. Dictated by: KARLI Bentley MD FLORI Connors/IVETTE /8:34 AM /9:09 AM Above reviewed myself, Dr Vance, today Dr. Sanchez will follow Discussed with mid level provider MATT
--- NOTE | 2016-11-22 09:52 | HHI.PR ---
Subjective History of Present Illness Patient deny any chest pain or SOB. Review of Systems Constitutional Constitutional: Fatigue, Weakness Vitals/Results Intake & Output 11/21/16 11/21/16 11/22/16 14:59 22:59 06:59 Output Total 400 ml Balance -400 ml Output Urine Total 400 ml # Voids 1 Vital Signs Vital Signs Date Time Temp Pulse Resp B/P Pulse Ox O2 Delivery O2 Flow Rate FiO2 11/22/16 08:50 76 11/22/16 07:14 98.1 77 20 112/62 97 11/22/16 03:54 78 11/22/16 02:15 78 11/22/16 02:10 98.2 71 18 111/56 98 11/22/16 01:30 77 16 108/74 98 Room Air 11/22/16 00:34 74 16 111/72 99 11/21/16 23:22 74 16 113/71 100 11/21/16 23:03 77 16 103/89 99 Room Air 11/21/16 22:46 78 16 103/58 100 Nasal Cannula 2 11/21/16 22:30 88 108/61 11/21/16 22:20 86 117/72 11/21/16 22:15 84 110/72 11/21/16 21:47 18 99 11/21/16 21:35 98.2 78 16 138/76 99 CBC/BMP: 11/22/16 0610 11/22/16 0610 Lab Results Laboratory Tests Test 11/21/16 11/21/16 11/22/16 22:00 23:50 06:10 White Blood Count 8.4 TH/MM3 7.7 TH/MM3 Red Blood Count 5.04 MIL/MM3 4.60 MIL/MM3 Hemoglobin 14.5 GM/DL 13.6 GM/DL Hematocrit 42.8 % 38.8 % Mean Corpuscular Volume 84.8 FL 84.5 FL Mean Corpuscular Hemoglobin 28.8 PG 29.6 PG Mean Corpuscular Hemoglobin 33.9 % 35.1 % Concent Red Cell Distribution Width 12.5 % 13.6 % Platelet Count 195 TH/MM3 165 TH/MM3 Mean Platelet Volume 7.7 FL 7.8 FL Neutrophils (%) (Auto) 56.2 % 50.4 % Lymphocytes (%) (Auto) 31.5 % 37.0 % Monocytes (%) (Auto) 7.5 % 8.8 % Eosinophils (%) (Auto) 2.9 % 2.9 % Basophils (%) (Auto) 1.9 % 0.9 % Neutrophils # (Auto) 4.7 TH/MM3 3.9 TH/MM3 Lymphocytes # (Auto) 2.7 TH/MM3 2.8 TH/MM3 Monocytes # (Auto) 0.6 TH/MM3 0.7 TH/MM3 Eosinophils # (Auto) 0.2 TH/MM3 0.2 TH/MM3 Basophils # (Auto) 0.2 TH/MM3 0.1 TH/MM3 CBC Comment DIFF FINAL DIFF FINAL Differential Comment Prothrombin Time 11.1 SEC Prothromb Time International 1.0 RATIO Ratio Activated Partial 26.1 SEC Thromboplast Time Sodium Level 139 MEQ/L 140 MEQ/L Potassium Level 3.9 MEQ/L 3.6 MEQ/L Chloride Level 104 MEQ/L 106 MEQ/L Carbon Dioxide Level 27.2 MEQ/L 26.9 MEQ/L Anion Gap 8 MEQ/L 7 MEQ/L Blood Urea Nitrogen 18 MG/DL 14 MG/DL Creatinine 1.20 MG/DL 0.95 MG/DL Estimat Glomerular Filtration 64 ML/MIN 84 ML/MIN Rate Random Glucose 153 MG/DL 99 MG/DL Calcium Level 8.7 MG/DL 8.6 MG/DL Magnesium Level 1.7 MG/DL Total Creatine Kinase 126 U/L Creatine Kinase MB 1.3 NG/ML Troponin I 0.04 NG/ML 0.05 NG/ML 0.04 NG/ML Physical Exam General General Appearance: Well Developed, Well Nourished, No Acute Distress, Comfortable Eyes Eye Exam: Sclera White, Extraocular Movement Intact Throat Throat Exam: Oral Mucosa [place] & Moist, Oral Pharynx Normal Neck Neck Exam: Neck Supple, Trachea Midline Pulmonary Resp Exam: Clear Bilaterally, Breath Sounds Equal, No Distress Cardiology CV Exam: Regular, Normal Sinus Rhythm Gastrointestinal/Abdomen GI Exam: Soft, Non-Tender, Bowel Sounds Present Musculoskeletal MS Exam: Normal Tone Integumentary Skin Exam: Clear, Warm, Dry, Intact Extremeties Extremities Exam: No Edema Neurologic Neuro Exam: Alert, Awake, Oriented, Speech Clear, No Focal Deficits Psychiatric Psych Exam: Appropriate Responses VTE Prophylaxis VTE Remarks eliquis PUD Prophylasis PUD Remarks Famotidine. Assessment/Plan Assessment/Plan ASSESSMENT/PLAN 1. Chest pain, rule out [place], rule out cardiac event. The patient does have mild positive troponin's, left arm numbness and pain. 2. Factor V Leiden 3. Hyperlipidemia 4. Near syncopal episode 5. Depression 6. B12 Deficiency....on Replacement. 7. Dizziness on meclizine. 8. Hyperlipidemia continue home medicine. 9. Insomania on restoril. With the patient's known heart disease, he will need to be ruled out and be seen per cardiology for their expert opinion for any further testing. The patient notes his last stress test was within normal range he states. We will follow his medical management with cardiology. We will monitor his labs,, monitor his bowel regimen which he says has given him no issues per now. He does have some occasional diarrhea, but he takes medication whenever needed. Discussed Condition with: Patient Balta Sanchez MD Nov 22, 2016 09:52
[2016-11-22] MEDS: CARVEDILOL 3.125 MG TAB PO SCH (10:34)
[2016-11-22] MEDS: DOCUSATE SODIUM 50 MG/SENNA 8.6 MG TAB PO SCH ×2 (10:34→21:50)
[2016-11-22] MEDS: CYANOCOBALAMIN 1,000 MCG TAB PO SCH (10:34)
[2016-11-22] MEDS ORDERED: NITROGLYCERIN 0.4 MG SL 25 TABS/BTL SL PRN (12:45)
--- NOTE | 2016-11-22 14:11 | EKG ---
Date Performed: 11/21/2016 Time Performed: 21:37:52 PTAGE: 51 years EKG: Anteroseptal myocardial infarction of undetermined age Borderline first degree AV block PREVIOUS TRACING : 10/21/2016 12.32 Since previous tracing, there is some improvement in T-wave changes anterolaterally. DOCTOR: Adryan Raymundo Interpretating Date/Time 11/22/2016 14:10:01
[2016-11-22] MEDS: CLOPIDOGREL 75 MG TAB PO SCH (14:43)
[2016-11-22] MEDS: APIXABAN 5 MG TABLET PO SCH ×2 (14:43→21:51)
[2016-11-22] MEDS: MECLIZINE HCL 25 MG TAB PO SCH ×2 (14:43→21:51)
[2016-11-22] MEDS ORDERED: ATORVASTATIN 20 MG TAB PO SCH (21:00)
[2016-11-22] MEDS ORDERED: TEMAZEPAM 15 MG CAP PO PRN (21:00)
[2016-11-22] MEDS ORDERED: FAMOTIDINE 20 MG TAB PO SCH (21:00)
[2016-11-23] VITALS: PULSE 78
[2016-11-23 04:13] VITALS: PULSE 66
[2016-11-23 04:30] VITALS: BP 111/63; PULSE 65; RESP 18; TEMP 98.5; O2SAT 97
[2016-11-23] MEDS: SODIUM CHLOR 0.9% 1000 ML INJ 1,000 ML IV SCH (05:29)
[2016-11-23] MEDS: MECLIZINE HCL 25 MG TAB PO SCH ×2 (05:49→14:00)
[2016-11-23 06:20] LABS: AUTOMATED NEUTROPHIL # 3.3 TH/MM3 (1.8-7.7); BASOPHIL # 0.1 TH/MM3 (0-0.2); EOSINOPHIL # 0.3 TH/MM3 (0-0.4); EOSINOPHIL % 4.1 % (0.0-4.0); HEMATOCRIT 40.8 % (39.0-51.0); HEMO FLAGS DIFF FINAL; LYMPH % 34.8 % (9.0-44.0); LYMPHOCYTE # 2.2 TH/MM3 (1.0-4.8); MEAN CELL VOLUME 84.6 FL (80.0-100.0); MEAN CORPUSCULAR HEMOGLOBIN 29.7 PG (27.0-34.0); MEAN CORPUSCULAR HGB CONC 35.1 % (32.0-36.0); MONO % 8.9 % (0.0-8.0); NEUT % 51.2 % (16.0-70.0); PLATELET COUNT 159 TH/MM3 (150-450); RED BLOOD COUNT 4.82 MIL/MM3 (4.50-5.90); RED CELL DISTRIBUTION WIDTH 13.5 % (11.6-17.2); WHITE BLOOD COUNT 6.4 TH/MM3 (4.0-11.0)
[2016-11-23 06:47] LABS: ANION GAP 6 MEQ/L (5-15); AST (GOT) 22 U/L (15-37); BICARBONATE 27.3 MEQ/L (21.0-32.0); BLOOD UREA NITROGEN 12 MG/DL (7-18); CHLORIDE 105 MEQ/L (98-107); GLOMERULAR FILTRATION RATE 87 ML/MIN (>89); POTASSIUM 3.9 MEQ/L (3.5-5.1); SODIUM (NA) 138 MEQ/L (136-145)
[2016-11-23 06:49] LABS: ALT (GPT) 40 U/L (12-78)
[2016-11-23 06:52] LABS: ALKALINE PHOSPHATASE 68 U/L (45-117); TOTAL BILIRUBIN ADULT 0.5 MG/DL (0.2-1.0)
[2016-11-23 08:03] VITALS: PULSE 66
[2016-11-23 08:41] VITALS: BP 106/64; PULSE 73; RESP 18; TEMP 97.8; O2SAT 96
[2016-11-23] MEDS: SODIUM CHLORIDE 0.9% FLUSH 10 ML FLUSH IV FLUSH SCH (08:50)
[2016-11-23] MEDS: CYANOCOBALAMIN 1,000 MCG TAB PO SCH (08:50)
[2016-11-23] MEDS: DOCUSATE SODIUM 50 MG/SENNA 8.6 MG TAB PO SCH (08:50)
[2016-11-23] MEDS: APIXABAN 5 MG TABLET PO SCH (08:50)
[2016-11-23] MEDS: CARVEDILOL 3.125 MG TAB PO SCH (08:50)
[2016-11-23] MEDS: CLOPIDOGREL 75 MG TAB PO SCH (08:50)
--- NOTE | 2016-11-23 10:49 | HHI.PR ---
Subjective History of Present Illness Patient deny any chest pain or SOB. cardiology seen patient. Review of Systems Constitutional Constitutional: Fatigue, Weakness Vitals/Results Intake & Output 11/22/16 11/22/16 11/23/16 14:59 22:59 06:59 Intake Total 230 ml Output Total 400 ml Balance -400 ml 230 ml Intake Oral 230 ml Output Urine Total 400 ml # Voids 2 Vital Signs Vital Signs Date Time Temp Pulse Resp B/P Pulse Ox O2 Delivery O2 Flow Rate FiO2 11/23/16 08:41 97.8 73 18 106/64 96 11/23/16 04:30 98.5 65 18 111/63 97 11/23/16 04:13 66 11/23/16 00:00 78 11/22/16 23:39 98.4 76 18 109/61 97 11/22/16 21:28 98.3 77 20 120/59 95 11/22/16 20:00 72 11/22/16 17:40 97.9 74 18 107/52 96 11/22/16 16:55 75 11/22/16 12:27 88 CBC/BMP: 11/23/16 0548 11/23/16 0548 Lab Results Laboratory Tests Test 11/23/16 05:48 White Blood Count 6.4 TH/MM3 Red Blood Count 4.82 MIL/MM3 Hemoglobin 14.3 GM/DL Hematocrit 40.8 % Mean Corpuscular Volume 84.6 FL Mean Corpuscular Hemoglobin 29.7 PG Mean Corpuscular Hemoglobin 35.1 % Concent Red Cell Distribution Width 13.5 % Platelet Count 159 TH/MM3 Mean Platelet Volume 7.7 FL Neutrophils (%) (Auto) 51.2 % Lymphocytes (%) (Auto) 34.8 % Monocytes (%) (Auto) 8.9 % Eosinophils (%) (Auto) 4.1 % Basophils (%) (Auto) 1.0 % Neutrophils # (Auto) 3.3 TH/MM3 Lymphocytes # (Auto) 2.2 TH/MM3 Monocytes # (Auto) 0.6 TH/MM3 Eosinophils # (Auto) 0.3 TH/MM3 Basophils # (Auto) 0.1 TH/MM3 CBC Comment DIFF FINAL Differential Comment Sodium Level 138 MEQ/L Potassium Level 3.9 MEQ/L Chloride Level 105 MEQ/L Carbon Dioxide Level 27.3 MEQ/L Anion Gap 6 MEQ/L Blood Urea Nitrogen 12 MG/DL Creatinine 0.92 MG/DL Estimat Glomerular Filtration 87 ML/MIN Rate Random Glucose 107 MG/DL Calcium Level 8.5 MG/DL Total Bilirubin 0.5 MG/DL Aspartate Amino Transf 22 U/L (AST/SGOT) Alanine Aminotransferase 40 U/L (ALT/SGPT) Alkaline Phosphatase 68 U/L Total Protein 6.9 GM/DL Albumin 3.4 GM/DL Physical Exam General General Appearance: Well Developed, Well Nourished, No Acute Distress, Comfortable Eyes Eye Exam: Sclera White, Extraocular Movement Intact Throat Throat Exam: Oral Mucosa [place] & Moist, Oral Pharynx Normal Neck Neck Exam: Neck Supple, Trachea Midline Pulmonary Resp Exam: Clear Bilaterally, Breath Sounds Equal, No Distress Cardiology CV Exam: Regular, Normal Sinus Rhythm Gastrointestinal/Abdomen GI Exam: Soft, Non-Tender, Bowel Sounds Present Musculoskeletal MS Exam: Normal Tone Integumentary Skin Exam: Clear, Warm, Dry, Intact Extremeties Extremities Exam: No Edema Neurologic Neuro Exam: Alert, Awake, Oriented, Speech Clear, No Focal Deficits Psychiatric Psych Exam: Appropriate Responses VTE Prophylaxis VTE Remarks eliquis PUD Prophylasis PUD Remarks Famotidine. Assessment/Plan Assessment/Plan ASSESSMENT/PLAN 1. Chest pain, rule out [place], rule out cardiac event. The patient does have mild positive troponin's, left arm numbness and pain. 2. Factor V Leiden 3. Hyperlipidemia 4. Near syncopal episode 5. Depression 6. B12 Deficiency....on Replacement. 7. Dizziness on meclizine. 8. Hyperlipidemia continue home medicine. 9. Insomania on restoril. With the patient's known heart disease, he will need to be ruled out and be seen per cardiology for their expert opinion for any further testing. The patient notes his last stress test was within normal range he states. We will follow his medical management with cardiology. We will monitor his labs,, monitor his bowel regimen which he says has given him no issues per now. He does have some occasional diarrhea, but he takes medication whenever needed. Discussed Condition with: Patient Balta Sanchez MD Nov 23, 2016 10:49
--- NOTE | 2016-11-23 11:43 | PD.CARD.PN ---
Subjective Subjective Remarks Assessment and Plan Assessment and Plan in error wrong note type. Adryan Shannon Nov 23, 2016 11:43 Date Time Temp Pulse Resp B/P Pulse Ox O2 Delivery O2 Flow Rate FiO2 11/23/16 08:41 97.8 73 18 106/64 96 11/23/16 04:30 98.5 65 18 111/63 97 11/23/16 04:13 66 11/23/16 00:00 78 11/22/16 23:39 98.4 76 18 109/61 97 11/22/16 21:28 98.3 77 20 120/59 95 11/22/16 20:00 72 11/22/16 17:40 97.9 74 18 107/52 96 11/22/16 16:55 75 11/22/16 12:27 88 I/O 11/22/16 11/22/16 11/22/16 11/23/16 11/23/16 11/23/16 07:00 15:00 23:00 07:00 15:00 23:00 Intake Total 230 ml Output Total 400 ml 400 ml Balance -400 ml -400 ml 230 ml Intake Oral 230 ml Output Urine Total 400 ml 400 ml # Voids 1 2 Laboratory Laboratory Tests Test 11/23/16 05:48 White Blood Count 6.4 TH/MM3 Red Blood Count 4.82 MIL/MM3 Hemoglobin 14.3 GM/DL Hematocrit 40.8 % Mean Corpuscular Volume 84.6 FL Mean Corpuscular Hemoglobin 29.7 PG Mean Corpuscular Hemoglobin 35.1 % Concent Red Cell Distribution Width 13.5 % Platelet Count 159 TH/MM3 Mean Platelet Volume 7.7 FL Neutrophils (%) (Auto) 51.2 % Lymphocytes (%) (Auto) 34.8 % Monocytes (%) (Auto) 8.9 % Eosinophils (%) (Auto) 4.1 % Basophils (%) (Auto) 1.0 % Neutrophils # (Auto) 3.3 TH/MM3 Lymphocytes # (Auto) 2.2 TH/MM3 Monocytes # (Auto) 0.6 TH/MM3 Eosinophils # (Auto) 0.3 TH/MM3 Basophils # (Auto) 0.1 TH/MM3 CBC Comment DIFF FINAL Differential Comment Sodium Level 138 MEQ/L Potassium Level 3.9 MEQ/L Chloride Level 105 MEQ/L Carbon Dioxide Level 27.3 MEQ/L Anion Gap 6 MEQ/L Blood Urea Nitrogen 12 MG/DL Creatinine 0.92 MG/DL Estimat Glomerular Filtration 87 ML/MIN Rate Random Glucose 107 MG/DL Calcium Level 8.5 MG/DL Total Bilirubin 0.5 MG/DL Aspartate Amino Transf 22 U/L (AST/SGOT) Alanine Aminotransferase 40 U/L (ALT/SGPT) Alkaline Phosphatase 68 U/L Total Protein 6.9 GM/DL Albumin 3.4 GM/DL Imaging ECG Date Performed: 11/21/2016 Time Performed: 21:37:52 EKG: Anteroseptal myocardial infarction of undetermined age Borderline first degree AV block PREVIOUS TRACING : 10/21/2016 12.32 Since previous tracing, there is some improvement in T-wave changes anterolaterally. Adryan Shannon [facility] Nov 23, 2016 11:43
--- NOTE | 2016-11-23 11:53 | PD.CONS ---
HPI Service Cardiology Consult Requested By Dr Wing Nazia Funez covering for Dr Grossman Reason for Consult Chest Pain Primary Care Physician Balta Sanchez MD History of Present Illness 51 y/o male whon presents with c/o chest wall pain,some numbness and tingling in his left hand, his neck and back sometimes. He has had this type of discomfort since he had CPR and it has made it difficult to go to sleep. About 30 minutes later, he started having midsternal chest pain accompanied by diaphoresis, hot sweaty sensation and lightheadedness which lasted a few minutes. He felt like he going to pass out for a few minutes and with shortness of breath. His BP was 140/95 and HR 130 per his home machine. He denied any other symptoms such as nausea, vomiting or dizziness. His Troponin 0.04, 0.05, 0.04, ECG since previous tracing, has some improvement in T-wave changes anterolaterally. States about [address] Grossman did an in office nuclear stress test which was "good". His PMH includes CAD s/p V-Fib arrest and cardiac cath for STEMI 09/09/16, DVT, factor V leiden on eliquis, CVA, HLD, HTN,DDD, CVA and PE. Review of Systems Respiratory: COMPLAINS OF: See HPI Cardiovascular: COMPLAINS OF: See HPI Past Family Social History Allergies: Coded Allergies: Azithromycin (Verified Allergy, Unknown, RASH, 10/21/16) Past Medical History 1. Factor V blood disorders 2. Recent [place] with cardiac stents. 3. Recent V. Fib cardiac arrest. 4. Coronary artery disease 5. Hyperlipidemia 6. History of chest pain. 7. Degenerative disk disease 8. Bilateral PE 9. History of CVA and DVT 10. Hypertension Past Surgical History 1. Bilateral hernia repair 2. Cardiac stents x2 3. Tonsillectomy 4. Appendectomy Reported Medications Reported Meds & Active Scripts Active Meclizine 25 (Meclizine HCl) 25 Mg Tab 25 Mg PO Q8HR Lipitor (Atorvastatin Calcium) 20 Mg Tab 20 Mg PO HS Nitrostat SL (Nitroglycerin) 0.4 Mg Subl 0.4 Mg SL Q5M PRN Restoril (Temazepam) 15 Mg Cap 15 Mg PO HS PRN Vitamin B-12 (Cyanocobalamin) 1,000 Mcg Tab 1,000 Mcg PO DAILY Eliquis (Apixaban) 5 Mg Tab 5 Mg PO BID Reported [ [place]] Plavix (Clopidogrel Bisulfate) 75 Mg Tab 75 Mg PO DAILY Carvedilol 3.125 Mg Tab 3.125 Mg PO DAILY Active Ordered Medications Current Medications Medications (Trade) Dose Ordered Sig/Fern Route Start Time Stop Time Status Last Admin (NS 1000 ml Inj) 1,000 ml @ 100 mls/hr Q10H IV 11/21/16 23:29 11/22/16 06:23 (NS Flush) 2 ml UNSCH PRN IV FLUSH 11/21/16 23:30 (NS Flush) 2 ml BID IV FLUSH 11/22/16 09:00 11/22/16 21:53 (Zofran Inj) 4 mg Q6H PRN IVP 11/21/16 23:30 (Narcan Inj) 0.4 mg UNSCH PRN IV 11/21/16 23:30 (Camila-Colace) 1 tab BID PO 11/22/16 09:00 11/23/16 08:50 (Milk Of Magnesia Liq) 30 ml Q12H PRN PO 11/21/16 23:30 (Senokot) 17.2 mg Q12H PRN PO 11/21/16 23:30 (Dulcolax Supp) 10 mg DAILY PRN RECTAL 11/21/16 23:30 (Lactulose Liq) 30 ml DAILY PRN PO 11/21/16 23:30 (Pepcid) 20 mg HS PO 11/22/16 21:00 11/22/16 21:51 (Lipitor) 20 mg HS PO 11/22/16 21:00 11/22/16 21:51 (Coreg) 3.125 mg DAILY PO 11/22/16 09:00 11/23/16 08:50 (Vitamin B12) 1,000 mcg DAILY PO 11/22/16 09:00 11/23/16 08:50 (Eliquis) 5 mg BID PO 11/22/16 13:30 11/23/16 08:50 (Plavix) 75 mg DAILY PO 11/22/16 13:30 11/23/16 08:50 (Antivert) 25 mg Q8HR PO 11/22/16 14:00 11/23/16 05:49 (Nitrostat Sl) 0.4 mg Q5M PRN SL 11/22/16 12:45 (Restoril) 15 mg HS PRN PO 11/22/16 21:00 Family History Non Contributory Social History He quit smoking in Aug, 2016 when his cardiac event happened. Denies any alcohol or illicit drug use. He is currently and lives at home with his . Physical Exam Vital Signs Vital Signs Date Time Temp Pulse Resp B/P Pulse Ox O2 Delivery O2 Flow Rate FiO2 11/23/16 08:41 97.8 73 18 106/64 96 11/23/16 04:30 98.5 65 18 111/63 97 11/23/16 04:13 66 11/23/16 00:00 78 11/22/16 23:39 98.4 76 18 109/61 97 11/22/16 21:28 98.3 77 20 120/59 95 11/22/16 20:00 72 11/22/16 17:40 97.9 74 18 107/52 96 11/22/16 16:55 75 11/22/16 12:27 88 Physical Exam GENERAL: A well-nourished, well-developed male looks to be his stated age SKIN: Warm and dry. HEAD: Normocephalic. EYES: No scleral icterus. No injection or drainage. NECK: Supple, trachea midline. No JVD or lymphadenopathy. CARDIOVASCULAR: Regular rate and rhythm S1 S2, without murmurs, gallops, or rubs. RESPIRATORY: Breath sounds equal bilaterally. No accessory muscle use.Alert, oriented, cooperative GASTROINTESTINAL: Abdomen soft, non-tender, nondistended. MUSCULOSKELETAL: No cyanosis, or edema. BACK: Nontender without obvious deformity. No CVA tenderness. Laboratory Laboratory Tests Test 11/23/16 05:48 White Blood Count 6.4 Red Blood Count 4.82 Hemoglobin 14.3 Hematocrit 40.8 Mean Corpuscular Volume 84.6 Mean Corpuscular Hemoglobin 29.7 Mean Corpuscular Hemoglobin 35.1 Concent Red Cell Distribution Width 13.5 Platelet Count 159 Mean Platelet Volume 7.7 Neutrophils (%) (Auto) 51.2 Lymphocytes (%) (Auto) 34.8 Monocytes (%) (Auto) 8.9 Eosinophils (%) (Auto) 4.1 Basophils (%) (Auto) 1.0 Neutrophils # (Auto) 3.3 Lymphocytes # (Auto) 2.2 Monocytes # (Auto) 0.6 Eosinophils # (Auto) 0.3 Basophils # (Auto) 0.1 CBC Comment DIFF FINAL Differential Comment Sodium Level 138 Potassium Level 3.9 Chloride Level 105 Carbon Dioxide Level 27.3 Anion Gap 6 Blood Urea Nitrogen 12 Creatinine 0.92 Estimat Glomerular Filtration 87 Rate Random Glucose 107 Calcium Level 8.5 Total Bilirubin 0.5 Aspartate Amino Transf 22 (AST/SGOT) Alanine Aminotransferase 40 (ALT/SGPT) Alkaline Phosphatase 68 Total Protein 6.9 Albumin 3.4 Result Diagram: 11/23/16 0548 11/23/16 0548 Imaging ECG Date Performed: 11/21/2016 Time Performed: 21:37:52 EKG: NSR - Anteroseptal myocardial infarction of undetermined age Borderline first degree AV block PREVIOUS TRACING : 10/21/2016 12.32 Since previous tracing, there is some improvement in T-wave changes anterolaterally. Last Impressions Chest X-Ray 11/21/163 Signed Impressions: Service Date/Time: November 22:09 - CONCLUSION: No evidence of acute cardiopulmonary disease. Dusty Loja MD Head CT 11/21/16 0000 Signed Impressions: Service Date/Time: November 22:52 - CONCLUSION: Negative noncontrast head CT. Dusty Loja MD Assessment and Plan Assessment and Plan 51 y/o male with significant cardiac history who experienced chest pain and near syncope 1. Chest Pain:Troponin not acutely elevated, ECG improved from last one.Recent out patient Nuclear stress test which was negative. CXR and CT head negative. Most likely chest wall and muscle pain from CPR. Further evaluation as out patient recommended with follow up with Dr Grossman. 2. Near syncope: He stated his HR was about 130, questionable arrhythmia, or vaso vagal- get a Event monitor as out patient. 3. CAD: 4. HTN: Continue home medication. 5. HLD: Continue home medication. 6. Factor V: Continue home medication. Adryan Shannon Nov 23, 2016 11:53
[2016-11-23 12:32] VITALS: BP 109/75; PULSE 75; RESP 18; TEMP 97.8; O2SAT 96
== END 2016-11-23 15:05 | disposition home or self-care (01) ==
LOC: PHED 21:29 → PHEDA 23:39 → NEPGCP 11-22 02:05
PROVIDERS: ADMIT Family Medicine; ATTEND Family Medicine
DX: R07.89 Other chest pain (principal); R20.0 Anesthesia of skin; D68.51 Activated protein C resistance; E78.5 Hyperlipidemia, unspecified; R55 Syncope and collapse; R20.2 Paresthesia of skin; M54.2 Cervicalgia; M54.9 Dorsalgia, unspecified; R61 Generalized hyperhidrosis; R42 Dizziness and giddiness; R06.02 Shortness of breath; R53.1 Weakness; R53.83 Other fatigue; R51 Headache; R11.0 Nausea; R19.7 Diarrhea, unspecified; I10 Essential (primary) hypertension; I25.10 Atherosclerotic heart disease of native coronary artery without angina pectoris; E78.00 Pure hypercholesterolemia, unspecified; I25.2 Old myocardial infarction; I44.0 Atrioventricular block, first degree; F32.9 Major depressive disorder, single episode, unspecified; E53.8 Deficiency of other specified B group vitamins; Z95.5 Presence of coronary angioplasty implant and graft; Z79.899 Other long term (current) drug therapy; Z79.01 Long term (current) use of anticoagulants; Z87.891 Personal history of nicotine dependence; Z86.73 Personal history of transient ischemic attack (TIA), and cerebral infarction without residual deficits; Z86.718 Personal history of other venous thrombosis and embolism; Z86.74 Personal history of sudden cardiac arrest
CPT/HCPCS: 70450; 71010; 80048; 80053; 82550; 82552; 83735; 84484; 85025; 85610; 85730; 93005; 96361; 96374; 99285; G0378; J2060; J2405; J7030; 96375

== ENCOUNTER 2017-01-21 17:47 | Emergency (ER) | payer OTHER ==
[~2017-01-21] VITALS: Ht 182.9 cm; Wt 100.0 kg
[~2017-01-21 17:47] MED LIST changes: +HYDRO
[2017-01-21 17:52] VITALS: BP 125/81; PULSE 100; RESP 20; TEMP 98.7; O2SAT 96
[2017-01-21] MEDS ORDERED: ENAL2.5T40 PO (18:26)
[2017-01-21 18:34] VITALS: BP 126/81; PULSE 89; RESP 17; O2SAT 98
[2017-01-21] MEDS ORDERED: SODIUM CHLORIDE 0.9% FLUSH 10 ML FLUSH IVF PRN (19:45)
--- NOTE | 2017-01-21 19:53 | PD ---
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 Patient has had intermittent shattering of vision and double vision without loss of vision or loss of peripheral vision. Patient reports he's had headache intermittently 2 weeks but has no headache now. Patient states visual disturbance since last night and not worsening. Patient's had associated nausea. Patient's had dizziness for at least 3 months after sustaining a ST elevation myocardial infarction September 2016. Patient required stenting at that time he did have episodes of ventricular fibrillation requiring resuscitation. Patient is under the care of and Dr [place]. [facility] Past Medical History Narrative Medical Factor V Leiden, CAD VT cardiac Stent 2 dyslipidemia CVA PE or DVT V fib cardiac arrest chronic vertigo DDD hypertension herniorrhaphy tonsillectomy appendectomy; no tobacco use alcohol use: Nursing notes reviewed Hx Anticoagulant Therapy: Yes (eloquis) Asthma: No Blood Disorders: Yes (FACTOR V) Anxiety: No Depression: No Heart Rhythm Problems: No Cancer: No Cardiac Catheterization: Yes Cardiovascular Problems: Yes High Cholesterol: Yes Chemotherapy: No Chest Pain: Yes Congestive Heart Failure: No COPD: No Cerebrovascular Accident: Yes Diminished Hearing: No Deep Vein Thrombosis: Yes Endocrine: No Gastrointestinal Disorders: No Genitourinary: No Hypertension: Yes Immune Disorder: No Implanted Vascular Access Dvce: No Musculoskeletal: No Neurologic: No Psychiatric: No Reproductive: No Respiratory: Yes (BILATERAL PE) Myocardial Infarction: Yes Radiation Therapy: No Seizures: No Sleep Apnea: No Tetanus Vaccination: > 5 Years Influenza Vaccination: Yes Past Surgical History Abdominal Surgery: Yes (INGUINAL HERNIA REPAIR) AICD: No Appendectomy: Yes Coronary Stent: Yes (X2) Pacemaker: No Tonsillectomy: Yes Other Surgery: Yes Social History Alcohol Use: No (PT DENIES) Tobacco Use: No (QUIT 09/07/16) Substance Use: No Allergies-Medications (Allergen,Severity, Reaction): Coded Allergies: azithromycin (Verified Allergy, Severe, RASH, 01/21/17) Reported Meds & Prescriptions Reported Meds & Active Scripts Active Bleph-10 Opth Drops (Sulfacetamide Sodium) 10 % Soln 1 Drop LEFT EYE Q4HR WHILE AWAKE NEB Meclizine 25 (Meclizine HCl) 25 Mg Tab 25 Mg PO Q8HR Lipitor (Atorvastatin Calcium) 20 Mg Tab 20 Mg PO HS Vitamin B-12 (Cyanocobalamin) 1,000 Mcg Tab 1,000 Mcg PO DAILY Eliquis (Apixaban) 5 Mg Tab 5 Mg PO BID Reported Vasotec (Enalapril Maleate) 2.5 Mg Tab 2.5 Mg PO DAILY Plavix (Clopidogrel Bisulfate) 75 Mg Tab 75 Mg PO DAILY Carvedilol 3.125 Mg Tab 3.125 Mg PO DAILY Review of Systems Except as stated in HPI: all other systems reviewed are Neg General / Constitutional: No: Fever, Chills Eyes: Positive: Diploplia (left eye) HENT: Positive: Headaches, No: Neck Stiffness, Neck Pain Cardiovascular: No: Chest Pain or Discomfort, Palpitations, Diaphoresis Respiratory: No: Shortness of Breath, Wheezing Gastrointestinal: Positive: Nausea, No: Vomiting, Abdominal Pain Genitourinary: No: Dysuria, Decreased Urinary Output, Flank Pain Musculoskeletal: No: Myalgias, Arthralgias Skin: No Rash Neurologic: Positive: Weakness, Dizziness (chronic x 3 months), Focal Abnormalities (left eye visual disturbance), Headache ([id number] not now not sudden onset not thunderclap not worst ever), Paresthesia (occasionally bilateral upper extremities at night none at this time), No: Syncope, Change in Mentation, Slurred Speech Psychiatric: Positive: Anxiety Endocrine: No: Heat Intolerance Hematologic/Lymphatic: No: Easy Bruising Physical Exam Narrative GENERAL: Well-developed well-nourished male in no acute distress no respiratory distress; GCS 15 SKIN: Warm and dry. HEAD: Atraumatic. Normocephalic. EYES: Pupils equal and round reactive to light. Extraocular muscles intact. No scleral icterus. Small right medial pterygium. No injection or drainage. Visual acuity without corrective lenses right eye 20/25 left eye 20/100 with corrective lenses right eye 20/20 left eye 20/40. No visual field deficit. ENT: No nasal bleeding or discharge. Mucous membranes pink and moist. Airway is patent. NECK: Trachea midline. No JVD. No carotid bruits. Supple. CARDIOVASCULAR: Regular rate and rhythm. RESPIRATORY: No accessory muscle use. Clear to auscultation. Breath sounds equal bilaterally. GASTROINTESTINAL: Abdomen soft, non-tender, nondistended. Hepatic and splenic margins not palpable. MUSCULOSKELETAL: Extremities without clubbing, cyanosis, or edema. No obvious deformities. NEUROLOGICAL: Awake and alert. No obvious cranial nerve deficits. Motor grossly within normal limits. Five out of 5 muscle strength in the arms and legs. No limb ataxia. No pronator drift. Sensory exam grossly intact. Normal speech. PSYCHIATRIC: Appropriate mood and affect; insight and judgment normal. Data Data Last Documented VS Vital Signs Date Time Temp Pulse Resp B/P (MAP) Pulse Ox O2 Delivery O2 Flow Rate FiO2 01/22/17 00:00 75 16 128/72 (90) 100 01/21/17 21:30 Room Air 01/21/17 17:52 98.7 Orders Orders Electrocardiogram (01/21/17 19:43) Prothrombin Time / Inr (Pt) (01/21/17 19:43) Act Partial Throm Time (Ptt) (01/21/17 19:43) Complete Blood Count With Diff (01/21/17 19:43) Comprehensive Metabolic Panel (01/21/17 19:43) Creatine Kinase (Cpk) (01/21/17 19:43) Troponin I (01/21/17 19:43) Ct Brain W/O Iv Contrast(Rout) (01/21/17 19:43) Chest, Single Ap (01/21/17 19:43) Ecg Monitoring (01/21/17 19:43) Iv Access Insert/Monitor (01/21/17 19:43) Oximetry (01/21/17 19:43) Sodium Chloride 0.9% Flush (Ns Flush) (01/21/17 19:45) Westergren Sedimentation Rate (01/21/17 20:25) Mri Brain W/O Contrast (01/21/17 ) Mra Brain W/O Contrast (Cow) (01/21/17 ) Proparacaine 0.5% Opth Soln (Alcaine 0.5 (01/21/17 21:00) Tetanus/Diphtheria Tox Adult (Tetanus/Di (01/21/17 23:30) Ed Discharge Order (01/21/17 23:55) Labs Laboratory Tests Test 01/21/17 21:00 White Blood Count 8.4 TH/MM3 Red Blood Count 5.05 MIL/MM3 Hemoglobin 14.7 GM/DL Hematocrit 43.5 % Mean Corpuscular Volume 86.0 FL Mean Corpuscular Hemoglobin 29.0 PG Mean Corpuscular Hemoglobin Concent 33.8 % Red Cell Distribution Width 13.6 % Platelet Count 194 TH/MM3 Mean Platelet Volume 7.5 FL Neutrophils (%) (Auto) 50.8 % Lymphocytes (%) (Auto) 36.3 % Monocytes (%) (Auto) 8.8 % Eosinophils (%) (Auto) 3.0 % Basophils (%) (Auto) 1.1 % Neutrophils # (Auto) 4.3 TH/MM3 Lymphocytes # (Auto) 3.0 TH/MM3 Monocytes # (Auto) 0.7 TH/MM3 Eosinophils # (Auto) 0.3 TH/MM3 Basophils # (Auto) 0.1 TH/MM3 CBC Comment DIFF FINAL Differential Comment Erythrocyte Sedimentation Rate 13 mm/hr Prothrombin Time 11.8 SEC Prothromb Time International Ratio 1.1 RATIO Activated Partial Thromboplast Time 29.0 SEC Blood Urea Nitrogen 14 MG/DL Creatinine 1.05 MG/DL Random Glucose 106 MG/DL Total Protein 7.4 GM/DL Albumin 3.7 GM/DL Calcium Level 9.3 MG/DL Alkaline Phosphatase 74 U/L Aspartate Amino Transf (AST/SGOT) 17 U/L Alanine Aminotransferase (ALT/SGPT) 27 U/L Total Bilirubin 0.3 MG/DL Sodium Level 139 MEQ/L Potassium Level 3.5 MEQ/L Chloride Level 105 MEQ/L Carbon Dioxide Level 27.9 MEQ/L Anion Gap 6 MEQ/L Estimat Glomerular Filtration Rate 74 ML/MIN Total Creatine Kinase 97 U/L Troponin I 0.02 NG/ML [facility] Medical Decision Making Medical Screen Exam Complete: Yes Emergency Medical Condition: Yes Medical Record Reviewed: Yes Interpretation(s) EKG: sinus rhythm QS anteroseptally previous VT Differential Diagnosis CVA, TIA, ocular migraine, foreign body, corneal abrasion; also to consider temporal/giant cell arteritis Narrative Course Patient placed on quality control scientist and pulse oximetry; 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 Patient now reports that he has noted some eye pain especially with blinking with a foreign body sensation there was not previously identified when he was initially in view of interviewed but now states that since that has been mentioned that that has been bothering him. Patient denies any known incident of foreign body exposure. Proparacaine drops administered. Moistened Q-tip used to try to remove left mid cornea foreign body. Critical Care Narrative Aggregate critical care time was 35 minutes. Time to perform other separately billable procedures was not included in the critical care time. My time did not include minutes spent treating any other patients simultaneously or on activities that did not directly contribute to the patient's treatment. The services I provided to this patient were to treat and/or prevent clinically significant deterioration that could result in: CVA, acute vision loss, arrhythmia, I provided critical care services requiring my management, as noted below: Chart data review, documentation time, medication orders and management, vital sign assessments/reviewing monitor data, ordering and reviewing lab tests, ordering and interpreting/reviewing x-rays and diagnostic studies, care of the patient and discussion of the patient with the admitting physicians. Physician Communication Physician Communication discussed with Dr Rocha --no further neuro eval --rec ophthalmology eval Diagnosis Primary Impression: Corneal abrasion, left Qualified Codes: S05.02XA - Injury of conjunctiva and corneal abrasion without foreign body, left eye, initial encounter Additional Impression: Corneal FB (foreign body) Qualified Codes: T15.02XA - Foreign body in cornea, left eye, initial encounter Referrals: Monotype Setter 1 day cotton farmer eye specilist Dr Marcello Cr or your eye doctor, 1 day follow up Additional Instructions: Continue current medications as presently prescribed Follow-up with your primary care provider Follow-up with summons server times one day; may follow up with on-call summons server or your summons server Return to the emergency department for any concerns or change in condition Increase fluid hydration May take acetaminophen/Tylenol as needed for fever 100.4F or greater May apply cool compresses to left eye Do not rub or irritate left eye Scripts Sulfacetamide Opth Drops (Bleph-10 Opth Drops) 10 % Soln 1 DROP LEFT EYE Q4HR WHILE AWAKE NEB for Infection, #1 BOTTLE 0 Refills Prov: Allyson Boykin MD 01/22/17 Disposition: 01 DISCHARGE HOME Condition: Stable Allyson Boykin MD Jan 21, 2017 19:52
--- NOTE | 2017-01-21 20:08 | RADRPT ---
EXAM DATE/TIME: 01/21/2017 19:58 [facility] COMPARISON: CT BRAIN W/O CONTRAST, November 21, 2016, 22:52. INDICATIONS : Dizziness with vision changes. RADIATION DOSE: 48.92 CTDIvol (mGy) MEDICAL HISTORY : Myocardial infarction. Deep venous thrombosis. Hernia, inguinal.CVA. Hypertension. Pulmonary embolism . SURGICAL HISTORY : Appendectomy. Cardiac catherization. ENCOUNTER: Initial ACUITY: 1 day PAIN SCALE: 6/10 LOCATION: cranial TECHNIQUE: Multiple contiguous axial images were obtained of the head. Using automated exposure control and adj ustment of the mA and/or kV according to patient size, radiation dose was kept as low as reasonably a chievable to obtain optimal diagnostic quality images. DICOM format image data is available electro nically for review and comparison. FINDINGS: CEREBRUM: The ventricles are normal for age. No evidence of midline shift, mass lesion, hemorrhage or acute in farction. No extra-axial fluid collections are seen. POSTERIOR FOSSA: The cerebellum and brainstem are intact. The 4th ventricle is midline. The cerebellopontine angle i s unremarkable. EXTRACRANIAL: The visualized portion of the orbits is intact. Mild chronic sinus disease in the ethmoid sinuses. SKULL: The calvaria is intact. No evidence of skull fracture. CONCLUSION: Unremarkable and stable CT scan of the brain compared to the prior study. Og Baeza MD on January 21, 2017 at 20:06 Board Certified Radiologist. This report was verified electronically.
--- NOTE | 2017-01-21 20:18 | RADRPT ---
EXAM DATE/TIME: 01/21/2017 20:01 [facility] COMPARISON: CHEST SINGLE AP, November 21, 2016, 22:09. INDICATIONS : Chest pain. MEDICAL HISTORY : Myocardial infarction. SURGICAL HISTORY : Coronary artery stent. ENCOUNTER: Initial ACUITY: 1 day PAIN SCORE: 04/23 LOCATION: Bilateral chest FINDINGS: A single view of the chest demonstrates the lungs to be symmetrically aerated without evidence of mas s, infiltrate or effusion. The cardiomediastinal contours are unremarkable. Osseous structures are intact. CONCLUSION: No acute disease. No significant change has occurred. Og Baeza MD on January 21, 2017 at 20:16 Board Certified Radiologist. This report was verified electronically.
[2017-01-21] MEDS ORDERED: PROPARACAINE HCL 0.5% OPHT SOLN 15 ML BTL EACH EYE ONE (21:00)
[2017-01-21 21:17] LABS: AUTOMATED NEUTROPHIL # 4.3 TH/MM3 (1.8-7.7); BASOPHIL # 0.1 TH/MM3 (0-0.2); BASOPHIL % 1.1 % (0.0-2.0); EOSINOPHIL # 0.3 TH/MM3 (0-0.4); HEMATOCRIT 43.5 % (39.0-51.0); HEMO FLAGS DIFF FINAL; LYMPH % 36.3 % (9.0-44.0); MEAN CORPUSCULAR HGB CONC 33.8 % (32.0-36.0); MONO % 8.8 % (0.0-8.0); NEUT % 50.8 % (16.0-70.0); PLATELET COUNT 194 TH/MM3 (150-450); RED BLOOD COUNT 5.05 MIL/MM3 (4.50-5.90); RED CELL DISTRIBUTION WIDTH 13.6 % (11.6-17.2); WHITE BLOOD COUNT 8.4 TH/MM3 (4.0-11.0)
[2017-01-21 21:30] VITALS: BP 131/85; PULSE 82; RESP 16; O2SAT 100
[2017-01-21 21:30] LABS: INTERNATIONAL NORMALIZED RATIO 1.1 RATIO; PROTHROMBIN TIME - PATIENT 11.8 SEC (9.8-11.6)
[2017-01-21 21:32] LABS: ANION GAP 6 MEQ/L (5-15); AST (GOT) 17 U/L (15-37); BICARBONATE 27.9 MEQ/L (21.0-32.0); BLOOD UREA NITROGEN 14 MG/DL (7-18); CHLORIDE 105 MEQ/L (98-107); GLOMERULAR FILTRATION RATE 74 ML/MIN (>89); POTASSIUM 3.5 MEQ/L (3.5-5.1); SODIUM (NA) 139 MEQ/L (136-145)
[2017-01-21 21:34] LABS: ALT (GPT) 27 U/L (12-78)
[2017-01-21 21:37] LABS: ALKALINE PHOSPHATASE 74 U/L (45-117); TOTAL BILIRUBIN ADULT 0.3 MG/DL (0.2-1.0)
[2017-01-21 21:42] LABS: CREATINE KINASE 97 U/L (39-308)
--- NOTE | 2017-01-21 22:37 | RADRPT ---
EXAM DATE/TIME: 01/21/2017 21:54 [facility] COMPARISON: MRA BRAIN W/O CONTRAST, October 07, 2016, 16:09. INDICATIONS : CVA. Left visual disturbance. MEDICAL HISTORY : Myocardial infarction. Hypertension. Hypercholesterolemia. Factor V Leiden. DVT. PE. CVA. SURGICAL HISTORY : Coronary artery stent. Tonsillectomy. Inguinal hernia repair. Appendectomy ENCOUNTER: Subsequent ACUITY: 1 day PAIN SCORE: 6/10 LOCATION: cranial Please note a normal MRA of the brain does not entirely exclude the possibility of a small aneurysm, nor the possibility of distal intracranial vessel disease. TECHNIQUE: 3D time of flight MRA was performed. Source images, multiplanar STS MIP, and 3D volume MIP reconstru ctions were reviewed. FINDINGS: There is excellent visualization of the major intracranial arteries out to the second-order branch ve ssels. There is no evidence for aneurysm, vessel truncation or stenosis, and no evidence for vascula r malformation. CONCLUSION: Unremarkable and stable MRA of the brain compared to the prior examination. No new or significant carmita nges. Og Baeza MD on January 21, 2017 at 22:34 Board Certified Radiologist. This report was verified electronically.
--- NOTE | 2017-01-21 22:38 | RADRPT ---
EXAM DATE/TIME: 01/21/2017 21:54 [facility] COMPARISON: MRI BRAIN W/O CONTRAST, October 22, 2016, 12:33. INDICATIONS : CVA. Left visual disturbance. MEDICAL HISTORY : Myocardial infarction. Hypertension. Hypercholesterolemia. Factor V Leiden. DVT. PE. CVA. SURGICAL HISTORY : Coronary artery stent. Tonsillectomy. Inguinal hernia repair. Appendectomy. ENCOUNTER: Subsequent ACUITY: 1 day PAIN SCORE: 6/10 LOCATION: cranial TECHNIQUE: Multiplanar, multisequence MRI of the brain was performed without contrast. FINDINGS: CEREBRUM: The ventricles are normal for age. No evidence of midline shift, mass lesion, hemorrhage or acute in farction. No extraaxial fluid collections are seen. The pituitary gland and suprasellar cistern are normal in configuration. WHITE MATTER: No significant signal abnormalities are seen in the white matter. POSTERIOR FOSSA: The cerebellum and brainstem are intact. The 4th ventricle is midline. The cerebellopontine angle is unremarkable. The cerebellar tonsils are normal in position. DIFFUSION IMAGING: No focal areas of restricted diffusion are seen. No evidence of acute infarction. EXTRACRANIAL: The visualized portions of the orbits and paranasal sinuses are unremarkable. CONCLUSION: Normal examination for a patient of this age. No significant change has occurred. Og Baeza MD on January 21, 2017 at 22:35 Board Certified Radiologist. This report was verified electronically.
[2017-01-21] MEDS ORDERED: TETANUS/DIPHTHERIA TOXOID ADULT 0.5 ML VIAL IM ONE (23:30)
[2017-01-21] MEDS ORDERED: SULF1SOL4 LEFT EYE (23:54)
[2017-01-22] VITALS: BP 128/72
[2017-01-22] MEDS ORDERED: SULF1SOL4 LEFT EYE (00:01)
--- NOTE | 2017-01-22 23:41 | EKG ---
Date Performed: 01/21/2017 Time Performed: 20:38:06 PTAGE: 51 years EKG: Sinus rhythm WITH FIRST DEGREE AV BLOCK POSSIBLE ANTERIOR MYOCARDIAL INFARCTION ABNORMAL ECG PREVIOUS TRACING : 01/21/2017 20.28 Compared to prior tracing no significant change DOCTOR: Librado Ferreira Interpretating Date/Time 01/22/2017 23:40:37
== END 2017-01-22 00:30 | disposition home or self-care (01) ==
LOC: NEPC 17:47
DX: S05.02XA Injury of conjunctiva and corneal abrasion without foreign body, left eye, initial encounter (principal); T15.02XA Foreign body in cornea, left eye, initial encounter; R94.31 Abnormal electrocardiogram [ECG] [EKG]; I49.01 Ventricular fibrillation; I10 Essential (primary) hypertension; I25.10 Atherosclerotic heart disease of native coronary artery without angina pectoris; I25.2 Old myocardial infarction; X58.XXXA Exposure to other specified factors, initial encounter; Z79.01 Long term (current) use of anticoagulants; Z95.5 Presence of coronary angioplasty implant and graft; Z23 Encounter for immunization
CPT/HCPCS: 70450; 70544; 70551; 71010; 80053; 82550; 84484; 85025; 85610; 85652; 85730; 90471; 90714; 93005

== ENCOUNTER 2017-05-16 12:09 | Observation (INO) | payer OTHER ==
[2017-05-16] VITALS (11 sets, daily range): BP systolic 106–151; BP diastolic 60–84; PULSE 66–77; RESP 16–20; TEMP 97.8–99.1; O2SAT 94–100
[~2017-05-16] VITALS: Ht 182.9 cm; Wt 95.0 kg
[~2017-05-16 12:09] MED LIST changes: +ENAL2.5T40 PO; -HYDRO; -NITR0.4S SL; -REST15CA PO; +SULF1SOL4 LEFT EYE
--- NOTE | 2017-05-16 12:26 | PD ---
HPI Chief Complaint: Chest Pain Time Seen by Provider: 12:20 Travel History International Travel<30 days: No Contact w/Intl Traveler<30days: No Traveled to known affect area: No History of Present Illness HPI 52-year-old male with history of CVA, CAD, V. fib arrest, stent placement, Factor V Leiden, on Eloquis and Plavix, presents to emergency department for evaluation of a chest pain that is intermittently occurring over the last 2 weeks. Patient went to his primary care provider today because he developed lightheadedness in addition to the chest pain. Patient states the pain began substernal and radiating to his back and today it has been affecting his left arm as well. He cannot think of any alleviating or exacerbating factors. His primary care provider advised to come to the emergency department. Patient has not been recently ill. Denies any cough or chest congestion. Denies any nausea or vomiting. He has no other symptoms to report. PFSH Past Medical History Hx Anticoagulant Therapy: Yes (eloquis) Asthma: No Blood Disorders: Yes (FACTOR V) Anxiety: No Depression: No Heart Rhythm Problems: No Cancer: No Cardiac Catheterization: Yes Cardiovascular Problems: Yes High Cholesterol: Yes Chemotherapy: No Chest Pain: Yes Congestive Heart Failure: No COPD: No Cerebrovascular Accident: Yes Diminished Hearing: No Deep Vein Thrombosis: Yes Endocrine: No Gastrointestinal Disorders: No Genitourinary: No Hypertension: Yes Immune Disorder: No Implanted Vascular Access Dvce: No Musculoskeletal: No Neurologic: No Psychiatric: No Reproductive: No Respiratory: Yes (BILATERAL PE) Myocardial Infarction: Yes Radiation Therapy: No Seizures: No Sleep Apnea: No Past Surgical History Abdominal Surgery: Yes (INGUINAL HERNIA REPAIR) AICD: No Appendectomy: Yes Coronary Stent: Yes (X2) Pacemaker: No Tonsillectomy: Yes Other Surgery: Yes Social History Alcohol Use: No (PT DENIES) Tobacco Use: No (QUIT 09/07/16) Substance Use: No Allergies-Medications (Allergen,Severity, Reaction): Coded Allergies: azithromycin (Verified Allergy, Severe, RASH, 05/16/17) Reported Meds & Prescriptions Reported Meds & Active Scripts Active Bleph-10 Opth Drops (Sulfacetamide Sodium) 10 % Soln 1 Drop LEFT EYE Q4HR WHILE AWAKE NEB Meclizine 25 (Meclizine HCl) 25 Mg Tab 25 Mg PO Q8HR Lipitor (Atorvastatin Calcium) 20 Mg Tab 20 Mg PO HS Vitamin B-12 (Cyanocobalamin) 1,000 Mcg Tab 1,000 Mcg PO DAILY Eliquis (Apixaban) 5 Mg Tab 5 Mg PO BID Reported Plavix (Clopidogrel Bisulfate) 75 Mg Tab 75 Mg PO DAILY Carvedilol 3.125 Mg Tab 3.125 Mg PO DAILY Review of Systems Except as stated in HPI: all other systems reviewed are Neg Physical Exam Narrative GENERAL: Well-nourished male patient, sitting in bed, appears nontoxic and in no acute distress. SKIN: Focused skin assessment warm/dry. HEAD: Atraumatic. Normocephalic. EYES: Pupils equal and round. No scleral icterus. No injection or drainage. ENT: No nasal bleeding or discharge. Mucous membranes pink and moist. NECK: Trachea midline. No JVD. CARDIOVASCULAR: Regular rate and rhythm. No murmur appreciated. RESPIRATORY: No accessory muscle use. Clear to auscultation. Breath sounds equal bilaterally. GASTROINTESTINAL: Abdomen soft, non-tender, nondistended. Hepatic and splenic margins not palpable. MUSCULOSKELETAL: No obvious deformities. No clubbing. No cyanosis. No edema. NEUROLOGICAL: Awake and alert. No obvious cranial nerve deficits. Motor grossly within normal limits. Normal speech. PSYCHIATRIC: Appropriate mood and affect; insight and judgment normal. Data Data Last Documented VS Vital Signs Date Time Temp Pulse Resp B/P (MAP) Pulse Ox O2 Delivery O2 Flow Rate FiO2 05/16/17 12:43 16 05/16/17 12:29 99 Room Air 05/16/17 12:29 05/16/17 12:28 76 05/16/17 12:14 99.1 Orders Orders Electrocardiogram (05/16/17 ) Electrocardiogram (05/16/17 12:25) Basic Metabolic Panel (Bmp) (05/16/17 12:25) Ckmb (Isoenzyme) Profile (05/16/17 12:25) Complete Blood Count With Diff (05/16/17 12:25) Magnesium (Mg) (05/16/17 12:25) Prothrombin Time / Inr (Pt) (05/16/17 12:25) Act Partial Throm Time (Ptt) (05/16/17 12:25) Troponin I (05/16/17 12:25) Lipase (05/16/17 12:25) Chest, Single Ap (05/16/17 12:25) Ecg Monitoring (05/16/17 12:25) Bilateral Bp Monitoring (05/16/17 12:25) Iv Access Insert/Monitor (05/16/17 12:25) Oximetry (05/16/17 12:25) Oxygen Administration (05/16/17 12:25) Aspirin Chew (Aspirin Chew) (05/16/17 12:30) Sodium Chloride 0.9% Flush (Ns Flush) (05/16/17 12:30) Nitroglycerin Sl (Nitrostat Sl) (05/16/17 12:30) Sodium Chlorid 0.9% 500 Ml Inj (Ns 500 M (05/16/17 12:30) CKMB (05/16/17 12:30) CKMB% (05/16/17 12:30) Admit Order (Ed Use Only) (05/16/17 13:40) Labs Laboratory Tests Test 05/16/17 12:30 White Blood Count 7.0 TH/MM3 Red Blood Count 5.15 MIL/MM3 Hemoglobin 14.8 GM/DL Hematocrit 43.7 % Mean Corpuscular Volume 84.9 FL Mean Corpuscular Hemoglobin 28.7 PG Mean Corpuscular Hemoglobin Concent 33.8 % Red Cell Distribution Width 14.6 % Platelet Count 212 TH/MM3 Mean Platelet Volume 7.4 FL Neutrophils (%) (Auto) 54.3 % Lymphocytes (%) (Auto) 34.6 % Monocytes (%) (Auto) 7.6 % Eosinophils (%) (Auto) 2.5 % Basophils (%) (Auto) 1.0 % Neutrophils # (Auto) 3.8 TH/MM3 Lymphocytes # (Auto) 2.4 TH/MM3 Monocytes # (Auto) 0.5 TH/MM3 Eosinophils # (Auto) 0.2 TH/MM3 Basophils # (Auto) 0.1 TH/MM3 CBC Comment DIFF FINAL Differential Comment Prothrombin Time 11.3 SEC Prothromb Time International Ratio 1.1 RATIO Activated Partial Thromboplast Time 28.5 SEC Blood Urea Nitrogen 14 MG/DL Creatinine 0.99 MG/DL Random Glucose 113 MG/DL Calcium Level 9.1 MG/DL Magnesium Level 2.1 MG/DL Sodium Level 138 MEQ/L Potassium Level 3.9 MEQ/L Chloride Level 105 MEQ/L Carbon Dioxide Level 25.0 MEQ/L Anion Gap 8 MEQ/L Estimat Glomerular Filtration Rate 79 ML/MIN Total Creatine Kinase 112 U/L Creatine Kinase MB 0.7 NG/ML Troponin I LESS THAN 0.02 NG/ML Lipase 139 U/L [facility] Medical Decision Making Medical Screen Exam Complete: Yes Emergency Medical Condition: Yes Medical Record Reviewed: Yes Differential Diagnosis ACS versus chest wall pain versus electrolyte abnormality versus pneumonia versus PE Narrative Course 52-year-old male presents to the emergency department for evaluation of chest pain. Patient appears without distress. Vital signs are stable. Laboratory Tests Test 05/16/17 12:30 White Blood Count 7.0 TH/MM3 Red Blood Count 5.15 MIL/MM3 Hemoglobin 14.8 GM/DL Hematocrit 43.7 % Mean Corpuscular Volume 84.9 FL Mean Corpuscular Hemoglobin 28.7 PG Mean Corpuscular Hemoglobin Concent 33.8 % Red Cell Distribution Width 14.6 % Platelet Count 212 TH/MM3 Mean Platelet Volume 7.4 FL Neutrophils (%) (Auto) 54.3 % Lymphocytes (%) (Auto) 34.6 % Monocytes (%) (Auto) 7.6 % Eosinophils (%) (Auto) 2.5 % Basophils (%) (Auto) 1.0 % Neutrophils # (Auto) 3.8 TH/MM3 Lymphocytes # (Auto) 2.4 TH/MM3 Monocytes # (Auto) 0.5 TH/MM3 Eosinophils # (Auto) 0.2 TH/MM3 Basophils # (Auto) 0.1 TH/MM3 CBC Comment DIFF FINAL Differential Comment Prothrombin Time 11.3 SEC Prothromb Time International Ratio 1.1 RATIO Activated Partial Thromboplast Time 28.5 SEC Blood Urea Nitrogen 14 MG/DL Creatinine 0.99 MG/DL Random Glucose 113 MG/DL Calcium Level 9.1 MG/DL Magnesium Level 2.1 MG/DL Sodium Level 138 MEQ/L Potassium Level 3.9 MEQ/L Chloride Level 105 MEQ/L Carbon Dioxide Level 25.0 MEQ/L Anion Gap 8 MEQ/L Estimat Glomerular Filtration Rate 79 ML/MIN Total Creatine Kinase 112 U/L Creatine Kinase MB 0.7 NG/ML Troponin I LESS THAN 0.02 NG/ML Lipase 139 U/L Lab work is reviewed and essentially without any acute concern at this time. Discussed the patient with my attending physician who is also assess the patient and reviewed results. Patient will be admitted to the chest pain center at this time. Plan is discussed with him and he is in agreement with this plan of care. 1530 Pt has been seen by Cardiology and mentioned to him he has been having left leg and arm numbness which is why he presented to the ED. Cardiology requests pt be admitted observation to medicine for cardiac rule out as well as further investigation into the pt's mentioned symptoms. A call is placed to the residents for observation admission. Diagnosis Primary Impression: Chest pain Qualified Codes: R07.9 - Chest pain, unspecified Additional Impression: Dizziness Admitting Information Admitting Physician Requests: Observation Condition: Stable Sue Hassan May 16, 2017 12:26
[2017-05-16] MEDS ORDERED: ASPIRIN 81 MG CHEW TAB PO ONE (12:30)
[2017-05-16] MEDS ORDERED: SODIUM CHLORIDE 0.9% FLUSH 10 ML FLUSH IVF PRN (12:30)
[2017-05-16] MEDS ORDERED: SODIUM CHLORID 0.9% 500 ML INJ 500 ML IV ONE (12:30)
[2017-05-16] MEDS: NITROGLYCERIN 0.4 MG SL 25 TABS/BTL SL SCH ×3 (12:35→12:40)
--- NOTE | 2017-05-16 12:53 | RADRPT ---
EXAM DATE/TIME: 05/16/2017 12:36 [facility] COMPARISON: CHEST SINGLE AP, January 21, 2017, 20:01. INDICATIONS : Mid-sternal chest pains radiating into left lateral chest wall and left shoulder. MEDICAL HISTORY : Myocardial infarction. SURGICAL HISTORY : Coronary artery stent. ENCOUNTER: Initial ACUITY: 1 day PAIN SCORE: 10/10 LOCATION: Left chest FINDINGS: Portable AP view of the chest demonstrates a normal-sized cardiac silhouette. The lungs are underinfl ated with atelectasis at the bases. No effusion, consolidation, or pneumothorax is identified. Bones and soft tissues demonstrate no acute finding. CONCLUSION: Underinflation and mild atelectasis at the lung bases. Otherwise, no acute cardiopulmonary abnormalit y is identified. Dusty Lang MD on May 16, 2017 at 12:49 Board Certified Radiologist. This report was verified electronically.
[2017-05-16 13:03] LABS: AUTOMATED NEUTROPHIL # 3.8 TH/MM3 (1.8-7.7); BASOPHIL # 0.1 TH/MM3 (0-0.2); EOSINOPHIL # 0.2 TH/MM3 (0-0.4); EOSINOPHIL % 2.5 % (0.0-4.0); HEMATOCRIT 43.7 % (39.0-51.0); HEMOGLOBIN 14.8 GM/DL (13.0-17.0); LYMPH % 34.6 % (9.0-44.0); LYMPHOCYTE # 2.4 TH/MM3 (1.0-4.8); MEAN CELL VOLUME 84.9 FL (80.0-100.0); MEAN CORPUSCULAR HEMOGLOBIN 28.7 PG (27.0-34.0); MEAN CORPUSCULAR HGB CONC 33.8 % (32.0-36.0); MEAN PLATELET VOLUME 7.4 FL (7.0-11.0); MONO % 7.6 % (0.0-8.0); MONOCYTE # 0.5 TH/MM3 (0-0.9); NEUT % 54.3 % (16.0-70.0); PLATELET COUNT 212 TH/MM3 (150-450); RED BLOOD COUNT 5.15 MIL/MM3 (4.50-5.90); RED CELL DISTRIBUTION WIDTH 14.6 % (11.6-17.2)
[2017-05-16 13:09] LABS: INTERNATIONAL NORMALIZED RATIO 1.1 RATIO; PROTHROMBIN TIME - PATIENT 11.3 SEC (9.8-11.6)
[2017-05-16 13:23] LABS: TROPONIN I LESS THAN 0.02 NG/ML (0.02-0.05)
[2017-05-16 13:25] LABS: BLOOD UREA NITROGEN 14 MG/DL (7-18); CALCIUM 9.1 MG/DL (8.5-10.1); CHLORIDE 105 MEQ/L (98-107); CREATININE 0.99 MG/DL (0.60-1.30); GLOMERULAR FILTRATION RATE 79 ML/MIN (>89); GLUCOSE,RANDOM 113 MG/DL (74-106); MAGNESIUM 2.1 MG/DL (1.5-2.5); SODIUM (NA) 138 MEQ/L (136-145)
--- NOTE | 2017-05-16 13:41 | PD ---
Data Data Last Documented VS Vital Signs Date Time Temp Pulse Resp B/P (MAP) Pulse Ox O2 Delivery O2 Flow Rate FiO2 05/16/17 12:43 16 05/16/17 12:29 99 Room Air 05/16/17 12:29 05/16/17 12:28 76 05/16/17 12:14 99.1 Orders Orders Electrocardiogram (05/16/17 ) Electrocardiogram (05/16/17 12:25) Basic Metabolic Panel (Bmp) (05/16/17 12:25) Ckmb (Isoenzyme) Profile (05/16/17 12:25) Complete Blood Count With Diff (05/16/17 12:25) Magnesium (Mg) (05/16/17 12:25) Prothrombin Time / Inr (Pt) (05/16/17 12:25) Act Partial Throm Time (Ptt) (05/16/17 12:25) Troponin I (05/16/17 12:25) Lipase (05/16/17 12:25) Chest, Single Ap (05/16/17 12:25) Ecg Monitoring (05/16/17 12:25) Bilateral Bp Monitoring (05/16/17 12:25) Iv Access Insert/Monitor (05/16/17 12:25) Oximetry (05/16/17 12:25) Oxygen Administration (05/16/17 12:25) Aspirin Chew (Aspirin Chew) (05/16/17 12:30) Sodium Chloride 0.9% Flush (Ns Flush) (05/16/17 12:30) Nitroglycerin Sl (Nitrostat Sl) (05/16/17 12:30) Sodium Chlorid 0.9% 500 Ml Inj (Ns 500 M (05/16/17 12:30) CKMB (05/16/17 12:30) CKMB% (05/16/17 12:30) Labs Laboratory Tests Test 05/16/17 12:30 White Blood Count 7.0 TH/MM3 Red Blood Count 5.15 MIL/MM3 Hemoglobin 14.8 GM/DL Hematocrit 43.7 % Mean Corpuscular Volume 84.9 FL Mean Corpuscular Hemoglobin 28.7 PG Mean Corpuscular Hemoglobin Concent 33.8 % Red Cell Distribution Width 14.6 % Platelet Count 212 TH/MM3 Mean Platelet Volume 7.4 FL Neutrophils (%) (Auto) 54.3 % Lymphocytes (%) (Auto) 34.6 % Monocytes (%) (Auto) 7.6 % Eosinophils (%) (Auto) 2.5 % Basophils (%) (Auto) 1.0 % Neutrophils # (Auto) 3.8 TH/MM3 Lymphocytes # (Auto) 2.4 TH/MM3 Monocytes # (Auto) 0.5 TH/MM3 Eosinophils # (Auto) 0.2 TH/MM3 Basophils # (Auto) 0.1 TH/MM3 CBC Comment DIFF FINAL Differential Comment Prothrombin Time 11.3 SEC Prothromb Time International Ratio 1.1 RATIO Activated Partial Thromboplast Time 28.5 SEC Blood Urea Nitrogen 14 MG/DL Creatinine 0.99 MG/DL Random Glucose 113 MG/DL Calcium Level 9.1 MG/DL Magnesium Level 2.1 MG/DL Sodium Level 138 MEQ/L Potassium Level 3.9 MEQ/L Chloride Level 105 MEQ/L Carbon Dioxide Level 25.0 MEQ/L Anion Gap 8 MEQ/L Estimat Glomerular Filtration Rate 79 ML/MIN Total Creatine Kinase 112 U/L Creatine Kinase MB 0.7 NG/ML Troponin I LESS THAN 0.02 NG/ML Lipase 139 U/L MDM Supervised Visit with SUZIE: Yes Narrative Course The history, exam, and medical decision-making in the associated mid-level provider note were completed with my assistance. I reviewed and agree with the findings presented. I attest that I had a [id number] encounter with the patient on the same day, and personally performed and documented my assessment and findings in the medical record. *My assessment and Findings: 52-year-old man, presents to the ED with chest pain, intermittent for a week, worse over the past day or so. Extensive history including V. fib arrest, NV, multiple stents. Saw his primary doctor sent to the emergency department. Initial workup is unremarkable. Large septal Q waves with no definite evidence of acute ischemia on his EKG. We will plan admission to the chest pain center. Elvin North MD May 16, 2017 13:41
[2017-05-16] MEDS ORDERED: GADODIAMIDE PF 287 MG/ML 20 ML VIAL (for RAD MRI) IVCONTRAST ONE (13:42)
[2017-05-16] MEDS ORDERED: MAGNESIUM HYDROXIDE SUSP 30 ML CUP PO PRN (16:45)
[2017-05-16] MEDS ORDERED: BISACODYL 10 MG SUPP RECTAL PRN (16:45)
[2017-05-16] MEDS ORDERED: ACETAMINOPHEN 325 MG TAB PO PRN (16:45)
[2017-05-16] MEDS ORDERED: ONDANSETRON HCL 4 MG/2 ML VIAL IVP PRN (16:45)
[2017-05-16] MEDS ORDERED: LACTULOSE SYRUP 20 GM/30 ML CUP PO PRN (16:45)
[2017-05-16] MEDS ORDERED: SODIUM CHLORIDE 0.9% FLUSH 10 ML FLUSH IV FLUSH PRN (16:45)
[2017-05-16] MEDS ORDERED: SENNOSIDES 8.6 MG TAB PO PRN (16:45)
[2017-05-16] MEDS ORDERED: ENOXAPARIN SODIUM 40 MG/0.4 ML SYRINGE SQ SCH (16:45)
[2017-05-16] MEDS ORDERED: NALOXONE HCL 0.4 MG/ML AMP IV PUSH PRN (16:45)
[2017-05-16 16:55] LABS: TROPONIN I LESS THAN 0.02 NG/ML (0.02-0.05)
[2017-05-16] MEDS: CLOPIDOGREL 75 MG TAB PO SCH (17:00)
[2017-05-16] MEDS: MECLIZINE HCL 25 MG TAB PO SCH ×2 (17:55→21:42)
[2017-05-16] MEDS: CARVEDILOL 3.125 MG TAB PO SCH (17:56)
[2017-05-16] MEDS: CYANOCOBALAMIN 1,000 MCG TAB PO SCH (17:57)
[2017-05-16] MEDS: APIXABAN 5 MG TABLET PO SCH (21:41)
[2017-05-16] MEDS: SODIUM CHLORIDE 0.9% FLUSH 10 ML FLUSH IV FLUSH SCH (21:41)
[2017-05-16] MEDS: ATORVASTATIN 20 MG TAB PO SCH (21:41)
[2017-05-16] MEDS: SULFACETAMIDE SODIUM 10% OPTH SOLN 5 ML BTL LEFT EYE SCH (21:41)
[2017-05-16] MEDS: DOCUSATE SODIUM 50 MG/SENNA 8.6 MG TAB PO SCH (21:42)
[2017-05-16 23:08] LABS: MAGNESIUM 2.1 MG/DL (1.5-2.5)
[2017-05-17] VITALS (10 sets, daily range): BP systolic 103–121; BP diastolic 57–81; PULSE 60–81; RESP 17–18; TEMP 97.5–98.9; O2SAT 94–96
[2017-05-17] MEDS: MECLIZINE HCL 25 MG TAB PO SCH ×3 (06:17→20:49)
[2017-05-17] MEDS: APIXABAN 5 MG TABLET PO SCH ×2 (09:16→20:49)
[2017-05-17] MEDS: CARVEDILOL 3.125 MG TAB PO SCH (09:16)
[2017-05-17] MEDS: DOCUSATE SODIUM 50 MG/SENNA 8.6 MG TAB PO SCH ×2 (09:16→20:49)
[2017-05-17] MEDS: SULFACETAMIDE SODIUM 10% OPTH SOLN 5 ML BTL LEFT EYE SCH ×4 (09:16→20:49)
[2017-05-17] MEDS: CLOPIDOGREL 75 MG TAB PO SCH (09:16)
[2017-05-17] MEDS: CYANOCOBALAMIN 1,000 MCG TAB PO SCH (09:16)
[2017-05-17] MEDS: SODIUM CHLORIDE 0.9% FLUSH 10 ML FLUSH IV FLUSH SCH ×2 (09:16→20:50)
[2017-05-17 10:02] LABS: AUTOMATED NEUTROPHIL # 3.7 TH/MM3 (1.8-7.7); BASOPHIL # 0.1 TH/MM3 (0-0.2); EOSINOPHIL # 0.2 TH/MM3 (0-0.4); EOSINOPHIL % 3.4 % (0.0-4.0); HEMATOCRIT 43.9 % (39.0-51.0); HEMOGLOBIN 15.1 GM/DL (13.0-17.0); LYMPH % 32.1 % (9.0-44.0); LYMPHOCYTE # 2.1 TH/MM3 (1.0-4.8); MEAN CELL VOLUME 84.8 FL (80.0-100.0); MEAN CORPUSCULAR HEMOGLOBIN 29.2 PG (27.0-34.0); MEAN CORPUSCULAR HGB CONC 34.4 % (32.0-36.0); MEAN PLATELET VOLUME 7.5 FL (7.0-11.0); MONO % 6.4 % (0.0-8.0); MONOCYTE # 0.4 TH/MM3 (0-0.9); NEUT % 57.1 % (16.0-70.0); PLATELET COUNT 192 TH/MM3 (150-450); RED BLOOD COUNT 5.17 MIL/MM3 (4.50-5.90); RED CELL DISTRIBUTION WIDTH 14.4 % (11.6-17.2); WHITE BLOOD COUNT 6.4 TH/MM3 (4.0-11.0)
[2017-05-17 10:04] LABS: INTERNATIONAL NORMALIZED RATIO 1.2 RATIO; PROTHROMBIN TIME - PATIENT 11.7 SEC (9.8-11.6)
[2017-05-17 10:19] LABS: ALBUMIN 3.6 GM/DL (3.4-5.0); ALT (GPT) 30 U/L (12-78); AST (GOT) 14 U/L (15-37); BICARBONATE 29.2 MEQ/L (21.0-32.0); BLOOD UREA NITROGEN 11 MG/DL (7-18); CALCIUM 8.9 MG/DL (8.5-10.1); CHLORIDE 106 MEQ/L (98-107); CREATININE 0.95 MG/DL (0.60-1.30); GLOMERULAR FILTRATION RATE 83 ML/MIN (>89); GLUCOSE,RANDOM 155 MG/DL (74-106); SODIUM (NA) 140 MEQ/L (136-145)
[2017-05-17 10:22] LABS: ALKALINE PHOSPHATASE 78 U/L (45-117); TOTAL BILIRUBIN ADULT 0.5 MG/DL (0.2-1.0); TOTAL PROTEIN 7.4 GM/DL (6.4-8.2)
--- NOTE | 2017-05-17 10:56 | RADRPT ---
EXAM DATE/TIME: 05/17/2017 10:17 [facility] COMPARISON: MRI BRAIN W/O CONTRAST, January 21, 2017, 21:54. INDICATIONS : CVA. MEDICAL HISTORY : Hypertension. SURGICAL HISTORY : Inguinal hernia repair. Tonsillectomy. Appendectomy. ENCOUNTER: Initial ACUITY: 1 day PAIN SCORE: 0/10 LOCATION: cranial TECHNIQUE: Multiplanar, multisequence MRI of the brain was performed without contrast. FINDINGS: CEREBRUM: The ventricles are normal for age. No evidence of midline shift, mass lesion, hemorrhage or acute in farction. No extraaxial fluid collections are seen. The pituitary gland and suprasellar cistern are normal in configuration. WHITE MATTER: No significant signal abnormalities are seen in the white matter. POSTERIOR FOSSA: The cerebellum and brainstem are intact. The 4th ventricle is midline. The cerebellopontine angle is unremarkable. The cerebellar tonsils are normal in position. DIFFUSION IMAGING: No focal areas of restricted diffusion are seen. No evidence of acute infarction. EXTRACRANIAL: The visualized portions of the orbits and paranasal sinuses are unremarkable. CONCLUSION: 1. Unremarkable MRI the brain. 2. No acute infarction. Franklin Larson MD on May 17, 2017 at 10:52 Board Certified Radiologist. This report was verified electronically.
--- NOTE | 2017-05-17 10:58 | RADRPT ---
EXAM DATE/TIME: 05/17/2017 10:17 [facility] COMPARISON: MRA BRAIN W/O CONTRAST, January 21, 2017, 21:54. INDICATIONS : CVA. MEDICAL HISTORY : Hypertension. SURGICAL HISTORY : Inguinal hernia repair. Tonsillectomy. Appendectomy. ENCOUNTER: Initial ACUITY: 1 day PAIN SCORE: 0/10 LOCATION: cranial Please note a normal MRA of the brain does not entirely exclude the possibility of a small aneurysm, nor the possibility of distal intracranial vessel disease. TECHNIQUE: 3D time of flight MRA was performed. Source images, multiplanar STS MIP, and 3D volume MIP reconstru ctions were reviewed. FINDINGS: There is excellent visualization of the major intracranial arteries out to the second-order branch ve ssels. There is no evidence for aneurysm, vessel truncation or stenosis, and no evidence for vascula r malformation. Anterior communicating artery and tiny posterior communicating arteries. Vertebral ar teries and vertebrobasilar Junction normal. CONCLUSION: 1. No large vessel stenosis, thrombus or aneurysm. Franklin Larson MD on May 17, 2017 at 10:53 Board Certified Radiologist. This report was verified electronically.
--- NOTE | 2017-05-17 11:57 | PD.CONS ---
History of Present Illness Service Neurology Consult Requested By [facility] Reason for Consult numbness Primary Care Physician Balta Sanchez MD History of Present Illness 52 y/o m admitted for left chest pain with radiation to left arm. neuro consulted for arm weakness/numbness. pt states he has been having cp off/on will travel to arm and to upper back. has felt occasional weakness in legs. currently, denies any focal weakness, numbness, headache. ck nml 05/17/17 mri/mra brain negative 2017: several mri/mra negative for acute pathology, mri cspine no cord lesion. carotids nml negative rpr, april. nml esr in past. PFSH Past Medical History Hx Anticoagulant Therapy: Yes (eliquis) Asthma: No Blood Disorders: Yes (FACTOR V) Cardiovascular Problems: Yes High Cholesterol: Yes Hypertension: Yes Respiratory: Yes (BILATERAL PE) Myocardial Infarction: Yes Past Surgical History Coronary Stent: Yes (X2) Tonsillectomy: Yes Social History Alcohol Use: No (PT DENIES) Tobacco Use: No (QUIT 09/07/16) Substance Use: No Allergies-Medications (Allergen,Severity, Reaction): Coded Allergies: azithromycin (Verified Allergy, Severe, RASH, 05/16/17) reviewed per mar Review of Systems Except as stated in HPI: all other systems reviewed are Neg Review of Systems All other ROS: ROS reviewed as documented in chart Past Family Social History Allergies: Coded Allergies: azithromycin (Verified Allergy, Severe, RASH, 05/16/17) Active Ordered Medications Current Medications Medications (Trade) Dose Ordered Sig/Fern Route Start Time Stop Time Status Last Admin (NS Flush) 2 ml UNSCH PRN IV FLUSH 05/16/17 16:45 (NS Flush) 2 ml BID IV FLUSH 05/16/17 21:00 05/17/17 09:16 (Tylenol) 650 mg Q4H PRN PO 05/16/17 16:45 (Zofran Inj) 4 mg Q6H PRN IVP 05/16/17 16:45 (Narcan Inj) 0.4 mg UNSCH PRN IV PUSH 05/16/17 16:45 (Camila-Colace) 1 tab BID PO 05/16/17 21:00 05/17/17 09:16 (Milk Of Magnesia Liq) 30 ml Q12H PRN PO 05/16/17 16:45 (Senokot) 17.2 mg Q12H PRN PO 05/16/17 16:45 (Dulcolax Supp) 10 mg DAILY PRN RECTAL 05/16/17 16:45 (Lactulose Liq) 30 ml DAILY PRN PO 05/16/17 16:45 (Eliquis) 5 mg BID PO 05/16/17 21:00 05/17/17 09:16 (Lipitor) 20 mg HS PO 05/16/17 21:00 05/16/17 21:41 (Coreg) 3.125 mg DAILY PO 05/16/17 17:00 05/17/17 09:16 (Plavix) 75 mg DAILY PO 05/16/17 17:00 05/17/17 09:16 (Vitamin B12) 1,000 mcg DAILY PO 05/16/17 17:00 05/17/17 09:16 (Antivert) 25 mg Q8HR PO 05/16/17 17:00 05/17/17 06:17 (Bleph-10 Opth Soln) 1 drop Q4HR WHILE AWAKE NEB LEFT EYE 05/16/17 20:00 05/17/17 09:16 (Protonix) 40 mg DAILY PO 05/17/17 11:30 Exam I&O / VS 05/17/17 05/17/17 05/18/17 15:00 23:00 07:00 # Voids 1 Vital Signs Date Time Temp Pulse Resp B/P (MAP) Pulse Ox O2 Delivery O2 Flow Rate FiO2 05/17/17 08:40 97.5 75 18 121/81 (94) 96 05/17/17 04:00 63 05/17/17 03:58 98.7 66 18 107/62 (77) 94 05/17/17 00:20 60 05/16/17 23:41 98.2 66 18 106/67 (80) 94 05/16/17 20:54 98.4 69 18 123/78 (93) 96 05/16/17 20:35 73 05/16/17 17:00 70 05/16/17 16:35 98.3 69 18 125/84 (98) 96 05/16/17 16:04 97.8 64 16 113/62 (79) 99 05/16/17 13:59 97.8 66 16 106/60 (75) 100 Room Air 05/16/17 12:43 16 05/16/17 12:29 99 Room Air 05/16/17 12:29 17 97 Room Air 05/16/17 12:28 76 16 139/81 (100) 98 Room Air 139/76 (97) 05/16/17 12:24 74 18 98 Room Air 05/16/17 12:14 99.1 77 20 151/84 (106) 97 Room Air General: Alert and Oriented, No acute distress Eye: PERRL, EOMI Respiratory: Lungs CTA, Non-labored respirations Cardiology: Normal rate, Regular Rhythm Musculoskeletal: ROM Neurologic: Alert, Oriented, Normal sensory, Normal motor, No focal defects, CN II-XII intact, Normal DTR's Psychiatric: Cooperative, Appropriate mood & affect, Normal judgement Review/Management Diagnosis/Plan: (1) Chest pain ICD Codes: R07.9 - Chest pain Status: Acute Plan: arm symptoms appear non-neurological exam nml on eliquis and plavix will check mri spine screen, tsh, b12, esr, crp p.t. eval if negative can be dc'd from neurology (2) Factor V Leiden ICD Codes: D68.51 - Activated protein C resistance Status: Chronic (3) Hyperlipidemia ICD Codes: E78.5 - Hyperlipidemia, unspecified Status: Chronic (4) Coronary artery disease ICD Codes: I25.10 - Atherosclerotic heart disease of ramona coronary artery without angina pectoris Status: Chronic Problem Qualifiers (1) Chest pain: Qualified Codes: R07.9 - Chest pain, unspecified Deep Mensah MD May 17, 2017 11:57
--- NOTE | 2017-05-17 12:43 | MH ---
cc: BALTA BURTON MD DATE OF ADMISSION: 05/16/2017 CHIEF COMPLAINT Chest pain, weakness, right lower extremity and numbness or loss. Weakness of the left lower extremity and numbness both upper and lower extremity. HISTORY OF PRESENT ILLNESS This is 52-year-old very pleasant [place] male with past medical-surgical history significant for stroke, coronary artery disease doctor ventricular fibrillation arrest in the past and did have a CPR done in the past stent placement in the heart factor 5 Leiden deficiency on Eliquis and Plavix. He came to the ER at [facility] for chest pain actually the patient gives to my office and the complaining of chest pain 19. EKG and sent the patient to the ER the patient saying that he had feel lightheadedness and dizziness for the long time and he has been evaluated by a neurologist and nothing find out. He is having some substernal pressure radiating to the back and also had numbness in her left arm and complaining of weakness in the left lower extremity and other than that nothing significant. She also history of DVT in the past, hypertension and bilateral pulmonary embolism in the past. She also high cholesterol. Also history of for inguinal hernia repair, coronary stenting x2 of tonsillectomy. SOCIAL HISTORY Does not smoke and does not drink, smoke and denies any drug abuse. Lives at home with kids unemployed. FAMILY HISTORY Nothing significant allergy to azithromycin. MEDICATIONS 1. Meclizine 25 mg q.8 h. 2. Lipitor 20 mg p.o. daily. 3. Vitamin B12 1000 mcg p.o. daily. Eliquis 5 mg twice a day. 4. Plavix 75 mg p.o. daily. 5. Zocor 83.125 mA daily. REVIEW OF SYSTEMS Positive for left lower leg weakness and left whole body numbness and chest pain, feeling weak and tired all other review of systems negative. PHYSICAL EXAMINATION IN GENERAL: This is a 52-year male sitting on the bed not in acute distress. VITAL SIGNS: Temperature 97.5, heart rate 75, respirations 18, blood pressure 121/81, O2 saturation 96% at room air. HEAD, EYES, EARS, NOSE, AND THROAT: Normocephalic, atraumatic. EOMI. Oral mucosa moist with supple. No visible thyromegaly or neck mass. Trachea central. CARDIOVASCULAR SYSTEM: Regular rate and rhythm. Respirations clear to auscultation bilaterally. ABDOMEN: Soft, nontender. Bowel sounds. EXTREMITIES: No cyanosis or clubbing. Full range of motion of all extremities. NEUROLOGIC: Awake, alert, oriented x4. No focal deficits. Skin: Warm and dry. PSYCHIATRIC: Psych the patient is cooperative and affect is normal. LABORATORY DATA Include CBC is totally unremarkable. BMP totally unremarkable. CMP, totally unremarkable except for GFR 83 low, glucose random 155 high AST is 14 low. Electrocardiogram: Troponin I times two, 0.0-0.02 and total creatine kinase 112, 99 and 111 and total protein 7.4, albumin 3.6, lipase 139. PT 11.3, INR 1.1, APTT 28.5. RADIOLOGIC Chest x-ray Was done shows other inflation and mild atelectasis at the lung bases, otherwise no acute abnormality identified. A MRI was done, shows large vessel stenosis thrombosis or aneurysm. brain MRI done shows unremarkable MRA of the brain no acute infarction. ASSESSMENT/PLAN This is 52 year old male who came to the emergency room diagnosed with chest pain with acute coronary syndrome cardiac exam x2 within normal limits. Cardiology consulted. The patient is on Eliquis and Plavix and carvediolol. EKG does not show anything acute. Further recommendation per cardiology. 2. Left lower extremity weakness and numbness left side of the body. MRA of the head and MRA of the brain are normal. 3. Neurology on the boat further recommendation per neurology. 4. History of factor five Leiden deficiency. Continue home medication. 5. History of coronary artery disease continue home medication. 6. Continue with Eliquis and Plavix. 7. History of hyperlipidemia. Continue Lipitor 20 mg p.o. daily. 8. History of hypertension. Continue with home medications. 9. Dizziness. Continue with meclizine. 10. B12 deficiency. Continue with B12. 11. DVT prophylaxis. The patient is on Eliquis GI prophylaxis Protonix 40 mg p.o. daily. 12. Check CBC, CMP in the morning. 13. We are going to manage the patient on a daily basis and make recommendation daily basis. Balta Burton MD EA/andria /11:18 AM /12:04 PM
[2017-05-17] MEDS: PANTOPRAZOLE SOD 40 MG DELAYED RELEASE TAB PO SCH (12:51)
[2017-05-17] MEDS ORDERED: LORazepam 1 MG TAB PO ONE (13:15)
--- NOTE | 2017-05-17 13:23 | MB ---
cc: LEIGH SOTO M.D. DATE OF CONSULTATION: 05/17/2017. HISTORY OF PRESENT ILLNESS: This is a 52-year-old male with history of coronary artery disease and a mild element of cardiomyopathy before at the time of his myocardial infarction had cardiac arrest and was resuscitated and had a stent placed in the left anterior descending and did very well. He was doing great and ambulating with no difficulty. The day of admission he started having episodes of chest pain, lightheadedness and leg weakness. No edema. He was pretty active before that. EKG and enzymes initially were with no acute changes. PAST MEDICAL HISTORY: As above. SOCIAL HISTORY: No alcohol. No drugs. No tobacco. ALLERGIES: 1. AZITHROMYCIN. FAMILY HISTORY: Noncontributory. REVIEW OF SYSTEMS: Essentially as above. MEDICATIONS: See chart for details. PHYSICAL EXAMINATION: GENERAL: Alert, oriented, cooperative. HEAD, EYES, EARS, NOSE, THROAT: Unremarkable. VITAL SIGNS: Stable. HEART: S1 and S2. No murmur, no gallop, no rub. LUNGS: Clear. ABDOMEN: Free. EXTREMITIES: No edema. Pulses intact. IMPRESSION AND PLAN: Atypical chest pain status post stress test and echocardiogram and further recommendations to follow accordingly. MD MANUEL Cardenas/PIYUSH /11:32 AM /1:10 PM
[2017-05-17 14:34] LABS: C-REACTIVE PROTEIN LESS THAN 0.29 MG/DL (0.00-0.30)
--- NOTE | 2017-05-17 14:36 | EKG ---
Date Performed: 05/16/2017 Time Performed: 16:11:05 PTAGE: 52 years EKG: Sinus rhythm WITH FIRST DEGREE AV BLOCK ANTERIOR MYOCARDIAL INFARCTION,undetermined age. PREVIOUS TRACING : 05/16/2017 12.42 Since previous tracing, no significant change noted DOCTOR: Adryan Raymundo Interpretating Date/Time 05/17/2017 14:36:14
--- NOTE | 2017-05-17 14:38 | EKG ---
Date Performed: 05/16/2017 Time Performed: 12:42:50 PTAGE: 52 years EKG: Sinus rhythm ANTEROSEPTAL MYOCARDIAL INFARCTION,undetermined age. ABNORMAL ECG PREVIOUS TRACING : 01/21/2017 20.38 Since previous tracing, no significant change noted DOCTOR: Adryan Raymundo Interpretating Date/Time 05/17/2017 14:37:06
--- NOTE | 2017-05-17 15:52 | RADRPT ---
EXAM DATE/TIME: 05/17/2017 14:44 [facility] COMPARISON: No previous studies available for comparison. INDICATIONS : Myelopathy. Left arm pain, left leg numbness. CONTRAST: 19 cc Omniscan (gadodiamide) IV MEDICAL HISTORY : Hypertension. Cardiovascular disease SURGICAL HISTORY : Coronary artery stent. Inguinal hernia repair. Appendectomy. ENCOUNTER: Initial ACUITY: 1 day PAIN SCORE: 0/10 LOCATION: Parasp[facility] TECHNIQUE: Screening MRI of the entire spinal axis was performed in the sagittal and axial planes. FINDINGS: Entire spine screening examination was performed using multiplanar multisequence technique pre-and po st contrast. Cervical spine: The marrow signal appears intact, and the spinal cord appears intact with technique. C2-C3: No appreciable compromise to the thecal sac, exiting nerve roots are seen. The neural foramina are pa tent bilaterally. No appreciable thecal sac stenosis is seen. C3-C4: Moderate degenerative changes are seen within the disc space and facets. There is effacement of the a nterior CSF space due to chronic hypertrophic changes, some degree of bulging disc with compromise to the anterior CSF space, however overall no significant thecal sac stenosis is seen. C4-C5: Moderate degenerative changes are seen within the disc space and facets. There is effacement of the a nterior CSF space due to chronic hypertrophic changes, some degree of bulging disc with compromise to the anterior CSF space, however overall no significant thecal sac stenosis is seen. C5-C6: Moderate degenerative changes are seen within the disc space and facets. There is slight neural dia josh compromise bilaterally due to bulging disc and hypertrophic changes. Slight overall thecal sac st enosis is seen due to central disc bulge and hypertrophic changes. C6-C7: Moderate degenerative changes are seen within the disc space and facets. There is slight neural dia josh compromise bilaterally due to bulging disc and hypertrophic changes. Slight overall thecal sac st enosis is seen due to central disc bulge and hypertrophic changes. C7-T1: No appreciable compromise to the thecal sac, exiting nerve roots are seen. The neural foramina are pa tent bilaterally. No appreciable thecal sac stenosis is seen. T1-T2: No appreciable compromise to the thecal sac, spinal cord, or the exiting nerve roots are seen. The n eural foramina are grossly patent bilaterally. T2-T3: No appreciable compromise to the thecal sac, spinal cord, or the exiting nerve roots are seen. The n eural foramina are grossly patent bilaterally. T3-T4: No appreciable compromise to the thecal sac, spinal cord, or the exiting nerve roots are seen. The n eural foramina are grossly patent bilaterally. T4-T5: No appreciable compromise to the thecal sac, spinal cord, or the exiting nerve roots are seen. The n eural foramina are grossly patent bilaterally. T5-T6: No appreciable compromise to the thecal sac, spinal cord, or the exiting nerve roots are seen. The n eural foramina are grossly patent bilaterally. T6-T7: No appreciable compromise to the thecal sac, spinal cord, or the exiting nerve roots are seen. The n eural foramina are grossly patent bilaterally. T7-T8: No appreciable compromise to the thecal sac, spinal cord, or the exiting nerve roots are seen. The n eural foramina are grossly patent bilaterally. T8-T9: Small right-sided disc protrusion is present indenting the thecal sac without any significant comprom ise to the thecal sac or the exiting nerve roots. T9-T10: No appreciable compromise to the thecal sac, spinal cord, or the exiting nerve roots are seen. The n eural foramina are grossly patent bilaterally. T10-T11: No appreciable compromise to the thecal sac, spinal cord, or the exiting nerve roots are seen. The n eural foramina are grossly patent bilaterally. T11-T12: No appreciable compromise to the thecal sac, spinal cord, or the exiting nerve roots are seen. The n eural foramina are grossly patent bilaterally. T12-L1: No appreciable compromise to the thecal sac, spinal cord, or the exiting nerve roots are seen. The n eural foramina are grossly patent bilaterally. L1-L2: Slight degenerative changes are seen within the disc space and facets. Moderate overall thecal sac st enosis is seen due to disc bulge slight component central protrusion and hypertrophic changes. L2-L3: No appreciable compromise to the thecal sac, or the exiting nerve roots is seen. The neural foramina and lateral recesses are patent bilaterally. L3-L4: There is effacement of the anterior CSF space due to chronic hypertrophic changes, some degree of bul ging disc with compromise to the anterior CSF space, however overall no significant thecal sac stenos is is seen. Slight degenerative changes are seen within the disc space and facets. L4-L5: No appreciable compromise to the thecal sac, or the exiting nerve roots is seen. The neural foramina and lateral recesses are patent bilaterally. L5-S1: No appreciable compromise to the thecal sac, or the exiting nerve roots is seen. The neural foramina and lateral recesses are patent bilaterally. Slight bulging disc and hypertrophic changes are seen w ith indentation on the thecal sac and no significant compromise to the thecal sac or the exiting nerv e roots. CONCLUSION: 1. Slight thecal sac stenosis C5-6, C6-7. 2. Moderate thecal sac stenosis L1-2. 3. Neural foramina compromise bilateral C5-C6, bilateral C6-C7. 4. There is effacement of the anterior CSF space at C3-4, C4-5, and L3-4 due to chronic hypertrophic changes, some degree of bulging disc with compromise to the anterior CSF space, however overall no si gnificant thecal sac stenosis is seen. 5. Small right-sided disc protrusion T9-T10. Anitha Parikh MD on May 17, 2017 at 15:41 Board Certified Radiologist. This report was verified electronically.
[2017-05-17] MEDS: ATORVASTATIN 20 MG TAB PO SCH (20:49)
[2017-05-18] VITALS (7 sets, daily range): BP systolic 103–121; BP diastolic 56–75; PULSE 63–73; RESP 16–18; TEMP 97.4–98.8; O2SAT 95–99
[2017-05-18 05:20] LABS: BASOPHIL # 0.1 TH/MM3 (0-0.2); BASOPHIL % 0.9 % (0.0-2.0); EOSINOPHIL # 0.2 TH/MM3 (0-0.4); EOSINOPHIL % 3.4 % (0.0-4.0); HEMATOCRIT 44.5 % (39.0-51.0); HEMOGLOBIN 15.4 GM/DL (13.0-17.0); LYMPH % 31.4 % (9.0-44.0); LYMPHOCYTE # 2.2 TH/MM3 (1.0-4.8); MEAN CELL VOLUME 84.2 FL (80.0-100.0); MEAN CORPUSCULAR HEMOGLOBIN 29.2 PG (27.0-34.0); MEAN CORPUSCULAR HGB CONC 34.7 % (32.0-36.0); MEAN PLATELET VOLUME 7.4 FL (7.0-11.0); MONO % 7.9 % (0.0-8.0); MONOCYTE # 0.6 TH/MM3 (0-0.9); NEUT % 56.4 % (16.0-70.0); PLATELET COUNT 175 TH/MM3 (150-450); RED BLOOD COUNT 5.29 MIL/MM3 (4.50-5.90); RED CELL DISTRIBUTION WIDTH 14.4 % (11.6-17.2); WHITE BLOOD COUNT 7.1 TH/MM3 (4.0-11.0)
[2017-05-18 05:31] LABS: ALBUMIN 3.5 GM/DL (3.4-5.0); AST (GOT) 17 U/L (15-37); BICARBONATE 31.2 MEQ/L (21.0-32.0); BLOOD UREA NITROGEN 14 MG/DL (7-18); CALCIUM 9.3 MG/DL (8.5-10.1); CHLORIDE 105 MEQ/L (98-107); CREATININE 1.22 MG/DL (0.60-1.30); GLOMERULAR FILTRATION RATE 62 ML/MIN (>89); GLUCOSE,RANDOM 101 MG/DL (74-106); SODIUM (NA) 140 MEQ/L (136-145)
[2017-05-18 05:32] LABS: ALT (GPT) 23 U/L (12-78)
[2017-05-18 05:34] LABS: ALKALINE PHOSPHATASE 78 U/L (45-117); TOTAL BILIRUBIN ADULT 0.3 MG/DL (0.2-1.0); TOTAL PROTEIN 7.4 GM/DL (6.4-8.2)
[2017-05-18] MEDS: MECLIZINE HCL 25 MG TAB PO SCH ×3 (05:58→21:23)
[2017-05-18] MEDS: CYANOCOBALAMIN 1,000 MCG TAB PO SCH (08:58)
[2017-05-18] MEDS: PANTOPRAZOLE SOD 40 MG DELAYED RELEASE TAB PO SCH (08:58)
[2017-05-18] MEDS: APIXABAN 5 MG TABLET PO SCH ×2 (08:58→21:23)
[2017-05-18] MEDS: SULFACETAMIDE SODIUM 10% OPTH SOLN 5 ML BTL LEFT EYE SCH ×4 (08:58→21:24)
[2017-05-18] MEDS: CARVEDILOL 3.125 MG TAB PO SCH (08:58)
[2017-05-18] MEDS: CLOPIDOGREL 75 MG TAB PO SCH (08:59)
[2017-05-18] MEDS: DOCUSATE SODIUM 50 MG/SENNA 8.6 MG TAB PO SCH ×2 (08:59→21:23)
[2017-05-18] MEDS: SODIUM CHLORIDE 0.9% FLUSH 10 ML FLUSH IV FLUSH SCH ×2 (08:59→21:00)
[2017-05-18] MEDS ORDERED: REGADENOSON INJ 0.4 MG/5 ML SYR ONE (11:14)
--- NOTE | 2017-05-18 12:32 | RADRPT ---
EXAM DATE/TIME: 05/18/2017 11:03 [facility] COMPARISON: No previous studies available for comparison. INDICATIONS : Midchest pain for 1 day. Angina. Coronary artery disease. DOSE: 25.9 mCi Tc99m Myoview at stress. 8.1 mCi Tc99m Myoview at rest. 0.4 mg Lexiscan STRESS SYMPTOMS: Headache. EJECTION FRACTION: 50% MEDICAL HISTORY : Myocardial infarction. Hypertension. Cardiomegaly. SURGICAL HISTORY : Inguinal hernia repair. Coronary artery stent. ENCOUNTER: Initial ACUITY: 1 day PAIN SCALE: 3/10 LOCATION: Midsternal chest TECHNIQUE: The patient underwent pharmacologic stress with infusion of prescribed dose. Continuous ECG tracing was monitored during stress. Gated SPECT imaging was performed after stress and conventional SPECT i maging was performed at rest. The examination was performed on a SPECT/CT scanner, both attenuation and non-corrected datasets were reviewed. FINDINGS: DISTRIBUTION: The maximum perfused segment at stress is in the inferior wall. PERFUSION STUDY: No reversible perfusion defects. Large fixed defect along the anterior wall, septum and inferior wall towards the apex GATED STUDY: There is intact wall motion and thickening without hypokinetic or dyskinetic segments. CONCLUSION: 1. Large fixed defect at the apex suggests previous myocardial infarction. 2. No reversible perfusion abnormalities to suggest ischemia. 3. Ejection fraction 50%. RISK CATEGORY: High (>3% Annual Mortality Rate) Franklin Larson MD on May 18, 2017 at 12:27 Board Certified Radiologist. This report was verified electronically.
--- NOTE | 2017-05-18 20:05 | ECHRPT ---
Indication: CHEST PAIN CONCLUSIONS Normal left ventricular size. Wall thickness is normal. The left ventricular systolic function is low normal with an estimated ejection fraction in the rang e of 50%. BP: / HR: Rhythm: MEASUREMENTS (Male / Female) Normal Values Technical Quality: 2D ECHO LV Diastolic Diameter PLAX 4.1 cm 4.2 - 5.9 / 3.9 - 5.3 cm LV Systolic Diameter PLAX 3.0 cm IVS Diastolic Thickness 0.8 cm 0.6 - 1.0 / 0.6 - 0.9 cm LVPW Diastolic Thickness 0.7 cm 0.6 - 1.0 / 0.6 - 0.9 cm LV Relative Wall Thickness 0.4 LA Systolic Diameter LX 3.6 cm 3.0 - 4.0 / 2.7 - 3.8 cm M-MODE Aortic Root Diameter MM 3.6 cm AV Cusp Separation MM 2.1 cm DOPPLER Mitral E Point Velocity 65.6 cm/s Mitral A Point Velocity 73.1 cm/s Mitral E to A Ratio 0.9 FINDINGS LEFT VENTRICLE Normal left ventricular size. Wall thickness is normal. The left ventricular systolic function is low normal with an estimated ejection fraction in the rang e of 50%. RIGHT VENTRICLE Normal right ventricular size and systolic function. LEFT ATRIUM The left atrial size is normal. RIGHT ATRIUM The right atrial size is normal. ATRIAL SEPTUM Normal atrial septal thickness without atrial level shunting by limited color doppler interrogation. AORTA The aortic root and proximal ascending aorta are normal in size on limited imaging. MITRAL VALVE Structurally normal mitral valve. No mitral valve stenosis or regurgitation. AORTIC VALVE Trileaflet aortic valve. No aortic valve stenosis or regurgitation. TRICUSPID VALVE Structurally normal tricuspid valve. No tricuspid valve stenosis or regurgitation. PULMONARY VALVE The pulmonary valve is not well visualized. VESSELS The inferior vena cava is normal in size. PERICARDIUM No pericardial effusion. Ervin Eller MD (Electronically Signed) Final Date:18 May 2017 20:03
[2017-05-18] MEDS: ATORVASTATIN 20 MG TAB PO SCH (21:23)
--- NOTE | 2017-05-18 22:49 | HHI.PR ---
Subjective History of Present Illness Patient chest pain better MRI / MRA Brain was normal no acute issue neurology and cardiology input noted getting stress test. Review of Systems Constitutional Constitutional: Fatigue, Weakness Cardiology CV: Chest Pain Neurologic Neurologic Remarks numbness left side of body weakness left leg. Vitals/Results Intake & Output 05/18/17 05/18/17 05/19/17 15:00 23:00 07:00 # Voids 1 Vital Signs Vital Signs Date Time Temp Pulse Resp B/P (MAP) Pulse Ox O2 Delivery O2 Flow Rate FiO2 05/18/17 21:12 98.2 69 16 112/75 (87) 99 05/18/17 16:00 72 05/18/17 15:56 98.8 73 18 109/69 (82) 98 05/18/17 12:31 97.8 66 18 121/57 (78) 96 05/18/17 08:25 97.4 69 18 103/72 (82) 99 05/18/17 07:24 63 05/18/17 03:05 98.2 68 18 104/56 (72) 97 05/17/17 23:45 98.0 72 17 104/58 (73) 96 CBC/BMP: 05/18/17 0422 05/18/17 0446 Lab Results Laboratory Tests Test 05/18/17 04:22 05/18/17 04:46 White Blood Count 7.1 TH/MM3 Red Blood Count 5.29 MIL/MM3 Hemoglobin 15.4 GM/DL Hematocrit 44.5 % Mean Corpuscular Volume 84.2 FL Mean Corpuscular Hemoglobin 29.2 PG Mean Corpuscular Hemoglobin Concent 34.7 % Red Cell Distribution Width 14.4 % Platelet Count 175 TH/MM3 Mean Platelet Volume 7.4 FL Neutrophils (%) (Auto) 56.4 % Lymphocytes (%) (Auto) 31.4 % Monocytes (%) (Auto) 7.9 % Eosinophils (%) (Auto) 3.4 % Basophils (%) (Auto) 0.9 % Neutrophils # (Auto) 4.0 TH/MM3 Lymphocytes # (Auto) 2.2 TH/MM3 Monocytes # (Auto) 0.6 TH/MM3 Eosinophils # (Auto) 0.2 TH/MM3 Basophils # (Auto) 0.1 TH/MM3 CBC Comment DIFF FINAL Differential Comment Blood Urea Nitrogen 14 MG/DL Creatinine 1.22 MG/DL Random Glucose 101 MG/DL Total Protein 7.4 GM/DL Albumin 3.5 GM/DL Calcium Level 9.3 MG/DL Alkaline Phosphatase 78 U/L Aspartate Amino Transf (AST/SGOT) 17 U/L Alanine Aminotransferase (ALT/SGPT) 23 U/L Total Bilirubin 0.3 MG/DL Sodium Level 140 MEQ/L Potassium Level 4.3 MEQ/L Chloride Level 105 MEQ/L Carbon Dioxide Level 31.2 MEQ/L Anion Gap 4 MEQ/L Estimat Glomerular Filtration Rate 62 ML/MIN Physical Exam General General Appearance: Well Developed, Well Nourished, No Acute Distress, Comfortable Eyes Eye Exam: Pupils Equal, Pupils Reactive, Sclera White, Extraocular Movement Intact Throat Throat Exam: Oral Mucosa [place] & Moist, Oral Pharynx Normal Neck Neck Exam: Neck Supple, Trachea Midline Pulmonary Resp Exam: Clear Bilaterally, Breath Sounds Equal Cardiology CV Exam: Regular, Normal Sinus Rhythm Gastrointestinal/Abdomen GI Exam: Soft, Non-Tender, Bowel Sounds Present Musculoskeletal MS Exam: Joints Intact Integumentary Skin Exam: Clear, Warm, Dry, Intact Extremeties Extremities Exam: No Edema Neurologic Neuro Exam: Alert, Awake, Oriented, Speech Clear, Moving All Extremities, No Focal Deficits VTE Prophylaxis VTE Remarks eliquis. PUD Prophylasis PUD Prophylaxis: Protonix Assessment/Plan Assessment/Plan ASSESSMENT/PLAN This is 52 year old male who came to the emergency room diagnosed with chest pain with acute coronary syndrome cardiac exam x 2 within normal limits. Cardiology input noted. getting stress test The patient is on Eliquis and Plavix and carvediolol. EKG does not show anything acute. Further recommendation per cardiology. 2. Left lower extremity weakness and numbness left side of the body. MRA of the head and MRA of the brain are normal. neurology input noted. 3. History of factor five Leiden deficiency. Continue home medication. 4. History of coronary artery disease continue home medication. Continue with Eliquis and Plavix. 5. History of hyperlipidemia. Continue Lipitor 20 mg p.o. daily. 6. History of hypertension. Continue with home medications. 7. Dizziness. Continue with meclizine. 8. B12 deficiency. Continue with B12. 9. DVT prophylaxis. The patient is on Eliquis GI prophylaxis Protonix 40 mg p.o. daily. 10. Check CBC, CMP in the morning. 11. We are going to manage the patient on a daily basis and make recommendation daily basis. check CBC with diff CMP in AM. Discussed Condition with: Patient Balta Sanchez MD May 18, 2017 22:49
[2017-05-19 00:58] VITALS: BP 101/62; PULSE 65; RESP 18; TEMP 98.4; O2SAT 95
[2017-05-19 04:01] VITALS: BP 111/75; PULSE 73; RESP 16; TEMP 98; O2SAT 98
[2017-05-19 05:53] LABS: BASOPHIL # 0.1 TH/MM3 (0-0.2); BASOPHIL % 0.8 % (0.0-2.0); EOSINOPHIL # 0.3 TH/MM3 (0-0.4); EOSINOPHIL % 3.4 % (0.0-4.0); HEMATOCRIT 43.3 % (39.0-51.0); LYMPH % 34.6 % (9.0-44.0); LYMPHOCYTE # 2.6 TH/MM3 (1.0-4.8); MEAN CELL VOLUME 84.1 FL (80.0-100.0); MEAN CORPUSCULAR HEMOGLOBIN 29.2 PG (27.0-34.0); MEAN CORPUSCULAR HGB CONC 34.7 % (32.0-36.0); MEAN PLATELET VOLUME 7.9 FL (7.0-11.0); MONO % 6.9 % (0.0-8.0); MONOCYTE # 0.5 TH/MM3 (0-0.9); NEUT % 54.3 % (16.0-70.0); PLATELET COUNT 162 TH/MM3 (150-450); RED BLOOD COUNT 5.14 MIL/MM3 (4.50-5.90); RED CELL DISTRIBUTION WIDTH 14.6 % (11.6-17.2); WHITE BLOOD COUNT 7.4 TH/MM3 (4.0-11.0)
[2017-05-19 06:13] LABS: ALBUMIN 3.6 GM/DL (3.4-5.0); AST (GOT) 15 U/L (15-37); BICARBONATE 27.7 MEQ/L (21.0-32.0); BLOOD UREA NITROGEN 15 MG/DL (7-18); CALCIUM 9.2 MG/DL (8.5-10.1); CHLORIDE 104 MEQ/L (98-107); CREATININE 0.98 MG/DL (0.60-1.30); GLOMERULAR FILTRATION RATE 80 ML/MIN (>89); GLUCOSE,RANDOM 91 MG/DL (74-106); SODIUM (NA) 138 MEQ/L (136-145)
[2017-05-19 06:14] LABS: ALT (GPT) 22 U/L (12-78)
[2017-05-19 06:16] LABS: ALKALINE PHOSPHATASE 79 U/L (45-117); TOTAL BILIRUBIN ADULT 0.6 MG/DL (0.2-1.0); TOTAL PROTEIN 7.3 GM/DL (6.4-8.2)
[2017-05-19] MEDS: MECLIZINE HCL 25 MG TAB PO SCH (06:51)
[2017-05-19 07:41] VITALS: BP 115/80; PULSE 82; RESP 18; TEMP 97.6; O2SAT 98
[2017-05-19] MEDS: CARVEDILOL 3.125 MG TAB PO SCH (08:16)
[2017-05-19] MEDS: CYANOCOBALAMIN 1,000 MCG TAB PO SCH (08:16)
[2017-05-19] MEDS: PANTOPRAZOLE SOD 40 MG DELAYED RELEASE TAB PO SCH (08:16)
[2017-05-19] MEDS: APIXABAN 5 MG TABLET PO SCH (08:17)
[2017-05-19] MEDS: DOCUSATE SODIUM 50 MG/SENNA 8.6 MG TAB PO SCH (08:17)
[2017-05-19] MEDS: CLOPIDOGREL 75 MG TAB PO SCH (08:17)
[2017-05-19] MEDS: SULFACETAMIDE SODIUM 10% OPTH SOLN 5 ML BTL LEFT EYE SCH ×2 (08:18→13:23)
[2017-05-19] MEDS: SODIUM CHLORIDE 0.9% FLUSH 10 ML FLUSH IV FLUSH SCH (08:18)
[2017-05-19 11:27] VITALS: BP 113/68; PULSE 81; RESP 16; TEMP 98.3; O2SAT 95
--- NOTE | 2017-05-19 13:19 | HHI.PR ---
Subjective History of Present Illness Patient chest pain better numbness left side of body better left leg weakness better. s/p stress test Negative ok to discharge home today. d/w RN on duty. Review of Systems Constitutional Constitutional: Fatigue, Weakness Neurologic Neurologic Remarks numbness left side of body. Vitals/Results Vital Signs Vital Signs Date Time Temp Pulse Resp B/P (MAP) Pulse Ox O2 Delivery O2 Flow Rate FiO2 05/19/17 11:27 98.3 81 16 113/68 (83) 95 05/19/17 07:41 97.6 82 18 115/80 (92) 98 05/19/17 04:01 98.0 73 16 111/75 (87) 98 05/19/17 00:58 98.4 65 18 101/62 (75) 95 05/18/17 21:12 98.2 69 16 112/75 (87) 99 05/18/17 16:00 72 05/18/17 15:56 98.8 73 18 109/69 (82) 98 CBC/BMP: 05/19/17 0433 05/19/17 0433 Lab Results Laboratory Tests Test 05/19/17 04:33 White Blood Count 7.4 TH/MM3 Red Blood Count 5.14 MIL/MM3 Hemoglobin 15.0 GM/DL Hematocrit 43.3 % Mean Corpuscular Volume 84.1 FL Mean Corpuscular Hemoglobin 29.2 PG Mean Corpuscular Hemoglobin Concent 34.7 % Red Cell Distribution Width 14.6 % Platelet Count 162 TH/MM3 Mean Platelet Volume 7.9 FL Neutrophils (%) (Auto) 54.3 % Lymphocytes (%) (Auto) 34.6 % Monocytes (%) (Auto) 6.9 % Eosinophils (%) (Auto) 3.4 % Basophils (%) (Auto) 0.8 % Neutrophils # (Auto) 4.0 TH/MM3 Lymphocytes # (Auto) 2.6 TH/MM3 Monocytes # (Auto) 0.5 TH/MM3 Eosinophils # (Auto) 0.3 TH/MM3 Basophils # (Auto) 0.1 TH/MM3 CBC Comment DIFF FINAL Differential Comment Blood Urea Nitrogen 15 MG/DL Creatinine 0.98 MG/DL Random Glucose 91 MG/DL Total Protein 7.3 GM/DL Albumin 3.6 GM/DL Calcium Level 9.2 MG/DL Alkaline Phosphatase 79 U/L Aspartate Amino Transf (AST/SGOT) 15 U/L Alanine Aminotransferase (ALT/SGPT) 22 U/L Total Bilirubin 0.6 MG/DL Sodium Level 138 MEQ/L Potassium Level 3.8 MEQ/L Chloride Level 104 MEQ/L Carbon Dioxide Level 27.7 MEQ/L Anion Gap 6 MEQ/L Estimat Glomerular Filtration Rate 80 ML/MIN Physical Exam General General Appearance: Well Developed, Well Nourished, No Acute Distress, Comfortable Eyes Eye Exam: Pupils Equal, Pupils Reactive, Sclera White, Extraocular Movement Intact Throat Throat Exam: Oral Mucosa [place] & Moist, Oral Pharynx Normal Neck Neck Exam: Neck Supple, Trachea Midline Pulmonary Resp Exam: Clear Bilaterally, Breath Sounds Equal Cardiology CV Exam: Regular, Normal Sinus Rhythm Gastrointestinal/Abdomen GI Exam: Soft, Non-Tender, Bowel Sounds Present Musculoskeletal MS Exam: Joints Intact Integumentary Skin Exam: Clear, Warm, Dry, Intact Extremeties Extremities Exam: No Edema Neurologic Neuro Exam: Alert, Awake, Oriented, Speech Clear, Moving All Extremities, No Focal Deficits VTE Prophylaxis VTE Remarks eliquis. PUD Prophylasis PUD Prophylaxis: Protonix Assessment/Plan Assessment/Plan ASSESSMENT/PLAN This is 52 year old male who came to the emergency room diagnosed with chest pain with acute coronary syndrome cardiac exam x2 within normal limits. Cardiology input noted. s/p stress test was negative. The patient is on Eliquis and Plavix and carvediolol. EKG does not show anything acute. Further recommendation per cardiology. ok to discharge per cardiology. 2. Left lower extremity weakness and numbness left side of the body. MRA of the head and MRA of the brain are normal. Neurology input noted for further recommendation per neurology. ok to discharge home. 3 History of factor five Leiden deficiency. Continue home medication. 4. History of coronary artery disease continue home medication. Continue with Eliquis and Plavix. 5. History of hyperlipidemia. Continue Lipitor 20 mg p.o. daily. 6. History of hypertension. Continue with home medications. 7. Dizziness. Continue with meclizine. 8. B12 deficiency. Continue with B12. 9. DVT prophylaxis. The patient is on Eliquis GI prophylaxis Protonix 40 mg p.o. daily. ok to discharge home today. f/u with pcp/ cardiology/ neurology 1 week. Discussed Condition with: Patient Balta Sanchez MD May 19, 2017 13:19
== END 2017-05-19 14:54 | disposition home or self-care (01) ==
LOC: NEPE 12:09 → NEDA 13:41 → NEPGCP 16:30
PROVIDERS: ADMIT Family Medicine; ATTEND Family Medicine
DX: I24.9 Acute ischemic heart disease, unspecified (principal); R53.1 Weakness; R20.0 Anesthesia of skin; M79.602 Pain in left arm; R51 Headache; R42 Dizziness and giddiness; D68.51 Activated protein C resistance; I25.10 Atherosclerotic heart disease of native coronary artery without angina pectoris; I10 Essential (primary) hypertension; E78.00 Pure hypercholesterolemia, unspecified; I44.0 Atrioventricular block, first degree; I42.9 Cardiomyopathy, unspecified; I25.2 Old myocardial infarction; E53.8 Deficiency of other specified B group vitamins; M48.061 Spinal stenosis, lumbar region without neurogenic claudication; M51.24 Other intervertebral disc displacement, thoracic region; Z79.01 Long term (current) use of anticoagulants; Z79.02 Long term (current) use of antithrombotics/antiplatelets; Z79.899 Other long term (current) drug therapy; Z86.73 Personal history of transient ischemic attack (TIA), and cerebral infarction without residual deficits; Z95.5 Presence of coronary angioplasty implant and graft; Z86.718 Personal history of other venous thrombosis and embolism; Z86.711 Personal history of pulmonary embolism; Z86.74 Personal history of sudden cardiac arrest
CPT/HCPCS: 70544; 70551; 71045; 72156; 72158; 78452; 80048; 80053; 82550; 82552; 82607; 83690; 83735; 84443; 84484; 85025; 85610; 85652; 85730; 86140; 93005; 93017; 93306; 96360; 97162; 99285; A9502; A9579; G0378; G8987; G8988; J2785; J7040

== ENCOUNTER 2017-12-23 12:59 | Observation (INO) ==
[2017-12-23] MEDS ORDERED: Sod Chloride 0.9% Inj 1,000 ML IV.CONT SCH (13:15)
--- NOTE | 2017-12-23 13:39 | ED ---
HPI General Chief Complaint: Headache Stated Complaint: Headache Time Seen by Provider: 12/23/17 13:14 Source: patient and EMS Mode of arrival: EMS Limitations: no limitations History of Present Illness HPI Narrative: 52-year-old male that presents to the ED for evaluation of headache. Patient came here by ambulance for this. Patient reports that he has been having a headache on the right side of his head for the past 5-6 days. Per patient the pain comes and goes and it is improved with Tylenol. Per patient the pain continue. Per patient yesterday he noted some where sensation on his cheek as if he was getting numb. Per patient the numbness got worse today and he almost had a syncopal episode. His call ambulance for this. Patient denies any chest pain or shortness of breath. No urinary or bowel movement issues. No abdominal pain. No nausea or vomiting. 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 He also had a stent placed last year for heart disease. Patient is currently on Eliquis and Plavix. He states that he does feel weak on his arms and legs but states that this been going on since yesterday. Denies any other medical issues. No fevers chills or sweats. No blurred vision or double vision. Denies any slurred speech. He does not know his neurologist. Per patient the pain currently 6 out of 10 on the right side of the head. Denies any trauma. Related Data Home Medications Medication Instructions Recorded Confirmed apixaban [Eliquis] 5 mg PO BID 12/23/17 12/23/17 apixaban [Eliquis] 5 mg PO BID 12/23/17 12/23/17 atorvastatin 20 mg PO DAILY 12/23/17 12/23/17 carvedilol 3.125 mg PO DAILY 12/23/17 12/23/17 clopidogrel 75 mg PO DAILY 12/23/17 12/23/17 omeprazole 20 mg PO DAILY 12/23/17 12/23/17 Allergies Allergy/AdvReac Type Severity Reaction Status Date / Time azithromycin Allergy Severe RASH Verified 05/16/17 12:24 Review of Systems ROS: all other systems reviewed are negative [facility] Medical History Medical History CVA (cerebral vascular accident) (Acute) Heart attack (Acute) Surgical History Surgical History Stented coronary artery (Acute) Social History Social History Second Hand Smoke Exposure: Yes Smoking Status: Current every day smoker Tobacco Type: Cigarettes How Often Do You Have a Drink Containing Alcohol: Monthly or less Recent Travel in [facility] within the Last 8 Weeks: No Recent Out of Country Travel within the Last 8 Weeks: No Immunization History Tetanus Immunization: Unsure Exam Narrative Exam Narrative: GENERAL: Well appearing SKIN: Focused skin assessment warm/dry. HEAD: Atraumatic. Normocephalic. EYES: Pupils equal and round. No scleral icterus. No injection or drainage. ENT: No nasal bleeding or discharge. Mucous membranes pink and moist. Tongue is midline. No uvula deviation. NECK: Trachea midline. No JVD. CARDIOVASCULAR: Regular rate and rhythm. No murmur appreciated. RESPIRATORY: No accessory muscle use. Clear to auscultation. Breath sounds equal bilaterally. GASTROINTESTINAL: Abdomen soft, non-tender, nondistended. Hepatic and splenic margins not palpable. MUSCULOSKELETAL: No obvious deformities. No clubbing. No cyanosis. No edema. Full range of motion of the upper and lower extremities bilaterally. 2+ pulses bilaterally. NEUROLOGICAL: Awake and alert. No obvious cranial nerve deficits. Motor grossly within normal limits. Normal speech. PSYCHIATRIC: Appropriate mood and affect; insight and judgment normal. Course Initial Documented Vital Signs Temperature 98.6 F 12/23/17 13:10 Pulse Rate 83 12/23/17 13:10 Respiratory Rate 18 12/23/17 13:10 Blood Pressure 146/77 H 12/23/17 13:10 Pulse Oximetry 100 12/23/17 13:10 Last Documented Vital Signs Temperature 98.6 F 12/23/17 13:10 Pulse Rate 80 12/23/17 13:16 Respiratory Rate 17 12/23/17 13:16 Blood Pressure 146/77 H 12/23/17 13:16 Pulse Oximetry 100 12/23/17 13:18 Medical Decision Making SUZIE Attestation SUZIE supervised visit: Yes Attestation: The history, exam, and medical decision-making in the associated mid-level provider note were completed with my assistance. I reviewed and agree with the findings presented. I attest that I had a [id number] encounter with the patient on the same day, and personally performed and documented my assessment and findings in the medical record. *My assessment and Findings: 52-year-old man, history is a little bit unclear, history of strokes, now with headache and left-sided weakness. On my history he states that his previous weakness on the right side but he seems a little bit unclear. He has right sided facial numbness and left foot weakness now. He states that the headache is improved. Initial workup appears unremarkable. Limited findings on exam. He looks otherwise well. Will recommend admission for further evaluation to rule out recurrent CVA. MDM Narrative Medical decision making narrative: 52-year-old male the presents to the ED for evaluation of headache and numbness to the right side of the face. Patient was properly examined and was found to have signs and symptoms of unclear etiology with definetly concerning for possible CVA versus ICH versus presyncope. Labs and imaging were ordered. Labs and imaging showed no sign of acute disease. Case was discussed with my attending Dr. North who evaluated the patient and recommends admission for further evaluation of TIA and CVA. Tylenol given for the pain. Case discussed with Dr. sanchez who agrees to admission to his service. Medical Screen Exam Complete: Yes Emergency Medical Condition: Yes Differential Diagnosis Differential Diagnosis: CVA versus ACS versus ICH versus cephalgia versus syncope versus presyncope Medical Records Medical records reviewed: Yes I reviewed the patient's medical records. Lab Data Lab results reviewed: Yes I reviewed the patient's lab results. Lab results narrative: troponin and CKMB negative Result diagrams: 12/23/17 13:25 12/23/17 13:25 Lab Results 12/23/17 12/23/17 12/23/17 Range/Units 13:25 13:25 13:25 WBC 8.0 (4.0-11.0) th/mm3 RBC 4.91 (4.50-5.90) mil/mm3 Hgb 14.6 (13.0-17.0) gm/dL Hct 42.9 (39.0-51.0) % MCV 87.5 (80.0-100.0) fL MCH 29.8 (27.0-34.0) pg MCHC 34.1 (32.0-36.0) % RDW 13.6 (11.6-17.2) % Plt Count 196 (150-450) th/mm3 MPV 8.2 (7.0-11.0) fL Neut % (Auto) 70.7 H (16.0-70.0) % Lymph % (Auto) 19.9 (9.0-44.0) % [place] % (Auto) 6.3 (0.0-8.0) % Eos % (Auto) 2.3 (0.0-4.0) % Baso % (Auto) 0.8 (0.0-2.0) % Neut # (Auto) 5.7 (1.8-7.7) th/mm3 Lymph # (Auto) 1.6 (1.0-4.8) th/mm3 [place] # (Auto) 0.5 (0.0-0.9) th/mm3 Eos # (Auto) 0.2 (0.0-0.4) th/mm3 Baso # (Auto) 0.1 (0.0-0.2) th/mm3 WBC Differential . Differential Comment Auto diff final PT 12.0 H (9.8-11.6) sec INR 1.2 Ratio APTT 28.8 (24.3-30.1) sec Sodium 143 (136-145) meq/L Potassium 3.5 (3.5-5.1) meq/L Chloride 107 (98-107) meq/L Carbon Dioxide 23.6 (21.0-32.0) meq/L Anion Gap 12 (5-15) meq/L BUN 13 (7-18) mg/dL Creatinine 0.99 (0.60-1.30) mg/dL Estimated GFR 79 L (>89) mL/min Random Glucose 147 H (74-106) mg/dL Calcium 8.6 (8.5-10.1) mg/dL Total Bilirubin 0.4 (0.2-1.0) mg/dL AST 17 (15-37) U/L ALT 25 (12-78) U/L Alkaline Phosphatase 69 (45-117) U/L Total Creatine Kinase 165 (39-308) U/L CK-MB (CK-2) Less than 1.0 (0.5-3.6) ng/mL Troponin I Less than 0.02 L (0.02-0.05) ng/mL Total Protein 7.1 (6.4-8.2) g/dL Albumin 3.4 (3.4-5.0) g/dL Imaging Data Attestation: I personally reviewed and interpreted this imaging study as follows : Radiologist's impression: Chest X-Ray 12/23/17 13:14 CONCLUSION: No evidence of acute cardiopulmonary process. Head CT 12/23/17 13:14 CONCLUSION: 1. Negative for acute process . ECG Data Attestation: I personally reviewed and interpreted this ECG as follows: Interpretation: EKG shows sinus rhythm with no sign of acute ischemia or arrhythmia read by me and attending. CO interval of 206, ventricular rate of 80 Discharge Plan Discharge Disposition Patient Disposition: 30 Still Patient Discharge Details Diagnosis: Acute CVA (cerebrovascular accident) Physicians Team ED Provider: Elvin North ED Midlevel Provider: Paulie Baumann Primary Care Provider: Balta Sanchez Attending Provider: Dequan Mullen Other Providers: Sanford Silva Discharge Interventions Interventions: Vital Signs Last Done: 12/23/17 13:16 Status ED Status: Admitted Observation Patient
--- NOTE | 2017-12-23 13:48 | CT ---
EXAM DATE: 12/23/2017 1:44 PM EDT AGE/SEX: 52 years / Male INDICATIONS: Headache one week left facial numbness CLINICAL DATA: This is the patient's initial encounter. Patient reports that signs and symptoms have been present for 1 week and indicates a pain score of 7/10. MEDICAL/SURGICAL HISTORY: Cerebrovascular disease. Cardiovascular disease. Coronary artery stent. RADIATION DOSE: 39.33 CTDI (mGy) COMPARISON: [facility] [place], CT BRAIN W/O CONTRAST, 01/21/2017. . TECHNIQUE: CT of the head without contrast. Using automated exposure control and adjustment of the mA and/or kV according to patient size, radiation dose was kept as low as reasonably achievable to ob tain optimal diagnostic quality images. DICOM format image data is available electronically for revi ew and comparison. FINDINGS: Cerebrum: The ventricles are normal for age. No evidence of midline shift, mass lesion, hemorrhage or acute infarction. No extraaxial fluid collections are seen. Posterior Fossa: The cerebellum and brainstem are intact. The 4th ventricle is midline. The cerebe llopontine angle is unremarkable. Extracranial: The visualized portion of the orbits is intact. Skull: The calvaria is intact. No evidence of skull fracture. CONCLUSION: 1. Negative for acute process . Electronically signed by: Anthony Medina MD 12/23/2017 1:47 PM EDT
[2017-12-23 14:10] LABS: Baso # (Auto) 0.1 th/mm3 (0.0-0.2); Baso % (Auto) 0.8 % (0.0-2.0); Eos # (Auto) 0.2 th/mm3 (0.0-0.4); Eos % (Auto) 2.3 % (0.0-4.0); Hematocrit 42.9 % (39.0-51.0); Hemoglobin 14.6 gm/dL (13.0-17.0); Lymph # (Auto) 1.6 th/mm3 (1.0-4.8); Lymph % (Auto) 19.9 % (9.0-44.0); Mean Corpuscular HGB Conc 34.1 % (32.0-36.0); Mean Corpuscular Hemoglobin 29.8 pg (27.0-34.0); Mean Corpuscular Volume 87.5 fL (80.0-100.0); Mean Platelet Volume 8.2 fL (7.0-11.0); Mono # (Auto) 0.5 th/mm3 (0.0-0.9); Mono % (Auto) 6.3 % (0.0-8.0); Neut # (Auto) 5.7 th/mm3 (1.8-7.7); Neut % (Auto) 70.7 % (16.0-70.0); Platelet Count 196 th/mm3 (150-450); Red Blood Count 4.91 mil/mm3 (4.50-5.90); Red Cell Distribution Width 13.6 % (11.6-17.2)
[2017-12-23 14:24] LABS: Activated Partial Thrombo Time 28.8 sec (24.3-30.1); INR 1.2 Ratio
--- NOTE | 2017-12-23 14:26 | XR ---
EXAM DATE: 12/23/2017 2:12 PM EDT AGE/SEX: 52 years / Male INDICATIONS: Syncope today. CLINICAL DATA: This is the patient's initial encounter. Patient reports that signs and symptoms have been present for 1 day and indicates a pain score of 0/10. MEDICAL/SURGICAL HISTORY: . 2 heart attacks . 2 stents COMPARISON: [facility] [place], CHEST SINGLE AP, 05/16/2017. . FINDINGS: A single AP view of the chest demonstrates the lungs to be symmetrically aerated without evidence of mass, infiltrate or effusion. The cardiomediastinal contours are unremarkable. Osseous structures a re intact. CONCLUSION: No evidence of acute cardiopulmonary process. Electronically signed by: Demar Cleveland MD 12/23/2017 2:25 PM EDT
[2017-12-23 14:41] LABS: Alanine Aminotransferase 25 U/L (12-78); Albumin 3.4 g/dL (3.4-5.0); Alkaline Phosphatase 69 U/L (45-117); Anion Gap 12 meq/L (5-15); Aspartate Aminotransferase 17 U/L (15-37); Blood Urea Nitrogen 13 mg/dL (7-18); Calcium 8.6 mg/dL (8.5-10.1); Carbon Dioxide 23.6 meq/L (21.0-32.0); Chloride 107 meq/L (98-107); Creatine Kinase 165 U/L (39-308); Glomerular Filtration Rate 79 mL/min (>89); Glucose,Random 147 mg/dL (74-106); Potassium 3.5 meq/L (3.5-5.1); Sodium 143 meq/L (136-145); Total Protein 7.1 g/dL (6.4-8.2)
[2017-12-23] MEDS ORDERED: Acetaminophen 325 MG Tablet PO ONE (15:46)
[2017-12-23] MEDS ORDERED: Bisacodyl 10 MG Supp RECTAL PRN ×2 (16:24→16:27)
[2017-12-23] MEDS ORDERED: Acetaminophen 325 MG Tablet PO PRN (16:27)
[2017-12-23 17:49] LABS: Creatine Kinase 147 U/L (39-308)
[2017-12-23] MEDS: Senna/Docusate Sodium 8.6/50 MG Tablet PO SCH (20:35)
[2017-12-23] MEDS ORDERED: Senna/Docusate Sodium 8.6/50 MG Tablet PO SCH (21:00)
--- NOTE | 2017-12-24 00:27 | MH ---
cc: Balta Sanchez MD DATE OF ADMISSION: 12/23/2017 CHIEF COMPLAINT: Headache, right-sided, severe weakness, almost getting black out and loss of vision for a few seconds. HISTORY OF PRESENT ILLNESS: This is a 52-year-old male, my patient from the office, has a past medical and surgical history significant for coronary artery disease. He had a stent placement in the heart and also had a CPR done in the past and also had stroke in the past. History of hypertension and hyperlipidemia. He is a smoker. Complaining of headache on the right side and feeling of very extremely weak and tired, and he said he lost vision for a few seconds and looked like he was almost getting passed out, and he also felt weak in all extremities, but he did not fall or hit on the head. He said these things happened 3 times at home, and called 911, and the patient was brought up to the ER at [facility] for further evaluation and management. He said that he has a headache going on for the last 1-2 days. The patient's pain comes and goes with Tylenol. He feels like he is getting numb. He is unable to speak, but he denies any chest pain, shortness of breath, any nausea, vomiting, diarrhea, any fever or chills. He has had CVA with left-sided weakness in the past. He is currently on Eliquis and Plavix, seen in cardiology by Dr. Olga Lidia Allen. When I examined the patient, the patient only had mild headache which is 3-4/10 and right-sided. He denies any numbness, denies any weakness, denies any difficulty of hearing or blurred vision. He denies any other neurological symptoms. Other than that, nothing significant at the time of examination. PAST MEDICAL HISTORY: As dictated above. PAST SURGICAL HISTORY: Coronary stenting placement. SOCIAL HISTORY: He is a smoker, and he does not drink alcohol or drug abuse. He lives at home. He is with kids. ALLERGIES: ERYTHROMYCIN. MEDICATIONS: 1. Eliquis 5 mg twice a day. 2. Lipitor 20 mg p.o. daily. 3. Carvedilol 3.125 mg p.o. twice a day. 4. Plavix 75 mg p.o. daily. 5. Protonix 40 mg p.o. daily. REVIEW OF SYSTEMS: All review of systems are negative at the time of examination except for headache. PHYSICAL EXAMINATION: GENERAL: This is a 52-year-old male, lying on the bed, not in acute distress. VITAL SIGNS: Temperature 98.2, heart rate 61, respirations 22, blood pressure 121/59, O2 saturation 95% on room air. HEENT: Normocephalic, atraumatic. EOMI. PERRLA. Oral mucosa moist. NECK: Supple. No visible thyromegaly or neck masses. Trachea central. CVS: Regular rate and rhythm. LUNGS: Clear to auscultation bilaterally. ABDOMEN: Soft, nontender. Bowel sounds present. EXTREMITIES: No cyanosis, no clubbing. Full range of motion for extremities. NEUROLOGIC: Awake, alert and oriented x4. No focal deficits. SKIN: Warm and dry. PSYCHIATRIC: The patient is cooperative. Mood and affect are normal. LABORATORY DATA: CBC is totally unremarkable. BMP totally unremarkable except for GFR 79, low. Glucose random 147, high. Troponin I less than 0.02. Total protein 7.1, normal; albumin 3.4, normal. PT 12.0, INR 1.2, APTT 28.8. CT brain was done, shows nothing acute. Cerebellum and ventricle are normal for age. No evidence of midline shift, mass lesion, hemorrhage, or acute infarction. No extraaxial collection of fluid seen. Chest x-ray was done, shows no evidence of acute cardiopulmonary process. ASSESSMENT AND PLAN: This is a 52-year-old male diagnosed with: 1. Sudden loss of vision and unable to speak, which is totally resolved, most likely a transient ischemic attack. Secondary exam: Not anything acute. Neuro check every 4 hours, Neurology consulted. Further recommendation per Neurology. The patient on Plavix and Eliquis. 2. History of hypertension. Continue home medications. 3. Patient has history of coronary artery disease. Continue home medications. 4. History of hyperlipidemia. Continue with home medications. 5. Deep venous thrombosis prophylaxis. The patient is on Eliquis. 6. Gastrointestinal prophylaxis. Protonix 40 mg p.o. daily. 7. History of anxiety and depression. 8. Headache. The patient is on Tylenol. we manage the patient on daily basis and make recommendation on a daily basis. Balta Sanchez MD EA/carlos/ , 10:56 PM , 11:11 PM MTDWalt
[2017-12-24 03:48] LABS: Bilirubin,Urine Negative (Negative); Clarity,Urine Clear (Clear); Color,Urine Straw (Yellw/Straw); Glucose,Urine (UA) Negative (Negative); Leukocyte Esterase,Urine Negative (Negative); Nitrite,Urine Negative (Negative); Specific Gravity,Urine 1.006 (1.002-1.035)
--- NOTE | 2017-12-24 06:42 | P.PN ---
Subjective Interval history: Patient complaints right side headache. and chest pain cardiology consulted and nitropaste started and checked EKG. Physical Exam Vital signs: Vital Signs 12/23/17 13:10 12/23/17 13:16 12/23/17 13:18 Temperature 98.6 F Pulse Rate 83 80 Respiratory Rate 18 17 Blood Pressure 146/77 H 146/77 H Pulse Oximetry 100 100 100 12/23/17 17:14 12/23/17 17:59 12/23/17 19:44 Temperature 97.9 F 98.2 F Pulse Rate 67 62 61 Respiratory Rate 17 18 22 Blood Pressure 117/78 123/71 121/59 L Pulse Oximetry 98 97 95 12/23/17 20:00 12/24/17 00:00 12/24/17 04:00 Temperature 98.1 F 97.5 F L Pulse Rate 64 71 Respiratory Rate 19 20 Blood Pressure 124/68 112/66 Pulse Oximetry 98 95 98 Intake & Output 12/23/17 12/23/17 12/24/17 06:59 18:59 06:59 Intake Total 1000 / 1000 Balance 1000 / 1000 Weight 89.35 kg 88.4 kg Intake: IV 1000 / 1000 NS Inj 1,000 ML @ 70 mls/hr IV. 1000 / 1000 CONT .[id number] [facility] Rx#:[id number] Other: # Voids 4 Date of Last Bowel Movement 12/23/17 Weight On Admission 89.35 kg - Constitutional no acute distress - Routine HEENT Exam Head: Present: normocephalic, atraumatic Eye: Present: EOMI, PERRL ENT: Present: mucous membranes moist - Routine Neck Exam Present: supple, full ROM - Routine Respiratory Exam Present: CTA bilaterally - Routine Cardiovascular Exam Present: RRR, S1, S2 - Routine Abdominal Exam Present: soft, normoactive bowel sounds - Routine Extremities Exam Present: full ROM - Routine Skin Exam Present: intact, dry, warm - Routine Neurological Exam Present: alert, oriented X3, CN II-XII intact, moving all extremities, normal tone, vision grossly intact, normal speech - Detailed Neurological Exam: Coma Scale Eye Opening: Spontaneous Verbal Response: Oriented Motor Response: Obey commands Olivia Coma Scale Total: 15 - Routine Psychiatric Exam Present: normal affect, normal thought process, good judgment Results - Labs CBC & Chem 7: 12/24/17 07:06 12/24/17 07:06 Laboratory Results - last 24 hr 12/23/17 12/23/17 12/23/17 13:25 13:25 13:25 WBC 8.0 RBC 4.91 Hgb 14.6 Hct 42.9 MCV 87.5 MCH 29.8 MCHC 34.1 RDW 13.6 Plt Count 196 MPV 8.2 Neut % (Auto) 70.7 H Lymph % (Auto) 19.9 [place] % (Auto) 6.3 Eos % (Auto) 2.3 Baso % (Auto) 0.8 Neut # (Auto) 5.7 Lymph # (Auto) 1.6 [place] # (Auto) 0.5 Eos # (Auto) 0.2 Baso # (Auto) 0.1 WBC Differential . Differential Comment Auto diff final PT 12.0 H INR 1.2 APTT 28.8 Sodium 143 Potassium 3.5 Chloride 107 Carbon Dioxide 23.6 Anion Gap 12 BUN 13 Creatinine 0.99 Estimated GFR 79 L Random Glucose 147 H Calcium 8.6 Total Bilirubin 0.4 AST 17 ALT 25 Alkaline Phosphatase 69 Total Creatine Kinase 165 CK-MB (CK-2) Less than 1.0 Troponin I Less than 0.02 L Total Protein 7.1 Albumin 3.4 Urine Color Urine Clarity Urine pH Ur Specific [place] Urine Protein Urine Glucose (UA) Urine Ketones Urine Occult Blood Urine Nitrate Urine Bilirubin Urine Urobilinogen Ur Leukocyte Esterase Urine RBC Urine WBC Micro UA Comment Ur Microscopic Review Urine Culture Comments 12/23/17 12/24/17 17:12 03:30 WBC RBC Hgb Hct MCV MCH MCHC RDW Plt Count MPV Neut % (Auto) Lymph % (Auto) [place] % (Auto) Eos % (Auto) Baso % (Auto) Neut # (Auto) Lymph # (Auto) [place] # (Auto) Eos # (Auto) Baso # (Auto) WBC Differential Differential Comment PT INR APTT Sodium Potassium Chloride Carbon Dioxide Anion Gap BUN Creatinine Estimated GFR Random Glucose Calcium Total Bilirubin AST ALT Alkaline Phosphatase Total Creatine Kinase 147 CK-MB (CK-2) Troponin I Less than 0.02 L Total Protein Albumin Urine Color Straw Urine Clarity Clear Urine pH 7.0 Ur Specific [place] 1.006 Urine Protein Negative Urine Glucose (UA) Negative Urine Ketones Negative Urine Occult Blood Small H Urine Nitrate Negative Urine Bilirubin Negative Urine Urobilinogen Less than 2 Ur Leukocyte Esterase Negative Urine RBC 1 Urine WBC Less than 1 Micro UA Comment Culture not ind Ur Microscopic Review Not Reportable Urine Culture Comments Culture not ind - Imaging Impressions Chest X-Ray 12/23/17 13:14 CONCLUSION: No evidence of acute cardiopulmonary process. Head CT 12/23/17 13:14 CONCLUSION: 1. Negative for acute process . Assessment and Plan - Plan ASSESSMENT AND PLAN: This is a 52-year-old male diagnosed with: 1. Sudden loss of vision and unable to speak, which is totally resolved, most likely a transient ischemic attack. Secondary exam: Not anything acute. Neuro check every 4 hours, Neurology Input noted. Checking MRI/ MRA of brain and MRA of carotid and EEG. Further recommendation per Neurology. The patient on Plavix and Eliquis. 2. History of hypertension. Continue home medications. 3. Patient has history of coronary artery disease. Continue home medications. 4. History of hyperlipidemia. Continue with home medications. 5. Deep venous thrombosis prophylaxis. The patient is on Eliquis. 6. Gastrointestinal prophylaxis. Protonix 40 mg p.o. daily. 7. History of anxiety and depression. 8. Headache. The patient is on Tylenol. 9. chest pain cardiology consulted and nitropaste started and checked EKG. we manage the patient on daily basis and make recommendation on a daily basis.
[2017-12-24 07:44] LABS: Baso % (Auto) 0.7 % (0.0-2.0); Eos # (Auto) 0.3 th/mm3 (0.0-0.4); Eos % (Auto) 4.2 % (0.0-4.0); Hematocrit 44.4 % (39.0-51.0); Hemoglobin 14.6 gm/dL (13.0-17.0); Lymph # (Auto) 1.8 th/mm3 (1.0-4.8); Lymph % (Auto) 26.8 % (9.0-44.0); Mean Corpuscular HGB Conc 32.8 % (32.0-36.0); Mean Corpuscular Hemoglobin 29.5 pg (27.0-34.0); Mean Corpuscular Volume 90.2 fL (80.0-100.0); Mean Platelet Volume 8.3 fL (7.0-11.0); Mono # (Auto) 0.4 th/mm3 (0.0-0.9); Mono % (Auto) 6.3 % (0.0-8.0); Neut # (Auto) 4.2 th/mm3 (1.8-7.7); Platelet Count 149 th/mm3 (150-450); Red Blood Count 4.93 mil/mm3 (4.50-5.90); Red Cell Distribution Width 13.5 % (11.6-17.2); White Blood Count 6.7 th/mm3 (4.0-11.0)
[2017-12-24 08:12] LABS: Alanine Aminotransferase 23 U/L (12-78); Albumin 3.2 g/dL (3.4-5.0); Anion Gap 9 meq/L (5-15); Aspartate Aminotransferase 16 U/L (15-37); Blood Urea Nitrogen 9 mg/dL (7-18); Calcium 8.4 mg/dL (8.5-10.1); Carbon Dioxide 25.6 meq/L (21.0-32.0); Chloride 108 meq/L (98-107); Glomerular Filtration Rate 81 mL/min (>89); Glucose,Random 127 mg/dL (74-106); Potassium 3.7 meq/L (3.5-5.1); Sodium 143 meq/L (136-145)
[2017-12-24 08:17] LABS: Alkaline Phosphatase 62 U/L (45-117); Creatine Kinase 128 U/L (39-308); Total Protein 6.6 g/dL (6.4-8.2)
[2017-12-24] MEDS: Pantoprazole Sodium 20 MG DR Tablet PO SCH (09:17)
[2017-12-24] MEDS: Senna/Docusate Sodium 8.6/50 MG Tablet PO SCH ×2 (09:17→20:55)
[2017-12-24 10:36] LABS: Free T4 (Free Thyroxine) 1.15 ng/dL (0.76-1.46); Thyroid Stimulating Hormone 0.694 uIU/mL (0.358-3.740)
--- NOTE | 2017-12-24 10:44 | MB ---
cc: Sanford Barboza MD DATE: 12/24/2017 HISTORY OF PRESENT ILLNESS: This is a 52-year-old right-handed man with hypertension, noninsulin dependent diabetes, hypercholesterolemia, 2 MIs, stents. He is on Eliquis by Dr. Erickson, 5 mg b.i.d. along with Plavix. He says he had a stroke in 2009 with some rub numbness on the right side of his face, which never fully resolved. For the last 6 days, he had a headache on the right side of his head, which is unusual for him. Then, yesterday he was sitting on the couch, felt like he might pass out, it lasted about 5 or 6 minutes. His blood pressure was 165/105. He took a nitro and that happened 2 other times again where he felt like he might pass out and his vision got somewhat blurry. He said he could not see his well. No chest pain or palpitations with that. He has never had a seizure. No odd smells, taste, osmin vu, woken up and wet the bed or bit his tongue. Blood pressure is 165/105 with a pulse of 110 one time during the episode yesterday. He did not actually pass out, he tells me. REVIEW OF SYSTEMS: He denied any atrial fibrillation, although he is on Eliquis. Denied any history of renal, hepatic, pulmonary disease, thyroid disease, lupus, ulcer, cancer, seizure. SOCIAL HISTORY: Occasionally has a cigarette and I have asked him to stop. He is not a drinker, lives with his . FAMILY HISTORY: Negative for cancer. Positive for seizures in his daughter. Negative for stroke. MEDICATIONS AT HOME: 1. Omeprazole 2. Plavix. 3. Carvedilol. 4. Atorvastatin. 5. Eliquis 5 b.i.d. PHYSICAL EXAMINATION: VITAL SIGNS: Sinus rhythm here. Afebrile 70,120, 112/66 to 146/77. NECK: There are no carotid bruits. HEART: Regular rate and rhythm. I did not detect a murmur. Temples are nontender. NEUROLOGIC: Pupils are equal. Visual khan are full. Extraocular movements intact without nystagmus. Face is symmetric with decreased sensation on the right forehead compared to the left, although he can feel pinprick. There is slightly less on the right than the left. Face was symmetric with normal. Face is symmetric. Tongue was midline. There is no drift. He had normal strength in upper and lower extremities bilaterally. DTRs are trace throughout. Toes are downgoing bilaterally. Pinprick and vibratory sense otherwise intact throughout. He is not ataxic on [id number]. Speech is fluent. He is not aphasic. LABORATORIES: CBC is normal. UA negative. Basic metabolic profile was essentially normal. LFTs normal. Calcium, troponin, albumin, CBC, coags all negative. He had a CT scan of his brain that is read as negative for acute process. Review of the films essentially normal. IMPRESSION: He has had some old right-sided numbness and a new onset headache for the last week. Whether that could be due to some hypertension is unclear. He still has a little bit of a headache. It is unclear whether he could be developing some migraines, although it has really just started 6 days ago. We can check a sedimentation rate on him, although his temples are nontender. Check an MRI of the brain. I think we probably will not find very much here. we can check an EEG. I defer to the med team is I think cardiology needs to see him. Continue him on his anticoagulants. I thought overall he looked well neurologically here. We will check an MRA of the neck and [place] of [place]. Whether he needs a prolonged heart monitor for possible presyncope would defer to the medical team and want to get cardiology involved. MD SUSIE Torres/clark , 08:11 AM , 08:24 AM
--- NOTE | 2017-12-24 13:53 | MR ---
EXAM DATE: 12/24/2017 1:46 PM EDT AGE/SEX: 52 years / Male INDICATIONS: Cephalgia. CLINICAL DATA: This is the patient's subsequent encounter. Patient reports that signs and symptoms h ave been present for 1 week and indicates a pain score of 3/10. MEDICAL/SURGICAL HISTORY: . CVA, TIA Tonsillectomy. Cholecystectomy. Inguinal hernia repair. cardiac stent 2017, right hand surgery COMPARISON: [facility], MR HEAD W & W/O CONTRAST, 12/24/2017. . TECHNIQUE: 3D [id number] MRA was performed. Source images, multiplanar STS MIP, and 3D volum e MIP reconstructions were reviewed. FINDINGS: There is excellent visualization of the major intracranial arteries out to the second-order branch ve ssels. There is no evidence for aneurysm, vessel truncation or stenosis, and no evidence for vascula r malformation. CONCLUSION: 1. Negative MRA [place] ([place]) non contrast. Electronically signed by: Demar Cleveland MD 12/24/2017 1:52 PM EDT
--- NOTE | 2017-12-24 14:05 | MR ---
EXAM DATE: 12/24/2017 2:03 PM EDT AGE/SEX: 52 years / Male INDICATIONS: Cephalgia. CLINICAL DATA: This is the patient's subsequent encounter. Patient reports that signs and symptoms h ave been present for 1 week and indicates a pain score of 3/10. MEDICAL/SURGICAL HISTORY: . CVA, TIA Tonsillectomy. Cholecystectomy. Inguinal hernia repair. cardiac stent 2017, right hand [place] [facility] [place] [facility] [place] 12[place]23/2017. . TECHNIQUE: Multiplanar, multisequence examination of the brain was performed without and with 10 ml G adavist (gadobutrol) contrast as a single exam dose. FINDINGS: There is no evidence for acute infarction on diffusion-weighted images. CSF spaces, ventricles and ci sterns are of normal size and configuration. The signal intensity of the brain is normal on T1 and T2 -weighted images. No hemorrhage, infarct, or mass. CONCLUSION: 1. Negative MR Brain with and without contrast. Electronically signed by: Tommy Kelley MD 12/24/2017 2:04 PM EDT
[2017-12-24 14:47] LABS: Anti-Nuclear Antibody Screen Neg (Neg)
--- NOTE | 2017-12-24 15:03 | MR ---
EXAM DATE: 12/24/2017 2:48 PM EDT AGE/SEX: 52 years / Male INDICATIONS: . Cephalgia. CLINICAL DATA: This is the patient's subsequent encounter. Patient reports that signs and symptoms h ave been present for 1 week and indicates a pain score of 3/10. MEDICAL/SURGICAL HISTORY: . CVA, TIA Tonsillectomy. Cholecystectomy. Inguinal hernia repair. cardiac stent 2016, right hand surgery COMPARISON: [facility] [place], MRI SCREENING SPINE W & W/O CONTRAST, 05/17/2017. C, MRA HEAD W/O CONTRAST, 03/2018. C, MR HEAD W & W/O CONTRAST, 12/24/2017. C, CT HEAD W/O CONTRAST, 12/23/2017. . TECHNIQUE: 10 ml Gadavist (gadobutrol) contrast infused MRA (single exam dose) of the extracranial circulation was performed using a neurovascular coil. Postprocessing was performed, including rotati ng sub-volume maximum intensity projections of each carotid artery, rotating full-volume maximum inte nsity projections of both carotid arteries, sagittal and coronal sliding thin-slab reformations of ea ch carotid artery, and left oblique sliding thin-slab reformation through the aortic arch to include the origin of the arch branch vessels. FINDINGS: Aortic Arch : There is a three-vessel origin of the great vessels from the aorta. No evidence of o stial narrowing. Right Carotid : The common carotid artery is intact. The carotid bulb has a normal configuration wi thout ulceration or narrowing. The internal carotid artery lumen is smooth without stenosis. The ex ternal carotid artery is intact. Left Carotid : The common carotid artery is intact. The carotid bulb has a normal configuration wit hout ulceration or narrowing. The internal carotid artery lumen is smooth without stenosis. The ext ernal carotid artery is intact. Vertebrals : The vertebral arteries have a symmetric diameter. No stenotic lesions are seen. CONCLUSION: 1. Negative MRA Carotids. Percent stenosis is calculated using the diameter of the stenotic region over the diameter of the nor mal distal internal carotid artery Electronically signed by: Tommy Kelley MD 12/24/2017 3:01 PM EDT
--- NOTE | 2017-12-24 15:06 | ECG ---
Date Performed: 12/23/2017 Time Performed: 13:15:26 PTAGE: 52 years EKG: Sinus rhythm LOW QRS VOLTAGE IN PRECORDIAL LEADS SEPTAL MYOCARDIAL INFARCTION PREVIOUS TRACING : 05/16/2017 16.11 DOCTOR: Elvin Badillo Interpretating Date/Time 12/24/2017 15:04:29
[2017-12-24] MEDS ORDERED: Gadobutrol PF 2 MMOL/2 ML Vial (for RAD) IV.SIG ONE (16:18)
[2017-12-24] MEDS ORDERED: Gadobutrol PF 10 MMOL/10 ML Vial (for RAD) IV.SIG ONE (16:18)
[2017-12-24 19:41] VITALS: RESP 16
--- NOTE | 2017-12-25 07:09 | P.PNNEU ---
Subjective Active Medications: Active Medications Acetaminophen (Tylenol) 650 mg PO Q4H PRN PRN Reason: Temp > 100.4 Last Admin: 12/24/17 16:09 Dose: 650 mg Al Hydroxide/Mg Hydroxide (Milk Of Magnesia Liq) 30 ml PO Q12H PRN PRN Reason: Mild Constipation Apixaban (Eliquis) 5 mg PO BID [facility] Last Admin: 12/24/17 20:52 Dose: 5 mg Atorvastatin Calcium (Lipitor) 20 mg PO DAILY [facility] Last Admin: 12/24/17 09:16 Dose: 20 mg Bisacodyl (Dulcolax Supp) 10 mg RECTAL DAILY PRN PRN Reason: SEVERE CONSITIPATION Carvedilol (Coreg) 3.125 mg PO DAILY [facility] Last Admin: 12/24/17 09:17 Dose: 3.125 mg Clopidogrel Bisulfate (Plavix) 75 mg PO DAILY [facility] Last Admin: 12/24/17 09:16 Dose: 75 mg Lactulose (Lactulose Liq) 30 ml PO DAILY PRN PRN Reason: SEVERE CONSITIPATION Nitroglycerin (Nitro-Bid 2% Oint) 0.5 inch TOPICAL Q6H PRN PRN Reason: CHEST PAIN Last Admin: 12/24/17 18:52 Dose: 0.5 inch Ondansetron HCl (Zofran Inj) 4 mg IV.PUSH Q6H PRN PRN Reason: NAUSEA OR VOMITING Pantoprazole Sodium (Protonix) 20 mg PO DAILY [facility] Last Admin: 12/24/17 09:17 Dose: 20 mg Senna/Docusate Sodium (Camila-Colace) 1 tab PO BID [facility] Last Admin: 12/24/17 20:55 Dose: Not Given Sennosides (Senokot) 17.2 mg PO Q12H PRN PRN Reason: Moderate Constipation Sodium Chloride (Ns Flush) 2 ml IV.FLUSH PRN PRN PRN Reason: FLUSH AFTER USING IV ACCESS Allergies/Adverse Reactions: Allergies Allergy/AdvReac Type Severity Reaction Status Date / Time azithromycin Allergy Severe RASH Verified 05/16/17 12:24 Physical Exam Vital signs: Vital Signs 12/24/17 08:00 12/24/17 12:00 12/24/17 12:22 Temperature 97.8 F 97.9 F 97.9 F Pulse Rate 64 69 70 Respiratory Rate 18 18 18 Blood Pressure 120/61 108/70 119/57 L Pulse Oximetry 96 97 95 12/24/17 16:00 12/24/17 19:40 12/25/17 00:00 Temperature 98.9 F 98.7 F 98.7 F Pulse Rate 66 73 71 Respiratory Rate 18 16 16 Blood Pressure 118/72 122/70 112/56 L Pulse Oximetry 96 95 97 12/25/17 03:48 Temperature 98.7 F Pulse Rate 63 Respiratory Rate 16 Blood Pressure 108/66 Pulse Oximetry 97 Intake & Output 12/24/17 12/25/17 12/25/17 18:59 06:59 18:59 Output Total 1650 / 1650 Balance -1650 / -1650 Output: Urine 1650 / 1650 Other: # Voids 3 Narrative: awake alert speech nl moves well Objective Laboratory Results - last 24 hr 12/24/17 12/24/17 12/24/17 07:06 07:06 08:55 WBC 6.7 RBC 4.93 Hgb 14.6 Hct 44.4 MCV 90.2 MCH 29.5 MCHC 32.8 RDW 13.5 Plt Count 149 L MPV 8.3 Neut % (Auto) 62.0 Lymph % (Auto) 26.8 [place] % (Auto) 6.3 Eos % (Auto) 4.2 H Baso % (Auto) 0.7 Neut # (Auto) 4.2 Lymph # (Auto) 1.8 [place] # (Auto) 0.4 Eos # (Auto) 0.3 Baso # (Auto) 0.0 WBC Differential . Differential Comment Auto diff final ESR Sodium 143 Potassium 3.7 Chloride 108 H Carbon Dioxide 25.6 Anion Gap 9 BUN 9 Creatinine 0.97 Estimated GFR 81 L Random Glucose 127 H Calcium 8.4 L Total Bilirubin 0.6 AST 16 ALT 23 Alkaline Phosphatase 62 Total Creatine Kinase 128 Troponin I Less than 0.02 L Total Protein 6.6 Albumin 3.2 L Vitamin B12 1164 H TSH 0.694 Free T4 1.15 NILAY Screen RPR 12/24/17 12/24/17 08:55 09:01 WBC RBC Hgb Hct MCV MCH MCHC RDW Plt Count MPV Neut % (Auto) Lymph % (Auto) [place] % (Auto) Eos % (Auto) Baso % (Auto) Neut # (Auto) Lymph # (Auto) [place] # (Auto) Eos # (Auto) Baso # (Auto) WBC Differential Differential Comment ESR 9 Sodium Potassium Chloride Carbon Dioxide Anion Gap BUN Creatinine Estimated GFR Random Glucose Calcium Total Bilirubin AST ALT Alkaline Phosphatase Total Creatine Kinase Troponin I Total Protein Albumin Vitamin B12 TSH Free T4 NILAY Screen Neg RPR Nonreactive Review/Management - Review/Management Plan: imp mri/a/a and eeg and all labs neg standign bp ok minimal erazo this am he can dc neurowise as far as presyncope med team consider cards nursing states no arrythmia overnoc if erazo continue he can call my office
--- NOTE | 2017-12-25 07:38 | MG ---
cc: Sanford Barboza MD DATE: 12/24/2017. ELECTROENCEPHALOGRAM NUMBER: [id number]. INDICATIONS: A 52-year-old man, headache on the right side, history of stroke, left-sided weakness including synchronous and symmetric. No epileptiform or seizure activity is noted. The patient falls asleep, but does not quite reach stage II sleep. No epileptiform or seizure activity was noted. There were no hemisphere asymmetries. Photic stimulation is performed without significant posterior driving. Hyperventilation was not performed. IMPRESSION: Normal awake and sleep electroencephalogram. No evidence for a focal or diffuse abnormality. MD SUSIE Torres/dina , 04:56 PM , 05:01 PM
[2017-12-25 07:53] VITALS: TEMP 98.4
[2017-12-25] MEDS: Pantoprazole Sodium 20 MG DR Tablet PO SCH (09:06)
[2017-12-25] MEDS: Senna/Docusate Sodium 8.6/50 MG Tablet PO SCH (09:06)
[2017-12-25 12:08] VITALS: BP 116/59; PULSE 66; O2SAT 97
--- NOTE | 2017-12-25 19:03 | ECG ---
Date Performed: 12/24/2017 Time Performed: 16:33:41 PTAGE: 52 years EKG: Sinus rhythm WITH FIRST DEGREE AV BLOCK SEPTAL MYOCARDIAL INFARCTION ABNORMAL ECG PREVIOUS TRACING : 12/23/2017 13.15 Since the previous tracing, no significant change noted DOCTOR: Jass Hurst Interpretating Date/Time 12/25/2017 19:01:26
--- NOTE | 2017-12-27 23:10 | MD ---
cc: Balta Sanchez MD DATE OF DISCHARGE: 12/25/2017 Okay to discharge the patient home. CONDITION AT THE TIME OF DISCHARGE: Satisfactory. ACTIVITY: As tolerated. DIET: Cardiac diet. ALLERGIES: AZITHROMYCIN. DISCHARGE MEDICATIONS: Include: 1. Eliquis 5 mg twice a day. 2. Lipitor 20 mg p.o. daily. 3. Carvedilol 3.125 mg p.o. daily. 4. Plavix 75 mg p.o. daily. 5. Omeprazole 20 mg p.o. daily. HOSPITAL COURSE: The patient seen by Neurology, advised to follow up with Dr. Sanford Barboza and patient also need to see Cardiology. ADMITTING DIAGNOSIS: Unable to see for a second, numbness on the right side of the face and head, almost getting passed out, and also feeling extremely weak and tired. DISCHARGE DIAGNOSIS: Most likely transient ischemic attack which has resolved. DIAGNOSTIC STUDIES: The patient had MRI/MRA of the brain and EEG and MRI/MRA of the carotid all negative. Okay to discharge per Neurology. Other comorbidities include history of coronary artery disease, history of stroke in the past, history of hyperlipidemia, history of GERD, history of anxiety and depression, and also history of smoking. HOSPITAL COURSE: This is a 52-year-old man, is a patient of my office, came to the ER at [facility] complaining of headache on right side and feeling very extremely weak and tired and lost vision for a second and looked like almost getting passed out. This happened 3 times at home and called 911 and the patient was brought to [facility] and the patient was admitted for further evaluation and management. All symptoms resolved within 45 minutes, except for headache. The patient is complaining of chest pain during the hospital stay. Cardiology was consulted, but the patient wants to go home and the patient went to see Cardiology as an outpatient. The patient had no other symptom or complaint other than a headache during hospital stay and chest pain. LABORATORY DATA: The patient's laboratory data shows normal WBC count of 6.7, normal hemoglobin 14.6, normal hematocrit 42.9. The patient had an INR of 1.2 with a PT of 12.0 with APTT of 28.8. The patient has mild high chloride of 108. Patient's blood sugar is 127 random which was high. Cardiac enzymes and troponin I done x2 was 0.02. Patient's TSH and T4 were normal. B12 was 1164, which was high. Methylmalonic acid level was pending. Urine examination shows small occult blood. NILAY screen negative. RPR nonreactive. Patient's CT scan of the brain was normal. The patient MRI/MRA of the brain and MRA of the neck, all are within normal limits, nothing acute. The patient had EEG done in the hospital, which was normal. The patient had chest pain during hospital stay. The patient remained stable otherwise in the hospital. Patient's EKG done shows nothing acute. The patient is discharged in satisfactory condition. The patient advised to quit smoking. The patient still has a complaint of headache and the patient will see Neurology and Cardiology as an outpatient and wants to go home, so the patient was discharged home. Further detail in the medical record. Balta Sanchez MD EA/janeen , 04:25 PM , 04:34 PM
== END 2017-12-25 16:59 | disposition home or self-care (01) ==
LOC: NEDA 12:59 → NEPE 12:59 → NEDA 18:05 → NEPHCDU 18:06
PROVIDERS: ADMIT Family Medicine; ATTEND Family Medicine